=== PATIENT | female | born 1980 | race African-American/Black ===

== ENCOUNTER 2016-11-13 23:24 | Emergency (ER) | payer OTHER ==
[2016-11-14 00:20] VITALS: TEMP 98.3; BMI 45.8
[2016-11-14] MEDS ORDERED: SODIUM CHLORIDE 1,000 ML IV STA ×2 (00:36→05:40)
--- NOTE | 2016-11-14 00:36 | PDOC ---
History of Present Illness - General Chief Complaint: Blood Sugar Problem Stated Complaint: BLOOD SUGAR PROBLEM Time Seen by Provider: 11/13/16 23:57 History Source: Patient - History of Present Illness Initial Comments: 11/14/16 00:35 36 year old female zenon IDDM c/o hyperglycemia, drymouth, polyuria today. BGM at home read high. patient reports drinking "frappe" today. denies NVD, abdominal pain. Past History - Past Medical History Allergies/Adverse Reactions: Allergies Allergy/AdvReac Type Severity Reaction Status Date / Time fish derived Allergy Verified 04/02/16 01:01 hazelnut Allergy Verified 04/02/16 01:01 latex Allergy Verified 04/02/16 01:01 soy Allergy Verified 04/02/16 01:01 Home Medications: Ambulatory Orders Gabapentin [Neurontin] 300 mg PO BID 04/02/16 Insulin (LOG) Aspart [NovoLOG -] 12 units SQ AC 04/02/16 Insulin Aspart [Novolog] 14 unit SQ BID 04/02/16 Metformin HCl [Glucophage] 500 mg PO BID 04/02/16 Metoprolol Tartrate [Lopressor -] 50 mg PO DAILY 04/02/16 Alpha Lipoic Acid 1,000 gm PO DAILY 11/14/16 Famotidine [Pepcid -] 40 mg PO DAILY 11/14/16 Gabapentin 600 mg PO HS 11/14/16 Hydromorphone [Dilaudid -] 4 mg PO Q6H 11/14/16 Venlafaxine HCl ER [Effexor Xr -] 75 mg PO DAILY 11/14/16 Anemia: Yes Asthma: Yes Cardiac Disorders: No COPD: No Dementia: No Diabetes: Yes (IDDM) HTN: Yes (DIET CONTROLLED) - Immunization History Immunization Up to Date: Yes - Psycho/Social/Smoking Cessation Hx Anxiety: No Suicidal Ideation: No Smoking Status: Yes Smoking History: Never smoked Have you smoked in the past 12 months: No Number of Cigarettes Smoked Daily: 10 If you are a former smoker, when did you quit?: 2016 'Breaking Loose' booklet given: 11/23/15 Hx Alcohol Use: No Drug/Substance Use Hx: No Substance Use Type: None Hx Substance Use Treatment: No Review of Systems - Review of Systems Able to Perform ROS?: Yes Is the patient limited Greek proficient: No Respiratory: No: Symptoms reported, See HPI, Cough, Orthopnea, Shortness of Breath, SOB with Exertion, SOB at Rest, Stridor, Wheezing, Productive cough, Hemoptysis, Other ABD/GI: Yes: Other. No: Symptoms Reported, See HPI, Abdominal Distended, Abd. Pain w/ defecation, Blood Streaked Bowels, Constipated, Diarrhea, Difficulty Swallowing, Nausea, Poor Appetite, Poor Fluid Intake, Rectal Bleeding, Vomiting , Indigestion, Abdominal cramping, Tarry Stools Musculoskeletal: Yes: Back Pain. No: Symptoms Reported, See HPI, Gout, Joint Pain, Joint Swelling, Muscle Pain, Muscle Weakness, Neck Pain, Joint Stiffness, Other *Physical Exam - Vital Signs Last Vital Signs Temp Pulse Resp BP Pulse Ox 98.3 F 90 16 109/78 98 11/13/16 23:50 11/13/16 23:50 11/13/16 23:50 11/13/16 23:50 11/13/16 23:50 - Physical Exam General Appearance: Yes: Appropriately Dressed Respiratory/Chest: positive: Lungs Clear, Normal Breath Sounds Cardiovascular: positive: Regular Rhythm, Regular Rate Gastrointestinal/Abdominal: positive: Normal Bowel Sounds, Soft Extremity: positive: Pelvis Stable Integumentary: positive: Normal Color, Dry, Warm Neurologic: positive: Fully Oriented, Alert, Normal Mood/Affect ED Treatment Course - LABORATORY CBC & Chemistry Diagram: 11/14/16 01:09 11/14/16 01:09 - ADDITIONAL ORDERS Additional order review: Laboratory Results 11/14/16 00:02 POC Glucometer [id number] 11/14/16 00:02 POC Glucometer [id number] 11/14/16 06:42 Medical Decision Making - Medical Decision Making 11/14/16 03:04 A: Hyperglycemia P: IVF CBC CMP: VBG: ph: 7.31 11/14/16 05:00 patient reports back pain patient currently on dilaudid 4mg q4h. will give her prescribed dose of dilaudid. 11/14/16 06:29 finger stick BGM 324. patient is feeling better. will d/c home. will give insulin 4 units now. will recheck in 40 mins. patient signed out to Elizabeth VELAZQUEZ. *DC/Admit/Observation/Transfer Diagnosis at time of Disposition: Hyperglycemia Back pain Qualifiers: Back pain location: low back pain Chronicity: acute Back pain laterality: bilateral Sciatica presence: without sciatica Qualified Code(s): M54.5 - Low back pain - Discharge Dispostion Disposition: HOME - Referrals Referrals: Babar Mckeon [Primary Care Provider] - - Patient Instructions Printed Discharge Instructions: DI for Hyperglycemia -- Adult Additional Instructions: avoid high carb diet. drink plenty of fluids. follow up with your organisation and methods analyst as soon as possible. return to the ER If symptoms worsen.
--- NOTE | 2016-11-14 00:39 | PDOC ---
*Physical Exam - Vital Signs Last Vital Signs Temp Pulse Resp BP Pulse Ox 98.3 F 90 16 109/78 98 11/13/16 23:50 11/13/16 23:50 11/13/16 23:50 11/13/16 23:50 11/13/16 23:50 ED Treatment Course - LABORATORY CBC & Chemistry Diagram: 11/14/16 01:09 11/14/16 01:09 - ADDITIONAL ORDERS Additional order review: Laboratory Results 11/14/16 00:02 POC Glucometer [id number] 11/14/16 00:02 POC Glucometer [id number] Medical Decision Making - Medical Decision Making 11/14/16 00:38 agree with care from TIANNA Reinoso *DC/Admit/Observation/Transfer Diagnosis at time of Disposition: Hyperglycemia, Back pain - Discharge Dispostion Disposition: HOME Condition at time of disposition: Improved - Referrals Referrals: Babar Mckeon [Primary Care Provider] - - Patient Instructions Printed Discharge Instructions: DI for Hyperglycemia -- Adult Additional Instructions: Resume your home meds Please follow up with your PMD and endocrinology Avoid high carb diet. Drink plenty of fluids. Return to the ER If symptoms worsen.
[2016-11-14 01:19] LABS: VENOUS PH 7.31 (7.32-7.42)
[2016-11-14 01:20] LABS: VENOUS BLOOD GAS HCO3 26.4 meq/L (19-25)
[2016-11-14 01:40] LABS: BASOPHIL 0.5 % (0-2.0); EOSINOPHIL 0.9 % (0-4.5); MCHC 32.5 g/dl (32.0-36.0); MEAN CELL VOLUME 79.9 fl (80-96); MEAN PLT VOLUME 8.9 fl (7.5-11.1); NEUTROPHILS 60.1 % (42.8-82.8); PLATELET COUNT 279 K/MM3 (134-434); RDW 16.5 % (11.6-15.6); WHITE BLOOD COUNT 8.7 K/mm3 (4.0-10.0)
[2016-11-14 01:57] LABS: INR 0.93 (0.82-1.09); PROTHROMBIN TIME (PATIENT) 10.2 SEC (9.98-11.88)
[2016-11-14 02:11] LABS: ALBUMIN 3.7 g/dl (3.4-5.0); ANION GAP 16 (8-16); BILIRUBIN,TOTAL 0.2 mg/dL (0.2-1.0); CALCIUM 9.3 mg/dL (8.5-10.1); CO2 27 mmol/L (21-32); COCKROFT - GAULT 177.8115; CREATININE 0.9 mg/dL (0.55-1.02); SGOT/AST 24 U/L (15-37); SGPT/ALT 40 U/L (12-78); TOT PROT 7.6 g/dl (6.4-8.2)
[2016-11-14 02:13] LABS: ALK PHOS 122 U/L (45-117); TROPONIN I < 0.02 ng/ml (0.00-0.05)
[2016-11-14 02:21] LABS: GLUCOSE,RANDOM 327 mg/dL (74-106)
[2016-11-14] MEDS ORDERED: SODIUM CHLORIDE 1,000 ML IV SCH (03:00)
[2016-11-14] MEDS ORDERED: INSULIN REGULAR HUMAN 100 UNITS/ML *VIAL IVPUSH ONE ×3 (03:39→07:40)
[2016-11-14] MEDS ORDERED: INSULIN REGULAR HUMAN 100 UNITS/ML *VIAL ONE ×2 (03:56→06:42)
[2016-11-14 04:57] LABS: URINE APPEARANCE CLEAR; URINE BILIRUBIN NEGATIVE (NEGATIVE); URINE COLOR STRAW; URINE GLUCOSE (UA) 3+ (NEGATIVE); URINE KETONE TRACE (NEGATIVE); URINE LEUK ESTERASE NEGATIVE (NEGATIVE); URINE NITRITE NEGATIVE (NEGATIVE); URINE PROTEIN NEGATIVE (NEGATIVE); URINE UROBILINOGEN NEGATIVE E.U./dl (0.2-1.0)
[2016-11-14] MEDS ORDERED: HYDROmorphone HCL 2 MG TABLET PO ONE (05:00)
[2016-11-14] MEDS ORDERED: HYDROmorphone HCL 2 MG TABLET ONE (05:19)
[2016-11-14 05:38] LABS: URINE BLOOD 1+ (NEGATIVE)
[2016-11-14] MEDS ORDERED: ONDANSETRON 4 MG TABLET PO ONE (07:11)
[2016-11-14] MEDS ORDERED: ONDANSETRON *ODT* 4 MG TABLET ONE (07:26)
--- NOTE | 2016-11-14 07:45 | PDOC ---
*Physical Exam - Vital Signs Last Vital Signs Temp Pulse Resp BP Pulse Ox 98.3 F 92 H 16 130/67 97 11/14/16 06:53 11/14/16 06:53 11/14/16 06:53 11/14/16 06:53 11/14/16 06:53 - Physical Exam General Appearance: Yes: Appropriately Dressed. No: Apparent Distress HEENT: positive: Normal Voice Neck: positive: Supple Respiratory/Chest: negative: Respiratory Distress Gastrointestinal/Abdominal: positive: Soft. negative: Tender Integumentary: positive: Dry, Warm Neurologic: positive: Fully Oriented, Alert, Normal Mood/Affect ED Treatment Course - LABORATORY CBC & Chemistry Diagram: 11/14/16 01:09 11/14/16 01:09 - ADDITIONAL ORDERS Additional order review: Laboratory Results 11/14/16 11/14/16 11/14/16 06:36 05:09 05:00 INR VBG pH POC VBG pCO2 POC VBG pO2 Mixed VBG HCO3 Sodium Potassium Chloride Carbon Dioxide Anion Gap BUN Creatinine Creat Clearance w eGFR POC Glucometer 324.85788 316.47158 Random Glucose Calcium Total Bilirubin AST ALT Alkaline Phosphatase Creatine Kinase Troponin I Total Protein Albumin Urine Color Straw Urine Appearance Clear Urine pH 6.0 Ur Specific [place] 1.020 Urine Protein Negative Urine Glucose (UA) 3+ H Urine Ketones Trace H Urine Blood 1+ H Urine Nitrite Negative Urine Bilirubin Negative Urine Urobilinogen Negative Ur Leukocyte Esterase Negative 11/14/16 11/14/16 11/14/16 01:09 01:09 01:07 INR 0.93 VBG pH 7.31 L POC VBG pCO2 53.9 H POC VBG pO2 38.4 Mixed VBG HCO3 26.4 H Sodium 136 Potassium 4.2 Chloride 93 L Carbon Dioxide 27 Anion Gap 16 BUN 10 Creatinine 0.9 Creat Clearance w eGFR > 60 POC Glucometer Random Glucose 327 H* Calcium 9.3 Total Bilirubin 0.2 D AST 24 D ALT 40 D Alkaline Phosphatase 122 H Creatine Kinase 145 Troponin I < 0.02 Total Protein 7.6 Albumin 3.7 Urine Color Urine Appearance Urine pH Ur Specific [place] Urine Protein Urine Glucose (UA) Urine Ketones Urine Blood Urine Nitrite Urine Bilirubin Urine Urobilinogen Ur Leukocyte Esterase 11/14/16 00:02 INR VBG pH POC VBG pCO2 POC VBG pO2 Mixed VBG HCO3 Sodium Potassium Chloride Carbon Dioxide Anion Gap BUN Creatinine Creat Clearance w eGFR POC Glucometer [id number] Random Glucose Calcium Total Bilirubin AST ALT Alkaline Phosphatase Creatine Kinase Troponin I Total Protein Albumin Urine Color Urine Appearance Urine pH Ur Specific [place] Urine Protein Urine Glucose (UA) Urine Ketones Urine Blood Urine Nitrite Urine Bilirubin Urine Urobilinogen Ur Leukocyte Esterase 11/14/16 11/14/16 11/14/16 06:36 05:09 01:09 RBC 4.88 MCV 79.9 L MCHC 32.5 RDW 16.5 H D MPV 8.9 Neutrophils % 60.1 Lymphocytes % 32.8 Monocytes % 5.7 Eosinophils % 0.9 Basophils % 0.5 POC Glucometer 324.40425 316.14394 11/14/16 00:02 RBC MCV MCHC RDW MPV Neutrophils % Lymphocytes % Monocytes % Eosinophils % Basophils % POC Glucometer [id number] - Medications Given in the ED: ED Medications Discontinued Medications Generic Name Dose Route Start Last Admin Trade Name Freq PRN Reason Stop Dose Admin Hydromorphone HCl 4 mg 11/14/16 05:00 11/14/16 05:19 Dilaudid - PO 11/14/16 05:01 4 mg ONCE ONE Administration Sodium Chloride 1,000 mls @ 1,000 mls/hr 11/14/16 00:36 11/14/16 01:09 Normal Saline - IV 11/14/16 01:35 1,000 mls/hr .Q1H STA Administration Sodium Chloride 1,000 mls @ 1,000 mls/hr 11/14/16 05:40 11/14/16 05:40 Normal Saline - IV 11/14/16 06:39 1,000 mls/hr ASDIR STA Administration Insulin Human Regular 4 units 11/14/16 03:39 11/14/16 04:04 Novolin R Vial *For Ivpush Or Iv Drip Only* IVPUSH 11/14/16 03:40 4 unit ONCE ONE Administration Insulin Human Regular 4 units 11/14/16 06:39 11/14/16 06:49 Novolin R Vial *For Ivpush Or Iv Drip Only* IVPUSH 11/14/16 06:40 4 units ONCE ONE Administration Ondansetron HCl 4 mg 11/14/16 07:11 11/14/16 07:30 Zofran - PO 11/14/16 07:12 4 mg ONCE ONE Administration Medical Decision Making - Medical Decision Making 11/14/16 07:41 Patient signed out to me at 7 AM Patient is a 36-year-old obese female with history of insulin-dependent diabetic , currently on metformin and short acting insulin, was on long-acting insulin in the past, but insurance no longer covers medication, last HA1C 9 per pt, here with hyperglycemia after frapuccino intake. S/p IVF and insulin w/ fingerstick now 324. Patient also given Zofran for nausea. Labs unremarkable, no evidence of complications at this time, i.e. DKA. On reassessment, patient states she is feeling better. States blood sugar at home runs in the 200-300 range. Pt currently in the process of getting an endocrinology referral from her PMD. Will give another 4 units w/ rpt FS prior to discharge 11/14/16 08:30 Fingerstick now 302. Pt well halie and stable and reports feeling better. Will dc to f/u with PMD and endocrinology 11/14/16 08:30 11/14/16 08:31 *DC/Admit/Observation/Transfer Diagnosis at time of Disposition: Hyperglycemia Back pain Qualifiers: Back pain location: low back pain Chronicity: acute Back pain laterality: bilateral Sciatica presence: without sciatica Qualified Code(s): M54.5 - Low back pain - Discharge Dispostion Disposition: HOME Condition at time of disposition: Improved - Referrals Referrals: Babar Mckeon [Primary Care Provider] - - Patient Instructions Printed Discharge Instructions: DI for Hyperglycemia -- Adult Additional Instructions: Resume your home meds Please follow up with your PMD and endocrinology Avoid high carb diet. Drink plenty of fluids. Return to the ER If symptoms worsen. - Post Discharge Activity
[2016-11-14 08:46] VITALS: BP 120/95; PULSE 90
== END 2016-11-14 08:46 | disposition home or self-care (01) ==
LOC: JER 23:24
PROC: 3E033VG Introduction of Insulin into Peripheral Vein, Percutaneous Approach (ICD-10-PCS; principal; 2016-11-13)
PROC: 3E033GC Introduction of Other Therapeutic Substance into Peripheral Vein, Percutaneous Approach (ICD-10-PCS; 2016-11-13)
PROC: 3E0337Z Introduction of Electrolytic and Water Balance Substance into Peripheral Vein, Percutaneous Approach (ICD-10-PCS; 2016-11-13)
DX: E11.65 Type 2 diabetes mellitus with hyperglycemia (principal); Z79.4 Long term (current) use of insulin; J45.909 Unspecified asthma, uncomplicated; Z87.891 Personal history of nicotine dependence; M54.5 Low back pain
CPT/HCPCS: 36415; 80053; 81003; 81015; 82550; 82803; 84484; 85025; 85610; 96361; 96374; 96375; 96376; 99283-25

== ENCOUNTER 2017-06-11 13:18 | Inpatient (IN) | payer OTHER ==
[2017-06-11 13:25] VITALS: BMI 43.7
--- NOTE | 2017-06-11 14:07 | PDOC ---
History of Present Illness - General History Source: Patient, Spouse Exam Limitations: No Limitations - History of Present Illness Initial Comments: 06/11/17 15:26 The patient is a 36 year old female with a significant PMH of asthma, hypertension, insulin dependent diabetes, DVT (left leg, 10/2015), arthritis who presents to the emergency department with worsening left leg pain and swelling beginning approximately 5 days ago. The patient describes the left leg pain as originally radiating from the left knee to the groin but has recently begun to radiate to her left foot. The patient also notes chronic lower back pain which she reports is now shooting into different parts of her body. The patient reports that her lower left leg pain is similar to her previous DVT. The patient denies falling, tripping, or recent injury to her left leg. The patient reports regularly using a rolling walker, but has recently switched over to a cane due to her leg pain. The patient denies any chance she is . The patient appears significantly uncomfortable at presentation. The patient denies chest pain, shortness of breath, headache and dizziness. Denies fever, chills, nausea, vomit, diarrhea and constipation. Denies dysuria, frequency, urgency and hematuria. Allergies: Latex Past surgical history: None reported. Social history:Former smoker (quit in 2015). No reported alcohol or drug abuse. PCP: Dr. Mckeon <Ilya Boyce - Last Filed: 06/11/17 15:30> <Esau Valencia - Last Filed: 06/14/17 19:11> - General Chief Complaint: Pain Stated Complaint: BACK PAIN Time Seen by Provider: 06/11/17 14:07 Past History <Ilya Boyce - Last Filed: 06/11/17 15:30> - Past Medical History Anemia: Yes Asthma: Yes Cardiac Disorders: No COPD: No Dementia: No Diabetes: Yes (IDDM) HTN: Yes Other medical history: history of lle dvt, spinal stenosis - Immunization History Immunization Up to Date: Yes - Suicide/Smoking/Psychosocial Hx Smoking Status: Yes Smoking History: Never smoked Have you smoked in the past 12 months: No Number of Cigarettes Smoked Daily: 10 If you are a former smoker, when did you quit?: 2016 Information on smoking cessation initiated: No 'Breaking Loose' booklet given: 11/23/15 Hx Alcohol Use: No Drug/Substance Use Hx: No Substance Use Type: None Hx Substance Use Treatment: No <Esau Valencia - Last Filed: 06/14/17 19:11> - Past Medical History Allergies/Adverse Reactions: Allergies Allergy/AdvReac Type Severity Reaction Status Date / Time fish derived Allergy Verified 06/11/17 13:20 hazelnut Allergy Verified 06/11/17 13:20 latex Allergy Verified 06/11/17 13:20 soy Allergy Verified 06/11/17 13:20 Home Medications: Ambulatory Orders Metformin HCl [Glucophage] 500 mg PO BID 04/02/16 Metoprolol Tartrate [Lopressor -] 50 mg PO DAILY 04/02/16 Amlodipine Besylate [Norvasc -] 5 mg PO DAILY #30 tablet MDD 1 06/14/17 Docusate Sodium [Colace -] 100 mg PO TID #21 capsule MDD 3 06/14/17 Gabapentin [Neurontin -] 900 mg PO TID #90 capsule MDD 3 06/14/17 Insulin (Levemir) [Levemir Vial] 20 units SQ AM #100 ml MDD 1 06/14/17 Insulin Glargine,Hum.rec.anlog [Basaglar Kwikpen U-100] 20 unit SQ ACHS #1 insuln.pen MDD 1 06/14/17 Metformin HCl [Glucophage -] 500 mg PO BID@0700,1630 #60 tablet MDD 2 06/14/17 Morphine Sulfate [Morphine Sulfate ER] 15 mg PO BID #10 tablet.er MDD 2 Oxycodone Sr [Oxycontin] 20 mg PO BID 7 Days #10 tab.er.12h MDD 2 06/14/17 Polyethylene Glycol 3350 [Miralax (For Daily Use) -] 17 gm PO DAILY #1 bottle MDD 1 06/14/17 Venlafaxine HCl ER [Effexor Xr -] 150 mg PO DAILY #30 cap.er.24h MDD 1 06/14/17 Review of Systems - Review of Systems Able to Perform ROS?: Yes Comments:: 06/11/17 15:26 A complete review of 10 out of 10 review of systems is taken and is negative apart from what is previously mentioned below and in the HPI. <Ilya Boyce - Last Filed: 06/11/17 15:30> *Physical Exam - Vital Signs Last Vital Signs Temp Pulse Resp BP Pulse Ox 98.3 F 84 18 142/88 100 06/11/17 13:21 06/11/17 13:21 06/11/17 13:21 06/11/17 13:21 06/11/17 13:21 - Physical Exam Comments: 06/11/17 15:30 General Appearance: (+) Uncomfortable appearing. well nourished well developed, Chest Wall: Nontender Cardiac: Regular rate and rhythm, no murmurs, no rubs, no gallops, Lungs: Clear to auscultation bilateral, good air movement bilaterally, Abdomen: Soft, nondistended, normal bowel sounds, nontender to palpation Back: (+) Lower back discomfort. Extremities: (+) Left calf tenderness. Full range of motion to all extremities , no cyanosis, clubbing, or edema Skin: Warm and dry, no rashes or lesions, no petechiae Neuro: AOX3; Cranial Nerves 2-12 grossly intact, Strength intact to all extremities, Sensation intact to all extremities. Psych: normal mood, normal affect <Ilya Boyce - Last Filed: 06/11/17 15:30> - Vital Signs Last Vital Signs Temp Pulse Resp BP Pulse Ox 98.3 F 84 18 142/88 100 06/11/17 13:21 06/11/17 13:21 06/11/17 13:21 06/11/17 13:21 06/11/17 13:21 <Esau Valencia - Last Filed: 06/14/17 19:11> ED Treatment Course - LABORATORY CBC & Chemistry Diagram: 06/11/17 14:34 06/11/17 14:34 - Medications Given in the ED: ED Medications Discontinued Medications Generic Name Dose Route Start Last Admin Trade Name Freq PRN Reason Stop Dose Admin Diphenhydramine HCl 50 mg 06/11/17 14:23 06/11/17 14:58 Benadryl Injection - IVPB 06/11/17 14:24 50 mg ONCE ONE Administration Hydromorphone HCl 0.5 mg 06/11/17 14:23 06/11/17 14:58 Dilaudid Injection - IVPUSH 06/11/17 14:24 0.5 mg ONCE ONE Administration Sodium Chloride 1,000 ml 06/11/17 14:23 06/11/17 14:58 Normal Saline - IV 06/11/17 14:24 1,000 ml ONCE ONE Administration <Ilya Boyce - Last Filed: 06/11/17 15:30> - LABORATORY CBC & Chemistry Diagram: 06/13/17 06:10 06/13/17 06:10 <Esau Valencia - Last Filed: 06/14/17 19:11> Medical Decision Making - Medical Decision Making 06/11/17 15:26 Plan: Lab: Activated PTT, BMP, CBC, CMP, D-Dimer, HCG, N-terminal, PT/INR, Serum , Troponin I, UA Medications: Diphenhydramine, Hydromorphone, NaCl Radiology: Vascular left leg US <Ilya Boyce - Last Filed: 06/11/17 15:30> - Medical Decision Making 06/11/17 19:07 36 years old on disability secondary to severe low back pain. No acute trauma patient with difficulty walking secondary to pain no weakness no numbness no urinary or bladder incontinence. Despite multiple attempts at pain control patient unable to transfer comfortably out from that. We'll observe overnight for MRI lumbar spine, pain control and further management <Esau Valencia - Last Filed: 06/14/17 19:11> *DC/Admit/Observation/Transfer - Attestations Scribe Attestion: 06/11/17 15:31 Documentation prepared by Ilya Boyce, acting as medical collections for Esau Valencia MD. <Ilya Boyce - Last Filed: 06/11/17 15:30> - Discharge Dispostion Admit: Yes <Esau Valencia - Last Filed: 06/14/17 19:11> Diagnosis at time of Disposition: Backache - Discharge Dispostion Disposition: HOME Condition at time of disposition: Guarded
[2017-06-11] MEDS ORDERED: HYDROmorphone HCL CARPU-JECT 1 MG/1 ML DISP.SYRIN IVPUSH ONE ×2 (14:23→16:45)
[2017-06-11] MEDS ORDERED: SODIUM CHLORIDE 0.9% 1000 ML INFUS.BAG IV ONE (14:23)
[2017-06-11] MEDS ORDERED: HYDROmorphone HCL CARPU-JECT 1 MG/1 ML DISP.SYRIN ONE ×3 (14:49→21:44)
[2017-06-11 14:54] LABS: BASOPHIL 0.8 % (0-2.0); EOSINOPHIL 0.5 % (0-4.5); MCH 28.6 pg (25.7-33.7); MCHC 32.3 g/dl (32.0-36.0); MEAN CELL VOLUME 88.7 fl (80-96); MEAN PLT VOLUME 8.4 fl (7.5-11.1); NEUTROPHILS 67.7 % (42.8-82.8); PLATELET COUNT 294 K/MM3 (134-434); RDW 13.9 % (11.6-15.6); WHITE BLOOD COUNT 10.1 K/mm3 (4.0-10.0)
[2017-06-11 15:16] LABS: PROTHROMBIN TIME (PATIENT) 11.3 SEC (9.98-11.88)
[2017-06-11 15:19] LABS: ACTIVATED PTT 28.1 SECONDS (26.9-34.4)
[2017-06-11 15:30] LABS: ALBUMIN 3.6 g/dl (3.4-5.0); ANION GAP 9 (8-16); CALCIUM 9.2 mg/dL (8.5-10.1); CO2 26 mmol/L (21-32); CREATININE 0.7 mg/dL (0.55-1.02); GLUCOSE,RANDOM 265 mg/dL (74-106); SGOT/AST 19 U/L (15-37); SGPT/ALT 28 U/L (12-78)
[2017-06-11 15:34] LABS: ALK PHOS 100 U/L (45-117); BILIRUBIN,TOTAL 0.3 mg/dL (0.2-1.0); TOT PROT 7.2 g/dl (6.4-8.2); TROPONIN I < 0.02 ng/ml (0.00-0.05)
[2017-06-11] MEDS ORDERED: diazePAM 5 MG TABLET PO ONE (16:45)
[2017-06-11] MEDS ORDERED: KETOROLAC TROMETHAMINE 30 MG/1 ML VIAL IVPUSH ONE (16:45)
[2017-06-11] MEDS ORDERED: KETOROLAC TROMETHAMINE 30 MG/1 ML VIAL ONE (17:09)
[2017-06-11] MEDS ORDERED: diazePAM 5 MG TABLET ONE (17:10)
[2017-06-11] MEDS: HYDROmorphone HCL CARPU-JECT 1 MG/1 ML DISP.SYRIN IVPUSH PRN (21:50)
[2017-06-11] MEDS ORDERED: INSULIN (NOVOLOG) ASPART 100 UNITS/ML 10ML VIAL SQ SCH (22:00)
[2017-06-11] MEDS ORDERED: GABAPENTIN 300 MG CAPSULE (FP) PO SCH (22:00)
[2017-06-11] MEDS: HEPARIN NA (PORCINE) 5,000 UNITS/ML 1ML VIAL SQ SCH (23:52)
[2017-06-11] MEDS: GABAPENTIN 300 MG CAPSULE (FP) PO SCH (23:53)
[2017-06-12] MEDS: HYDROmorphone HCL CARPU-JECT 1 MG/1 ML DISP.SYRIN IVPUSH PRN (01:53)
[2017-06-12 05:12] LABS: URINE APPEARANCE CLEAR; URINE BILIRUBIN NEGATIVE (NEGATIVE); URINE BLOOD 1+ (NEGATIVE); URINE COLOR STRAW; URINE GLUCOSE (UA) NEGATIVE (NEGATIVE); URINE KETONE NEGATIVE (NEGATIVE); URINE NITRITE NEGATIVE (NEGATIVE); URINE PROTEIN NEGATIVE (NEGATIVE); URINE UROBILINOGEN NEGATIVE mg/dL (0.2-1.0)
[2017-06-12 05:14] LABS: URINE BACTERIA RARE /hpf (NONE SEEN); URINE RBC <1 /hpf (0-3); URINE WBC 1 /hpf (3-5)
[2017-06-12] MEDS: HYDROmorphone HCL CARPU-JECT 1 MG/1 ML DISP.SYRIN IVPB PRN ×3 (06:40→15:30)
[2017-06-12] MEDS: metFORMIN HCL 500 MG TABLET (FP) PO SCH ×2 (06:41→17:40)
[2017-06-12] MEDS: INSULIN SLIDING SCALE (NOVOLOG) 1 VIAL SQ SCH ×4 (06:46→21:41)
[2017-06-12 09:50] LABS: URINE LEUK ESTERASE Negative (NEGATIVE)
--- NOTE | 2017-06-12 10:29 | CONSULT ---
Consult - text type - Consultation Consultation Note: Neurology History of Present Illness The patient is a 36 year old female with a significant PMH of asthma, hypertension, insulin dependent diabetes, DVT (left leg, 10/2015), arthritis who presented to the emergency department with worsening left leg pain and swelling beginning approximately 5 days ago. The patient described the left leg pain as originally radiating from the left knee to the groin but has recently begun to radiate to her left foot. The patient also notes chronic lower back pain which she reports radiates down as well. The patient reports that her lower left leg pain is similar to her previous DVT. Dopplers were checked and I reviewed them, did not show any new DVT. The patient denies falling, tripping, or recent injury to her left leg. The patient reports regularly using a rolling walker, but has recently switched over to a cane due to her leg pain. She was admitted and completed MRI L spine, awaiting report, images reviewed by me and appears to have multilevel disc herniations, most prominent at L5/S1 with bilateral neural foramina narrowing. Discussed with her treatment options, previously was seeing Dr. Ceja but he is not longer in the area. She had seen Dr. Ahuja once before. She had received epidural steroid injections in the past with some relief. Past History - Past Medical History Anemia: Yes Asthma: Yes Cardiac Disorders: No COPD: No Dementia: No Diabetes: Yes (IDDM) HTN: Yes Other medical history: history of lle dvt, spinal stenosis - Immunization History Immunization Up to Date: Yes - Suicide/Smoking/Psychosocial Hx Smoking Status: Yes Smoking History: Never smoked Have you smoked in the past 12 months: No Number of Cigarettes Smoked Daily: 10 If you are a former smoker, when did you quit?: 2016 Information on smoking cessation initiated: No 'Breaking Loose' booklet given: 11/23/15 Hx Alcohol Use: No Drug/Substance Use Hx: No Substance Use Type: None Hx Substance Use Treatment: No - Past Medical History Allergies/Adverse Reactions: Allergies Allergy/AdvReac Type Severity Reaction Status Date / Time fish derived Allergy Verified 06/11/17 13:20 hazelnut Allergy Verified 06/11/17 13:20 latex Allergy Verified 06/11/17 13:20 soy Allergy Verified 06/11/17 13:20 Home Medications: Ambulatory Orders Gabapentin [Neurontin] 300 mg PO BID 04/02/16 Insulin (LOG) Aspart [NovoLOG -] 12 units SQ AC 04/02/16 Insulin Aspart [Novolog] 14 unit SQ BID 04/02/16 Metformin HCl [Glucophage] 500 mg PO BID 04/02/16 Metoprolol Tartrate [Lopressor -] 50 mg PO DAILY 04/02/16 Alpha Lipoic Acid 1,000 gm PO DAILY 11/14/16 Gabapentin 600 mg PO HS 11/14/16 Review of Systems - Review of Systems Able to Perform ROS?: Yes Comments:: A complete review of 10 out of 10 review of systems is taken and is negative apart from what is previously mentioned below and in the HPI. *Physical Exam Vital Signs Temperature 98.4 F 06/12/17 06:00 Pulse Rate 86 06/12/17 06:00 Respiratory Rate 18 06/12/17 06:00 Blood Pressure 120/79 06/12/17 06:00 O2 Sat by Pulse Oximetry (%) 97 06/11/17 23:00 General Appearance: (+) Uncomfortable appearing. well nourished well developed, Chest Wall: Nontender Cardiac: Regular rate and rhythm, no murmurs, no rubs, no gallops, Lungs: Clear to auscultation bilateral, good air movement bilaterally, Abdomen: Soft, nondistended, normal bowel sounds, nontender to palpation Back: (+) Lower back discomfort. Extremities: (+) Left calf tenderness. Full range of motion to all extremities , no cyanosis, clubbing, or edema Skin: Warm and dry, no rashes or lesions, no petechiae Neuro: AOX3; Cranial Nerves 2-12 grossly intact, Strength limited by pain, grossly intact but with giveway, Sensation intact to all extremities. Reflexes 1 +, Gait deferred Psych: normal mood, normal affect CBCD WBC 10.1 K/mm3 (4.0-10.0) H 06/11/17 14:34 RBC 4.73 M/mm3 (3.60-5.2) 06/11/17 14:34 Hgb 13.6 GM/dL (10.7-15.3) 06/11/17 14:34 Hct 42.0 % (32.4-45.2) 06/11/17 14:34 MCV 88.7 fl (80-96) 06/11/17 14:34 MCHC 32.3 g/dl (32.0-36.0) 06/11/17 14:34 RDW 13.9 % (11.6-15.6) D 06/11/17 14:34 Plt Count 294 K/MM3 (134-434) 06/11/17 14:34 MPV 8.4 fl (7.5-11.1) 06/11/17 14:34 CMP Sodium 135 mmol/L (136-145) L 06/11/17 14:34 Potassium 4.3 mmol/L (3.5-5.1) 06/11/17 14:34 Chloride 100 mmol/L (98-107) 06/11/17 14:34 Carbon Dioxide 26 mmol/L (21-32) 06/11/17 14:34 Anion Gap 9 (8-16) 06/11/17 14:34 BUN 11 mg/dL (7-18) 06/11/17 14:34 Creatinine 0.7 mg/dL (0.55-1.02) D 06/11/17 14:34 Creat Clearance w eGFR > 60 (>60) 06/11/17 14:34 Calcium 9.2 mg/dL (8.5-10.1) 06/11/17 14:34 Total Bilirubin 0.3 mg/dL (0.2-1.0) D 06/11/17 14:34 AST 19 U/L (15-37) D 06/11/17 14:34 ALT 28 U/L (12-78) D 06/11/17 14:34 Alkaline Phosphatase 100 U/L (45-117) 06/11/17 14:34 Total Protein 7.2 g/dl (6.4-8.2) 06/11/17 14:34 Albumin 3.6 g/dl (3.4-5.0) 06/11/17 14:34 Medical Decision Making 36 year old female with a significant PMH of asthma, hypertension, insulin dependent diabetes, DVT (left leg, 10/2015), arthritis who presented to the emergency department with worsening left leg pain and swelling beginning approximately 5 days ago. The patient described the left leg pain as originally radiating from the left knee to the groin but has recently begun to radiate to her left foot. The patient also notes chronic lower back pain which she reports radiates down as well. The patient reports that her lower left leg pain is similar to her previous DVT. Dopplers were checked and I reviewed them, did not show any new DVT. She was admitted and completed MRI L spine, awaiting report, images reviewed by me and appears to have multilevel disc herniations with neural foramina narrowing and moderate stenosis. Discussed with her treatment options, previously was seeing Dr. Ceja but he is not longer in the area. Will increase gabapentin at this time Likely will need pain mgmt evaluation for medication and possible injections Is currently on Dilaudid but denies relief Follow up official read of MRI L spine Rest encouraged, hold off on physical therapy until pain better controlled Fall precautions DVT ppx
[2017-06-12] MEDS: HEPARIN NA (PORCINE) 5,000 UNITS/ML 1ML VIAL SQ SCH ×2 (10:30→21:37)
[2017-06-12] MEDS: METOPROLOL TARTRATE 50 MG TABLET (FP) PO SCH (10:30)
[2017-06-12] MEDS: GABAPENTIN 300 MG CAPSULE (FP) PO SCH ×3 (10:30→21:41)
[2017-06-12] MEDS ORDERED: GABAPENTIN 300 MG CAPSULE (FP) PO SCH (10:33)
[2017-06-12] MEDS ORDERED: HYDROmorphone HCL CARPU-JECT 2 MG/1 ML DISP.SYRIN IVPB PRN (15:19)
[2017-06-12] MEDS ORDERED: INSULIN (NOVOLOG) ASPART 100 UNITS/ML 10ML VIAL ONE (17:27)
[2017-06-12] MEDS ORDERED: METHOCARBAMOL 500 MG TABLET PO SCH (19:00)
--- NOTE | 2017-06-12 19:12 | HP ---
Admitting History and Physical - Primary Care Physician PCP: Bri Davis - Admission Chief Complaint: left leg pain History of Present Illness: The patient is a 36 year old female with a significant PMH of asthma, hypertension, insulin dependent diabetes, DVT (left leg, 10/2015), arthritis who presents to the emergency department with worsening left leg pain and swelling beginning approximately 5 days ago. The patient describes the left leg pain as originally radiating from the left knee to the groin but has recently begun to radiate to her left foot. The patient also notes chronic lower back pain which she reports is now shooting into different parts of her body. The patient reports that her lower left leg pain is similar to her previous DVT. The patient denies falling, tripping, or recent injury to her left leg. The patient reports regularly using a rolling walker, but has recently switched over to a cane due to her leg pain. The patient denies any chance she is . The patient appears significantly uncomfortable at presentation. The patient denies chest pain, shortness of breath, headache and dizziness. Denies fever, chills, nausea, vomit, diarrhea and constipation. Denies dysuria, frequency, urgency and hematuria. History Source: Patient, Medical Record, Transfer Record Limitations to Obtaining History: No Limitations - Past Medical History Cardiovascular: Yes: HTN ...LMP: 04/26/15 - Smoking History Smoking history: Former smoker Have you smoked in the past 12 months: No Aproximately how many cigarettes per day: 10 If you are a former smoker, when did you quit?: 2016 - Alcohol/Substance Use Hx Alcohol Use: No Home Medications - Allergies Allergies/Adverse Reactions: Allergies Allergy/AdvReac Type Severity Reaction Status Date / Time fish derived Allergy Verified 06/11/17 13:20 hazelnut Allergy Verified 06/11/17 13:20 latex Allergy Verified 06/11/17 13:20 soy Allergy Verified 06/11/17 13:20 - Home Medications Home Medications: Ambulatory Orders Gabapentin [Neurontin] 300 mg PO BID 04/02/16 Insulin (LOG) Aspart [NovoLOG -] 12 units SQ AC 04/02/16 Insulin Aspart [Novolog] 14 unit SQ BID 04/02/16 Metformin HCl [Glucophage] 500 mg PO BID 04/02/16 Metoprolol Tartrate [Lopressor -] 50 mg PO DAILY 04/02/16 Alpha Lipoic Acid 1,000 gm PO DAILY 11/14/16 Gabapentin 600 mg PO HS 11/14/16 Review of Systems - Review of Systems Constitutional: reports: No Symptoms Eyes: reports: No Symptoms HENT: reports: No Symptoms Neck: reports: No Symptoms Cardiovascular: reports: No Symptoms Physical Examination Vital Signs: Vital Signs Temperature 97.5 F L 06/12/17 14:04 Pulse Rate 79 06/12/17 14:04 Respiratory Rate 20 06/12/17 10:00 Blood Pressure 149/77 06/12/17 14:04 O2 Sat by Pulse Oximetry (%) 97 06/12/17 09:00 Labs: CBC, BMP 06/11/17 14:34 06/11/17 14:34
[2017-06-12] MEDS ORDERED: DOCUSATE SODIUM 100 MG CAPSULE (FP) PO PRN (19:13)
--- NOTE | 2017-06-12 19:15 | CONSULT ---
Consult Consult Specialty:: pain medicine Referred by:: hospitalist Reason for Consultation:: back pain - History of Present Illness Chief Complaint: back pain History of Present Illness: 36 year old female with a significant PMH of asthma, hypertension, insulin dependent diabetes, DVT (left leg, 10/2015), arthritis who presents to the emergency department with worsening left leg pain and swelling beginning approximately 5 days ago. The patient describes the left leg pain as originally radiating from the left knee to the groin but has recently begun to radiate to her left foot. The patient also notes chronic lower back pain which she reports is now shooting into different parts of her body. Her MRI was reviewed- L5S1 disc herniation is present. Patient reports following up with a pain mgmt doctor who performed multiple injections without much relief. - Past Medical History Cardio/Vascular: Yes: HTN ...LMP: 04/26/15 - Alcohol/Substance Use Hx Alcohol Use: No - Smoking History Smoking history: Former smoker Have you smoked in the past 12 months: No Aproximately how many cigarettes per day: 10 If you are a former smoker, when did you quit?: 2016 Home Medications - Allergies Allergies/Adverse Reactions: Allergies Allergy/AdvReac Type Severity Reaction Status Date / Time fish derived Allergy Verified 06/11/17 13:20 hazelnut Allergy Verified 06/11/17 13:20 latex Allergy Verified 06/11/17 13:20 soy Allergy Verified 06/11/17 13:20 - Home Medications Home Medications: Ambulatory Orders Gabapentin [Neurontin] 300 mg PO BID 04/02/16 Insulin (LOG) Aspart [NovoLOG -] 12 units SQ AC 04/02/16 Insulin Aspart [Novolog] 14 unit SQ BID 04/02/16 Metformin HCl [Glucophage] 500 mg PO BID 04/02/16 Metoprolol Tartrate [Lopressor -] 50 mg PO DAILY 04/02/16 Alpha Lipoic Acid 1,000 gm PO DAILY 11/14/16 Gabapentin 600 mg PO HS 11/14/16 Physical Exam Vital Signs: Vital Signs Temperature 97.7 F 06/12/17 17:00 Pulse Rate 77 06/12/17 17:00 Respiratory Rate 18 06/12/17 17:00 Blood Pressure 137/90 06/12/17 17:00 O2 Sat by Pulse Oximetry (%) 97 06/12/17 09:00 Musculoskeletal: Yes: Back Pain Labs: CBC, BMP 06/11/17 14:34 06/11/17 14:34 Assessment/Plan Lumbar radiculopathy secondary to L5S1 disc herniation- chronic Obesity Anxiety 1. Pharmacological- COntinue to titrate gabapentin Would recommend switching IV dilaudid to PO dilaudid as patient is tolerating orals 4mg PO q4h prn pain. Patient education of opioid therapy not recommened for chronic pain. Consider muscle relaxants Consider tylenol prn pain 2. Consider psychiatry evaluation for anxiety 3. I would not recommend any futher interventional options- patient reports several injections in the past without much relief.
[2017-06-13] MEDS: GABAPENTIN 300 MG CAPSULE (FP) PO SCH ×4 (05:41→21:28)
[2017-06-13] MEDS: metFORMIN HCL 500 MG TABLET (FP) PO SCH ×2 (06:13→17:24)
[2017-06-13] MEDS: INSULIN SLIDING SCALE (NOVOLOG) 1 VIAL SQ SCH ×4 (06:14→21:27)
[2017-06-13 07:25] LABS: ALBUMIN 3.4 g/dl (3.4-5.0); ANION GAP 4 (8-16); CALCIUM 8.9 mg/dL (8.5-10.1); CO2 30 mmol/L (21-32); CREATININE 0.8 mg/dL (0.55-1.02); GLUCOSE,RANDOM 235 mg/dL (74-106); SGOT/AST 19 U/L (15-37)
[2017-06-13 08:18] LABS: BASOPHIL 0.5 % (0-2.0); EOSINOPHIL 1.3 % (0-4.5); MCHC 33.6 g/dl (32.0-36.0); MEAN CELL VOLUME 89.2 fl (80-96); MEAN PLT VOLUME 8.7 fl (7.5-11.1); NEUTROPHILS 59.5 % (42.8-82.8); PLATELET COUNT 269 K/MM3 (134-434); WHITE BLOOD COUNT 8.3 K/mm3 (4.0-10.0)
[2017-06-13 08:24] LABS: ALK PHOS 93 U/L (45-117); BILIRUBIN,TOTAL 0.4 mg/dL (0.2-1.0); SGPT/ALT 30 U/L (12-78); TOT PROT 6.7 g/dl (6.4-8.2)
--- NOTE | 2017-06-13 09:16 | PN ---
Progress Note (short form) - Note Progress Note: NEUROSURGERY CONSULT DICTATED Patient examined History obtained MRI reviewed from 2016 and yesterday H/o obesity, asthma, hypertension, insulin dependent diabetes, DVT (left LE, 2015 and treated with Xaralto for 6 months), arthritis who presented worsening left leg pain approximately 2-3 weeks ago. The patient described the left leg pain as originally radiating from the left knee to the groin but has recently begun to radiate to her left foot. + chronic lower back pain with sciatica. Some chronic weakness. NO new B/B dysfunction. Doppler did not show any new DVT. The patient denies falling, tripping, or recent injury to her left leg. Previously was seeing Dr. Ceja and saw Dr. Ahuja once. She had received 2 epidural steroid injections and ? facet rhizotomy in the past with marginal relief. PE: AF, VSS General- obese, uncomfortable CN- intact; Motor- at least 4+ except L IP 4- and L DF/PF 4, limited by pain; Sensory- hyperesthesia top L foot; DTR- 2+ except diminished B ankle DTR; + SLR on L at 40 degrees MRI - moderate central and R paracentral disc protrusion with thecal sac and R L5 root impingement; broad based L5-S1 disc bulge with lateral recess stenosis CT - facet hypertrophy with mild stenosis L4-5 and L5-S1 MRI ()- decreased HNP size at L4-5 with only remaining disc bulge; mild broad L5-S1 disc bulge without significant neurological element impingement L4-5 and L5-S1 DDD with recurrent L L5-S1 radiculopathy No doppler evidence of DVT MRI pathology has actually improved over last year's juan at L4-5 Do not recommend surgical intervention given medical conditions.weight and reality MRI has improved over previously F/u pain management for SCS if persistent issues Pain med adjustment Rehab
[2017-06-13] MEDS ORDERED: MAGNESIUM CITRATE 300 ML BOTTLE PO ONE (09:44)
[2017-06-13] MEDS ORDERED: PT OWN MED DRAWER 7, Y5N ONE (09:54)
[2017-06-13] MEDS: VENLAFAXINE HCL 75 MG E.R. CAPSULES (FP) PO SCH (11:02)
[2017-06-13] MEDS: METOPROLOL TARTRATE 50 MG TABLET (FP) PO SCH (11:02)
[2017-06-13] MEDS: CYANOCOBALAMIN 1,000 MCG TABLET (FP) PO SCH (11:02)
[2017-06-13] MEDS: HEPARIN NA (PORCINE) 5,000 UNITS/ML 1ML VIAL SQ SCH ×2 (11:05→21:28)
[2017-06-13] MEDS ORDERED: INSULIN (NOVOLOG) ASPART 100 UNITS/ML 10ML VIAL ONE ×2 (11:51→17:10)
--- NOTE | 2017-06-13 12:23 | PN ---
Progress Note, Physician Chief Complaint: Leg leg pain History of Present Illness: Patient is awake and alert, afebrile, not in respiratory distress. She verbalized that pain is better with current pain management but not fully controlled. Patient also wants to start physical therapy. - Current Medication List Current Medications: Active Medications Cyanocobalamin (Vitamin B12 -) 1,000 mcg PO DAILY [facility] Last Admin: 06/13/17 11:02 Dose: 1,000 mcg Docusate Sodium (Colace -) 100 mg PO BID PRN PRN Reason: CONSTIPATION Gabapentin (Neurontin -) 600 mg PO TID [facility] Last Admin: 06/13/17 05:41 Dose: 600 mg Heparin Sodium (Porcine) (Heparin -) 5,000 unit SQ BID [facility] Last Admin: 06/13/17 11:05 Dose: Not Given Hydromorphone HCl (Dilaudid -) 4 mg PO Q4H PRN PRN Reason: PAIN Last Admin: 06/13/17 11:06 Dose: 4 mg Insulin Aspart (Novolog Vial Sliding Scale -) 1 vial SQ ACHS [facility] PRN Reason: Protocol Last Admin: 06/13/17 11:58 Dose: 5 units Metformin HCl (Glucophage -) 500 mg PO BID@0700,1630 [facility] Last Admin: 06/13/17 06:13 Dose: 500 mg Metoprolol Tartrate (Lopressor -) 50 mg PO DAILY [facility] Last Admin: 06/13/17 11:02 Dose: 50 mg Venlafaxine HCl (Effexor Xr -) 150 mg PO DAILY [facility] Last Admin: 06/13/17 11:02 Dose: 150 mg - Objective Vital Signs: Vital Signs Temperature 98.1 F 06/13/17 06:00 Pulse Rate 75 06/13/17 06:00 Respiratory Rate 18 06/13/17 06:00 Blood Pressure 154/107 06/13/17 06:00 O2 Sat by Pulse Oximetry (%) 97 06/12/17 21:00 Constitutional: Yes: No Distress, Calm Eyes: Yes: EOM Intact HENT: Yes: Atraumatic, Normocephalic Neck: Yes: Supple, Trachea Midline Cardiovascular: Yes: Regular Rate and Rhythm, S1, S2 Respiratory: Yes: Regular, CTA Bilaterally Gastrointestinal: Yes: Normal Bowel Sounds, Abdomen, Obese Musculoskeletal: Yes: Back Pain (much better than yesterday) Neurological: Yes: Alert, Oriented Labs: CBC, BMP 06/13/17 06:10 06/13/17 06:10 INR, PTT INR 1.00 (0.82-1.09) 06/11/17 14:34 Problem List - Problems (1) Pain in left leg Assessment/Plan: -Dopplers negative for DVT -Continue pain mgt Code(s): M79.605 - PAIN IN LEFT LEG (2) Lumbar radiculopathy Assessment/Plan: -Neurology on board -MRI reviewed: multilevel disc herniations with neural foramina narrowing and moderate stenosis -Pain management -Physical therapy Code(s): M54.16 - RADICULOPATHY, LUMBAR REGION (3) Morbid obesity Assessment/Plan: -Low caloric diet Code(s): E66.01 - MORBID (SEVERE) OBESITY DUE TO EXCESS CALORIES (4) Diabetes Assessment/Plan: -Endo consult -BGM -Continue Metformin -Insulin SS Code(s): E11.9 - TYPE 2 DIABETES MELLITUS WITHOUT COMPLICATIONS Qualifiers: Diabetes mellitus type: type 2 Diabetes mellitus complication status: without complication (5) HTN (hypertension) Assessment/Plan: -On BB -BP monitoring Code(s): I10 - ESSENTIAL (PRIMARY) HYPERTENSION Assessment/Plan see problem list
--- NOTE | 2017-06-13 12:24 | PN ---
Progress Note (short form) - Note Progress Note: Neuro F/U covering for Malkani. Patient reports marked improvement in pain with oral pain medication, though still substantial. Dr. Naik's note appreciated. Would increase gabapentin to 900 tid and start gentle PT to begin to mobilize patient.
--- NOTE | 2017-06-13 13:21 | CONS ---
DATE OF CONSULTATION: DATE OF DICTATION: 06/13/2017 REQUESTING PHYSICIAN: Dr. Valencia BUTCHER FISH: Kemar Naik M.D.; Neurosurgery CHIEF COMPLAINT: Left lower extremity pain. HISTORY OF PRESENT ILLNESS: The patient is a 36-year-old right-handed female with history of diabetes, obesity, asthma, hypertension, and left lower extremity DVT , as well as osteoarthritis, who complains of 2-3 week history of recurrent left leg pain. Her pain started on the posterior aspect of the left knee and radiated to her left groin. The pain also subsequently radiated down her left lower leg. She had paresthesia on the top of the left foot. She has been having some subjective weakness of her left and right foot and leg. She had a history of DVT a year ago and was treated with 6 months of Xarelto. The ultrasound in the emergency room was negative. She had seen multiple pain management physicians in the past and received a couple of epidural steroid injections and possibly facet rhizotomy with marginal relief of her pain. She was recommended for a spinal cord stimulator by her pain management physician. PAST MEDICAL HISTORY: Significant for obesity, diabetes, hypertension, asthma, DVT, osteoarthritis. MEDICATIONS: Her current medications include: 1. Subcutaneous heparin. 2. Neurontin. 3. Effexor. 4. Metoprolol. 5. Metformin. 6. Colace. 7. Insulin. 8. Dilaudid. 9. Vitamin B12. ALLERGIES: FISH, LATEX AND SOY. SOCIAL HISTORY: She used to smoke, but quit a year ago when she developed DVT. She does not work. She lives at home. She does not drink any alcohol. REVIEW OF SYSTEMS: Otherwise is negative for other major constitutional, head and neck, cardiovascular, pulmonary, gastrointestinal, genitourinary, endocrinological, neurological, psychological problems, except for the above. PHYSICAL EXAMINATION: Vitals: Temperature is 98.1, blood pressure is 154/107 with pulse rate 75. Her prior blood pressure measurements were lower. O2 saturation is 97%. HEENT: Shows her to be normocephalic, atraumatic, anicteric. Neck: Supple with no carotid bruit. Coronary: Examination demonstrated regular rhythm. Lungs: Clear to auscultation bilaterally. Abdomen: Obese, but benign. Extremities: Shows no obvious signs of DVT. There is trace edema of the ankles bilaterally. Distal pulses are 1+. Neurologic: She is awake, alert and oriented x4. She is sitting up in bed. Cranial nerves examination was intact II to XII. Motor examination shows 4+/5 strength at least, except the left iliopsoas which is -4, as well as left quadriceps. Left dorsiflexion and plantar flexion are 4/5. Sensory examination demonstrated hyperesthesia on the dorsum of the left foot. She has intact vibratory sensation. Deep tendon reflexes are 2+ throughout, except for diminished bilateral ankle reflexes. She has a positive straight leg raise on the left side at 40 degrees. Gait was not tested for safety reasons. LABORATORY EXAMINATION: Shows a white blood cell count of 8.3, platelet count of 269,000, hemoglobin is 12.2, INR is 1.0 and PTT is 28.1. D-dimer was 152. BUN 8 and creatinine 0.8 respectively. Random glucose 235. Hemoglobin A1c is 10.8. CT scan of the lumbar spine performed in February 2016 demonstrated right L4-5 paracentral disk herniation with impingement of the right L5 nerve root. There was also L5-S1 paracentral disk herniation to the right at L5-S1 with right S1 nerve root impingement. There is mild foraminal narrowing bilaterally at L5-S1. MRI of the lumbar spine from 2016 demonstrated right L4-5 paracentral disk protrusion with partially extruded disk fragment with thecal sac and right L5 nerve root impingement. There is broad-based disk bulge at L5-s1. There is lateral recess stenosis L5-S1 bilaterally. There is moderate L4-5 stenosis on the right. The new MRI performed yesterday demonstrated broad-based disk bulge at L4-5. The previously noted centrally and right-sided paracentral disk protrusion/ extrusion is no longer visualized. There is spondylosis throughout. There is also broad- based disk bulge at L5-S1. There was mild lateral recess stenosis bilaterally, but that is not much changed. Doppler examination of bilateral lower extremity did not demonstrate any DVT in the left leg. IMPRESSION: 1. Recurrent left L5-S1 radiculopathy. 2. History of predominantly central and right-sided paracentral disk herniation L4-5, L5-S1, improved on MRI imaging. 3. History of left lower extremity deep vein thrombosis. 4. Obesity with diabetes. 5. Hypertension. 6. Osteoarthritis. RECOMMENDATIONS: The patient presents with 2-3 week history of some subjective weakness and increasing left lower extremity pain. On my examination, she has pain and limited weakness of the left lower extremity. The patient has received some physical therapy in the past, but not a significant amount of more aggressive rehabilitation regimen. She stated that she has tried to lose weight and has lost about 20 pounds also. Continued weight loss would be important in order to decrease the load on her lumbar spine. She also has osteoarthritis in her shoulder and elbows as well. She has undergone pain management injections, which helped her marginally by report. She was recommended to consider a spinal cord stimulator and held off that process because of her diabetes and the fear of infection. That is a reasonable approach. The patient has multiple risk factors and should minimize any invasive procedures, if possible. She had seen a surgeon from [facility] who recommended against surgery previously. The patient is on gabapentin 600 mg 3 times a day. If that is not helpful, it could be changed to Lyrica. The addition of an anti-inflammatory medication, such as Mobic, could be considered to manage her osteoarthritis. I discussed the patient's treatment options with her at the bedside in detail, as well as the pros and cons. The consensus is not to approach her lumbar condition surgically in light of her weight, diabetes, other medical conditions and the reality that MRI has improved over the last years. KEMAR NAIK M.D. [place]/[id number] cc: MTDD
--- NOTE | 2017-06-13 13:55 | CON.PSY ---
Psychiatry Consult Chief Complaint: 36 year pold AA female, lives with her two kids and Fiance. Patient has multiple chronic medical conditions. She reports having been depressed befotrecand was given Effexor with some benefit. Patient also has chronic pain syndrome. Symptoms: reports: Depressed Mood - Previous Psychiatric Treatment Outpatient: None Inpatient: None - Previous Substance Abuse Treatment Outpatient: None Inpatient: None - Reason for Previous Treatment Reason for Previous Treatment: Major Depression - Current Medications Current Medications: Active Medications Cyanocobalamin (Vitamin B12 -) 1,000 mcg PO DAILY [facility] Last Admin: 06/13/17 11:02 Dose: 1,000 mcg Docusate Sodium (Colace -) 100 mg PO BID PRN PRN Reason: CONSTIPATION Gabapentin (Neurontin -) 900 mg PO TID [facility] Heparin Sodium (Porcine) (Heparin -) 5,000 unit SQ BID [facility] Last Admin: 06/13/17 11:05 Dose: Not Given Hydromorphone HCl (Dilaudid -) 4 mg PO Q4H PRN PRN Reason: PAIN Last Admin: 06/13/17 11:06 Dose: 4 mg Insulin Aspart (Novolog Vial Sliding Scale -) 1 vial SQ ACHS [facility] PRN Reason: Protocol Last Admin: 06/13/17 11:58 Dose: 5 units Metformin HCl (Glucophage -) 500 mg PO BID@0700,1630 [facility] Last Admin: 06/13/17 06:13 Dose: 500 mg Metoprolol Tartrate (Lopressor -) 50 mg PO DAILY [facility] Last Admin: 06/13/17 11:02 Dose: 50 mg Venlafaxine HCl (Effexor Xr -) 150 mg PO DAILY [facility] Last Admin: 06/13/17 11:02 Dose: 150 mg - Allergies Allergies: Allergies Allergy/AdvReac Type Severity Reaction Status Date / Time fish derived Allergy Verified 06/11/17 13:20 hazelnut Allergy Verified 06/11/17 13:20 latex Allergy Verified 06/11/17 13:20 soy Allergy Verified 06/11/17 13:20 - Current Living Status Usual Living Arrangement: With Significant Other - Current Mental Status Evaluation Appearance: Well Groomed Attitude: Cooperative - Affect Affect: Constrictive Appropriateness: Appropriate to Content - Mood Mood: Euthymic - Speech/Language Expressive: Coherent - Psychomotor Activity Psychomotor Activity: Slowed - Thought Process Thought Process: Intact - Thought Content Hallucinations: Absent Delusions: Absent - Self Perception Self Perception: No Impairment - Cognition Attention: Alert Orientation: Time Memory, Immediate Recall: Intact Memory, Short Term: 3/3 Memory, Remote with Promptin/3 - Concentration Serial Sevens Intact: Yes Simple Calculations Intact: Yes - Abstraction Proverb Interpretation: Intact Judgement: Intact - Insight Insight: Intact - Impulse Control Impulse Control: Good Control - Suicidal Ideation Suicidal Ideation: No - Homicidal Ideation Homicidal Ideation: No Assessment/Plan 1`) Continue with Effexor 150mg po od. 2) Advised patient to seek Psych follow up upon Discharge.
[2017-06-13] MEDS: ONDANSETRON 4 MG TABLET PO PRN (20:41)
[2017-06-13] MEDS: amLODIPine BESYLATE 5 MG TABLET (FP) PO SCH (20:41)
[2017-06-14] MEDS: GABAPENTIN 300 MG CAPSULE (FP) PO SCH ×2 (06:16→14:56)
[2017-06-14] MEDS: metFORMIN HCL 500 MG TABLET (FP) PO SCH (06:16)
[2017-06-14] MEDS: INSULIN SLIDING SCALE (NOVOLOG) 1 VIAL SQ SCH ×2 (06:17→11:51)
[2017-06-14] MEDS ORDERED: INSULIN DETEMIR 100 UNITS/ML MDV SQ ONE (06:37)
[2017-06-14] MEDS ORDERED: INSULIN DETEMIR 100 UNITS/ML MDV SQ SCH (07:00)
[2017-06-14] MEDS ORDERED: PT OWN MED DRAWER 7, Y5N ONE (09:14)
[2017-06-14] MEDS: HEPARIN NA (PORCINE) 5,000 UNITS/ML 1ML VIAL SQ SCH (09:31)
[2017-06-14] MEDS: CYANOCOBALAMIN 1,000 MCG TABLET (FP) PO SCH (09:32)
[2017-06-14] MEDS: amLODIPine BESYLATE 5 MG TABLET (FP) PO SCH (09:32)
[2017-06-14] MEDS: VENLAFAXINE HCL 75 MG E.R. CAPSULES (FP) PO SCH (09:32)
[2017-06-14] MEDS: METOPROLOL TARTRATE 50 MG TABLET (FP) PO SCH (09:32)
[2017-06-14] MEDS: ONDANSETRON 4 MG TABLET PO PRN (09:32)
--- NOTE | 2017-06-14 09:40 | PN ---
Progress Note (short form) - Note Progress Note: NEUROSURGERY Still some constipation and nausea Did not eat much PE: AF, VSS General- obese, uncomfortable CN- intact; Motor- at least 4+ except L IP 4- and L DF/PF 4, limited by pain; Sensory- hyperesthesia top L foot; DTR- 2+ except diminished B ankle DTR; + SLR on L at 45 degrees MRI ()- decreased HNP size at L4-5 with only remaining disc bulge; mild broad L5-S1 disc bulge without significant neurological element impingement L4-5 and L5-S1 DDD with recurrent L L5-S1 radiculopathy No doppler evidence of DVT Do not recommend surgical intervention given medical conditions, weight and that MRI has improved over previously F/u pain management for SCS if persistent issues DVT prophylaxis per medical team Rehab
--- NOTE | 2017-06-14 11:50 | DS ---
Physical Examination Vital Signs: Vital Signs Temperature 98.2 F 06/14/17 06:00 Pulse Rate 91 H 06/14/17 06:00 Respiratory Rate 20 06/14/17 06:00 Blood Pressure 95/45 06/14/17 06:00 O2 Sat by Pulse Oximetry (%) 97 06/13/17 09:00 Labs: CBC, BMP 06/13/17 06:10 06/13/17 06:10 Discharge Summary Reason For Visit: INTRACTABLE LOWER BACK PAIN Current Active Problems Backache (Acute) Lumbar radiculopathy (Acute) Pain in left leg (Acute) - Instructions Referrals: Babar Mckeon [Primary Care Provider] - - Home Medications Comprehensive Discharge Medication List: Ambulatory Orders Gabapentin [Neurontin] 300 mg PO BID 04/02/16 Insulin (LOG) Aspart [NovoLOG -] 12 units SQ AC 04/02/16 Insulin Aspart [Novolog] 14 unit SQ BID 04/02/16 Metformin HCl [Glucophage] 500 mg PO BID 04/02/16 Metoprolol Tartrate [Lopressor -] 50 mg PO DAILY 04/02/16 Alpha Lipoic Acid 1,000 gm PO DAILY 11/14/16 Gabapentin 600 mg PO HS 11/14/16
[2017-06-14] MEDS ORDERED: DOCUSATE SODIUM 100 MG CAPSULE (FP) PO STA (11:53)
--- NOTE | 2017-06-14 11:56 | PN ---
Progress Note (short form) - Note Progress Note: Neuro F/U covering for Malkani. Patient reports marked improvement in pain with oral pain medication, reduced from 10/10 on admission to 6/10 while moving around. PT initiated and she was able to participate. Dr. Naik's note appreciated. Patient complains of pain waking her in the middle of the night because the hydromorphone is short acting , so will start Oxycontin 20 mg BID as the hydromorophone is as needed. Can reduce hydromorophone as tolerated.
--- NOTE | 2017-06-14 11:56 | DS ---
Physical Examination Vital Signs: Vital Signs Temperature 98.2 F 06/14/17 06:00 Pulse Rate 91 H 06/14/17 06:00 Respiratory Rate 20 06/14/17 06:00 Blood Pressure 95/45 06/14/17 06:00 O2 Sat by Pulse Oximetry (%) 97 06/13/17 09:00 complaining of leg pain but much better since she came in hospital this is my first encounter with Patient patient wants to go home with home PT does not want rehab Constitutional: Yes: Mild Distress (leg pain just got done with PT) Neck: Yes: Trachea Midline Cardiovascular: Yes: Regular Rate and Rhythm, S1, S2 Respiratory: Yes: CTA Bilaterally Gastrointestinal: Yes: Normal Bowel Sounds, Soft, Abdomen, Obese Edema: No Neurological: Yes: Alert, Oriented Labs: CBC, BMP 06/13/17 06:10 06/13/17 06:10 Discharge Summary Reason For Visit: INTRACTABLE LOWER BACK PAIN Current Active Problems Backache (Acute) Lumbar radiculopathy (Acute) Pain in left leg (Acute) Hospital Course: The patient is a 36 year old female with a significant PMH of asthma, hypertension, insulin dependent diabetes, DVT (left leg, 10/2015), arthritis who presents to the emergency department with worsening left leg pain and swelling beginning approximately 5 days ago. The patient describes the left leg pain as originally radiating from the left knee to the groin but has recently begun to radiate to her left foot. The patient also notes chronic lower back pain which she reports is now shooting into different parts of her body. The patient reports that her lower left leg pain is similar to her previous DVT. The patient denies falling, tripping, or recent injury to her left leg. The patient reports regularly using a rolling walker, but has recently switched over to a cane due to her leg pain. The patient denies any chance she is . The patient appears significantly uncomfortable at presentation. The patient denies chest pain, shortness of breath, headache and dizziness. Denies fever, chills, nausea, vomit, diarrhea and constipation. Denies dysuria, frequency, urgency and hematuria. History Source: Patient, Medical Record, Transfer Record- Limitations to Obtaining History: No Limitations - Past Medical History Cardiovascular: Yes: HTN ...LMP: 04/26/15 - Smoking History Smoking history: Former smoker Have you smoked in the past 12 months: No Aproximately how many cigarettes per day: 10 If you are a former smoker, when did you quit?: 2015 Doppler shows no DVT MRI shows L4-L5 anterolateral disc bulge. mild anterior disc bulge at L5-S1 seen by neuro and HANNY.- no surgical intervention needed,gabapentin 900mg tid , PT at home, oxycodin BID. has home health aide as well needs to FU at primary care clinic. miralax stool softeners DM seen by endocrine on metformin and levemir psych saw patient to continue effexor 150mg daily Condition: Guarded - Instructions Diet, Activity, Other Instructions: FU with neurologist in one week go to [facility] primary care clinic for PCP follow up Referrals: Babar Mckeon [Primary Care Provider] - Disposition: VNS/HOME HEALTH CARE - Home Medications Comprehensive Discharge Medication List: Ambulatory Orders Gabapentin [Neurontin] 300 mg PO BID 04/02/16 Insulin (LOG) Aspart [NovoLOG -] 12 units SQ AC 04/02/16 Insulin Aspart [Novolog] 14 unit SQ BID 04/02/16 Metformin HCl [Glucophage] 500 mg PO BID 04/02/16 Metoprolol Tartrate [Lopressor -] 50 mg PO DAILY 04/02/16 Alpha Lipoic Acid 1,000 gm PO DAILY 11/14/16 Gabapentin 600 mg PO HS 11/14/16
[2017-06-14] MEDS ORDERED: POLYETHYLENE GLYCOL 3350 119 GM BTL PO ONE (12:00)
[2017-06-14 13:41] VITALS: BP 123/77
[2017-06-14 15:44] VITALS: PULSE 76; TEMP 97.9
--- NOTE | 2017-06-14 21:44 | CONSULT ---
Consult Consult Specialty:: endocrine Referred by:: dr.saba kate Reason for Consultation:: diabetes mellitus - History of Present Illness Chief Complaint: high sugars History of Present Illness: 36yfdm,htn,diabetic neuropathy,has had elevated blood sugars admitted with nausea and weakness - History Source History Provided By: Patient - Past Medical History Cardio/Vascular: Yes: HTN ...LMP: 04/26/15 - Alcohol/Substance Use Hx Alcohol Use: No - Smoking History Smoking history: Never smoked Have you smoked in the past 12 months: No Aproximately how many cigarettes per day: 10 If you are a former smoker, when did you quit?: 2016 - Social History Usual Living Arrangement: With Significant Other Home Medications - Allergies Allergies/Adverse Reactions: Allergies Allergy/AdvReac Type Severity Reaction Status Date / Time fish derived Allergy Verified 06/11/17 13:20 hazelnut Allergy Verified 06/11/17 13:20 latex Allergy Verified 06/11/17 13:20 soy Allergy Verified 06/11/17 13:20 - Home Medications Home Medications: Ambulatory Orders Metformin HCl [Glucophage] 500 mg PO BID 04/02/16 Metoprolol Tartrate [Lopressor -] 50 mg PO DAILY 04/02/16 Amlodipine Besylate [Norvasc -] 5 mg PO DAILY #30 tablet MDD 1 06/14/17 Docusate Sodium [Colace -] 100 mg PO TID #21 capsule MDD 3 06/14/17 Gabapentin [Neurontin -] 900 mg PO TID #90 capsule MDD 3 06/14/17 Insulin (Levemir) [Levemir Vial] 20 units SQ AM #100 ml MDD 1 06/14/17 Insulin Glargine,Hum.rec.anlog [Basaglar Kwikpen U-100] 20 unit SQ ACHS #1 insuln.pen MDD 1 06/14/17 Metformin HCl [Glucophage -] 500 mg PO BID@0700,1630 #60 tablet MDD 2 06/14/17 Morphine Sulfate [Morphine Sulfate ER] 15 mg PO BID #10 tablet.er MDD 2 Oxycodone Sr [Oxycontin] 20 mg PO BID 7 Days #10 tab.er.12h MDD 2 06/14/17 Polyethylene Glycol 3350 [Miralax (For Daily Use) -] 17 gm PO DAILY #1 bottle MDD 1 06/14/17 Venlafaxine HCl ER [Effexor Xr -] 150 mg PO DAILY #30 cap.er.24h MDD 1 06/14/17 Review of Systems - Review of Systems Constitutional: reports: Weakness Eyes: reports: No Symptoms HENT: reports: No Symptoms Neck: reports: No Symptoms Cardiovascular: reports: No Symptoms Respiratory: reports: Exercise Intolerance Gastrointestinal: reports: Abdominal Pain Genitourinary: reports: No Symptoms Breasts: reports: No Symptoms Reported Musculoskeletal: reports: Back Pain, Extremity Pain, Muscle Pain, Muscle Cramps Integumentary: reports: No Symptoms Neurological: reports: Dizziness, Weakness Endocrine: reports: No Symptoms Physical Exam Vital Signs: Vital Signs Temperature 97.9 F 06/14/17 14:05 Pulse Rate 76 06/14/17 14:05 Respiratory Rate 20 06/14/17 14:05 Blood Pressure 123/77 06/14/17 10:00 O2 Sat by Pulse Oximetry (%) 97 06/13/17 09:00 Constitutional: Yes: Anxious Eyes: Yes: EOM Intact HENT: Yes: Normocephalic Neck: Yes: Trachea Midline Cardiovascular: Yes: Regular Rate and Rhythm Respiratory: Yes: CTA Bilaterally Gastrointestinal: Yes: Normal Bowel Sounds ...Rectal Exam: Yes: Deferred Musculoskeletal: Yes: WNL Extremities: Yes: WNL Neurological: Yes: Alert, Oriented Labs: CBC, BMP 06/13/17 06:10 06/13/17 06:10 Problem List - Problems (1) Controlled diabetes mellitus type 2 with complications Code(s): E11.8 - TYPE 2 DIABETES MELLITUS WITH UNSPECIFIED COMPLICATIONS (2) Abdominal pain Code(s): R10.9 - UNSPECIFIED ABDOMINAL PAIN (3) Back pain Code(s): M54.9 - DORSALGIA, UNSPECIFIED Qualifiers: Back pain location: low back pain Chronicity: acute Back pain laterality : bilateral Sciatica presence: without sciatica Qualified Code(s): M54.5 - Low back pain (4) Backache Code(s): M54.9 - DORSALGIA, UNSPECIFIED (5) Bronchitis Code(s): J40 - BRONCHITIS, NOT SPECIFIED ACUTE OR CHRONIC Assessment/Plan dm hyperglycemia diabetic neuropathy htn Laboratory Results - last 24 hr 06/13/17 06/14/17 06/14/17 21:25 06:14 11:48 POC Glucometer 209 206 332 Laboratory Tests 06/13/17 06/13/17 06/13/17 06:10 06:10 06:10 WBC 8.3 Hct 36.4 MCV 89.2 MCH 30.0 MCHC 33.6 RDW 14.0 MPV 8.7 Sodium 136 Potassium 4.7 Chloride 102 Carbon Dioxide 30 Anion Gap 4 L BUN 8 D Creatinine 0.8 Creat Clearance w eGFR > 60 POC Glucometer Random Glucose 235 H Hemoglobin A1c % 10.8 H D 06/13/17 06/13/17 06/13/17 11:56 17:22 18:16 WBC Hct MCV MCH MCHC RDW MPV Sodium Potassium Chloride Carbon Dioxide Anion Gap BUN Creatinine Creat Clearance w eGFR POC Glucometer 274 268 268 Random Glucose Hemoglobin A1c % 06/13/17 06/14/17 21:25 11:48 WBC Hct MCV MCH MCHC RDW MPV Sodium Potassium Chloride Carbon Dioxide Anion Gap BUN Creatinine Creat Clearance w eGFR POC Glucometer 209 332 Random Glucose Hemoglobin A1c % plan: bgm qid novolog scale resume levemir dose 20 units am follow up as outpatient to manage bs and tight controll
[2017-06-14] MEDS ORDERED: oxyCODONE HCL 10 MG SUSTAINED ACTING TABLET PO SCH (22:00)
== END 2017-06-14 14:00 | disposition home health service (06) | DRG 347 ==
LOC: JER 13:18 → JERBED 20:39 → J5S 23:48
PROVIDERS: ADMIT Internal Medicine; ATTEND Family Medicine
DX: M51.27 Other intervertebral disc displacement, lumbosacral region (principal); E11.40 Type 2 diabetes mellitus with diabetic neuropathy, unspecified; E11.65 Type 2 diabetes mellitus with hyperglycemia; R10.9 Unspecified abdominal pain; M54.5 Low back pain; J40 Bronchitis, not specified as acute or chronic; I10 Essential (primary) hypertension; M54.16 Radiculopathy, lumbar region; Z87.891 Personal history of nicotine dependence; M79.605 Pain in left leg; E66.01 Morbid (severe) obesity due to excess calories; Z68.41 Body mass index [BMI] 40.0-44.9, adult; M48.00 Spinal stenosis, site unspecified; K59.00 Constipation, unspecified
CPT/HCPCS: 36415; 72148-TC; 80048; 80053; 81003; 81015; 82607; 83036; 83880; 84484; 84703; 85025; 85379; 85610; 85730; 93971-TC; 97116-GP; 97161-GP; 99282-25; J1644

== ENCOUNTER 2017-08-03 23:54 | Emergency (ER) | payer OTHER ==
[2017-08-04 01:30] VITALS: BP 159/86; PULSE 86; TEMP 98.1; BMI 40.1
[2017-08-04 02:07] LABS: BASO % 0.3 % (0-2.0); HEMATOCRIT 38.3 % (32.4-45.2); HEMOGLOBIN 12.7 GM/dL (10.7-15.3); MCH 29.5 pg (25.7-33.7); MCHC 33.1 g/dl (32.0-36.0); MEAN CELL VOLUME 89.3 fl (80-96); MEAN PLT VOLUME 8.2 fl (7.5-11.1); NEUT % 61.7 % (42.8-82.8); PLATELET COUNT 281 K/MM3 (134-434); RBC 4.29 M/mm3 (3.60-5.2); RDW 13.9 % (11.6-15.6); WHITE BLOOD COUNT 8.4 K/mm3 (4.0-10.0)
[2017-08-04 02:21] LABS: INR 0.9 (0.82-1.09); PROTHROMBIN TIME (PATIENT) 10.2 SEC (9.98-11.88)
[2017-08-04 02:23] LABS: ACTIVATED PTT 28.5 SECONDS (26.9-34.4)
[2017-08-04 02:30] LABS: ALBUMIN 3.4 g/dl (3.4-5.0); ANION GAP 8 (8-16); BILIRUBIN,TOTAL 0.1 mg/dL (0.2-1.0); BLOOD UREA NITROGEN 9 mg/dL (7-18); CALCIUM 9.1 mg/dL (8.5-10.1); CHLORIDE 100 mmol/L (98-107); CO2 28 mmol/L (21-32); POTASSIUM 4.7 mmol/L (3.5-5.1); SGOT/AST 9 U/L (15-37); SGPT/ALT 19 U/L (12-78); SODIUM 136 mmol/L (136-145); TOT PROT 7.1 g/dl (6.4-8.2)
[2017-08-04 02:32] LABS: URINE APPEARANCE CLEAR; URINE BILIRUBIN NEGATIVE (NEGATIVE); URINE BLOOD NEGATIVE (NEGATIVE); URINE COLOR STRAW; URINE GLUCOSE (UA) 3+ (NEGATIVE); URINE KETONE NEGATIVE (NEGATIVE); URINE LEUK ESTERASE NEGATIVE (NEGATIVE); URINE NITRITE NEGATIVE (NEGATIVE); URINE PROTEIN NEGATIVE (NEGATIVE); URINE UROBILINOGEN NEGATIVE mg/dL (0.2-1.0)
[2017-08-04 02:32] LABS: ALK PHOS 116 U/L (45-117)
[2017-08-04 02:34] LABS: GLUCOSE,RANDOM 437 mg/dL (74-106)
[2017-08-04] MEDS ORDERED: INSULIN REGULAR HUMAN 100 UNITS/ML *VIAL SQ ONE (02:39)
--- NOTE | 2017-08-04 02:45 | PDOC ---
History of Present Illness - General Chief Complaint: Shortness of Breath Stated Complaint: S.O.B Time Seen by Provider: 08/04/17 01:00 History Source: Patient Exam Limitations: No Limitations - History of Present Illness Initial Comments: 08/04/17 02:41 37yo Female patient w/ PmHx: IDDM, Asthma, HTN, Neuropathy, Arthritis, Chronic Back Pain, Spinal Stenosis presents to ED c/o cough, tingling in back of throat x 1 week that worsened. She reports having right sided back pain that radiates to chest and painful when taking a deep breathe. Patient states last night she experienced CP with diff breathing that improved but can still be felt. LNMP: Jul 12. Timing/Duration: reports: week. denies: just prior to arrival, other, constant , changing over time, getting worse, gone now, intermittent, yesterday, this afternoon, this evening, this morning Severity: reports: mild. denies: moderate, severe Episode Description: See HPI Possible Cause: No: no prior episodes, other, allergen exposure, chronic episodes, frequent episodes, illness exposure, irritant gases exposure, occasional episodes, smoke exposure, unknown cause Modifying Factors: worse with: activity, albuterol inhaler, albuterol nebulizer , antibiotics, coughing, lying down, oxygen, rest, other Associated Symptoms: denies: denies symptoms, chest pain/soreness, cough, dizziness, earache, facial pain, fever/chills, headache, lightheadedness, muscle aches, nasal congestion, nasal drainage, shortness of breath, sinus infection, sore throat, wheezing, other Past History - Travel Traveled outside of the country in the last 30 days: No Close contact w/someone who was outside of country & ill: No - Past Medical History Allergies/Adverse Reactions: Allergies Allergy/AdvReac Type Severity Reaction Status Date / Time fish derived Allergy Verified 08/04/17 01:31 hazelnut Allergy Verified 08/04/17 01:31 latex Allergy Verified 08/04/17 01:31 soy Allergy Verified 08/04/17 01:31 Home Medications: Ambulatory Orders Metformin HCl [Glucophage] 500 mg PO BID 04/02/16 Metoprolol Tartrate [Lopressor -] 50 mg PO DAILY 04/02/16 Amlodipine Besylate [Norvasc -] 5 mg PO DAILY #30 tablet MDD 1 06/14/17 Docusate Sodium [Colace -] 100 mg PO TID #21 capsule MDD 3 06/14/17 Gabapentin [Neurontin -] 900 mg PO TID #90 capsule MDD 3 06/14/17 Insulin (Levemir) [Levemir Vial] 20 units SQ AM #100 ml MDD 1 06/14/17 Insulin Glargine,Hum.rec.anlog [Basaglar Kwikpen U-100] 20 unit SQ ACHS #1 insuln.pen MDD 1 06/14/17 Metformin HCl [Glucophage -] 500 mg PO BID@0700,1630 #60 tablet MDD 2 06/14/17 Morphine Sulfate [Morphine Sulfate ER] 15 mg PO BID #10 tablet.er MDD 2 Oxycodone Sr [Oxycontin] 20 mg PO BID 7 Days #10 tab.er.12h MDD 2 06/14/17 Polyethylene Glycol 3350 [Miralax (For Daily Use) -] 17 gm PO DAILY #1 bottle MDD 1 06/14/17 Venlafaxine HCl ER [Effexor Xr -] 150 mg PO DAILY #30 cap.er.24h MDD 1 06/14/17 Acetaminophen W/ Codeine Liq [Tylenol .W/Codeine Oral Solution -] 5 ml PO Q8H PRN #120 ml MDD 15 mL 08/04/17 Azithromycin [Zithromax -] 250 mg PO DAILY #4 tablet 08/04/17 Prednisone [Prednisone 50 MG TABLETS] 50 mg PO DAILY #3 tablet 08/04/17 Anemia: Yes Asthma: Yes Cardiac Disorders: No COPD: No Dementia: No Diabetes: Yes (IDDM) HTN: Yes - Immunization History Immunization Up to Date: Yes - Suicide/Smoking/Psychosocial Hx Smoking Status: Yes Smoking History: Never smoked Have you smoked in the past 12 months: No Number of Cigarettes Smoked Daily: 10 If you are a former smoker, when did you quit?: 2016 Information on smoking cessation initiated: No 'Breaking Loose' booklet given: 11/23/15 Hx Alcohol Use: No Drug/Substance Use Hx: No Substance Use Type: None Hx Substance Use Treatment: No Respiratory Specific PMHX - Complaint Specific PMHX Angina: No Bronchitis: No Pneumonia: No Pulmonary Embolus: No TB (Tuberculosis): No Review of Systems - Review of Systems Able to Perform ROS?: Yes Is the patient limited Frisian proficient: No Constitutional: No: Chills, Fever, Night Sweats, Weakness Respiratory: Yes: Cough. No: Shortness of Breath, SOB with Exertion, SOB at Rest, Stridor, Wheezing Cardiac (ROS): Yes: Chest Pain. No: Irregular Heart Rate, Palpitations, Syncope , Chest Tightness ABD/GI: No: Constipated, Diarrhea, Nausea, Poor Appetite, Poor Fluid Intake, Vomiting : No: Burning, Dysuria, Hematuria Musculoskeletal: No: Back Pain All Other Systems: Reviewed and Negative *Physical Exam - Vital Signs Last Vital Signs Temp Pulse Resp BP Pulse Ox 98.1 F 86 22 159/86 99 08/04/17 01:28 08/04/17 01:28 08/04/17 01:28 08/04/17 01:28 08/04/17 01:28 - Physical Exam General Appearance: Yes: Nourished, Appropriately Dressed. No: Apparent Distress, Mild Distress, Moderate Distress, Severe Distress Neck: positive: Trachea midline, Supple. negative: Lymphadenopathy (R), Lymphadenopathy (L), Tender lateral, Tender midline Respiratory/Chest: positive: Lungs Clear, Normal Breath Sounds. negative: Chest Tender, Respiratory Distress, Accessory Muscle Use, Labored Respiration, Rapid RR, Crackles, Rhonchi, Stridor, Wheezing, Hyperresonant Cardiovascular: positive: Regular Rhythm, Regular Rate Musculoskeletal: positive: Normal Inspection. negative: CVA Tenderness Extremity: positive: Normal Capillary Refill, Normal Inspection, Normal Range of Motion. negative: Pedal Edema, Swelling, Calf Tenderness, Erythema, Inflammation Integumentary: positive: Normal Color, Dry, Warm Neurologic: positive: electrical prospecting observer II-XII NML intact, Fully Oriented, Alert, Normal Mood/ Affect, Normal Response, Motor Strength 5/5 ED Treatment Course - LABORATORY CBC & Chemistry Diagram: 08/04/17 01:58 08/04/17 01:58 - ADDITIONAL ORDERS Additional order review: Laboratory Results 08/04/17 08/04/17 08/04/17 02:19 01:58 01:58 PT with INR 10.20 INR 0.90 PTT (Actin FS) 28.5 D-Dimer 396 Sodium 136 Potassium 4.7 Chloride 100 Carbon Dioxide 28 Anion Gap 8 BUN 9 Creatinine 1.0 Creat Clearance w eGFR > 60 Random Glucose 437 H* Calcium 9.1 Total Bilirubin 0.1 L D AST 9 L D ALT 19 D Alkaline Phosphatase 116 Troponin I < 0.02 Total Protein 7.1 Albumin 3.4 Urine HCG, Qual Negative 08/04/17 01:58 RBC 4.29 MCV 89.3 MCHC 33.1 RDW 13.9 MPV 8.2 Neutrophils % 61.7 Lymphocytes % 33.0 Monocytes % 4.0 Eosinophils % 1.0 Basophils % 0.3 - RADIOLOGY Radiology Studies Ordered: Category Date Time Status CHEST PA & LAT [RAD] Stat Radiology 08/04/17 01:23 Taken *DC/Admit/Observation/Transfer Diagnosis at time of Disposition: Bronchitis, Hyperglycemia - Discharge Dispostion Disposition: HOME Condition at time of disposition: Improved Admit: No - Prescriptions Prescriptions: Acetaminophen W/ Codeine Liq [Tylenol .W/Codeine Oral Solution -] 5 ml PO Q8H PRN #120 ml MDD 15 mL PRN Reason: Cough Azithromycin [Zithromax -] 250 mg PO DAILY #4 tablet Prednisone [Prednisone 50 MG TABLETS] 50 mg PO DAILY #3 tablet - Referrals - Patient Instructions Printed Discharge Instructions: DI for Acute Bronchitis Additional Instructions: Take medications as prescribed. Do not drive, drink alcohol, or operate heavy machinery while taking Tylenol with Codeine. Drink plenty fluids (water). Check your blood sugar 4 times a day (every 6 hours) and before meals. You need to monitor this because it can make illness worse. Return if any concerns for further evaluation. We are here for you 24 hours a day. Print Language: SYRIAC - Post Discharge Activity
[2017-08-04] MEDS ORDERED: AZITHROMYCIN 250 MG TABLET PO ONE (03:21)
[2017-08-04] MEDS ORDERED: INSULIN REGULAR HUMAN 100 UNITS/ML *VIAL ONE (03:21)
[2017-08-04] MEDS ORDERED: ACETAMINOPHEN W/ CODEINE LIQ 5 ML CUP PO ONE (03:21)
[2017-08-04] MEDS ORDERED: ACETAMINOPHEN W/ CODEINE LIQ 5 ML CUP ONE (03:43)
[2017-08-04] MEDS ORDERED: AZITHROMYCIN 500 MG TABLET ONE (03:43)
[2017-08-04] MEDS ORDERED: HEMOQUE TEST 1 EACH EACH ONE (04:28)
[2017-08-04] MEDS ORDERED: HEMOQUE CONTROL SOLUTION ONE (04:30)
== END 2017-08-04 05:05 | disposition home or self-care (01) ==
LOC: JER 23:54
PROC: 3E013VG Introduction of Insulin into Subcutaneous Tissue, Percutaneous Approach (ICD-10-PCS; principal; 2017-08-03)
DX: J40 Bronchitis, not specified as acute or chronic (principal); E11.65 Type 2 diabetes mellitus with hyperglycemia; Z79.4 Long term (current) use of insulin
CPT/HCPCS: 36415; 71046-TC; 80053; 81003; 82962; 84484; 84703; 85025; 85379; 85610; 85730; 96372; 99282-25

== ENCOUNTER 2017-08-14 06:52 | Emergency (ER) | payer OTHER ==
[2017-08-14 07:17] VITALS: BMI 44.8
--- NOTE | 2017-08-14 08:51 | PDOC ---
History of Present Illness - General History Source: Patient Exam Limitations: No Limitations - History of Present Illness Initial Comments: 08/14/17 09:20 The patient is a 37 year old female, with a significant past medical history of asthma, hypertension, diabetes(insulin dependent), and chronic back pain, who presents to the emergency department complaining of shortness of breath, productive cough, headache and right facial swelling s/p eating Tuna fish last night. Patient reports her symptoms began with a right frontal headache at approximately 03:30 this morning. She states she then developed right eye swelling and blurry vision, throat swelling, shortness of breath, cough nausea , and vomiting(nonbloody/nonbilious). She reports a history of anaphylaxis in the past. She denies any fever, chills, or dizziness. She endorses chest tightness, but denies any chest pain, diaphoresis, palpitations, or lower extremity edema. She denies any abdominal pain, diarrhea, or constipation. She denies any dysuria, hematuria, frequency, or urgency. She denies any recent travel or sick contacts.. Allergies: Fish derived, hazelnut, latex, soy Past Surgical History: Social History: Former smoker. No ETOH or recreational drug use. <Ingrid Power - Last Filed: 08/14/17 09:20> <Sissy Betts - Last Filed: 08/14/17 12:59> - General Chief Complaint: Edema Stated Complaint: ALLERGIC REACTION,ELEVATED BLOOD PRESSURE Time Seen by Provider: 08/14/17 08:18 Past History <Ingrid Power - Last Filed: 08/14/17 09:20> - Past Medical History Anemia: Yes Asthma: Yes Cardiac Disorders: No COPD: No Dementia: No Diabetes: Yes (IDDM) HTN: Yes - Surgical History Abdominal Surgery: Yes - Immunization History Immunization Up to Date: Yes - Suicide/Smoking/Psychosocial Hx Smoking Status: Yes Smoking History: Former smoker Have you smoked in the past 12 months: No Number of Cigarettes Smoked Daily: 10 If you are a former smoker, when did you quit?: 2016 Information on smoking cessation initiated: No 'Breaking Loose' booklet given: 11/23/15 Hx Alcohol Use: No Drug/Substance Use Hx: No Substance Use Type: None Hx Substance Use Treatment: No <Sissy Betts - Last Filed: 08/14/17 12:59> - Past Medical History Allergies/Adverse Reactions: Allergies Allergy/AdvReac Type Severity Reaction Status Date / Time fish derived Allergy Verified 08/14/17 07:09 hazelnut Allergy Verified 08/14/17 07:09 latex Allergy Verified 08/14/17 07:09 soy Allergy Verified 08/14/17 07:09 Home Medications: Ambulatory Orders Metformin HCl [Glucophage] 500 mg PO BID 04/02/16 Metoprolol Tartrate [Lopressor -] 50 mg PO DAILY 04/02/16 Amlodipine Besylate [Norvasc -] 5 mg PO DAILY #30 tablet MDD 1 06/14/17 Docusate Sodium [Colace -] 100 mg PO TID #21 capsule MDD 3 06/14/17 Venlafaxine HCl ER [Effexor Xr -] 150 mg PO DAILY #30 cap.er.24h MDD 1 06/14/17 Albuterol 0.083% Nebulizer [place] [Ventolin 0.083% Nebulizer Soln -] 1 neb NEB Q6H #30 vial 08/14/17 Amlodipine Besylate [Norvasc -] 5 mg PO DAILY #30 tablet 08/14/17 Diphenhydramine [Benadryl -] 50 mg PO Q8H PRN #30 capsule 08/14/17 Epinephrine [Epipen] 0.3 mg IJ ONCE PRN #2 auto.injct 08/14/17 Gabapentin [Neurontin -] 600 mg PO TID MDD 3 08/14/17 Hydromorphone [Dilaudid -] 4 mg PO Q6H PRN 08/14/17 Insulin (Levemir) [Levemir Flexpen -] 14 units SQ BID 08/14/17 Insulin (Levemir) [Levemir Vial] 12 units SQ AM MDD 1 08/14/17 Insulin (Novolog) [Novolog Flexpen] 14 units SQ ONCE #2 syringe 08/14/17 Insulin Aspart [Novolog] 12 unit SQ AM #2 syringe 08/14/17 Insulin Glargine,Hum.rec.anlog [Basaglar Kwikpen U-100] 47 unit SQ HS 08/14/17 Insulin Glargine,Hum.rec.anlog [Lantus Solostar PEN (NF)] 47 units SQ HS #1 pen 08/14/17 Metformin HCl [Glucophage -] 500 mg PO BID #60 tablet 08/14/17 Metoprolol Tartrate [Lopressor] 50 mg PO DAILY #30 tablet 08/14/17 Prednisone [Deltasone -] 60 mg PO DAILY #12 tablet 08/14/17 Ranitidine HCl [Zantac] 150 mg PO DAILY #30 tablet 08/14/17 Review of Systems - Review of Systems Able to Perform ROS?: Yes Comments:: 08/14/17 09:20 GENERAL/CONSTITUTIONAL: No: fever, chills, weakness, loss of appetite. HEAD, EYES, EARS, NOSE AND THROAT: Yes right eye blurry vision, erythema, and swelling. Yes throat swelling. No: ear pain, discharge, sore throat. CARDIOVASCULAR: Yes chest tightness. No: chest pain, lightheadedness, palpitations, syncope RESPIRATORY: Yes cough, shortness of breath. No: wheezing, hemoptysis, stridor. GASTROINTESTINAL: Yes nausea, vomiting. No: abdominal cramping, diarrhea, rectal bleeding, constipation. GENITOURINARY: No: dysuria, hematuria, frequency, urgency, flank pain. MUSCULOSKELETAL: No: neck pain, joint pain, muscle swelling or pain SKIN AND BREASTS: No: lesions, pallor, rash or easy bruising. NEUROLOGIC: Yes headache. No: vertigo, paresthesias, weakness HEMATOLOGIC/LYMPHATIC: No: anemia, easy bleeding, swelling nodes <Power,Giomilsy - Last Filed: 08/14/17 09:20> *Physical Exam - Vital Signs Last Vital Signs Temp Pulse Resp BP Pulse Ox 99.2 F 76 18 161/98 98 08/14/17 07:08 08/14/17 07:08 08/14/17 07:08 08/14/17 07:08 08/14/17 07:08 - Physical Exam Comments: 08/14/17 09:20 GENERAL: The patient is in no acute distress. HEAD: Edema of the right cheek. Otherwise normal with no signs of trauma. EYES: Edema of the right eyelid. PERRLA, EOMI, sclera anicteric, conjunctiva clear. ENT: Ears normal, nares patent, oropharynx clear without exudates. Moist mucous membranes. NECK: Normal range of motion, supple without lymphadenopathy, JVD, or masses. LUNGS: Breath sounds equal, clear to auscultation bilaterally. No wheezes, and no crackles. HEART:Regular rate and rhythm, normal S1 and S2 without murmur, rub or gallop. ABDOMEN: Soft, nontender, normoactive bowel sounds. No guarding, no rebound. EXTREMITIES: Normal range of motion, no edema. No clubbing or cyanosis. No erythema, or tenderness. NEUROLOGICAL: Cranial nerves II through XII grossly intact. Normal speech. No focal neurological deficits. MUSCULOSKELETAL: Back non-tender to palpation, no CVA tenderness SKIN: Warm, Dry, normal turgor, no rashes or lesions noted. No urticaria. <Ingrid Power - Last Filed: 08/14/17 09:20> - Vital Signs Last Vital Signs Temp Pulse Resp BP Pulse Ox 99.2 F 76 18 161/98 98 08/14/17 07:08 08/14/17 07:08 08/14/17 07:08 08/14/17 07:08 08/14/17 07:08 <Sissy Betts - Last Filed: 08/14/17 12:59> ED Treatment Course - LABORATORY CBC & Chemistry Diagram: 08/14/17 09:00 08/14/17 09:00 <Sissy Betts - Last Filed: 08/14/17 12:59> Medical Decision Making - Medical Decision Making 08/14/17 11:41 37-year-old female with a history of hypertension, insulin-dependent diabetes who presents to the emergency department with a complaint of ALLERGIC reaction. Patient states she has a long-standing ALLERGIC reaction to fish (not shellfish ) disease. This morning at approximately 3:30 in the morning she had tuna fish which previously she has had with no reaction. Patient states she noticed that the right side of her face became swollen, and she tingling in her throat. No shortness of breath, no stridor. No urticaria. Likely ALLERGIC reaction Likely scromboid as pt had canned tuna Pt given Solumedrol, meds for headache and nausea, Pt observed in the ER Laboratory Tests 08/14/17 08/14/17 09:00 09:00 WBC 9.6 Hgb 11.9 Hct 36.8 Plt Count 290 Sodium 138 Potassium 4.7 Chloride 97 L Carbon Dioxide 32 BUN 7 Creatinine 0.9 Random Glucose 331 H* Will discharge to home Pt requesting refills of her medications as she ran out Will discharge to home Pt counselled to AVOID ALL FISH Follow up with PMD within 1 week Return to the ER for any other concerns or complaints Clinical impression: Allergic reaction, initial presentation <Sissy Betts - Last Filed: 08/14/17 12:59> *DC/Admit/Observation/Transfer - Attestations Scribe Attestion: 08/14/17 09:21 Documentation prepared by Ingrid Power, acting as certified ophthalmic medical technician for Sissy Betts MD. <Ingrid Power - Last Filed: 08/14/17 09:20> - Discharge Dispostion Admit: No <Sissy Betts - Last Filed: 08/14/17 12:59> Diagnosis at time of Disposition: Allergic reaction Qualifiers: Encounter type: initial encounter Qualified Code(s): T78.40XA - Allergy, unspecified, initial encounter - Discharge Dispostion Disposition: HOME Condition at time of disposition: Stable - Prescriptions Prescriptions: Albuterol 0.083% Nebulizer [place] [Ventolin 0.083% Nebulizer Soln -] 1 neb NEB Q6H #30 vial Amlodipine Besylate [Norvasc -] 5 mg PO DAILY #30 tablet Diphenhydramine [Benadryl -] 50 mg PO Q8H PRN #30 capsule PRN Reason: itching Epinephrine [Epipen] 0.3 mg IJ ONCE PRN #2 auto.injct PRN Reason: allergic reaction Insulin (Novolog) [Novolog Flexpen] 14 units SQ ONCE #2 syringe Insulin Aspart [Novolog] 12 unit SQ AM #2 syringe Insulin Glargine,Hum.rec.anlog [Lantus Solostar PEN (NF)] 47 units SQ HS #1 pen Metformin HCl [Glucophage -] 500 mg PO BID #60 tablet Metoprolol Tartrate [Lopressor] 50 mg PO DAILY #30 tablet Prednisone [Deltasone -] 60 mg PO DAILY #12 tablet Ranitidine HCl [Zantac] 150 mg PO DAILY #30 tablet - Referrals Referrals: Babar Mckeon [Primary Care Provider] - Andrae Shirley MD [Staff Physician] - - Patient Instructions Printed Discharge Instructions: DI for General Allergic Reactions - Post Discharge Activity
[2017-08-14] MEDS ORDERED: methylPREDNISolone NA SUCC 125 MG/2 ML VIAL IVPB ONE (08:52)
[2017-08-14] MEDS ORDERED: RANITIDINE HCL 150 MG TABLET (FP) PO ONE (08:52)
[2017-08-14] MEDS ORDERED: METOCLOPRAMIDE HCL INJECTION 10 MG/2 ML VIAL IVPUSH ONE (08:52)
[2017-08-14] MEDS ORDERED: HYDROmorphone HCL CARPU-JECT 1 MG/1 ML DISP.SYRIN IVPB ONE (08:52)
[2017-08-14] MEDS ORDERED: ALBUTEROL SO4 0.083% IH SOL 2.5 MG/3 ML VIAL.NEB. NEB ONE ×2 (08:58→09:33)
[2017-08-14] MEDS ORDERED: METOCLOPRAMIDE HCL INJECTION 10 MG/2 ML VIAL ONE (09:05)
[2017-08-14] MEDS ORDERED: HYDROmorphone HCL CARPU-JECT 2 MG/1 ML DISP.SYRIN ONE (09:05)
[2017-08-14] MEDS ORDERED: methylPREDNISolone NA SUCC 125 MG/2 ML VIAL ONE ×2 (09:05→09:06)
[2017-08-14] MEDS ORDERED: ALBUTEROL SO4 2.5/IPRATROPIUM 0.5 INH SOL 3 ML VIAL.NEB. NEB ONE (09:33)
[2017-08-14] MEDS ORDERED: RANITIDINE HCL 150 MG TABLET (FP) ONE (09:33)
[2017-08-14 09:38] LABS: HEMATOCRIT 36.8 % (32.4-45.2); HEMOGLOBIN 11.9 GM/dL (10.7-15.3); MCH 28.6 pg (25.7-33.7); MCHC 32.4 g/dl (32.0-36.0); MEAN CELL VOLUME 88.3 fl (80-96); MEAN PLT VOLUME 8.2 fl (7.5-11.1); PLATELET COUNT 290 K/MM3 (134-434); RBC 4.16 M/mm3 (3.60-5.2); RDW 13.6 % (11.6-15.6); WHITE BLOOD COUNT 9.6 K/mm3 (4.0-10.0)
[2017-08-14] MEDS ORDERED: ONDANSETRON 4 MG/2 ML VIAL IVPUSH ONE (10:16)
[2017-08-14 10:17] LABS: ANION GAP 9 (8-16); BLOOD UREA NITROGEN 7 mg/dL (7-18); CALCIUM 8.9 mg/dL (8.5-10.1); CHLORIDE 97 mmol/L (98-107); CO2 32 mmol/L (21-32); POTASSIUM 4.7 mmol/L (3.5-5.1); SODIUM 138 mmol/L (136-145)
[2017-08-14 10:20] LABS: CREATININE 0.9 mg/dL (0.55-1.02)
[2017-08-14 10:25] LABS: GLUCOSE,RANDOM 331 mg/dL (74-106)
[2017-08-14] MEDS ORDERED: ONDANSETRON 4 MG/2 ML VIAL ONE (11:08)
[2017-08-14 14:05] VITALS: BP 139/89; PULSE 95; TEMP 98
== END 2017-08-14 13:40 | disposition home or self-care (01) ==
LOC: JER 06:52
PROC: 3E0F7GC Introduction of Other Therapeutic Substance into Respiratory Tract, Via Natural or Artificial Opening (ICD-10-PCS; principal; 2017-08-14)
PROC: 3E033GC Introduction of Other Therapeutic Substance into Peripheral Vein, Percutaneous Approach (ICD-10-PCS; 2017-08-14)
PROC: 3E033NZ Introduction of Analgesics, Hypnotics, Sedatives into Peripheral Vein, Percutaneous Approach (ICD-10-PCS; 2017-08-14)
DX: T78.40XA Allergy, unspecified, initial encounter (principal); J45.909 Unspecified asthma, uncomplicated; I10 Essential (primary) hypertension; E11.9 Type 2 diabetes mellitus without complications; Z79.4 Long term (current) use of insulin; G89.29 Other chronic pain
CPT/HCPCS: 36415; 80048; 85027; 99282-25

== ENCOUNTER 2018-07-31 13:57 | Inpatient (IN) | payer OTHER ==
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
[2018-07-31] MEDS ORDERED: HYDROmorphone HCL CARPU-JECT 2 MG/1 ML DISP.SYRIN IVPB ONE (15:21)
[2018-07-31] MEDS ORDERED: ACETAMINOPHEN 1000 MG/100 ML VIAL (NON FORMULARY) IVPB ONE (15:23)
[2018-07-31] MEDS ORDERED: diazePAM 5 MG TABLET PO ONE (15:23)
--- NOTE | 2018-07-31 15:26 | PDOC ---
History of Present Illness - General Chief Complaint: Pain Stated Complaint: Pain Time Seen by Provider: 07/31/18 14:29 History Source: Patient, Care Provider Exam Limitations: Clinical Condition - History of Present Illness Initial Comments: 07/31/18 15:37 Pt. is a 38 y.o. F w/ PMHx. of Asthma, HTN, DM Type 1, DVT( LLE 11/04), Arthritis, Spinal stenosis, sciatica, 3 herniated discs in lumbrosacral spine, presents to the ED with worsening lower back pain, and left upper and lower extremity pain associated with numbness. Pt. states that she walked outside and felt a pop in her back on Saturday when the pain started. Pt. rates that pain as 10/10, sharp, burning and radiating from lower back to toes, mid thoracic spine to left neck and to left arm. Pt. states that the numbness has increased significantly on Saturday. Pt. endorses left medial thigh numbness as well as muscle spasms in her toes bilaterally and left hand. Pt. denies any urinary or bowel incontinence or difficulty. Pt. denies shortness of breath, chest pain cough, fevers or chills at this time. Pt. states that she is now unable to walk because of the pain. Of note Pt.'s Insurance is Medicaid which dropped her [employer] insurance so Pt. has been unable to bulk picker her medications for the last 3 weeks. Pt. endorses smoking medicinal marijuana every other day for pain. CBC, CMP, Mag, PT/INR ordered. 07/31/18 16:04 Gabapentin, Valium, IV-Tylenol, IV Dilaudid ordered for pain control then a more accurate neurological exam can be performed. Pt. moves all limbs spontaneously, can lift both legs off the bed and can flex her knees to 90 degrees. Will reevaluate after pain medications for rectal tone, saddle anesthesia and muscle strength in lower extremities. After adequate time for the full effect of medications. On neurological exam Pt. still presents with left leg weakness on ambulation necessitating that I catch her while walking with her cane. Pt. has mild dysarthria in the left arm. Pt. is able to lift both legs off the bed for greater than 5 seconds however has prominent difficulty with the left leg. Pt. has no saddle anesthesia and good rectal tone. 07/31/18 18:[address] Royal, PT will be placed in observation. Timing/Duration: getting worse Severity: moderate Modifying Factors: improves with: immobilization, rest Associated Symptoms: reports: weakness Aspirin Received prior to arrival: Yes: no aspirin today Beta Jamila Contraindications(Core Measure): Yes: Not Prescribed Past History - Travel Traveled outside of the country in the last 30 days: No Close contact w/someone who was outside of country & ill: No - Past Medical History Allergies/Adverse Reactions: Allergies Allergy/AdvReac Type Severity Reaction Status Date / Time fish derived Allergy Verified 08/14/17 07:09 hazelnut Allergy Verified 08/14/17 07:09 latex Allergy Verified 08/14/17 07:09 soy Allergy Verified 08/14/17 07:09 Home Medications: Ambulatory Orders Metformin HCl [Glucophage] 500 mg PO BID 04/02/16 Metoprolol Tartrate [Lopressor -] 50 mg PO DAILY 04/02/16 Amlodipine Besylate [Norvasc -] 5 mg PO DAILY #30 tablet MDD 1 06/14/17 Docusate Sodium [Colace -] 100 mg PO TID #21 capsule MDD 3 06/14/17 Venlafaxine HCl ER [Effexor Xr -] 150 mg PO DAILY #30 cap.er.24h MDD 1 06/14/17 Albuterol 0.083% Nebulizer [place] [Ventolin 0.083% Nebulizer Soln -] 1 neb NEB Q6H #30 vial 08/14/17 Amlodipine Besylate [Norvasc -] 5 mg PO DAILY #30 tablet 08/14/17 Diphenhydramine [Benadryl -] 50 mg PO Q8H PRN #30 capsule 08/14/17 Epinephrine [Epipen] 0.3 mg IJ ONCE PRN #2 auto.injct 08/14/17 Gabapentin [Neurontin -] 600 mg PO TID MDD 3 08/14/17 HYDROmorphone [Dilaudid -] 4 mg PO Q6H PRN 08/14/17 Insulin (Levemir) [Levemir Flexpen -] 14 units SQ BID 08/14/17 Insulin (Levemir) [Levemir Vial] 12 units SQ AM MDD 1 08/14/17 Insulin (Novolog) [Novolog Flexpen] 14 units SQ ONCE #2 syringe 08/14/17 Insulin Aspart [Novolog] 12 unit SQ AM #2 syringe 08/14/17 Insulin Glargine,Hum.rec.anlog [Basaglar Kwikpen U-100] 47 unit SQ HS 08/14/17 Insulin Glargine,Hum.rec.anlog [Lantus Solostar PEN (NF)] 47 units SQ HS #1 pen 08/14/17 Metoprolol Tartrate [Lopressor] 50 mg PO DAILY #30 tablet 08/14/17 Ranitidine HCl [Zantac] 150 mg PO DAILY #30 tablet 08/14/17 metFORMIN HCL [Glucophage -] 500 mg PO BID #60 tablet 08/14/17 predniSONE [Deltasone -] 60 mg PO DAILY #12 tablet 08/14/17 Anemia: Yes Asthma: Yes Cardiac Disorders: No COPD: No Dementia: No Diabetes: Yes (IDDM) HTN: Yes - Surgical History Abdominal Surgery: Yes - Immunization History Immunization Up to Date: Yes - Suicide/Smoking/Psychosocial Hx Smoking Status: Yes Smoking History: Never smoked Have you smoked in the past 12 months: No Number of Cigarettes Smoked Daily: 10 If you are a former smoker, when did you quit?: 2016 'Breaking Loose' booklet given: 11/23/15 Hx Alcohol Use: No Drug/Substance Use Hx: No Substance Use Type: None Hx Substance Use Treatment: No Review of Systems - Review of Systems Constitutional: No: Symptoms Reported HEENTM: No: Symptoms Reported Respiratory: No: Symptoms reported Cardiac (ROS): No: Symptoms Reported ABD/GI: No: Symptoms Reported : No: Symptoms Reported Musculoskeletal: Yes: Back Pain, Joint Pain, Joint Swelling, Muscle Pain, Muscle Weakness, Neck Pain Integumentary: No: Symptoms Reported Neurological: Yes: Numbness, Pre-Existing Deficit, Tingling, Weakness, Unsteady Gait. No: Symptoms reported Psychiatric: Yes: Stressors Endocrine: No: Symptoms Reported Hematologic/Lymphatic: No: Symptoms Reported *Physical Exam - Vital Signs Last Vital Signs Temp Pulse Resp BP Pulse Ox 97.5 F L 75 18 136/78 100 07/31/18 15:03 07/31/18 15:03 07/31/18 15:03 07/31/18 15:03 07/31/18 15:03 - Physical Exam General Appearance: Yes: Nourished, Appropriately Dressed, Apparent Distress, Moderate Distress, Obese HEENT: positive: DIANA, Normal Voice, Symmetrical, Hearing Grossly Normal Neck: positive: Tender, Trachea midline, Supple, Tender lateral, Tender midline. negative: Lymphadenopathy (L), Thyromegaly Respiratory/Chest: positive: Lungs Clear, Decreased Breath Sounds (decreased effort because of pain). negative: Respiratory Distress, Crackles, Rales, Wheezing Cardiovascular: positive: Regular Rhythm, Regular Rate, S1, S2. negative: Edema , JVD, Murmur Vascular Pulses: Dorsalis-Pedis (R): 2+, Doralis-Pedis (L): 2+ Gastrointestinal/Abdominal: positive: Normal Bowel Sounds, Soft. negative: Distended, Guarding, Rebound, Tenderness Musculoskeletal: positive: Normal Inspection, CVA Tenderness, CVA Tenderness (L) , Decreased Range of Motion (2/2 pain ), Muscle Spasm, Vertebral Tenderness Extremity: positive: Normal Capillary Refill, Swelling. negative: Normal Inspection (muscle spasm in toes ), Pedal Edema, Calf Tenderness, Erythema Integumentary: positive: Normal Color, Dry, Warm Neurologic: positive: Fully Oriented, Alert, Respond to painful stimul, Responsive, Numbness, Sensory Deficit. negative: Normal Response, Facial Droop , Confused, Disoriented Moderate Sedation - Procedure Monitoring Vital Signs: Procedure Monitoring Vital Signs Temperature 97.5 F L 07/31/18 15:03 Pulse Rate 75 07/31/18 15:03 Respiratory Rate 18 07/31/18 15:03 Blood Pressure 136/78 07/31/18 15:03 O2 Sat by Pulse Oximetry (%) 100 07/31/18 15:03 ED Treatment Course - LABORATORY CBC & Chemistry Diagram: 07/31/18 15:45 07/31/18 15:45 *DC/Admit/Observation/Transfer Diagnosis at time of Disposition: Leg pain, left, Back pain, Left arm pain, Intractable low back pain, Physical therapy evaluation, initial, Astasia-abasia - Discharge Dispostion Condition at time of disposition: Improved Decision to Admit order: Yes - Referrals Referrals: Babar Mckeon [Primary Care Provider] - - Patient Instructions - Post Discharge Activity
[2018-07-31] MEDS ORDERED: GABAPENTIN 300 MG CAPSULE (FP) PO ONE ×2 (15:34→15:43)
[2018-07-31 15:58] LABS: BASO % 0.8 % (0-2.0); EOS % 1.4 % (0-4.5); HEMATOCRIT 37.6 % (32.4-45.2); HEMOGLOBIN 12.9 GM/dL (10.7-15.3); LYMPH % 37.8 % (8-40); MCH 30.3 pg (25.7-33.7); MCHC 34.3 g/dl (32.0-36.0); MEAN CELL VOLUME 88.3 fl (80-96); MEAN PLT VOLUME 8.6 fl (7.5-11.1); PLATELET COUNT 305 K/MM3 (134-434); RBC 4.26 M/mm3 (3.60-5.2); RDW 14.5 % (11.6-15.6); WHITE BLOOD COUNT 7.1 K/mm3 (4.0-10.0)
[2018-07-31] MEDS ORDERED: HYDROmorphone HCl 2 MG/ML VIAL ONE (16:25)
[2018-07-31] MEDS ORDERED: diazePAM 5 MG TABLET ONE (16:25)
[2018-07-31] MEDS ORDERED: GABAPENTIN 100 MG CAPSULE (FP) ONE (16:25)
[2018-07-31] MEDS ORDERED: ACETAMINOPHEN INJECTION 100 ML IVPB ONE (16:26)
[2018-07-31 16:34] LABS: ALBUMIN 3.8 g/dl (3.4-5.0); ALK PHOS 93 U/L (45-117); ANION GAP 8 MMOL/L (8-16); BILIRUBIN,TOTAL 0.3 mg/dL (0.2-1); BLOOD UREA NITROGEN 9 mg/dL (7-18); CALCIUM 8.8 mg/dL (8.5-10.1); CHLORIDE 107 mmol/L (98-107); CO2 25 mmol/L (21-32); CREATININE 0.7 mg/dL (0.55-1.3); GLUCOSE,RANDOM 115 mg/dL (74-106); MAGNESIUM 2.2 mg/dL (1.8-2.4); SGOT/AST 8 U/L (15-37); SGPT/ALT 15 U/L (13-61); SODIUM 140 mmol/L (136-145); TOT PROT 6.8 g/dl (6.4-8.2)
[2018-07-31] MEDS ORDERED: diphenhydrAMINE HCL 25 MG CAPSULE (FP) PO ONE ×5 (16:46→18:09)
--- NOTE | 2018-07-31 19:51 | PN ---
Teaching Attending Note Name of Resident: Meredith Dewitt ATTENDING PHYSICIAN STATEMENT I saw and evaluated the patient. I reviewed the resident's note and discussed the case with the resident. I agree with the resident's findings and plan as documented. SUBJECTIVE: Patient seen and examined; presents with intractable back pain. Please see resident note for further documentation. She has a previous history of intractable back pain she was seen here in the past by Neurosgy with Dr. Naik who recommended nonoperative management (MRI reviewed at that juncture per his note: "MRI ()- decreased HNP size at L4-5 with only remaining disc bulge ; mild broad L5-S1 disc bulge without significant neurological element impingement L4-5 and L5-S1 DDD with recurrent L L5-S1 radiculopathy"), as well as by neurology and psych. She felt a popping sensation today and has intractable pain preventing her from ambulating; she was able to ambulate short distance in ER then her leg gave out. She is followed by pain management and is Rx'd medical marijuana and opiates as per medication list. She is tearful in the ER. No bowel or bladder dysfunction. She is afebrile and hemodynamically stable with no lab abnormalities. We discussed the case with Dr. Anand who recommended repeating the MRI. She will be brought to the floor on medicine with a neurosurgical consultation. 10 sys ROS done and negative aside from HPI PMH and PSH reviewed FH asked and noncontributroy Social hx reviewed Medication list reviewed; I have asked resident of record to call pharmacy. Will be checking ISTOP. OBJECTIVE: VS, labs, imaging reviewed. Mild distress, AAO, resting in bed. RRR s1/2 no mgr Lungs CTAB w/ sym exp NT ND +BS Labs unremarbakle, CXR wnl, MRI pending Prior MRIs reviewed; prior subspecialist consults reviewed (neuro, psych, nsgy) ASSESSMENT AND PLAN: Presents with intractable back pain 1) Intractable back pain -Labs unremarkable, MRI pending. Prior studies and consults reviewed. -Discussed with Dr. 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 No exacerbation 3) Hx HTN -Reconcile and continue appropriate meds 4) Hx DVT -No longer on AC; no s/s; DVT px per protocol 5) DM -Continue home insulin with SSI AC+HS while in house FENA -PO -PRN replte -Regular diet -Bedrest Full Code Consults: Neurosurgery
[2018-07-31] MEDS ORDERED: HYDROmorphone HCl 2 MG/ML VIAL IVPUSH PRN (19:59)
[2018-07-31] MEDS: ALBUTEROL SO4 0.083% IH SOL 2.5 MG/3 ML VIAL.NEB. NEB SCH (21:00)
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
[2018-07-31] MEDS: HEPARIN NA (PORCINE) 5,000 UNITS/ML 1ML VIAL SQ SCH (22:06)
[2018-07-31] MEDS: METOPROLOL TARTRATE 25 MG TABLET (FP) PO SCH (22:06)
[2018-07-31] MEDS: INSULIN (LEVEMIR) 100 UNITS/ML UNITS SQ SCH (22:06)
[2018-07-31] MEDS: DULoxetine HCL 20 MG CAPSULE.DR (FP) PO SCH (22:06)
[2018-07-31] MEDS: PREGABALIN 75 MG CAPSULE PO SCH (22:06)
[2018-07-31] MEDS: INSULIN SLIDING SCALE (NOVOLOG) 1 VIAL SQ SCH (22:08)
[2018-07-31 22:37] VITALS: BMI 38.2
[2018-08-01] MEDS: diphenhydrAMINE HCL 25 MG CAPSULE (FP) PO PRN ×2 (00:43→09:52)
[2018-08-01] MEDS: HEPARIN NA (PORCINE) 5,000 UNITS/ML 1ML VIAL SQ SCH ×3 (05:14→22:45)
[2018-08-01] MEDS: INSULIN SLIDING SCALE (NOVOLOG) 1 VIAL SQ SCH ×3 (06:29→16:51)
[2018-08-01] MEDS: INSULIN (NOVOLOG) ASPART 100 UNITS/ML 10ML VIAL SQ SCH ×3 (06:31→16:44)
[2018-08-01 07:27] LABS: HEMATOCRIT 35.4 % (32.4-45.2); HEMOGLOBIN 11.4 GM/dL (10.7-15.3); MCH 29.1 pg (25.7-33.7); MCHC 32.1 g/dl (32.0-36.0); MEAN CELL VOLUME 90.5 fl (80-96); MEAN PLT VOLUME 8.5 fl (7.5-11.1); PLATELET COUNT 255 K/MM3 (134-434); RBC 3.91 M/mm3 (3.60-5.2); RDW 14.4 % (11.6-15.6); WHITE BLOOD COUNT 7.7 K/mm3 (4.0-10.0)
[2018-08-01] MEDS: ALBUTEROL SO4 0.083% IH SOL 2.5 MG/3 ML VIAL.NEB. NEB SCH ×4 (07:32→20:32)
[2018-08-01 07:52] LABS: ALBUMIN 3.2 g/dl (3.4-5.0); ALK PHOS 88 U/L (45-117); ANION GAP 5 MMOL/L (8-16); BILIRUBIN,TOTAL 0.2 mg/dL (0.2-1); BLOOD UREA NITROGEN 13 mg/dL (7-18); CALCIUM 8.4 mg/dL (8.5-10.1); CHLORIDE 106 mmol/L (98-107); CO2 28 mmol/L (21-32); CREATININE 0.8 mg/dL (0.55-1.3); GLUCOSE,RANDOM 103 mg/dL (74-106); MAGNESIUM 2.2 mg/dL (1.8-2.4); PHOSPHOROUS 4.2 mg/dL (2.5-4.9); SGOT/AST 9 U/L (15-37); SGPT/ALT 15 U/L (13-61); SODIUM 139 mmol/L (136-145)
[2018-08-01] MEDS: DULoxetine HCL 20 MG CAPSULE.DR (FP) PO SCH ×2 (09:37→22:23)
[2018-08-01] MEDS: METOPROLOL TARTRATE 25 MG TABLET (FP) PO SCH ×2 (09:37→22:23)
[2018-08-01] MEDS: RANITIDINE HCL 150 MG TABLET (FP) PO SCH (09:37)
[2018-08-01] MEDS ORDERED: GABAPENTIN 300 MG CAPSULE (FP) PO SCH (10:00)
--- NOTE | 2018-08-01 13:38 | PN ---
Teaching Attending Note Name of Resident: Bel Sampson ATTENDING PHYSICIAN STATEMENT I saw and evaluated the patient. I reviewed the resident's note and discussed the case with the resident. I agree with the resident's findings and plan as documented. SUBJECTIVE: No fever or chills. No abd pain , nO CP , no SOB .has lower back pain, numbness in hands , and spasms of her feet. no loss of bowel or bladder. L leg gives away some times. no cp on exertion , no cardiac history . in ER developed itching after IV tylenol . she is still itchy OBJECTIVE: NAD, AAOX3. CV: RRR, NO MRG Lungs: CTAB Abd: soft, NT, ND , NL BS Ext: no edema TTP over upper L spine and lower C spine . 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 LLE: hip flexion 4/5 limited by pain, knee felxion and extension 5/5 , ankle dorsiflexion 5/5 , plantarfelxion 4/5 . RLE: hip flexion 4/5 limited by pain, knee felxion and extension 5/5 , ankle dorsiflexion 5/5 , plantarfelxion 5/5 . sensation to light touch , decreased in R 4th, 5th fingers, L hand dorsum and palm, L leg and foot compared to the other side Reflexes: 2+ biceps, 0 triceps, 3+ R kne jerk , 2+ L knee jerk ASSESSMENT AND PLAN: 38 y/o lady with h/o lower back pain, C spine stenosis, Asthma, HTN, and DM who presented with severe Lower back pain and inability to ambulate. 1- Lower back pain. neuro exam, indicates some sensory loss as above, and hyperreflexia in R knee jerk. - d/w Dr. Lam - get MRI of C spine and L spine. - cont dilaudid but decrease dose to 2 mg q 6h . - ISTOP: [id number]. last refill of dilaudid was 03/30/18. - PT eval - cont Lyrica. - add lidocaine patch - might need C spine sx first depending on findings - Pre-op risk stratification : procedure is intermediate risk procedure. patient has DM , and HTN, but no signs or sx of CHF, arrhythmias or ACS. she had a stress test in 2015 which showed no ischemia. her functional capacity is probably 4-7 METS . Her asthma is under control and her DM is being treated with insulin. She will be at low risk for teresita-OP cardiac complications for this intermediate risk procedure. No further cardiac testing is indicated. will get EKG to evaluate QTC. 2- DM : cont her home dose insulin 3- Allergic reaction to tylenol. cont PRN Benadryl 4- HTN: cont BB DVT PX : heparin
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
[2018-08-01] MEDS: LIDOCAINE 5% TOPICAL PATCH TP SCH (16:43)
[2018-08-01] MEDS: HYDROmorphone HCL 2 MG TABLET PO PRN ×2 (16:43→22:24)
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
[2018-08-01] MEDS ORDERED: hydrOXYzine HCL 25 MG TABLET (FP) PO ONE (20:23)
[2018-08-01] MEDS: PREGABALIN 75 MG CAPSULE PO SCH (22:23)
[2018-08-01] MEDS: INSULIN (LEVEMIR) 100 UNITS/ML UNITS SQ SCH (22:23)
[2018-08-01] MEDS: LIDOCAINE PATCH REMOVAL MC SCH (22:46)
[2018-08-02] MEDS: HEPARIN NA (PORCINE) 5,000 UNITS/ML 1ML VIAL SQ SCH ×3 (06:11→21:13)
[2018-08-02] MEDS: diphenhydrAMINE HCL 25 MG CAPSULE (FP) PO PRN ×2 (06:11→18:30)
[2018-08-02] MEDS: HYDROmorphone HCL 2 MG TABLET PO PRN ×3 (06:11→21:13)
[2018-08-02] MEDS: INSULIN SLIDING SCALE (NOVOLOG) 1 VIAL SQ SCH ×2 (06:12→13:29)
[2018-08-02] MEDS: INSULIN (NOVOLOG) ASPART 100 UNITS/ML 10ML VIAL SQ SCH ×3 (06:34→18:05)
[2018-08-02] MEDS: ALBUTEROL SO4 0.083% IH SOL 2.5 MG/3 ML VIAL.NEB. NEB SCH ×4 (07:29→21:10)
[2018-08-02 08:35] LABS: HEMATOCRIT 35.1 % (32.4-45.2); HEMOGLOBIN 12.1 GM/dL (10.7-15.3); MCH 30.5 pg (25.7-33.7); MCHC 34.4 g/dl (32.0-36.0); MEAN CELL VOLUME 88.5 fl (80-96); MEAN PLT VOLUME 8.6 fl (7.5-11.1); PLATELET COUNT 262 K/MM3 (134-434); RBC 3.96 M/mm3 (3.60-5.2); RDW 14.5 % (11.6-15.6); WHITE BLOOD COUNT 6.8 K/mm3 (4.0-10.0)
[2018-08-02 08:55] LABS: INR 0.97 (0.83-1.09); PROTHROMBIN TIME (PATIENT) 11.4 SEC (9.7-13.0)
[2018-08-02 08:58] LABS: ACTIVATED PTT 32.1 SECONDS (25.2-36.5)
[2018-08-02 09:04] LABS: ANION GAP 4 MMOL/L (8-16); BLOOD UREA NITROGEN 10 mg/dL (7-18); CALCIUM 8.4 mg/dL (8.5-10.1); CHLORIDE 110 mmol/L (98-107); CO2 27 mmol/L (21-32); CREATININE 0.7 mg/dL (0.55-1.3); GLUCOSE,RANDOM 89 mg/dL (74-106); MAGNESIUM 2.1 mg/dL (1.8-2.4); PHOSPHOROUS 3.9 mg/dL (2.5-4.9); POTASSIUM 4.3 mmol/L (3.5-5.1); SODIUM 140 mmol/L (136-145)
[2018-08-02] MEDS: RANITIDINE HCL 150 MG TABLET (FP) PO SCH (09:17)
[2018-08-02] MEDS: DULoxetine HCL 20 MG CAPSULE.DR (FP) PO SCH ×2 (09:17→21:12)
[2018-08-02] MEDS: METOPROLOL TARTRATE 25 MG TABLET (FP) PO SCH ×2 (09:17→21:13)
[2018-08-02] MEDS: LIDOCAINE 5% TOPICAL PATCH TP SCH (09:18)
--- NOTE | 2018-08-02 10:21 | EKG ---
Test Reason : Blood Pressure : / mmHG Vent. Rate : 067 BPM Atrial Rate : 067 BPM P-R Int : 200 ms QRS Dur : 086 ms QT Int : 390 ms P-R-T Axes : 038 027 049 degrees QTc Int : 412 ms NORMAL SINUS RHYTHM NONSPECIFIC T WAVE ABNORMALITY ABNORMAL ECG WHEN COMPARED WITH ECG OF 01-FEB-2016 18:41, NONSPECIFIC T WAVE ABNORMALITY NOW EVIDENT IN LATERAL LEADS Confirmed by JOHNNIE LUO, GEORGINA ([id number]) on 08/02/2018 10:20:51 AM Referred By: Andreina FINE Confirmed By:GEORGINA BLAIR MD
[2018-08-02] MEDS ORDERED: INSULIN (NOVOLOG) ASPART 100 UNITS/ML 10ML VIAL ONE (11:52)
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
--- NOTE | 2018-08-02 17:29 | PN ---
Teaching Attending Note Name of Resident: Jessica Bean ATTENDING PHYSICIAN STATEMENT I saw and evaluated the patient. I reviewed the resident's note and discussed the case with the resident. I agree with the resident's findings and plan as documented. SUBJECTIVE: no fever or chills . has back pain. no other complaints OBJECTIVE: NAD, AAOX3. CV: RRR, NO MRG Lungs: CTAB Ext: no edema Neuro: LUE: shoulder shrug 5/5, shoulder abduction 5/5 , biceps , triceps 5/5,hand line tester NL. RUE: shoulder shrug 5/5, shoulder abduction 5/5 , biceps , triceps 5/5,hand line tester NL. LLE: hip flexion 5/5 limited by pain, knee felxion and extension 5/5 , ankle dorsiflexion 5/5 , plantarfelxion 5/5 . RLE: hip flexion 5/5 limited by pain, knee felxion and extension 5/5 , ankle dorsiflexion 5/5 , plantarfelxion 5/5 . Reflexes: 2+ L , R knee jerk ASSESSMENT AND PLAN: 38 y/o lady with h/o lower back pain, C spine stenosis, Asthma, HTN, and DM who presented with severe Lower back pain and inability to ambulate. 1- Lower back pain. - MRI results noted. will d/w neuro sx - cont dilaudid at current dose . no aditional painmeds - cont lidocaine patch - cont Lyrica. 2- DM : cont her home dose insulin 3- Allergic reaction to tylenol. cont PRN Benadryl 4- HTN: cont BB 5- thyroid nodule on MRI. f/u as out pt with US DVT PX : heparin
[2018-08-02] MEDS: PREGABALIN 75 MG CAPSULE PO SCH (21:13)
[2018-08-02] MEDS: LIDOCAINE PATCH REMOVAL MC SCH (21:14)
[2018-08-02] MEDS: INSULIN (LEVEMIR) 100 UNITS/ML UNITS SQ SCH (21:17)
[2018-08-03] MEDS: HEPARIN NA (PORCINE) 5,000 UNITS/ML 1ML VIAL SQ SCH ×3 (05:12→22:08)
[2018-08-03] MEDS: HYDROmorphone HCL 2 MG TABLET PO PRN ×2 (05:12→18:07)
[2018-08-03] MEDS: INSULIN (NOVOLOG) ASPART 100 UNITS/ML 10ML VIAL SQ SCH ×2 (06:49→11:30)
[2018-08-03] MEDS: ALBUTEROL SO4 0.083% IH SOL 2.5 MG/3 ML VIAL.NEB. NEB SCH ×3 (07:48→15:28)
[2018-08-03] MEDS: METOPROLOL TARTRATE 25 MG TABLET (FP) PO SCH ×2 (09:31→22:07)
[2018-08-03] MEDS: DULoxetine HCL 20 MG CAPSULE.DR (FP) PO SCH ×2 (09:31→22:07)
[2018-08-03] MEDS: RANITIDINE HCL 150 MG TABLET (FP) PO SCH (09:31)
[2018-08-03] MEDS: LIDOCAINE 5% TOPICAL PATCH TP SCH (09:31)
[2018-08-03] MEDS ORDERED: CYCLOBENZAPRINE HCL 10 MG TABLET (FP) PO ONE (15:21)
--- NOTE | 2018-08-03 15:26 | PN ---
Progress Note (short form) - Note Progress Note: Subjective: pain in her neck, pain in back . no fever or chills. No OSB. felt a little shaky when sugar reached 150 Objective: Vital Signs: Last Vital Signs Temp Pulse Resp BP Pulse Ox 97.9 F 110 H 18 124/74 100 08/03/18 14:41 08/03/18 14:41 08/03/18 14:41 08/03/18 14:41 08/03/18 09:00 Laboratory Results - last 24 hr 08/02/18 08/02/18 08/02/18 16:29 18:03 21:00 POC Glucometer 125 196 166 08/03/18 08/03/18 08/03/18 05:15 08:41 11:29 POC Glucometer 124 131 157 Physical Exam: NAD, AAOX3. CV: RRR, NO MRG Lungs: CTAB Ext: no edema ASSESSMENT AND PLAN: 38 y/o lady with h/o lower back pain, C spine stenosis, Asthma, HTN, and DM who presented with severe Lower back pain and inability to ambulate. 1- Lower back pain. - MRI results d/w Dr. Lam, who will perform C pine sx - Make NPO after MN as she might have a spot tomorrow - cont dilaudid at current dose, will not increase or give IV - cont lidocaine patch - cont Lyrica. - try flexreil x1 - hold DVT PX . - re-op risk stratification as per previous note 2- DM : change standing prandial to SSI . - decrease evening dose to 10 and hold Am one as she will be NPO 3- Allergic reaction to tylenol. cont PRN Benadryl 4- HTN: cont BB 5- thyroid nodule on MRI. f/u as out pt with US DVT PX : heparin Visit type - Emergency Visit Emergency Visit: Yes ED Registration Date: 08/02/18 Care time: The patient presented to the Emergency Department on the above date and was hospitalized for further evaluation of their emergent condition. - New Patient This patient is new to me today: No - Critical Care Critical Care patient: No
[2018-08-03] MEDS: INSULIN SLIDING SCALE (NOVOLOG) 1 VIAL SQ SCH (16:23)
[2018-08-03] MEDS ORDERED: POLYETHYLENE GLYCOL 3350 119 GM BTL PO PRN (17:15)
[2018-08-03] MEDS ORDERED: ALBUTEROL SO4 8 GM HFA INHALER IH PRN (17:16)
--- NOTE | 2018-08-03 22:05 | PN ---
Progress Note (short form) - Note Progress Note: Patient is stable with continued pain despite narcotic regimen. MRI Lumbar reviewed and demonstrates degenerative changes at L45 & L5S1 with facet hypertrophy and disc bulges at both levels as well as juxtafacet cysts. 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 Canal diameter is C23 8.2mm; C34 6.5mm; C45 7.5mm; C56 7.8mm; C67 8.9mm. I described the risks, benefits and alternatives to a surgical treatment with decompression, stabilization and correction of deformity in great detail. This would consist of posterior C2-7 Laminectomiesand correction of deformity and posterior instrumentation and fusion from C2-7. I explained that the risks included, but were not limited to: , coma, paralysis, bleeding, infection, CSF leak possibly requiring spinal drainage or additional surgery, instrumentation migration/malposition/malfunction,failure to fuse and the need for additional surgery. All questions were answered and informed consent was obtained. The patient was offered the opportunity to seek another opinion or another surgeon. I described the anatomy, pathology, proposed surgery and potential complications in detail. The patient asks that we proceed with surgery on an expedited basis due to the severity and rapid progression of her symptoms. We will endeavor to perform surgery on August 04 or Saturday, August 052018.
[2018-08-03] MEDS: PREGABALIN 75 MG CAPSULE PO SCH (22:07)
[2018-08-03] MEDS: INSULIN (LEVEMIR) 100 UNITS/ML UNITS SQ SCH (22:08)
[2018-08-03] MEDS: LIDOCAINE PATCH REMOVAL MC SCH (22:08)
[2018-08-04] MEDS: INSULIN SLIDING SCALE (NOVOLOG) 1 VIAL SQ SCH ×3 (06:04→16:04)
[2018-08-04] MEDS: HYDROmorphone HCL 2 MG TABLET PO PRN ×3 (06:05→17:59)
[2018-08-04] MEDS ORDERED: INSULIN (NOVOLOG) ASPART 100 UNITS/ML 10ML VIAL ONE ×2 (10:29→15:48)
[2018-08-04] MEDS: LIDOCAINE 5% TOPICAL PATCH TP SCH ×2 (10:44→16:04)
[2018-08-04] MEDS: DULoxetine HCL 20 MG CAPSULE.DR (FP) PO SCH ×2 (10:45→22:53)
[2018-08-04] MEDS: METOPROLOL TARTRATE 25 MG TABLET (FP) PO SCH ×2 (10:45→22:53)
[2018-08-04] MEDS: RANITIDINE HCL 150 MG TABLET (FP) PO SCH (10:45)
--- NOTE | 2018-08-04 14:04 | SPA.PREOP ---
- PRE-OP NOTE Dx: Cervical spondylotic myelopathy Planned Procedure: Posterior C2-7 Laminectomies, correction of deformity and posterior instrumentation and fusion C2-7 on 08/05 Surgeon: Dr Abdirashid Hinson Last Vital Signs Temp Pulse Resp BP Pulse Ox 98.2 F 66 20 132/86 100 08/04/18 08:00 08/04/18 08:00 08/04/18 08:00 08/04/18 08:00 08/04/18 08:00 Lab Results WBC 6.8 K/mm3 (4.0-10.0) 08/02/18 07:45 RBC 3.96 M/mm3 (3.60-5.2) 08/02/18 07:45 Hgb 12.1 GM/dL (10.7-15.3) 08/02/18 07:45 Hct 35.1 % (32.4-45.2) 08/02/18 07:45 MCV 88.5 fl (80-96) 08/02/18 07:45 MCHC 34.4 g/dl (32.0-36.0) 08/02/18 07:45 RDW 14.5 % (11.6-15.6) 08/02/18 07:45 Plt Count 262 K/MM3 (134-434) 08/02/18 07:45 Sodium 140 mmol/L (136-145) 08/02/18 07:45 Potassium 4.3 mmol/L (3.5-5.1) 08/02/18 07:45 Chloride 110 mmol/L (98-107) H 08/02/18 07:45 Carbon Dioxide 27 mmol/L (21-32) 08/02/18 07:45 Anion Gap 4 MMOL/L (8-16) L 08/02/18 07:45 BUN 10 mg/dL (7-18) 08/02/18 07:45 Creatinine 0.7 mg/dL (0.55-1.3) 08/02/18 07:45 Random Glucose 89 mg/dL (74-106) 08/02/18 07:45 Calcium 8.4 mg/dL (8.5-10.1) L 08/02/18 07:45 Blood Type B POSITIVE 08/04/18 07:42 Antibody Screen Negative 08/04/18 07:42 INR 0.97 (0.83-1.09) 08/02/18 07:45 - IMAGING Chest X-ray: Report Reviewed (CXR 08/04 no acute pathology) MRI: Report Reviewed (Cervical Spine MRI 08/01/18: 1. C3-C4 shallow central disc protrustion mildly compressing and partially effacing the ventral sac, contacting and flattening the ventral cord. 2. At C5-C6, shallow central disc protrusion indenting the thecal sac, contacting and flattening the ventral cord with no significant canal stenosis. 3. A 0.9 x 0.7cm C3 vertebral body lesion may be fran typical hemangioma.) EKG: Report Reviewed (EKG 08/02/18: Normal sinus, nonspecific twave abnormalities. Abnormal ekg) - ASSESSMENT/PLAN 1. Make NPO after midnight except po meds 2. GI/DVT PPX 3. Medical optimization / clearance 4. Consent to be obtained by surgeon after risks, benefits and alternatives discussed with patient and or Health Care Proxy. 5. Full labs (cbc, cmp, coags), t&s active 08/04 6. Hibiclens shower
--- NOTE | 2018-08-04 15:35 | PN ---
Teaching Attending Note Name of Resident: Jessica Bean ATTENDING PHYSICIAN STATEMENT I saw and evaluated the patient. I reviewed the resident's note and discussed the case with the resident. I agree with the resident's findings and plan as documented. SUBJECTIVE: No fever or chills. lower back pain. wants more dilaudid . OBJECTIVE: NAD, AAOX3. CV: RRR, NO MRG Lungs: CTAB Ext: no edema strength ; 5/5 in upper and lower extremities proximally and distally except for hip flexion b/l limited by pain. reflexes 2+ knee jerk b/l . sensation is decreased in symmetric in both LE. ASSESSMENT AND PLAN: 38 y/o lady with h/o lower back pain, C spine stenosis, Asthma, HTN, and DM who presented with severe Lower back pain and inability to ambulate. 1- Lumbar and cervical disk disease. - to OR tomorrow for C spine sx - cont po dilaudid , 2 mg q 6 hrs. - add another lidocaine patch - cont lyrica - NPO after MN. hold am levemir tomorrow, and cont reduced dose tonight - pre-op reisk stratification per my note on 08/01 2- DM : cont SSI - cont decreased evening dose of levemir and hold Am dose 3- Allergic reaction to tylenol. cont PRN Benadryl 4- HTN: cont BB 5- thyroid nodule on MRI. f/u as out pt with US DVT PX : heparin
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
[2018-08-04] MEDS ORDERED: LIDOCAINE PATCH REMOVAL MC SCH (22:00)
[2018-08-04] MEDS ORDERED: CHLORHEXIDINE GLUCONATE 4% CLEANSER FOR DECOLONIZATION TP SCH (22:00)
--- NOTE | 2018-08-04 22:13 | PN ---
Progress Note (short form) - Note Progress Note: Stable To OR in AM
[2018-08-04] MEDS: PREGABALIN 75 MG CAPSULE PO SCH ×2 (22:45→22:53)
[2018-08-04] MEDS: diphenhydrAMINE HCL 25 MG CAPSULE (FP) PO PRN (22:53)
[2018-08-04] MEDS: LIDOCAINE PATCH REMOVAL MC SCH (22:54)
[2018-08-04] MEDS: INSULIN (LEVEMIR) 100 UNITS/ML UNITS SQ SCH (22:54)
[2018-08-05] MEDS: HYDROmorphone HCL 2 MG TABLET PO PRN ×2 (00:25→06:19)
[2018-08-05] MEDS: INSULIN SLIDING SCALE (NOVOLOG) 1 VIAL SQ SCH ×3 (06:09→18:10)
[2018-08-05] MEDS: INSULIN (NOVOLOG) ASPART 100 UNITS/ML 10ML VIAL SQ SCH (06:09)
[2018-08-05 08:31] LABS: BASO % 0.5 % (0-2.0); EOS % 1.1 % (0-4.5); HEMATOCRIT 39.1 % (32.4-45.2); HEMOGLOBIN 13.4 GM/dL (10.7-15.3); MCH 30.2 pg (25.7-33.7); MCHC 34.2 g/dl (32.0-36.0); MEAN CELL VOLUME 88.5 fl (80-96); MEAN PLT VOLUME 8.4 fl (7.5-11.1); MONO % 3.8 % (3.8-10.2); NEUT % 65.6 % (42.8-82.8); PLATELET COUNT 299 K/MM3 (134-434); RBC 4.42 M/mm3 (3.60-5.2); RDW 14.1 % (11.6-15.6); WHITE BLOOD COUNT 8.4 K/mm3 (4.0-10.0)
[2018-08-05 09:12] LABS: ALBUMIN 3.8 g/dl (3.4-5.0); ALK PHOS 98 U/L (45-117); ANION GAP 7 MMOL/L (8-16); BILIRUBIN,TOTAL 0.2 mg/dL (0.2-1); BLOOD UREA NITROGEN 12 mg/dL (7-18); CALCIUM 8.9 mg/dL (8.5-10.1); CHLORIDE 105 mmol/L (98-107); CO2 25 mmol/L (21-32); CREATININE 0.8 mg/dL (0.55-1.3); GLUCOSE,RANDOM 150 mg/dL (74-106); POTASSIUM 4.6 mmol/L (3.5-5.1); SGOT/AST 8 U/L (15-37); SGPT/ALT 15 U/L (13-61); SODIUM 137 mmol/L (136-145); TOT PROT 7.2 g/dl (6.4-8.2)
[2018-08-05] MEDS: LIDOCAINE 5% TOPICAL PATCH TP SCH ×2 (09:23)
[2018-08-05] MEDS: RANITIDINE HCL 150 MG TABLET (FP) PO SCH (09:23)
[2018-08-05] MEDS: METOPROLOL TARTRATE 25 MG TABLET (FP) PO SCH ×2 (09:23→21:59)
[2018-08-05] MEDS: DULoxetine HCL 20 MG CAPSULE.DR (FP) PO SCH ×2 (09:23→22:00)
[2018-08-05] MEDS ORDERED: DEXAMETHASONE SOD PHOSPHATE 4 MG/1 ML VIAL IVPUSH PRN (10:23)
[2018-08-05] MEDS ORDERED: PROMETHAZINE HCL 25 MG/1 ML VIAL IVPB PRN ×2 (10:23→14:47)
[2018-08-05] MEDS ORDERED: ONDANSETRON 4 MG/2 ML VIAL IVPUSH PRN ×2 (10:23→18:00)
[2018-08-05 10:27] LABS: INR 1.01 (0.83-1.09); PROTHROMBIN TIME (PATIENT) 11.9 SEC (9.7-13.0)
[2018-08-05 10:30] LABS: ACTIVATED PTT 32.1 SECONDS (25.2-36.5)
[2018-08-05] MEDS ORDERED: LACTATED RINGERS SOLUTION 1,000 ML IV SCH (10:30)
[2018-08-05] MEDS ORDERED: HYDROmorphone *PCA* 10MG/50ML DISP.SYRIN PCA SCH (10:30)
[2018-08-05] MEDS ORDERED: ROCURONIUM BROMIDE 50 MG/5 ML VIAL ONE ×2 (11:09→12:20)
[2018-08-05] MEDS ORDERED: PROPOFOL 20 ML ONE ×2 (11:09→13:45)
[2018-08-05] MEDS ORDERED: MIDAZOLAM HCL 2 MG/2 ML SINGLE DOSE VIAL ONE (11:09)
[2018-08-05] MEDS ORDERED: ceFAZolin SODIUM 1 GM VIAL IVPB ONE ×2 (11:15→11:49)
[2018-08-05] MEDS ORDERED: BACITRACIN 50,000 UNITS VIAL TP ONE ×2 (11:16→12:47)
[2018-08-05] MEDS ORDERED: GENTAMICIN 80MG PREMIX BAG IVPB ONE ×2 (11:16→12:47)
[2018-08-05] MEDS ORDERED: BUPIVACAINE HCL/PF 0.25% (2.5MG/ML) 10 ML VIAL IJ ONE (11:17)
[2018-08-05] MEDS ORDERED: BUPIVACAINE LIPOSOME/PF (EXPAREL) 266 MG/20 ML VIAL NR ONE (11:18)
[2018-08-05] MEDS ORDERED: LIDOCAINE HCL 1%, 10 MG/ML (50 mL VIAL) IJ ONE ×2 (11:18→12:13)
[2018-08-05] MEDS ORDERED: ONDANSETRON 4 MG/2 ML VIAL ONE (11:45)
[2018-08-05] MEDS ORDERED: DEXAMETHASONE SOD PHOSPHATE 4 MG/1 ML VIAL ONE (11:45)
[2018-08-05] MEDS ORDERED: VANCOMYCIN 1,000 MG VIAL (RESTRICTED TO ID ONLY) ONE (11:47)
[2018-08-05] MEDS ORDERED: SODIUM CHLORIDE 0.9% P/F 10 ML VIAL IJ ONE (11:47)
[2018-08-05] MEDS ORDERED: ceFAZolin SODIUM 1 GM VIAL ONE (11:47)
[2018-08-05] MEDS ORDERED: VANCOMYCIN 1 GRAM (PRE-DOCKED) 1,000 MG/250 ML BAG IVPB ONE (11:59)
[2018-08-05] MEDS ORDERED: THROMBIN (BOVINE) 20,000 UNIT VIAL TP ONE (12:39)
[2018-08-05] MEDS ORDERED: THROMBIN (BOVINE) 5,000 UNIT VIAL TP ONE (12:40)
[2018-08-05] MEDS ORDERED: NEOSTIGMINE METHYLSULFATE 0.5 MG/1 ML - 10 ML MDV ONE (13:22)
[2018-08-05] MEDS ORDERED: GLYCOPYRROLATE 0.2 MG/1 ML VIAL ONE (13:22)
[2018-08-05] MEDS ORDERED: BUPIVACAINE HCL/PF (5 MG/ML) 30 ML VIAL IJ ONE (13:33)
[2018-08-05] MEDS ORDERED: BUPIVACAINE HCL/PF 0.5% (5MG/ML) 10 ML VIAL ONE (13:36)
--- NOTE | 2018-08-05 14:41 | OP ---
Operative Note - Note: Operative Date: 08/05/18 Pre-Operative Diagnosis: cervical spondylotic myelopathy Operation: s/p posterior laminectom of C2 thru C7 with fusion Surgeon: Abdirashid Anand Asbestos Worker Helper: Annette Matthew Anesthesiologist/SHIPPING RECEIVING CLERK: Khai Black Anesthesia: General Estimated Blood Loss (mls): 50 Drains, Volume Out (mls): 200 (meza) Fluid Volume Replaced (mls): 1,200 Operative Report Dictated: Yes
[2018-08-05] MEDS ORDERED: LACTATED RINGERS SOLUTION 1,000 ML/1,000 ML INFUS.BAG IV SCH (14:45)
[2018-08-05] MEDS ORDERED: ALBUTEROL SO4 8 GM HFA INHALER IH PRN (14:47)
[2018-08-05] MEDS: LACTATED RINGERS SOLUTION 1,000 ML IV SCH (15:13)
[2018-08-05] MEDS: HYDROmorphone *PCA* 10MG/50ML DISP.SYRIN PCA SCH (15:13)
--- NOTE | 2018-08-05 16:24 | PN ---
Teaching Attending Note Name of Resident: Jessica Bean ATTENDING PHYSICIAN STATEMENT I saw and evaluated the patient. I reviewed the resident's note and discussed the case with the resident. I agree with the resident's findings and plan as documented. SUBJECTIVE:seen at 8:3 am Feels better today. ready for her surgery OBJECTIVE: NAD, AAOX3. CV: RRR, NO MRG Lungs: CTAB Ext: no edema ASSESSMENT AND PLAN: 38 y/o lady with h/o lower back pain, C spine stenosis, Asthma, HTN, and DM who presented with severe Lower back pain and inability to ambulate. 1- Lumbar and cervical disk disease. - to OR today for C spine sx - pain management after sx. dilaudid ACCORDION REPAIRER briefly with careful use of narcotics - cont lyrica 2- DM : cont SSI - hold long acting insulin today due to sx. will monitor sugar tomorrow and will decide on timing and dosing of Levemir 3- HTN: cont BB 6- Thyroid nodule on MRI. f/u as out pt with US DVT PX : heparin on hold for today. will resume when OK with Sx team
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
[2018-08-05] MEDS: CEFAZOLIN 1 GM/D5W 1 GM/50 ML BAG IVPB SCH (20:42)
[2018-08-05] MEDS ORDERED: INSULIN (LEVEMIR) 100 UNITS/ML UNITS SQ ONE (21:00)
[2018-08-05] MEDS: DOCUSATE SODIUM 100 MG CAPSULE (FP) PO SCH (21:59)
[2018-08-05] MEDS: PREGABALIN 75 MG CAPSULE PO SCH (21:59)
[2018-08-05] MEDS ORDERED: HEPARIN NA (PORCINE) 5,000 UNITS/ML 1ML VIAL SQ SCH (22:00)
[2018-08-06] MEDS: LACTATED RINGERS SOLUTION 1,000 ML IV SCH (02:03)
[2018-08-06] MEDS: CEFAZOLIN 1 GM/D5W 1 GM/50 ML BAG IVPB SCH ×3 (02:03→17:38)
[2018-08-06] MEDS: INSULIN SLIDING SCALE (NOVOLOG) 1 VIAL SQ SCH ×3 (06:26→17:38)
[2018-08-06] MEDS: DOCUSATE SODIUM 100 MG CAPSULE (FP) PO SCH ×3 (06:26→22:31)
[2018-08-06 07:32] LABS: HEMATOCRIT 38.3 % (32.4-45.2); HEMOGLOBIN 12.9 GM/dL (10.7-15.3); MCH 30.3 pg (25.7-33.7); MCHC 33.6 g/dl (32.0-36.0); MEAN CELL VOLUME 89.9 fl (80-96); MEAN PLT VOLUME 9.4 fl (7.5-11.1); PLATELET COUNT 247 K/MM3 (134-434); RBC 4.26 M/mm3 (3.60-5.2); RDW 14.4 % (11.6-15.6); WHITE BLOOD COUNT 15.8 K/mm3 (4.0-10.0)
[2018-08-06 07:47] LABS: ANION GAP 8 MMOL/L (8-16); BLOOD UREA NITROGEN 10 mg/dL (7-18); CALCIUM 9.2 mg/dL (8.5-10.1); CHLORIDE 103 mmol/L (98-107); CO2 26 mmol/L (21-32); CREATININE 0.7 mg/dL (0.55-1.3); GLUCOSE,RANDOM 143 mg/dL (74-106); MAGNESIUM 2.2 mg/dL (1.8-2.4); PHOSPHOROUS 3.2 mg/dL (2.5-4.9); POTASSIUM 4.6 mmol/L (3.5-5.1); SODIUM 136 mmol/L (136-145)
[2018-08-06] MEDS: HYDROmorphone *PCA* 10MG/50ML DISP.SYRIN PCA SCH ×4 (07:49→20:36)
[2018-08-06] MEDS: FERROUS SO4 325 MG TABLET (FP) PO SCH (08:56)
--- NOTE | 2018-08-06 09:09 | PN ---
Teaching Attending Note Name of Resident: Jessica Bean ATTENDING PHYSICIAN STATEMENT I saw and evaluated the patient. I reviewed the resident's note and discussed the case with the resident. I agree with the resident's findings and plan as documented. SUBJECTIVE: Patient is comfortable with no acute distress. c/o having neck pain s/p surgery. OBJECTIVE: Vital Signs Temperature 98.7 F 08/06/18 05:39 Pulse Rate 86 08/06/18 05:39 Respiratory Rate 20 08/06/18 05:39 Blood Pressure 138/50 L 08/06/18 05:39 O2 Sat by Pulse Oximetry (%) 98 08/06/18 06:00 GENERAL: The patient is awake, alert, and fully oriented, in no acute distress. HEAD: Normal with no signs of trauma. EYES: PERRLA, EOMI, sclera anicteric, conjunctiva clear. ENT: Ears normal, oropharynx clear without exudates, moist mucous membranes. NECK: Soft, supple, trachea midline, +left-sided tenderness to palpation. LUNGS: Breath sounds equal, clear to auscultation bilaterally. HEART: Regular rate and rhythm, S1, S2 without murmur, rub or gallop. ABDOMEN: Soft, nontender, nondistended, normoactive bowel sounds. EXTREMITIES: 2+ pulses, warm, well-perfused, no edema. NEUROLOGICAL: AAOx3, neuro exam as per neurosx PSYCH: Normal mood, normal affect. SKIN: Warm, dry, normal turgor, no rashes or lesions noted CBCD WBC 15.8 K/mm3 (4.0-10.0) H 08/06/18 06:00 RBC 4.26 M/mm3 (3.60-5.2) 08/06/18 06:00 Hgb 12.9 GM/dL (10.7-15.3) 08/06/18 06:00 Hct 38.3 % (32.4-45.2) 08/06/18 06:00 MCV 89.9 fl (80-96) 08/06/18 06:00 MCHC 33.6 g/dl (32.0-36.0) 08/06/18 06:00 RDW 14.4 % (11.6-15.6) 08/06/18 06:00 Plt Count 247 K/MM3 (134-434) 08/06/18 06:00 MPV 9.4 fl (7.5-11.1) D 08/06/18 06:00 CMP Sodium 136 mmol/L (136-145) 08/06/18 06:00 Potassium 4.6 mmol/L (3.5-5.1) 08/06/18 06:00 Chloride 103 mmol/L (98-107) 08/06/18 06:00 Carbon Dioxide 26 mmol/L (21-32) 08/06/18 06:00 Anion Gap 8 MMOL/L (8-16) 08/06/18 06:00 BUN 10 mg/dL (7-18) 08/06/18 06:00 Creatinine 0.7 mg/dL (0.55-1.3) 08/06/18 06:00 Creat Clearance w eGFR > 60 (>60) 08/06/18 06:00 Random Glucose 143 mg/dL (74-106) H 08/06/18 06:00 Calcium 9.2 mg/dL (8.5-10.1) 08/06/18 06:00 Total Bilirubin 0.2 mg/dL (0.2-1) 08/05/18 07:50 AST 8 U/L (15-37) L 08/05/18 07:50 ALT 15 U/L (13-61) 08/05/18 07:50 Alkaline Phosphatase 98 U/L (45-117) 08/05/18 07:50 Total Protein 7.2 g/dl (6.4-8.2) 08/05/18 07:50 Albumin 3.8 g/dl (3.4-5.0) 08/05/18 07:50 Current Medications Generic Name Dose Route Start Last Admin Trade Name Freq PRN Reason Stop Dose Admin Albuterol Sulfate 2 puff 08/05/18 14:47 Ventolin Hfa Inhaler - IH Q4H PRN SHORT OF BREATH/WHEEZING Diphenhydramine HCl 12.5 mg 08/05/18 14:47 Benadryl Injection - IVPUSH ONCE PRN FOR ITCHING Docusate Sodium 100 mg 08/05/18 22:00 08/06/18 06:26 Colace - PO 100 mg TID TAMIKA Administration Duloxetine HCl 20 mg 08/05/18 22:00 08/05/18 22:00 Cymbalta - PO 20 mg BID TAMIKA Administration Ferrous Sulfate 325 mg 08/06/18 08:00 08/06/18 08:56 Feosol - PO 325 mg DAILY@0800 TAMIKA Administration Folic Acid 1 mg 08/06/18 10:00 Folic Acid - PO DAILY TAMIKA Hydromorphone HCl 10 mg 08/05/18 14:47 08/06/18 07:49 Dilaudid Pressure Tank Operator - SUPERVISOR COSTUMING 08/12/18 10:24 10 mg SUPERVISOR COSTUMING TAMIKA Administration Protocol Cefazolin Sodium 1 gm in 50 mls @ 100 mls/hr 08/05/18 21:00 08/06/18 02:03 Ancef 1 Gm Premixed Ivpb - IVPB 100 mls/hr Q8H-IV TAMIKA Administration Lactated Ringer's 1,000 mls @ 125 mls/hr 08/05/18 14:47 08/06/18 02:03 Lactated Ringers Solution IV 125 mls/hr ASDIR T[facility]IKA Administration Insulin Aspart 1 vial 08/05/18 16:30 08/06/18 06:26 Novolog Vial Sliding Scale - SQ 2 units TIDAC [facility] Administration Protocol Metoprolol Tartrate 25 mg 08/05/18 22:00 08/05/18 21:59 Lopressor - PO 25 mg BID [facility] Administration Ondansetron HCl 4 mg 08/05/18 18:00 Zofran Injection IVPUSH Q6H PRN NAUSEA Polyethylene Glycol 17 gm 08/05/18 14:47 Miralax (For Daily Use) - PO DAILY PRN CONSTIPATION Pregabalin 150 mg 08/05/18 22:00 08/05/18 21:59 Lyrica - PO 150 mg HS [facility] Administration Promethazine HCl 12.5 mg 08/05/18 14:47 Phenergan Injection - IVPB Q6H PRN NAUSEA AND/OR VOMITING Ranitidine HCl 150 mg 08/06/18 10:00 Zantac - PO DAILY [facility] Home Medications Medication Instructions Recorded Albuterol 0.083% Nebulizer [place] 1 neb NEB Q6H #30 vial 08/14/17 [Ventolin 0.083% Nebulizer Soln -] Diphenhydramine [Benadryl -] 50 mg PO Q8H PRN #30 capsule 08/14/17 Gabapentin [Neurontin -] 600 mg PO DAILY MDD 3 08/14/17 HYDROmorphone [Dilaudid -] 4 mg PO Q6H PRN 08/14/17 Insulin (Novolog) [Novolog Flexpen] 14 units SQ ONCE #2 syringe 08/14/17 Insulin Glargine,Hum.rec.anlog 47 units SQ HS #1 pen 08/14/17 [Lantus Solostar PEN (NF)] Ranitidine HCl [Zantac] 150 mg PO DAILY #30 tablet 08/14/17 Duloxetine HCl [Cymbalta -] 20 mg PO BID 07/31/18 Insulin (Novolog) [Novolog] 12 units SQ AM 07/31/18 Metoprolol Tartrate [Lopressor] 50 mg PO BID 07/31/18 Prazosin HCl [Minipress] 2 mg PO DAILY 07/31/18 hydrOXYzine PAMOATE [Vistaril -] 50 mg PO TID 07/31/18 metFORMIN HCL [Glucophage -] 1,000 mg PO BID 07/31/18 traZODone HCL [Trazodone HCl] 100 mg PO 07/31/18 ASSESSMENT AND PLAN: Patient is a 38 y/o lady with PMHx of lower back pain, C-spine stenosis, Asthma , HTN, and T2DM who presented with severe Lower back pain and inability to ambulate. #POD #1 s/p posterior laminectomy of C2 thru C7 with fusion Lumbar and cervical disk disease. dilaudid SUPERVISOR COSTUMING briefly with careful use of narcotics . cont lyrica #T2 DM : cont SSI , hold Levemir for now. # HTN: cont BB # Thyroid nodule on MRI. f/u as out pt with US DVT PX : heparin on hold . will resume when OK with Sx team
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
[2018-08-06] MEDS: RANITIDINE HCL 150 MG TABLET (FP) PO SCH (09:30)
[2018-08-06] MEDS: FOLIC ACID 1 MG TABLET (FP) PO SCH (09:30)
[2018-08-06] MEDS: DULoxetine HCL 20 MG CAPSULE.DR (FP) PO SCH ×2 (09:31→22:31)
[2018-08-06] MEDS: METOPROLOL TARTRATE 25 MG TABLET (FP) PO SCH ×2 (09:31→22:31)
--- NOTE | 2018-08-06 09:44 | PN ---
Progress Note (short form) - Note Progress Note: Post op day#1.S/P C2-C7 Posterior decompression with fusion under GA uneventful.Patient stable on Dilaudid SERVICE DISPATCHER c/o pain score of 7-8/10.So increased Dilaudid limit from 8-12mg /4hrs.Also put patient on Neurontin.Will f/u tomorrow.
[2018-08-06] MEDS: POLYETHYLENE GLYCOL 3350 119 GM BTL PO PRN (13:20)
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
[2018-08-06] MEDS: INSULIN (LEVEMIR) 100 UNITS/ML UNITS SQ SCH (22:31)
[2018-08-06] MEDS: HEPARIN NA (PORCINE) 5,000 UNITS/ML 1ML VIAL SQ SCH (22:31)
[2018-08-06] MEDS: PREGABALIN 75 MG CAPSULE PO SCH (22:31)
[2018-08-06] MEDS: diphenhydrAMINE HCL 25 MG CAPSULE (FP) PO PRN (22:58)
[2018-08-07] MEDS: CEFAZOLIN 1 GM/D5W 1 GM/50 ML BAG IVPB SCH ×3 (01:32→17:50)
[2018-08-07] MEDS: DOCUSATE SODIUM 100 MG CAPSULE (FP) PO SCH ×3 (06:59→22:16)
[2018-08-07] MEDS: INSULIN SLIDING SCALE (NOVOLOG) 1 VIAL SQ SCH ×3 (06:59→17:34)
[2018-08-07] MEDS: HEPARIN NA (PORCINE) 5,000 UNITS/ML 1ML VIAL SQ SCH ×3 (06:59→22:17)
[2018-08-07 07:17] LABS: BASO % 0.2 % (0-2.0); EOS % 0.3 % (0-4.5); HEMATOCRIT 36.1 % (32.4-45.2); HEMOGLOBIN 12.1 GM/dL (10.7-15.3); LYMPH % 14.2 % (8-40); MCH 30.4 pg (25.7-33.7); MCHC 33.5 g/dl (32.0-36.0); MEAN CELL VOLUME 90.7 fl (80-96); MEAN PLT VOLUME 8.7 fl (7.5-11.1); MONO % 6.6 % (3.8-10.2); NEUT % 78.7 % (42.8-82.8); PLATELET COUNT 271 K/MM3 (134-434); RBC 3.98 M/mm3 (3.60-5.2); RDW 14.3 % (11.6-15.6); WHITE BLOOD COUNT 10.1 K/mm3 (4.0-10.0)
[2018-08-07] MEDS: FERROUS SO4 325 MG TABLET (FP) PO SCH (08:50)
[2018-08-07] MEDS: RANITIDINE HCL 150 MG TABLET (FP) PO SCH (09:29)
[2018-08-07] MEDS: FOLIC ACID 1 MG TABLET (FP) PO SCH (09:30)
[2018-08-07] MEDS: METOPROLOL TARTRATE 25 MG TABLET (FP) PO SCH ×2 (09:30→22:18)
[2018-08-07] MEDS: DULoxetine HCL 20 MG CAPSULE.DR (FP) PO SCH ×2 (09:30→22:17)
--- NOTE | 2018-08-07 10:50 | PN ---
Progress Note (short form) - Note Progress Note: POD#2 Pt with left shoulder arm pain. LOCKS TENDER dose increased yesterday but still having some pain. OOB with PT today and ambulated. Tolerating a diet and had a bowel movement. Voiding without difficulty. Vital Signs Period Temp Pulse Resp BP Sys/Stewart Pulse Ox Last 24 Hr 97.9 F-99.3 F 60-91 19-22 133-159/87-100 98-98 GEN: A&0x3, NAD CV: RRR Lungs: CTA b/l Neck: dressing c/d/i. EHSAN serosangrenous 90ml Neuro: upper arm strength 5/5 b/l with flexion. Left shoulder pain with shoulder shrug on the left CBC, BMP 08/07/ 06:30 08/06/18 06:00 A/P: 38 yo female s/p posterior C2-C7 laminectomy with fusion Continue maintenance of C collar OOB and ambulating with PT Continue LOCKS TENDER, adding valium as needed for muscle spasm Diet as tolerated Stool softners
[2018-08-07] MEDS: diazePAM 5 MG TABLET PO PRN ×2 (11:31→21:05)
[2018-08-07] MEDS: diphenhydrAMINE HCL 25 MG CAPSULE (FP) PO PRN (11:58)
--- NOTE | 2018-08-07 12:41 | PN ---
Progress Note (short form) - Note Progress Note: Anesthesia EMBEDDED SOFTWARE ENGINEER round. s/p posterior C2-C7 laminectomy with fusion. POD#2 Pain score 8-10/10. Ambulating. C-collar in place.VSS. EMBEDDED SOFTWARE ENGINEER was increased yesterday to maximum 12mg Dilaudid /4 hours. Will continue EMBEDDED SOFTWARE ENGINEER. Break through dose can be repeated every 2 hours.Clarified for the RN.. Will follow up.
--- NOTE | 2018-08-07 13:19 | PN ---
Progress Note (short form) - Note Progress Note: Patient recovering well from surgery. Drainage minimal Ambulating with assistance Plan to remove EHSAN in the morning after which patient will be clear for discharge from Neurosurgery standpoint (Home versus SNF/Rehab based upon PT assessment) All questions answered. - Physical Therapy - EHSAN removal Saturday morning - Wean STRUCTURAL ANALYSIS ENGINEER - GI/DVT prophylaxis
[2018-08-07] MEDS: HYDROmorphone *PCA* 10MG/50ML DISP.SYRIN PCA SCH ×2 (14:46→21:09)
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
--- NOTE | 2018-08-07 16:51 | PN ---
Teaching Attending Note Name of Resident: Jessica Bean ATTENDING PHYSICIAN STATEMENT I saw and evaluated the patient. I reviewed the resident's note and discussed the case with the resident. I agree with the resident's findings and plan as documented. SUBJECTIVE: patient is comfortable with no acute distress, continues to have neck pain, no nausea or vomiting. OBJECTIVE: Vital Signs Temperature 98.1 F 08/07/18 14:00 Pulse Rate 77 08/07/18 14:46 Respiratory Rate 22 H 08/07/18 14:46 Blood Pressure 156/94 08/07/18 14:46 O2 Sat by Pulse Oximetry (%) 98 08/07/18 06:00 GENERAL: The patient is awake, alert, and fully oriented, in no acute distress. HEAD: Normal with no signs of trauma. EYES: PERRLA, EOMI, sclera anicteric, conjunctiva clear. ENT: Ears normal, oropharynx clear without exudates, moist mucous membranes. NECK: Soft, supple, trachea midline, left-sided tenderness to palpation. LUNGS: Breath sounds equal, clear to auscultation bilaterally. HEART: Regular rate and rhythm, S1, S2 without murmur, rub or gallop. ABDOMEN: Soft, nontender, nondistended, normoactive bowel sounds. EXTREMITIES: 2+ pulses, warm, well-perfused, no edema. NEUROLOGICAL: AAOx3, neuro exam as per neurosx PSYCH: Normal mood, normal affect. SKIN: Warm, dry, normal turgor, no rashes or lesions noted CBCD WBC 10.1 K/mm3 (4.0-10.0) H 08/07/18 06:30 RBC 3.98 M/mm3 (3.60-5.2) 08/07/18 06:30 Hgb 12.1 GM/dL (10.7-15.3) 08/07/18 06:30 Hct 36.1 % (32.4-45.2) 08/07/18 06:30 MCV 90.7 fl (80-96) 08/07/18 06:30 MCHC 33.5 g/dl (32.0-36.0) 08/07/18 06:30 RDW 14.3 % (11.6-15.6) 08/07/18 06:30 Plt Count 271 K/MM3 (134-434) 08/07/18 06:30 MPV 8.7 fl (7.5-11.1) 08/07/18 06:30 CMP Sodium 136 mmol/L (136-145) 08/06/18 06:00 Potassium 4.6 mmol/L (3.5-5.1) 08/06/18 06:00 Chloride 103 mmol/L (98-107) 08/06/18 06:00 Carbon Dioxide 26 mmol/L (21-32) 08/06/18 06:00 Anion Gap 8 MMOL/L (8-16) 08/06/18 06:00 BUN 10 mg/dL (7-18) 08/06/18 06:00 Creatinine 0.7 mg/dL (0.55-1.3) 08/06/18 06:00 Creat Clearance w eGFR > 60 (>60) 08/06/18 06:00 Random Glucose 143 mg/dL (74-106) H 08/06/18 06:00 Calcium 9.2 mg/dL (8.5-10.1) 08/06/18 06:00 Total Bilirubin 0.2 mg/dL (0.2-1) 08/05/18 07:50 AST 8 U/L (15-37) L 08/05/18 07:50 ALT 15 U/L (13-61) 08/05/18 07:50 Alkaline Phosphatase 98 U/L (45-117) 08/05/18 07:50 Total Protein 7.2 g/dl (6.4-8.2) 08/05/18 07:50 Albumin 3.8 g/dl (3.4-5.0) 08/05/18 07:50 Current Medications Generic Name Dose Route Start Last Admin Trade Name Freq PRN Reason Stop Dose Admin Albuterol Sulfate 2 puff 08/05/18 14:47 Ventolin Hfa Inhaler - IH Q4H PRN SHORT OF BREATH/WHEEZING Diazepam 5 mg 08/07/18 10:39 08/07/18 11:31 Valium - PO 5 mg Q8H PRN Administration MUSCLE SPASMS Diphenhydramine HCl 25 mg 08/06/18 14:57 08/07/18 11:58 Benadryl - PO 25 mg Q8H PRN Administration FOR ITCHING Docusate Sodium 100 mg 08/05/18 22:00 08/07/18 14:49 Colace - PO Not Given TID TAMIKA Duloxetine HCl 20 mg 08/05/18 22:00 08/07/18 09:30 Cymbalta - PO 20 mg BID ATMIKA Administration Heparin Sodium (Porcine) 5,000 unit 08/06/18 22:00 08/07/18 14:48 Heparin - SQ 5,000 unit TID TAMIKA Administration Hydromorphone HCl 10 mg 08/06/18 09:40 08/07/18 14:46 Dilaudid Space Studies Faculty Member - MICROSTRATEGY ARCHITECT 08/12/18 10:24 10 mg MICROSTRATEGY ARCHITECT TAMIKA Administration Protocol Cefazolin Sodium 1 gm in 50 mls @ 100 mls/hr 08/05/18 21:00 08/07/18 09:30 Ancef 1 Gm Premixed Ivpb - IVPB 100 mls/hr Q8H-IV TAMIKA Administration Lactated Ringer's 1,000 mls @ 125 mls/hr 08/05/18 14:47 08/06/18 02:03 Lactated Ringers Solution IV 125 mls/hr ASDIR TAMIKA Administration Insulin Aspart 1 vial 08/05/18 16:30 08/07/18 11:34 Novolog Vial Sliding Scale - SQ 2 units TIDAC [facility] Administration Protocol Insulin Detemir 47 units 08/06/18 22:00 08/06/18 22:31 Levemir Vial SQ 47 units HS [facility] Administration Metoprolol Tartrate 25 mg 08/05/18 22:00 08/07/18 09:30 Lopressor - PO 25 mg BID TAMIKA Administration Ondansetron HCl 4 mg 08/05/18 18:00 Zofran Injection IVPUSH Q6H PRN NAUSEA Polyethylene Glycol 17 gm 08/05/18 14:47 08/06/18 13:20 Miralax (For Daily Use) - PO 17 gm DAILY PRN Administration CONSTIPATION Pregabalin 150 mg 08/05/18 22:00 08/06/18 22:31 Lyrica - PO 150 mg HS [facility] Administration Promethazine HCl 12.5 mg 08/05/18 14:47 Phenergan Injection - IVPB Q6H PRN NAUSEA AND/OR VOMITING Ranitidine HCl 150 mg 08/06/18 10:00 08/07/18 09:29 Zantac - PO 150 mg DAILY [facility] Administration Home Medications Medication Instructions Recorded Albuterol 0.083% Nebulizer [place] 1 neb NEB Q6H #30 vial 08/14/17 [Ventolin 0.083% Nebulizer Soln -] Diphenhydramine [Benadryl -] 50 mg PO Q8H PRN #30 capsule 08/14/17 Gabapentin [Neurontin -] 600 mg PO DAILY MDD 3 08/14/17 HYDROmorphone [Dilaudid -] 4 mg PO Q6H PRN 08/14/17 Insulin (Novolog) [Novolog Flexpen] 14 units SQ ONCE #2 syringe 08/14/17 Insulin Glargine,Hum.rec.anlog 47 units SQ HS #1 pen 08/14/17 [Lantus Solostar PEN (NF)] Ranitidine HCl [Zantac] 150 mg PO DAILY #30 tablet 08/14/17 Duloxetine HCl [Cymbalta -] 20 mg PO BID 07/31/18 Insulin (Novolog) [Novolog] 12 units SQ AM 07/31/18 Metoprolol Tartrate [Lopressor] 50 mg PO BID 07/31/18 Prazosin HCl [Minipress] 2 mg PO DAILY 07/31/18 hydrOXYzine PAMOATE [Vistaril -] 50 mg PO TID 07/31/18 metFORMIN HCL [Glucophage -] 1,000 mg PO BID 07/31/18 traZODone HCL [Trazodone HCl] 100 mg PO 07/31/18 ASSESSMENT AND PLAN: Patient is a 38 y/o lady with PMHx of lower back pain, C-spine stenosis, Asthma , HTN, and T2DM who presented with severe Lower back pain and inability to ambulate. #POD #2 s/p posterior laminectomy of C2 thru C7 with fusion Lumbar and cervical disk disease. dilaudid MICROSTRATEGY ARCHITECT as per anethesia, briefly with careful use of narcotics, continue lyrica #T2 DM : cont SSI , continue Levemir . # HTN: cont BB # Thyroid nodule on MRI. f/u as out pt with US DVT PX : heparin on hold . will resume when OK with Sx team
[2018-08-07] MEDS: PREGABALIN 75 MG CAPSULE PO SCH (22:18)
[2018-08-07] MEDS: INSULIN (LEVEMIR) 100 UNITS/ML UNITS SQ SCH (22:31)
[2018-08-07] MEDS: LACTATED RINGERS SOLUTION 1,000 ML IV SCH (22:31)
[2018-08-08] MEDS: CEFAZOLIN 1 GM/D5W 1 GM/50 ML BAG IVPB SCH ×3 (02:07→18:12)
[2018-08-08] MEDS: HYDROmorphone *PCA* 10MG/50ML DISP.SYRIN PCA SCH ×2 (04:06→08:30)
[2018-08-08] MEDS: HEPARIN NA (PORCINE) 5,000 UNITS/ML 1ML VIAL SQ SCH ×3 (06:07→22:13)
[2018-08-08] MEDS: INSULIN SLIDING SCALE (NOVOLOG) 1 VIAL SQ SCH ×3 (06:07→18:25)
[2018-08-08] MEDS: DOCUSATE SODIUM 100 MG CAPSULE (FP) PO SCH ×3 (06:07→22:13)
--- NOTE | 2018-08-08 07:44 | PN ---
Teaching Attending Note Name of Resident: Jessica Bean ATTENDING PHYSICIAN STATEMENT I saw and evaluated the patient. I reviewed the resident's note and discussed the case with the resident. I agree with the resident's findings and plan as documented. SUBJECTIVE: Patient is comfortable with no acute distress, feels better but her pain is still not optimally controlled. OBJECTIVE: Vital Signs Temperature 98.6 F 08/08/18 02:00 Pulse Rate 71 08/08/18 02:00 Respiratory Rate 20 08/08/18 02:00 Blood Pressure 133/95 08/08/18 02:00 O2 Sat by Pulse Oximetry (%) 98 08/07/18 22:00 GENERAL: The patient is awake, alert, and fully oriented, in no acute distress. HEAD: Normal with no signs of trauma. EYES: PERRLA, EOMI, sclera anicteric, conjunctiva clear. ENT: Ears normal, oropharynx clear without exudates, moist mucous membranes. NECK: Soft, supple, trachea midline, left-sided tenderness to palpation. LUNGS: Breath sounds equal, clear to auscultation bilaterally. HEART: Regular rate and rhythm, S1, S2 without murmur, rub or gallop. ABDOMEN: Soft, nontender, nondistended, normoactive bowel sounds. EXTREMITIES: 2+ pulses, warm, well-perfused, no edema. NEUROLOGICAL: AAOx3, neuro exam as per neurosx PSYCH: Normal mood, normal affect. SKIN: Warm, dry, normal turgor, no rashes or lesions noted CBCD WBC 10.1 K/mm3 (4.0-10.0) H 08/07/18 06:30 RBC 3.98 M/mm3 (3.60-5.2) 08/07/18 06:30 Hgb 12.1 GM/dL (10.7-15.3) 08/07/18 06:30 Hct 36.1 % (32.4-45.2) 08/07/18 06:30 MCV 90.7 fl (80-96) 08/07/18 06:30 MCHC 33.5 g/dl (32.0-36.0) 08/07/18 06:30 RDW 14.3 % (11.6-15.6) 08/07/18 06:30 Plt Count 271 K/MM3 (134-434) 08/07/18 06:30 MPV 8.7 fl (7.5-11.1) 08/07/18 06:30 CMP Sodium 136 mmol/L (136-145) 08/06/18 06:00 Potassium 4.6 mmol/L (3.5-5.1) 08/06/18 06:00 Chloride 103 mmol/L (98-107) 08/06/18 06:00 Carbon Dioxide 26 mmol/L (21-32) 08/06/18 06:00 Anion Gap 8 MMOL/L (8-16) 08/06/18 06:00 BUN 10 mg/dL (7-18) 08/06/18 06:00 Creatinine 0.7 mg/dL (0.55-1.3) 08/06/18 06:00 Creat Clearance w eGFR > 60 (>60) 08/06/18 06:00 Random Glucose 143 mg/dL (74-106) H 08/06/18 06:00 Calcium 9.2 mg/dL (8.5-10.1) 08/06/18 06:00 Total Bilirubin 0.2 mg/dL (0.2-1) 08/05/18 07:50 AST 8 U/L (15-37) L 08/05/18 07:50 ALT 15 U/L (13-61) 08/05/18 07:50 Alkaline Phosphatase 98 U/L (45-117) 08/05/18 07:50 Total Protein 7.2 g/dl (6.4-8.2) 08/05/18 07:50 Albumin 3.8 g/dl (3.4-5.0) 08/05/18 07:50 Current Medications Generic Name Dose Route Start Last Admin Trade Name Freq PRN Reason Stop Dose Admin Albuterol Sulfate 2 puff 08/05/18 14:47 Ventolin Hfa Inhaler - IH Q4H PRN SHORT OF BREATH/WHEEZING Diazepam 5 mg 08/07/18 10:39 08/07/18 21:05 Valium - PO 5 mg Q8H PRN Administration MUSCLE SPASMS Diphenhydramine HCl 25 mg 08/06/18 14:57 08/07/18 11:58 Benadryl - PO 25 mg Q8H PRN Administration FOR ITCHING Docusate Sodium 100 mg 08/05/18 22:00 08/08/18 06:07 Colace - PO Not Given TID TAMIKA Duloxetine HCl 20 mg 08/05/18 22:00 08/07/18 22:17 Cymbalta - PO 20 mg BID TAMIKA Administration Heparin Sodium (Porcine) 5,000 unit 08/06/18 22:00 08/08/18 06:07 Heparin - SQ 5,000 unit TID TAMIKA Administration Hydromorphone HCl 10 mg 08/06/18 09:40 08/08/18 04:06 Dilaudid Doctor Of Osteopathy - SOURCING SPECIALIST 08/12/18 10:24 10 mg SOURCING SPECIALIST TAMIKA Administration Protocol Cefazolin Sodium 1 gm in 50 mls @ 100 mls/hr 08/05/18 21:00 08/08/18 02:07 Ancef 1 Gm Premixed Ivpb - IVPB 100 mls/hr Q8H-IV TAMIKA Administration Lactated Ringer's 1,000 mls @ 125 mls/hr 08/05/18 14:47 08/07/18 22:31 Lactated Ringers Solution IV 125 mls/hr ASDIR TAMIKA Administration Insulin Aspart 1 vial 08/05/18 16:30 08/08/18 06:07 Novolog Vial Sliding Scale - SQ Not Given TIDAC COUNT INCLUDES THE [facility] Protocol Insulin Detemir 47 units 08/06/18 22:00 08/07/18 22:31 Levemir Vial SQ 47 units HS COUNT INCLUDES THE [facility] Administration Metoprolol Tartrate 25 mg 08/05/18 22:00 08/07/18 22:18 Lopressor - PO 25 mg BID TAMIKA Administration Ondansetron HCl 4 mg 08/05/18 18:00 Zofran Injection IVPUSH Q6H PRN NAUSEA Polyethylene Glycol 17 gm 08/05/18 14:47 08/06/18 13:20 Miralax (For Daily Use) - PO 17 gm DAILY PRN Administration CONSTIPATION Pregabalin 150 mg 08/05/18 22:00 08/07/18 22:18 Lyrica - PO 150 mg HS COUNT INCLUDES THE [facility] Administration Promethazine HCl 12.5 mg 08/05/18 14:47 Phenergan Injection - IVPB Q6H PRN NAUSEA AND/OR VOMITING Ranitidine HCl 150 mg 08/06/18 10:00 08/07/18 09:29 Zantac - PO 150 mg DAILY COUNT INCLUDES THE [facility] Administration Home Medications Medication Instructions Recorded Albuterol 0.083% Nebulizer [place] 1 neb NEB Q6H #30 vial 08/14/17 [Ventolin 0.083% Nebulizer Soln -] Diphenhydramine [Benadryl -] 50 mg PO Q8H PRN #30 capsule 08/14/17 Gabapentin [Neurontin -] 600 mg PO DAILY MDD 3 08/14/17 HYDROmorphone [Dilaudid -] 4 mg PO Q6H PRN 08/14/17 Insulin (Novolog) [Novolog Flexpen] 14 units SQ ONCE #2 syringe 08/14/17 Insulin Glargine,Hum.rec.anlog 47 units SQ HS #1 pen 08/14/17 [Lantus Solostar PEN (NF)] Ranitidine HCl [Zantac] 150 mg PO DAILY #30 tablet 08/14/17 Duloxetine HCl [Cymbalta -] 20 mg PO BID 07/31/18 Insulin (Novolog) [Novolog] 12 units SQ AM 07/31/18 Metoprolol Tartrate [Lopressor] 50 mg PO BID 07/31/18 Prazosin HCl [Minipress] 2 mg PO DAILY 07/31/18 hydrOXYzine PAMOATE [Vistaril -] 50 mg PO TID 07/31/18 metFORMIN HCL [Glucophage -] 1,000 mg PO BID 07/31/18 traZODone HCL [Trazodone HCl] 100 mg PO DAILY 07/31/18 Albuterol Sulfate Inhaler - 2 puff IH Q4H PRN inhaler 08/08/18 [Ventolin HFA Inhaler -] Diazepam [Valium] 5 mg PO Q8H PRN tablet MDD 15 08/08/18 Diphenhydramine HCl [Benadryl 25 mg PO Q8H PRN capsule 08/08/18 Capsule -] Docusate Sodium [Colace -] 100 mg PO TID capsule 08/08/18 Ferrous Sulfate [Feosol] 325 mg PO DAILY@0800 ud 08/08/18 Folic Acid - 1 mg PO DAILY tablet 08/08/18 Polyethylene Glycol 3350 [Miralax 17 gm PO DAILY PRN bottle 08/08/18 119 gm Btl -] Pregabalin [Lyrica -] 150 mg PO HS capsule MDD 150 08/08/18 ASSESSMENT AND PLAN: Patient is a 38 y/o lady with PMHx of lower back pain, C-spine stenosis, Asthma , HTN, and T2DM who presented with severe Lower back pain and inability to ambulate. #POD #4 s/p posterior laminectomy of C2 thru C7 with fusion Lumbar and cervical disk disease. dilaudid SOURCING SPECIALIST discontinued as per anethesia, briefly with careful use of narcotics, as per MARCUS Bryant , will start the patient on Oxycodone since Dilaudid is not helping much. continue lyrica #T2 DM : cont SSI , continue Levemir . # HTN: cont BB # Thyroid nodule on MRI. f/u as out pt with US DVT PX : heparin on hold . will resume when OK with Sx team
[2018-08-08 07:46] LABS: HEMOGLOBIN 11.5 GM/dL (10.7-15.3); MCH 30.6 pg (25.7-33.7); MCHC 33.9 g/dl (32.0-36.0); MEAN CELL VOLUME 90.2 fl (80-96); MEAN PLT VOLUME 8.4 fl (7.5-11.1); PLATELET COUNT 268 K/MM3 (134-434); RBC 3.77 M/mm3 (3.60-5.2); RDW 13.9 % (11.6-15.6); WHITE BLOOD COUNT 9.7 K/mm3 (4.0-10.0)
[2018-08-08 08:28] LABS: ANION GAP 8 MMOL/L (8-16); BLOOD UREA NITROGEN 7 mg/dL (7-18); CALCIUM 8.9 mg/dL (8.5-10.1); CHLORIDE 99 mmol/L (98-107); CO2 31 mmol/L (21-32); CREATININE 0.7 mg/dL (0.55-1.3); GLUCOSE,RANDOM 134 mg/dL (74-106); PHOSPHOROUS 3.7 mg/dL (2.5-4.9); POTASSIUM 4.5 mmol/L (3.5-5.1); SODIUM 138 mmol/L (136-145)
[2018-08-08] MEDS: DULoxetine HCL 20 MG CAPSULE.DR (FP) PO SCH ×2 (10:08→22:13)
[2018-08-08] MEDS: METOPROLOL TARTRATE 25 MG TABLET (FP) PO SCH ×2 (10:08→22:13)
[2018-08-08] MEDS: RANITIDINE HCL 150 MG TABLET (FP) PO SCH (10:09)
--- NOTE | 2018-08-08 11:24 | PN ---
Progress Note (short form) - Note Progress Note: POD#3 PT states that her left finger numbness is improving. Today she has less left shoulder pain. No headache. Vital Signs Period Temp Pulse Resp BP Sys/Stewart Pulse Ox Last 24 Hr 98.1 F-98.6 F 71-77 18-22 133-157/82-95 98-98 EHSAN: 70ml serosangrenous GEN: Appears comfortable Neuro: A&0x3, Moving all extremities without difficulty. Shoulder shrug equal b/ l. Ehsan removed with the tip intact. CBC, BMP 01/18/19 06:30 01/18/19 06:30 A/P: 38 yo female s/p C2-7 posterior laminecotmy and fusion, POD#3 Discontinue HAND SHOES SEWER and resume oral dilaudid dose, 4mg every 6 hours. Will continue valium as needed and add dilaudid 2mg Q8h prn for breakthrough pain Diet as tolerated Discharge planning, [facility]
[2018-08-08] MEDS ORDERED: HYDROmorphone HCL 2 MG TABLET PO PRN ×3 (11:26→15:32)
--- NOTE | 2018-08-08 12:00 | PN ---
Progress Note (short form) - Note Progress Note: BILINGUAL MEDICAL RECEPTIONIST Follow up Her BILINGUAL MEDICAL RECEPTIONIST is discontinued and patient is supposed to take PO meds. No N/V seen. Margarita Hutchinson MD.
[2018-08-08] MEDS: diazePAM 5 MG TABLET PO PRN (13:18)
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
[2018-08-08] MEDS: oxyCODONE HCL 10 MG SUSTAINED ACTING TABLET PO SCH ×2 (18:13→22:12)
[2018-08-08] MEDS: PREGABALIN 75 MG CAPSULE PO SCH (22:12)
[2018-08-08] MEDS: INSULIN (LEVEMIR) 100 UNITS/ML UNITS SQ SCH (22:13)
[2018-08-08] MEDS: LACTATED RINGERS SOLUTION 1,000 ML IV SCH (22:18)
[2018-08-09] MEDS: CEFAZOLIN 1 GM/D5W 1 GM/50 ML BAG IVPB SCH ×3 (01:37→17:37)
--- NOTE | 2018-08-09 02:36 | PN ---
Progress Note (short form) - Note Progress Note: Patient's pain is better controlled. Vital Signs Temperature 98.1 F 08/09/18 02:00 Pulse Rate 72 08/09/18 02:00 Respiratory Rate 20 08/08/18 22:00 Blood Pressure 168/96 08/09/18 02:00 O2 Sat by Pulse Oximetry (%) 98 08/08/18 22:00 GENERAL: The patient is awake, alert, and fully oriented, in no acute distress. HEAD: Normal with no signs of trauma. EYES: PERRLA, EOMI, sclera anicteric, conjunctiva clear. ENT: Ears normal, oropharynx clear without exudates, moist mucous membranes. NECK: Soft, supple, trachea midline, left-sided tenderness to palpation. LUNGS: Breath sounds equal, clear to auscultation bilaterally. HEART: Regular rate and rhythm, S1, S2 without murmur, rub or gallop. ABDOMEN: Soft, nontender, nondistended, normoactive bowel sounds. EXTREMITIES: 2+ pulses, warm, well-perfused, no edema. NEUROLOGICAL: AAOx3, neuro exam as per neurosx PSYCH: Normal mood, normal affect. SKIN: Warm, dry, normal turgor, no rashes or lesions noted CBCD WBC 9.7 K/mm3 (4.0-10.0) 08/08/18 06:30 RBC 3.77 M/mm3 (3.60-5.2) 08/08/18 06:30 Hgb 11.5 GM/dL (10.7-15.3) 08/08/18 06:30 Hct 34.0 % (32.4-45.2) 08/08/18 06:30 MCV 90.2 fl (80-96) 08/08/18 06:30 MCHC 33.9 g/dl (32.0-36.0) 08/08/18 06:30 RDW 13.9 % (11.6-15.6) 08/08/18 06:30 Plt Count 268 K/MM3 (134-434) 08/08/18 06:30 MPV 8.4 fl (7.5-11.1) 08/08/18 06:30 CMP Sodium 138 mmol/L (136-145) 08/08/18 06:30 Potassium 4.5 mmol/L (3.5-5.1) 08/08/18 06:30 Chloride 99 mmol/L (98-107) 08/08/18 06:30 Carbon Dioxide 31 mmol/L (21-32) 08/08/18 06:30 Anion Gap 8 MMOL/L (8-16) 08/08/18 06:30 BUN 7 mg/dL (7-18) 08/08/18 06:30 Creatinine 0.7 mg/dL (0.55-1.3) 08/08/18 06:30 Creat Clearance w eGFR > 60 (>60) 08/08/18 06:30 Random Glucose 134 mg/dL (74-106) H 08/08/18 06:30 Calcium 8.9 mg/dL (8.5-10.1) 08/08/18 06:30 Total Bilirubin 0.2 mg/dL (0.2-1) 08/05/18 07:50 AST 8 U/L (15-37) L 08/05/18 07:50 ALT 15 U/L (13-61) 08/05/18 07:50 Alkaline Phosphatase 98 U/L (45-117) 08/05/18 07:50 Total Protein 7.2 g/dl (6.4-8.2) 08/05/18 07:50 Albumin 3.8 g/dl (3.4-5.0) 08/05/18 07:50 Current Medications Generic Name Dose Route Start Last Admin Trade Name Freq PRN Reason Stop Dose Admin Albuterol Sulfate 2 puff 08/05/18 14:47 Ventolin Hfa Inhaler - IH Q4H PRN SHORT OF BREATH/WHEEZING Diazepam 5 mg 08/07/18 10:39 08/08/18 13:18 Valium - PO 5 mg Q8H PRN Administration MUSCLE SPASMS Diphenhydramine HCl 25 mg 08/06/18 14:57 08/07/18 11:58 Benadryl - PO 25 mg Q8H PRN Administration FOR ITCHING Docusate Sodium 100 mg 08/05/18 22:00 08/08/18 22:13 Colace - PO 100 mg TID TAMIKA Administration Duloxetine HCl 20 mg 08/05/18 22:00 08/08/18 22:13 Cymbalta - PO 20 mg BID TAMIKA Administration Heparin Sodium (Porcine) 5,000 unit 08/06/18 22:00 08/08/18 22:13 Heparin - SQ 5,000 unit TID TAMIKA Administration Hydromorphone HCl 4 mg 08/08/18 16:11 Dilaudid - PO Q6H PRN PAIN LEVEL 6-10 Cefazolin Sodium 1 gm in 50 mls @ 100 mls/hr 08/05/18 21:00 08/09/18 01:37 Ancef 1 Gm Premixed Ivpb - IVPB 100 mls/hr Q8H-IV TAMIKA Administration Lactated Ringer's 1,000 mls @ 100 mls/hr 08/08/18 14:56 08/08/18 22:18 Lactated Ringers Solution IV 100 mls/hr ASDIR TAMIKA Administration Insulin Aspart 1 vial 08/05/18 16:30 08/08/18 18:25 Novolog Vial Sliding Scale - SQ 4 units TIDAC TAMIKA Administration Protocol Insulin Detemir 47 units 08/06/18 22:00 08/08/18 22:13 Levemir Vial SQ 47 units HS TAMIKA Administration Metoprolol Tartrate 25 mg 08/05/18 22:00 08/08/18 22:13 Lopressor - PO 25 mg BID TAMIKA Administration Ondansetron HCl 4 mg 08/05/18 18:00 Zofran Injection IVPUSH Q6H PRN NAUSEA Oxycodone HCl 10 mg 08/08/18 18:00 08/08/18 22:12 Oxycontin - PO 10 mg BID TAMIKA Administration Polyethylene Glycol 17 gm 08/05/18 14:47 08/06/18 13:20 Miralax (For Daily Use) - PO 17 gm DAILY PRN Administration CONSTIPATION Pregabalin 150 mg 08/05/18 22:00 08/08/18 22:12 Lyrica - PO 150 mg HS TAMIKA Administration Promethazine HCl 12.5 mg 08/05/18 14:47 Phenergan Injection - IVPB Q6H PRN NAUSEA AND/OR VOMITING Ranitidine HCl 150 mg 08/06/18 10:00 08/08/18 10:09 Zantac - PO 150 mg DAILY TAMIKA Administration Home Medications Medication Instructions Recorded Insulin (Novolog) [Novolog Flexpen 14 units SQ ONCE #2 syringe 08/14/17 -] Insulin Glargine,Hum.rec.anlog 47 units SQ HS #1 pen 08/14/17 [Lantus Solostar PEN -] Ranitidine HCl [Zantac] 150 mg PO DAILY #30 tablet 08/14/17 Duloxetine HCl [Cymbalta -] 20 mg PO BID 07/31/18 Insulin (Novolog) [Novolog -] 12 units SQ AM 07/31/18 Metoprolol Tartrate [Lopressor] 50 mg PO BID 07/31/18 hydrOXYzine PAMOATE [Vistaril -] 50 mg PO TID 07/31/18 metFORMIN HCL [Glucophage -] 1,000 mg PO BID 07/31/18 traZODone HCL [Trazodone HCl] 100 mg PO DAILY 07/31/18 Albuterol Sulfate Inhaler - 2 puff IH Q4H PRN inhaler 08/08/18 [Ventolin HFA Inhaler -] Diazepam [Valium] 5 mg PO Q8H PRN tablet MDD 15 08/08/18 Docusate Sodium [Colace -] 100 mg PO TID capsule 08/08/18 Ferrous Sulfate [Feosol] 325 mg PO DAILY@0800 ud 08/08/18 Folic Acid - 1 mg PO DAILY tablet 08/08/18 HYDROmorphone [Dilaudid -] 2 mg PO Q8H PRN tablet MDD 6 08/08/18 HYDROmorphone [Dilaudid -] 4 mg PO Q6HPO tablet MDD 16 08/08/18 Polyethylene Glycol 3350 [Miralax 17 gm PO DAILY PRN bottle 08/08/18 119 gm Btl -] Pregabalin [Lyrica -] 150 mg PO HS capsule MDD 150 08/08/18 A/P: Patient is a 38 y/o lady with PMHx of lower back pain, C-spine stenosis, Asthma , HTN, and T2DM who presented with severe Lower back pain and inability to ambulate. #POD #5 s/p posterior laminectomy of C2 thru C7 with fusion Lumbar and cervical disk disease. dilaudid MOLDING LINE ASSISTANT discontinued as per anethesia, careful use of narcotics, as per MARCUS Bryant , continue the patient on Oxycodone since Dilaudid is not helping much. , pain is better controlled now. continue lyrica #T2 DM : cont SSI , continue Levemir . # HTN: cont BB # Thyroid nodule on MRI. f/u as out pt with US DVT PX : heparin sq Visit type - Emergency Visit Emergency Visit: Yes ED Registration Date: 08/02/18 Care time: The patient presented to the Emergency Department on the above date and was hospitalized for further evaluation of their emergent condition. - New Patient This patient is new to me today: No - Critical Care Critical Care patient: No - Discharge Referral Referred to [facility] No
[2018-08-09] MEDS: DOCUSATE SODIUM 100 MG CAPSULE (FP) PO SCH ×3 (06:39→21:40)
[2018-08-09] MEDS: INSULIN SLIDING SCALE (NOVOLOG) 1 VIAL SQ SCH ×3 (06:39→17:37)
[2018-08-09] MEDS: HEPARIN NA (PORCINE) 5,000 UNITS/ML 1ML VIAL SQ SCH ×3 (06:39→21:41)
[2018-08-09] MEDS: HYDROmorphone *PCA* 10MG/50ML DISP.SYRIN PCA SCH (08:57)
[2018-08-09] MEDS: METOPROLOL TARTRATE 25 MG TABLET (FP) PO SCH ×2 (10:20→21:40)
[2018-08-09] MEDS: RANITIDINE HCL 150 MG TABLET (FP) PO SCH (10:20)
[2018-08-09] MEDS: oxyCODONE HCL 10 MG SUSTAINED ACTING TABLET PO SCH ×2 (10:20→21:40)
[2018-08-09] MEDS: DULoxetine HCL 20 MG CAPSULE.DR (FP) PO SCH ×2 (10:20→21:40)
[2018-08-09] MEDS: LACTATED RINGERS SOLUTION 1,000 ML IV SCH ×2 (10:27→21:42)
[2018-08-09] MEDS: POLYETHYLENE GLYCOL 3350 119 GM BTL PO PRN (10:28)
[2018-08-09] MEDS: PREGABALIN 75 MG CAPSULE PO SCH (21:40)
[2018-08-09] MEDS: INSULIN (LEVEMIR) 100 UNITS/ML UNITS SQ SCH (21:41)
[2018-08-10] MEDS: CEFAZOLIN 1 GM/D5W 1 GM/50 ML BAG IVPB SCH ×3 (02:38→18:00)
[2018-08-10] MEDS: diphenhydrAMINE HCL 25 MG CAPSULE (FP) PO PRN (03:46)
[2018-08-10] MEDS: DOCUSATE SODIUM 100 MG CAPSULE (FP) PO SCH ×3 (05:49→21:10)
[2018-08-10] MEDS: HEPARIN NA (PORCINE) 5,000 UNITS/ML 1ML VIAL SQ SCH ×3 (05:49→21:14)
[2018-08-10] MEDS: INSULIN SLIDING SCALE (NOVOLOG) 1 VIAL SQ SCH ×3 (06:13→16:28)
[2018-08-10] MEDS: diazePAM 5 MG TABLET PO PRN ×2 (06:17→14:14)
[2018-08-10] MEDS: LACTATED RINGERS SOLUTION 1,000 ML IV SCH ×2 (08:26→18:00)
[2018-08-10] MEDS: METOPROLOL TARTRATE 25 MG TABLET (FP) PO SCH ×2 (09:44→21:10)
[2018-08-10] MEDS: RANITIDINE HCL 150 MG TABLET (FP) PO SCH (09:44)
[2018-08-10] MEDS: oxyCODONE HCL 10 MG SUSTAINED ACTING TABLET PO SCH ×2 (09:44→21:10)
[2018-08-10] MEDS: DULoxetine HCL 20 MG CAPSULE.DR (FP) PO SCH ×2 (09:44→21:13)
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
[2018-08-10] MEDS ORDERED: INSULIN (NOVOLOG) ASPART 100 UNITS/ML 10ML VIAL ONE (11:52)
[2018-08-10] MEDS: PREGABALIN 75 MG CAPSULE PO SCH (21:10)
[2018-08-10] MEDS: INSULIN (LEVEMIR) 100 UNITS/ML UNITS SQ SCH (21:11)
[2018-08-10] MEDS: POLYETHYLENE GLYCOL 3350 119 GM BTL PO PRN (21:18)
[2018-08-11] MEDS: CEFAZOLIN 1 GM/D5W 1 GM/50 ML BAG IVPB SCH ×3 (02:26→17:45)
[2018-08-11] MEDS: LACTATED RINGERS SOLUTION 1,000 ML IV SCH ×2 (05:26→16:56)
[2018-08-11] MEDS: DOCUSATE SODIUM 100 MG CAPSULE (FP) PO SCH ×3 (05:27→21:32)
[2018-08-11] MEDS: HEPARIN NA (PORCINE) 5,000 UNITS/ML 1ML VIAL SQ SCH ×3 (05:27→21:32)
[2018-08-11] MEDS: INSULIN SLIDING SCALE (NOVOLOG) 1 VIAL SQ SCH ×3 (06:13→16:56)
[2018-08-11] MEDS: diphenhydrAMINE HCL 25 MG CAPSULE (FP) PO PRN (06:13)
[2018-08-11] MEDS: diazePAM 5 MG TABLET PO PRN (06:13)
[2018-08-11] MEDS ORDERED: INSULIN (NOVOLOG) ASPART 100 UNITS/ML 10ML VIAL ONE (06:25)
--- NOTE | 2018-08-11 08:51 | PN ---
Progress Note, Physician Chief Complaint: Pain is well controlled History of Present Illness: 38 y/o lady with h/o lower back pain, C spine stenosis, Asthma, HTN, and DM who presented with severe Lower back pain and inability to ambulate. POD #7 s/p posterior laminectomy of C2 thru C7 with fusion Lumbar and cervical disk disease. - Current Medication List Current Medications: Active Medications Albuterol Sulfate (Ventolin Hfa Inhaler -) 2 puff IH Q4H PRN PRN Reason: SHORT OF BREATH/WHEEZING Diazepam (Valium -) 5 mg PO Q8H PRN PRN Reason: MUSCLE SPASMS Last Admin: 08/11/18 06:13 Dose: 5 mg Diphenhydramine HCl (Benadryl -) 25 mg PO Q8H PRN PRN Reason: FOR ITCHING Last Admin: 08/11/18 06:13 Dose: 25 mg Docusate Sodium (Colace -) 100 mg PO TID [facility] Last Admin: 08/11/18 05:27 Dose: 100 mg Duloxetine HCl (Cymbalta -) 20 mg PO BID [facility] Last Admin: 08/10/18 21:13 Dose: 20 mg Heparin Sodium (Porcine) (Heparin -) 5,000 unit SQ TID [facility] Last Admin: 08/11/18 05:27 Dose: 5,000 unit Hydromorphone HCl (Dilaudid -) 4 mg PO Q6H PRN PRN Reason: PAIN LEVEL 6-10 Last Admin: 08/11/18 05:26 Dose: 4 mg Cefazolin Sodium (Ancef 1 Gm Premixed Ivpb -) 1 gm in 50 mls @ 100 mls/hr IVPB Q8H-IV [facility] Last Admin: 08/11/18 02:26 Dose: 100 mls/hr Lactated Ringer's (Lactated Ringers Solution) 1,000 mls @ 100 mls/hr IV ASDIR [facility] Last Admin: 08/11/18 05:26 Dose: 100 mls/hr Insulin Aspart (Novolog Vial Sliding Scale -) 1 vial SQ TIDAC [facility]; Protocol Last Admin: 08/11/18 06:13 Dose: 4 units Insulin Detemir (Levemir Vial) 47 units SQ HS [facility] Last Admin: 08/10/18 21:11 Dose: 47 units Metoprolol Tartrate (Lopressor -) 25 mg PO BID [facility] Last Admin: 08/10/18 21:10 Dose: 25 mg Ondansetron HCl (Zofran Injection) 4 mg IVPUSH Q6H PRN PRN Reason: NAUSEA Oxycodone HCl (Oxycontin -) 10 mg PO BID [facility] Last Admin: 08/10/18 21:10 Dose: 10 mg Polyethylene Glycol (Miralax (For Daily Use) -) 17 gm PO DAILY PRN PRN Reason: CONSTIPATION Last Admin: 08/10/18 21:18 Dose: 17 gm Pregabalin (Lyrica -) 150 mg PO HS [facility] Last Admin: 08/10/18 21:10 Dose: 150 mg Promethazine HCl (Phenergan Injection -) 12.5 mg IVPB Q6H PRN PRN Reason: NAUSEA AND/OR VOMITING Ranitidine HCl (Zantac -) 150 mg PO DAILY [facility] Last Admin: 08/10/18 09:44 Dose: 150 mg - Objective Vital Signs: Vital Signs Temperature 98.4 F 08/11/18 05:24 Pulse Rate 78 08/11/18 05:24 Respiratory Rate 18 08/11/18 05:24 Blood Pressure 138/86 08/11/18 05:24 O2 Sat by Pulse Oximetry (%) 98 08/10/18 21:00 Young F not in distress c/o pain HEENT: Mm moist, no anemia, PERRLA EOMI NECK: No JVd No Bruit CHEST: CTA B/L CVS; S1S2 R no m/g/r ABD: No distention non tender Bs + EXT; No edema, no calf tenderness SOLE ROUNDER: AOx3 non focal Labs: CBC, BMP 08/08/18 06:30 08/08/18 06:30 INR, PTT INR 1.01 (0.83-1.09) 08/05/18 07:50 Problem List - Problems (1) Cervical radiculopathy Assessment/Plan: S/P surgery cont pain meds f/u operating team recommendations Code(s): M54.12 - RADICULOPATHY, CERVICAL REGION (2) Intractable low back pain Assessment/Plan: cont pain meds s/o surgery Code(s): M54.5 - LOW BACK PAIN (3) Controlled diabetes mellitus type 2 with complications Assessment/Plan: cont RISS Code(s): E11.8 - TYPE 2 DIABETES MELLITUS WITH UNSPECIFIED COMPLICATIONS (4) HTN (hypertension) Assessment/Plan: well controlled on B blockers Code(s): I10 - ESSENTIAL (PRIMARY) HYPERTENSION
[2018-08-11] MEDS: RANITIDINE HCL 150 MG TABLET (FP) PO SCH (09:46)
[2018-08-11] MEDS: oxyCODONE HCL 10 MG SUSTAINED ACTING TABLET PO SCH ×2 (09:46→21:32)
[2018-08-11] MEDS: DULoxetine HCL 20 MG CAPSULE.DR (FP) PO SCH ×2 (09:46→21:32)
[2018-08-11] MEDS: METOPROLOL TARTRATE 25 MG TABLET (FP) PO SCH ×2 (09:50→21:32)
--- NOTE | 2018-08-11 15:04 | PN ---
Progress Note (short form) - Note Progress Note: 38F s/p C2-C7 PLIF, seen and examined at bedside. Pt states that pain is much better controlled with her new pain med regiment. Pt states that she is eager to leave the hospital. Pt is ambulating well. Last Vital Signs Temp Pulse Resp BP Pulse Ox 98.0 F 86 20 114/70 98 08/11/18 09:00 08/11/18 09:00 08/11/18 09:00 08/11/18 09:00 08/10/18 21:00 CBC, BMP 08/08/18 06:30 08/08/18 06:30 PE: Gen: A&O x3 Resp: breathing comfortably Neck: Incision is clean with no erythema or discharge. Ext: no weakness, increased sensation in Rt hand.
[2018-08-11] MEDS ORDERED: diazePAM 5 MG TABLET PO PRN (19:02)
[2018-08-11] MEDS: PREGABALIN 75 MG CAPSULE PO SCH (21:32)
[2018-08-11] MEDS: INSULIN (LEVEMIR) 100 UNITS/ML UNITS SQ SCH (21:33)
[2018-08-12] MEDS: CEFAZOLIN 1 GM/D5W 1 GM/50 ML BAG IVPB SCH (01:45)
[2018-08-12] MEDS: LACTATED RINGERS SOLUTION 1,000 ML IV SCH (01:45)
[2018-08-12] MEDS ORDERED: PT OWN MED DRAWER 7, Y5N ONE (02:06)
[2018-08-12] MEDS: HEPARIN NA (PORCINE) 5,000 UNITS/ML 1ML VIAL SQ SCH (06:34)
[2018-08-12] MEDS: INSULIN SLIDING SCALE (NOVOLOG) 1 VIAL SQ SCH ×2 (06:34→11:51)
[2018-08-12] MEDS: DOCUSATE SODIUM 100 MG CAPSULE (FP) PO SCH (06:35)
[2018-08-12] MEDS ORDERED: INSULIN (NOVOLOG) ASPART 100 UNITS/ML 10ML VIAL ONE (07:25)
[2018-08-12 08:05] LABS: BASO % 0.4 % (0-2.0); EOS % 1.6 % (0-4.5); HEMATOCRIT 30.4 % (32.4-45.2); HEMOGLOBIN 10.2 GM/dL (10.7-15.3); LYMPH % 30.2 % (8-40); MCH 30.5 pg (25.7-33.7); MCHC 33.6 g/dl (32.0-36.0); MEAN CELL VOLUME 90.7 fl (80-96); MEAN PLT VOLUME 7.8 fl (7.5-11.1); NEUT % 60.8 % (42.8-82.8); PLATELET COUNT 324 K/MM3 (134-434); RBC 3.35 M/mm3 (3.60-5.2); RDW 13.5 % (11.6-15.6)
[2018-08-12 08:20] LABS: ANION GAP 4 MMOL/L (8-16); BLOOD UREA NITROGEN 9 mg/dL (7-18); CALCIUM 8.7 mg/dL (8.5-10.1); CHLORIDE 100 mmol/L (98-107); CO2 35 mmol/L (21-32); CREATININE 0.7 mg/dL (0.55-1.3); GLUCOSE,RANDOM 171 mg/dL (74-106); POTASSIUM 4.3 mmol/L (3.5-5.1); SODIUM 139 mmol/L (136-145)
--- NOTE | 2018-08-12 09:02 | PN ---
Progress Note (short form) - Note Progress Note: surgery POD #7 s/p posterior laminectom of C2 thru C7 with fusion. Patient seen and examined at bedside, c/o b/l shoulder discomfort and stiffness L>R which is slightly worse from her pre-op symptoms. She has been tolerating her diet and ambulating with PT. She denies any CP, SOB, N/V/D, fever or chills. She has some itchiness associated with sweating and the collar which we have adjusted and we spoke about the proper way to clean the collar. Vital Signs Temp 98.0 F 08/12/18 06:00 Pulse 80 08/12/18 06:00 Resp 20 08/12/18 06:00 BP 133/70 08/12/18 06:00 Pulse Ox 98 08/11/18 22:00 Intake & Output 08/11/18 08/11/18 08/12/18 11:59 23:59 11:59 Intake Total 1625 1200 Balance 1625 1200 Intake: IV 1000 1150 Lactated Ringers Solution 1000 1150 1,000 ml @ 100 mls/hr IV ASDIR [facility] Rx#: [id number] IVPB 100 50 Oral 525 Other: Voiding Method Toilet Toilet # Unmeasured Voids Void 1 2 2 Bowel Movement No CBC, BMP 08/12/18 07:00 08/12/18 07:00 PE: A&Ox3, NAD Unlabored resp on RA c-spine: dressing C/D/I with surrounding tissue intact, no evidence of tracking erythema, edema collection or d/c. Drain site clean and dry with no evidence of active d/c. Moving all extremities with some limitation on AROM at left shoulder 2/2 pain blocking but appropriate to status. Problem List - Problems (1) Cervical radiculopathy Assessment/Plan: POD # 7 posterior cervical fusion doing well with some stiffness and pain in shoulders likely worsened by lack of movement and extended periods in bed. 1) Aggressive PT- OOB with assist, up to chair for meals, b/l UE AROM/ PROM/ AAROM 2) stop ancef and fluids 3) C-Collar 23hr/day 4) Keep incision clean and dry 5) pain control 6) d/c to rahab today 7) f/u with Dr Anand as scheduled Evaluation and plan discussed with Dr Anand. Code(s): M54.12 - RADICULOPATHY, CERVICAL REGION
[2018-08-12] MEDS: RANITIDINE HCL 150 MG TABLET (FP) PO SCH (09:09)
[2018-08-12] MEDS: DULoxetine HCL 20 MG CAPSULE.DR (FP) PO SCH (09:09)
[2018-08-12] MEDS: oxyCODONE HCL 10 MG SUSTAINED ACTING TABLET PO SCH (09:10)
[2018-08-12] MEDS: METOPROLOL TARTRATE 25 MG TABLET (FP) PO SCH (09:11)
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
[2018-08-12 12:11] VITALS: BP 114/75; PULSE 77; TEMP 98.4
== END 2018-08-12 14:28 | DRG 472 ==
LOC: JER 13:57 → JERBED 18:48 → J6S 20:25 → OBSVTOIN 08-02 13:07
PROVIDERS: ADMIT Internal Medicine; ATTEND Internal Medicine
PROC: 00NW0ZZ Release Cervical Spinal Cord, Open Approach (ICD-10-PCS; 2018-08-05)
PROC: 0JX70ZZ Transfer Back Subcutaneous Tissue and Fascia, Open Approach (ICD-10-PCS; 2018-08-05)
PROC: B01BZZZ Fluoroscopy of Spinal Cord (ICD-10-PCS; 2018-08-05)
PROC: 0RG20AJ Fusion of 2 or more Cervical Vertebral Joints with Interbody Fusion Device, Posterior Approach, Anterior Column, Open Approach (ICD-10-PCS; principal; 2018-08-05 16:00)
DX: M50.01 Cervical disc disorder with myelopathy, high cervical region (principal); M47.12 Other spondylosis with myelopathy, cervical region; F19.20 Other psychoactive substance dependence, uncomplicated; Q76.42 Congenital lordosis; M48.02 Spinal stenosis, cervical region; M51.27 Other intervertebral disc displacement, lumbosacral region; M48.07 Spinal stenosis, lumbosacral region; I10 Essential (primary) hypertension; J45.909 Unspecified asthma, uncomplicated; M54.30 Sciatica, unspecified side; D64.9 Anemia, unspecified; M54.17 Radiculopathy, lumbosacral region; D18.09 Hemangioma of other sites; T39.1X5A Adverse effect of 4-Aminophenol derivatives, initial encounter; E10.42 Type 1 diabetes mellitus with diabetic polyneuropathy; E04.1 Nontoxic single thyroid nodule; E66.01 Morbid (severe) obesity due to excess calories; Z68.38 Body mass index [BMI] 38.0-38.9, adult; Z86.718 Personal history of other venous thrombosis and embolism; Z79.4 Long term (current) use of insulin
CPT/HCPCS: 36415; 72125-TC; 72141-TC; 72148-TC; 76000-TC-FY; 80048; 80053; 82962; 83036; 83735; 84100; 84703; 85025; 85027; 85610; 85730; 86850; 86900; 86901; 93005; 93010; 94010; 94640; 94760; 97116-GP; 97162-GP; 99283-25; G0378; J0131; J1644

== ENCOUNTER 2018-10-02 23:15 | Emergency (ER) | payer OTHER ==
[2018-10-02 23:22] VITALS: TEMP 97.6; BMI 30.9
[2018-10-02] MEDS ORDERED: SODIUM CHLORIDE 1,000 ML IV STA (23:41)
[2018-10-02] MEDS ORDERED: PROCHLORPERAZINE INJECTION 10 MG/2 ML VIAL IVPB ONE (23:44)
[2018-10-03] MEDS ORDERED: PROCHLORPERAZINE INJECTION 10 MG/2 ML VIAL ONE (00:18)
[2018-10-03 00:25] LABS: BASO % 0.8 % (0-2.0); EOS % 0.4 % (0-4.5); HEMATOCRIT 36.2 % (32.4-45.2); HEMOGLOBIN 12.3 GM/dL (10.7-15.3); MCH 29.7 pg (25.7-33.7); MCHC 34.1 g/dl (32.0-36.0); MEAN CELL VOLUME 87.2 fl (80-96); MEAN PLT VOLUME 7.9 fl (7.5-11.1); MONO % 2.2 % (3.8-10.2); NEUT % 87.6 % (42.8-82.8); PLATELET COUNT 331 K/MM3 (134-434); RBC 4.15 M/mm3 (3.60-5.2); RDW 13.7 % (11.6-15.6); WHITE BLOOD COUNT 10.3 K/mm3 (4.0-10.0)
[2018-10-03 00:54] LABS: ANION GAP 6 MMOL/L (8-16); BLOOD UREA NITROGEN 5 mg/dL (7-18); CALCIUM 8.8 mg/dL (8.5-10.1); CHLORIDE 102 mmol/L (98-107); CO2 29 mmol/L (21-32); CREATININE 0.6 mg/dL (0.55-1.3); GLUCOSE,RANDOM 190 mg/dL (74-106); POTASSIUM 4.5 mmol/L (3.5-5.1); SODIUM 137 mmol/L (136-145)
[2018-10-03] MEDS ORDERED: KETOROLAC TROMETHAMINE 30 MG/1 ML VIAL IVPUSH ONE (01:09)
[2018-10-03] MEDS ORDERED: KETOROLAC TROMETHAMINE 30 MG/1 ML VIAL ONE (01:28)
--- NOTE | 2018-10-03 01:50 | PDOC ---
History of Present Illness - General Chief Complaint: Nausea/Vomiting Stated Complaint: VOMITING Time Seen by Provider: 10/02/18 23:21 History Source: Patient Exam Limitations: No Limitations Past History - Past Medical History Allergies/Adverse Reactions: Allergies Allergy/AdvReac Type Severity Reaction Status Date / Time acetaminophen [From Tylenol] Allergy Mild Itching Verified 10/02/18 23:19 fish derived Allergy Verified 10/02/18 23:19 hazelnut Allergy Verified 10/02/18 23:19 latex Allergy Verified 10/02/18 23:19 soy Allergy Verified 10/02/18 23:19 lactose AdvReac Intermediate Verified 10/02/18 23:19 Home Medications: Ambulatory Orders Insulin (Novolog) [Novolog Flexpen -] 14 units SQ ONCE #2 syringe 08/14/17 Insulin Glargine,Hum.rec.anlog [Lantus Solostar PEN -] 47 units SQ HS #1 pen Ranitidine HCl [Zantac] 150 mg PO DAILY #30 tablet 08/14/17 Duloxetine HCl [Cymbalta -] 20 mg PO BID 07/31/18 Insulin (Novolog) [Novolog -] 12 units SQ AM 07/31/18 hydrOXYzine PAMOATE [Vistaril -] 50 mg PO TID 07/31/18 metFORMIN HCL [Glucophage -] 1,000 mg PO BID 07/31/18 traZODone HCL [Trazodone HCl] 100 mg PO DAILY 07/31/18 Diazepam [Valium] 5 mg PO Q8H PRN tablet MDD 15 08/08/18 HYDROmorphone [Dilaudid -] 2 mg PO Q8H PRN tablet MDD 6 08/08/18 HYDROmorphone [Dilaudid -] 4 mg PO Q6HPO tablet MDD 16 08/08/18 Albuterol Sulfate Inhaler - [Ventolin HFA Inhaler -] 2 puff IH Q4H PRN #1 inhaler 08/12/18 Docusate Sodium [Colace -] 100 mg PO TID #90 capsule 08/12/18 Hydromorphone HCl 2 mg PO PRN PRN #20 tablet MDD 6 08/12/18 Metoprolol Tartrate [Lopressor] 50 mg PO BID #60 tablet 08/12/18 Oxycodone HCl [Oxycontin] 10 mg PO BID PRN #10 tab.er.12h MDD 2 08/12/18 Polyethylene Glycol 3350 [Miralax 119 gm Btl -] 17 gm PO DAILY PRN #1 bottle Pregabalin [Lyrica -] 150 mg PO HS #60 capsule MDD 150 08/12/18 Anemia: Yes Asthma: Yes Cardiac Disorders: No COPD: No Dementia: No Diabetes: Yes (IDDM) HTN: Yes - Surgical History Abdominal Surgery: Yes - Immunization History Immunization Up to Date: Yes - Suicide/Smoking/Psychosocial Hx Smoking Status: Yes Smoking History: Never smoked Have you smoked in the past 12 months: No Number of Cigarettes Smoked Daily: 10 If you are a former smoker, when did you quit?: 2016 Information on smoking cessation initiated: No 'Breaking Loose' booklet given: 11/23/15 Hx Alcohol Use: No Drug/Substance Use Hx: No Substance Use Type: None Hx Substance Use Treatment: No *Physical Exam - Vital Signs Last Vital Signs Temp Pulse Resp BP Pulse Ox 97.6 F 92 H 20 160/102 H 97 10/02/18 23:19 10/02/18 23:19 10/02/18 23:19 10/02/18 23:19 10/02/18 23:19 - Physical Exam General Appearance: No: Apparent Distress HEENT: positive: EOMI, DIANA, Nasal Congestion, Sinus Tenderness (mild frontal sinus tenderness). negative: Rhinorrhea Neck: positive: Other (patient in C-collar) Respiratory/Chest: positive: Lungs Clear, Normal Breath Sounds. negative: Respiratory Distress Cardiovascular: positive: Regular Rhythm, Regular Rate, S1, S2. negative: Murmur Gastrointestinal/Abdominal: positive: Normal Bowel Sounds, Soft. negative: Tender, Distended, Guarding, Rebound Integumentary: positive: Normal Color Neurologic: positive: leather tanner II-XII NML intact, Fully Oriented, Alert, Normal Mood/ Affect, Normal Response, Motor Strength 5/5 Moderate Sedation - Procedure Monitoring Vital Signs: Procedure Monitoring Vital Signs Temperature 97.6 F 10/02/18 23:19 Pulse Rate 92 H 10/02/18 23:19 Respiratory Rate 20 10/02/18 23:19 Blood Pressure 160/102 H 10/02/18 23:19 O2 Sat by Pulse Oximetry (%) 97 10/02/18 23:19 ED Treatment Course - LABORATORY CBC & Chemistry Diagram: 10/02/18 23:57 10/02/18 05:01 - ADDITIONAL ORDERS Additional order review: Laboratory Results 10/02/18 10/02/18 05:01 05:01 Sodium 137 Potassium 4.5 Chloride 102 Carbon Dioxide 29 Anion Gap 6 L BUN 5 L Creatinine 0.6 Creat Clearance w eGFR 110.72 Random Glucose 190 H Calcium 8.8 Serum , Qual Negative 10/02/18 23:57 RBC 4.15 MCV 87.2 MCHC 34.1 RDW 13.7 MPV 7.9 Neutrophils % 87.6 H D Lymphocytes % 9.0 D Monocytes % 2.2 L Eosinophils % 0.4 Basophils % 0.8 - Medications Given in the ED: ED Medications Discontinued Medications Generic Name Dose Route Start Last Admin Trade Name Freq PRN Reason Stop Dose Admin Diphenhydramine HCl 50 mg 10/02/18 23:44 10/03/18 00:46 Benadryl Injection - IVPUSH 10/02/18 23:45 50 mg ONCE ONE Administration Sodium Chloride 1,000 mls @ 1,000 mls/hr 10/02/18 23:41 10/03/18 00:46 Normal Saline - IV 10/03/18 00:40 1,000 mls/hr ASDIR STA Administration Ketorolac Tromethamine 30 mg 10/03/18 01:09 10/03/18 01:31 Toradol Injection - IVPUSH 10/03/18 01:10 30 mg ONCE ONE Administration Prochlorperazine Edisylate 10 mg 10/02/18 23:44 10/03/18 00:46 Compazine Injection - IVPB 10/02/18 23:45 10 mg ONCE ONE Administration Medical Decision Making - Medical Decision Making 38 y/o F with hx of recent C2-C7 laminectomy and fusion 07/2018 (remains in C- collar since surgery), asthma, HTN, T1DM, migraines presents with frontal and B/ L temporal MADDOX, gradual in onset from today. Mentions having rhinorrhea, nasal congestion for the past 2 days. Has been having cold like sxs since last week and is currently taking Amoxicillin. Today had few episodes of emesis. MADDOX is worse with light, noise and smell and feels like a migraine. Denies visual/gait changes, sob, cp, weakness of extremities. Likely migraine MADDOX Patient given IVF, Benadryl, Compazine and Toradol (unable to give Tylenol due to allergy) and patient no longer having MADDOX Labs unremarkable Repeat vitals with BP 121/86 Stable for dc 10/03/18 01:45 *DC/Admit/Observation/Transfer Diagnosis at time of Disposition: Migraine Qualifiers: Migraine type: unspecified Status migrainosus presence: without status migrainosus Intractability: not intractable Qualified Code(s): G43.909 - Migraine, unspecified, not intractable, without status migrainosus - Discharge Dispostion Disposition: HOME Condition at time of disposition: Improved Decision to Admit order: No - Referrals Referrals: Babar Mckeon [Primary Care Provider] - 2 Days - Patient Instructions Printed Discharge Instructions: DI for Migraine Additional Instructions: Thank you for choosing [facility]. It was a pleasure taking care of you. Likely you had migraine headache Follow-up with your primary care doctor for further care. Return to the Emergency Department if your symptoms worsen or persist or have other concerning symptoms. - Post Discharge Activity
[2018-10-03 02:09] VITALS: BP 121/86; PULSE 80
== END 2018-10-03 03:42 | disposition home or self-care (01) ==
LOC: JER 23:15
DX: G43.909 Migraine, unspecified, not intractable, without status migrainosus (principal); D64.9 Anemia, unspecified; J45.909 Unspecified asthma, uncomplicated; I10 Essential (primary) hypertension; E11.9 Type 2 diabetes mellitus without complications; Z79.4 Long term (current) use of insulin; E78.00 Pure hypercholesterolemia, unspecified
CPT/HCPCS: 36415; 80048; 84703; 85025; 99282-25; J7030

== ENCOUNTER 2019-06-05 20:06 | Emergency (ER) | payer OTHER ==
--- NOTE | 2019-06-05 20:48 | PDOC ---
History of Present Illness - General Stated Complaint: NECK AND BACK PAIN - History of Present Illness Initial Comments: The pt is a 38F w/ a history of HTN, DVT(LLE 11/04 no longer on AC), T2DM, spinal stenosis, sciatica, L4-S1 herniation, s/p cervical laminectomy and fusion C2-C7 07/2018 who presents for evaluation of acute on chronic back/neck pain. The pt reports tripping and falling forward onto her bed two days ago. She caught herself with her RUE and body. She then noted pain in her neck and RUE that worsened to R lat swelling and pain throughout her neck/back/4 extremity. She denies fevers/chills, chest pain, trouble breathing, abdominal pain, N/V/C/D , dysuria, hematuria, blood in her stool, head trauma, LOC, or acute changes in her neuropathy. 06/05/19 20:50 Past History - Past Medical History Allergies/Adverse Reactions: Allergies Allergy/AdvReac Type Severity Reaction Status Date / Time acetaminophen [From Tylenol] Allergy Mild Itching Verified 10/02/18 23:19 fish derived Allergy Verified 10/02/18 23:19 hazelnut Allergy Verified 10/02/18 23:19 latex Allergy Verified 10/02/18 23:19 soy Allergy Verified 10/02/18 23:19 lactose AdvReac Intermediate Verified 10/02/18 23:19 Home Medications: Ambulatory Orders Duloxetine HCl [Cymbalta -] 60 mg PO TID 06/05/19 Gabapentin [Neurontin] 600 mg PO TID 06/05/19 Metformin HCl [Glucophage] 500 mg PO BID 06/05/19 Anemia: Yes Asthma: Yes Cardiac Disorders: No COPD: No Dementia: No Diabetes: Yes (IDDM) HTN: Yes - Surgical History Abdominal Surgery: Yes - Immunization History Immunization Up to Date: Yes - Psycho Social/Smoking Cessation Hx Smoking Status: Yes Smoking History: Never smoked Have you smoked in the past 12 months: No Number of Cigarettes Smoked Daily: 10 If you are a former smoker, when did you quit?: 2015 'Breaking Loose' booklet given: 11/23/15 Hx Alcohol Use: No Drug/Substance Use Hx: No Substance Use Type: None Hx Substance Use Treatment: No Review of Systems - Review of Systems Able to Perform ROS?: Yes Comments:: GENERAL/CONSTITUTIONAL: No fever or chills. No weakness HEAD, EYES, EARS, NOSE AND THROAT: No change in vision. No change in hearing. No sore throat CARDIOVASCULAR: No chest pain or shortness of breath RESPIRATORY: Denies cough, hemoptysis GASTROINTESTINAL: No nausea, vomiting, diarrhea or constipation GENITOURINARY: No dysuria, frequency, or change in urination MUSCULOSKELETAL: +acute on chronic back pain SKIN: No rash NEUROLOGIC: No headache, vertigo, loss of consciousness, or change in strength/ sensation ENDOCRINE: No increased thirst. No abnormal weight change HEMATOLOGIC/LYMPHATIC: No anemia, easy bleeding, or history of blood clots ALLERGIC/IMMUNOLOGIC: No hives or skin allergy 06/05/19 20:48 Is the patient limited Hebrew proficient: No *Physical Exam - Vital Signs Initial Vital Signs Temp Pulse Resp BP Pulse Ox 97.4 F L 60 18 165/101 H 100 06/05/19 20:48 06/05/19 20:48 06/05/19 20:48 06/05/19 20:48 06/05/19 20:48 06/06/19 01:05 - Physical Exam Comments: GENERAL: Awake, alert, and oriented to person/place/time HEAD: No signs of trauma, normocephalic, atraumatic EYES: PERRLA, EOMI, sclera anicteric, conjunctiva clear ENT: Hearing grossly normal, nares patent, oropharynx clear without exudates. Moist mucosa LUNGS: No distress, speaks in full sentences, clear to auscultation bilaterally HEART: Regular rate and rhythm, normal S1 and S2, no murmurs appreciated, peripheral pulses normal and equal bilaterally ABDOMEN: Soft, nontender, normoactive bowel sounds. No guarding, no rebound BACK: CTL midline and paraspinous TTP w/o stepoffs, hematoma, or wounds EXTREMITIES: Normal inspection, Normal range of motion, no edema NEUROLOGICAL: Cranial nerves II through XII grossly intact. Normal speech, decreased sensation to light touch over hands and feet (reported chronic) SKIN: Warm, Dry 06/05/19 20:48 ED Treatment Course - RADIOLOGY Radiograph Interpretation: THIS IS A PRELIMINARY REPORT FROM IMAGING METAL FLOW COORDINATOR DATE OF SERVICE: 2019-06-06 01:08:41 EXAM: CT OF THE THORACIC SPINE WITHOUT CONTRAST AND CT LUMBAR SPINE IMPRESSION: No acute fracture or traumatic subluxation. Status post C3-C6 bilateral laminectomy. Bilateral posterior lateral fusion rods and screws in the facets at C2-C7. Loosening of the bilateral facet screws at C7. If clinically indicated further evaluation and workup may be needed. Heterogeneous enlarged thyroid most likely due to a multinodular thyroid goiter. If clinically indicated follow-up outpatient thyroid ultrasound may be needed. Mild degenerative disc disease in the thoracic spine. Mild degenerative joint disease of the thoracic facets. Mild ventral and dorsal spinal canal narrowing in the upper thoracic levels. Moderate neural foraminal narrowing in the lower cervical and upper thoracic levels. If clinically indicated follow-up outpatient MRI Thoracic Spine evaluation may be needed. Moderate multilevel degenerative disc disease in lumbar levels. Moderate degenerative joint disease of the middle and lower lumbar facets. [id number] multilevel spinal canal narrowing in the middle and lower lumbar levels. Moderate neural foraminal narrowing and minimal lower lumbar levels. If clinically indicated follow-up outpatient MRI Lumbar Spine may be needed. 06/06/19 03:33 Medical Decision Making - Medical Decision Making The pt is a 38F w/ a history of HTN, DVT(LLE 11/04 no longer on AC), T2DM, spinal stenosis, sciatica, L4-S1 herniation, s/p cervical laminectomy and fusion C2-C7 07/2018 who presents for evaluation of acute on chronic back/neck pain. ED Course CTL spine CT Morpine and Lidoderm patch for pain 06/05/19 21:46 Serum Preg neg Toradol 15mg IV once 06/05/19 22:13 Morphine for pain Benadryl for itching CT reads pending Pt reports pain improved but not resolved 06/06/19 02:18 Will re-dose Toradol 15mg Benadryl 25mg PO for itching Will give home Percocet 5/325mg Pt reports improved ROM/pain control, pt getting home by cab 06/06/19 03:31 CT CTL spine w/o acute fx/dislocation; loosening of b/l facets at C7 noted and discussed with pt Plan for D/C w/ NSGY and PCP f/u Discharge instructions and return precautions given Patient in agreement and verbalized understanding Dispo: Home 06/06/19 03:38 Discharge - Discharge Information Problems reviewed: Yes Clinical Impression/Diagnosis: Cervical radiculopathy, Lumbar radiculopathy Condition: Stable Disposition: HOME - Admission No - Follow up/Referral Referrals: Babar Mckeon [Primary Care Provider] - Abdirashid Anand MD, FAANS [Staff Physician] - - Patient Discharge Instructions Patient Printed Discharge Instructions: DI for Cervical Radiculopathy, DI for Back Pain With Sciatica, DI for Musculoskeletal Pain Additional Instructions: You were seen in the Emergency Department for evaluation of back pain. Your CT was negative for acute fracture or dislocation. There is a note made of loosening but not dislodgment of a facet screws at C7. Follow up with your Neurosurgeon this week. Review the handouts provided at discharge. In addition to your Percocet, you may take Ibuprofen or Naproxen as directed on the box for additional pain relief. Return to the Emergency Department if you develop fevers, chest pain, trouble breathing, worsening pain, change in sensation, worsening symptoms, or any new/ concerning symptoms. - Post Discharge Activity Work/Back to School Note: Back to Work
[2019-06-05 20:54] VITALS: TEMP 97.4; BMI 37.5
[2019-06-05] MEDS ORDERED: LIDOCAINE 5% TOPICAL PATCH TP ONE (21:19)
[2019-06-05] MEDS ORDERED: morphine CARPU-JECT 4 MG/1 ML DISP.SYRIN IVPUSH ONE ×2 (21:20→23:50)
[2019-06-05] MEDS ORDERED: morphine SULFATE 4 MG/ML VIAL ONE (21:32)
[2019-06-05] MEDS ORDERED: LIDOCAINE 5% TOPICAL PATCH ONE ×2 (21:33→21:39)
[2019-06-05] MEDS ORDERED: LIDOCAINE PATCH REMOVAL MC SCH (22:00)
[2019-06-05] MEDS ORDERED: KETOROLAC TROMETHAMINE 15 MG/ML VIAL IVPUSH ONE (22:10)
[2019-06-05] MEDS ORDERED: KETOROLAC TROMETHAMINE 15 MG/ML VIAL ONE (22:13)
--- NOTE | 2019-06-05 22:53 | PDOC ---
Attending Attestation - Resident Resident Name: Sunday Glover - ED Attending Attestation I have performed the following: I have examined & evaluated the patient, The case was reviewed & discussed with the resident, I agree w/resident's findings & plan, Exceptions are as noted - HPI HPI: 06/05/19 22:54 Ms Velásquez is a 38 y.o. F h/o HTN, DVT (LLE 11/04 no longer on AC), NIDDM, spinal stenosis, sciatica, L4-S1 herniation, s/p cervical laminectomy and fusion C2-C7 07/2018 who presents for evaluation of acute on chronic back/neck pain. Patient reports that approximately 2 days ago she tripped and fell forward onto her bed She did not directly hit her neck, rather broke her fall with her right upper extremity She noted immediate pain in the right upper extremity and neck after that fall No new focal weakness or numbness - Physicial Exam PE: 06/05/19 22:46 GENERAL: The patient is in no acute distress. ENT: Ears normal, nares patent, oropharynx clear without exudates. Moist mucous membranes. NECK: midline tenderness, no obvious deformities, pain with neck motion LUNGS: Breath sounds equal, clear to auscultation bilaterally. No wheezes, and no crackles. HEART: Regular rate and rhythm, normal S1 and S2 without murmur, rub or gallop. ABDOMEN: Soft, nontender, normoactive bowel sounds. EXTREMITIES: Normal range of motion, no edema. NEUROLOGICAL: Cranial nerves II through XII grossly intact. Normal speech. No focal neurological deficits. SKIN: Warm, Dry, normal turgor, no rashes or lesions noted. - Medical Decision Making 06/05/19 22:46 38-year-old female status post fusion of her cervical spine, spinal stenosis, chronic neck and back pain who presents with acute exacerbation of neck pain status post a fall Patient has pain medications at home (see report copied from department of health) However these pain medications have not improved her symptoms We will do: CT cervical spine Analgesia Reassess Laboratory Tests 06/05/19 21:37 Serum , Qual Negative ISTOP Others' Prescriptions Patient Name: Yifan Velásquez Date: 1980 Address: [address] [place] [address] Sex: Female Rx Written Rx Dispensed Drug Quantity Days Supply Prescriber Name 05/29/2019 05/29/2019 oxycodone-acetaminophen 7.5-325 mg tablet 80 20 Maria D Latham NP 04/01/2019 04/08/2019 oxycodone-acetaminophen 7.5-325 mg tablet 90 30 Tiara Chan 03/28/2019 03/31/2019 alprazolam 2 mg tablet 60 30 Maria D Latham NP 03/24/2019 03/26/2019 oxycodone-acetaminophen 5-325 mg tablet 10 4 Hafsa Michaels PA-C 02/16/2019 02/17/2019 alprazolam 1 mg tablet 60 30 Maria D Latham NP 02/09/2019 02/09/2019 oxycodone-acetaminophen 5-325 mg tablet 90 30 Roberto Leach M 01/07/2019 01/09/2019 hydromorphone 4 mg tablet 40 7 Roberto Leach M 08/12/2018 08/13/2018 oxycontin er 10 mg tablet 10 5 Donna Jade 08/12/2018 08/13/2018 hydromorphone 2 mg tablet 7 7 Donna Jade * - Drugs marked with an asterisk are compound drugs. If the compound drug is made up of more than one controlled substance, then each controlled substance will be a separate row in the 06/05/19 23:01 06/05/19 23:03
[2019-06-06] MEDS ORDERED: morphine SULFATE 4 MG/ML VIAL ONE (00:07)
[2019-06-06 01:44] VITALS: BP 158/97; PULSE 72
[2019-06-06] MEDS ORDERED: KETOROLAC TROMETHAMINE 15 MG/ML VIAL IVPUSH ONE (03:28)
[2019-06-06] MEDS ORDERED: diphenhydrAMINE HCL 25 MG CAPSULE (FP) PO ONE ×2 (03:29→03:35)
[2019-06-06] MEDS ORDERED: KETOROLAC TROMETHAMINE 15 MG/ML VIAL ONE (03:35)
== END 2019-06-06 03:59 | disposition home or self-care (01) ==
LOC: JER 20:06
PROC: 3E033GC Introduction of Other Therapeutic Substance into Peripheral Vein, Percutaneous Approach (ICD-10-PCS; principal; 2019-06-05)
PROC: 3E033NZ Introduction of Analgesics, Hypnotics, Sedatives into Peripheral Vein, Percutaneous Approach (ICD-10-PCS; 2019-06-05)
PROC: 3E0333Z Introduction of Anti-inflammatory into Peripheral Vein, Percutaneous Approach (ICD-10-PCS; 2019-06-05)
DX: M54.12 Radiculopathy, cervical region (principal); M54.16 Radiculopathy, lumbar region; W01.190A Fall on same level from slipping, tripping and stumbling with subsequent striking against furniture, initial encounter; Y93.89 Activity, other specified; Y92.032 Bedroom in apartment as the place of occurrence of the external cause; Y99.8 Other external cause status; I10 Essential (primary) hypertension; E11.9 Type 2 diabetes mellitus without complications; Z79.84 Long term (current) use of oral hypoglycemic drugs; D64.9 Anemia, unspecified; J45.909 Unspecified asthma, uncomplicated; Z98.1 Arthrodesis status; Z86.718 Personal history of other venous thrombosis and embolism; Z88.6 Allergy status to analgesic agent; Z88.8 Allergy status to other drugs, medicaments and biological substances; Z91.02 Food additives allergy status; Z91.040 Latex allergy status
CPT/HCPCS: 36415; 72125-TC; 72128-TC; 72131-TC; 84703; 96374; 96375; 96376; 99284-25

== ENCOUNTER 2019-07-28 22:34 | Emergency (ER) | payer OTHER ==
[~2019-07-28 22:34] MED LIST: LIDOCAINE PATCH REMOVAL MC SCH
[2019-07-28 22:44] VITALS: TEMP 97.8; BMI 36.5
--- NOTE | 2019-07-28 23:09 | PDOC ---
History of Present Illness - General Chief Complaint: Pain Stated Complaint: RT SIDED PAIN/NUMBNESS Time Seen by Provider: 07/28/19 23:06 - History of Present Illness Initial Comments: The pt is a 39F w/ a history of HTN, DVT(LLE 11/04 no longer on AC), T2DM, spinal stenosis, sciatica, L4-S1 herniation, s/p cervical laminectomy and fusion C2-C7 07/2018 who presents for evaluation of acute on chronic neck pain with shooting pains down her RUE. She reports cramping/electric like pain of her RUE with associated weakness/tingling that is worse than usual. She denies any recent trauma, falls, stress, or strain. She denies fevers/chills, chest pain, abdominal pain, N/V/C/D, dysuria, hematuria. 07/28/19 23:10 Past History - Past Medical History Allergies/Adverse Reactions: Allergies Allergy/AdvReac Type Severity Reaction Status Date / Time acetaminophen [From Tylenol] Allergy Mild Itching Verified 10/02/18 23:19 fish derived Allergy Verified 10/02/18 23:19 hazelnut Allergy Verified 10/02/18 23:19 latex Allergy Verified 10/02/18 23:19 soy Allergy Verified 10/02/18 23:19 lactose AdvReac Intermediate Verified 10/02/18 23:19 Home Medications: Ambulatory Orders Duloxetine HCl [Cymbalta -] 60 mg PO TID 06/05/19 Gabapentin [Neurontin] 600 mg PO TID 06/05/19 Metformin HCl [Glucophage] 500 mg PO BID 06/05/19 Cyclobenzaprine HCl [Flexeril 10 mg] 10 mg PO BID PRN #6 tablet 07/29/19 Anemia: Yes Asthma: Yes Cardiac Disorders: No COPD: No Dementia: No Diabetes: Yes (IDDM) HTN: Yes Psychiatric Problems: Yes - Surgical History Abdominal Surgery: Yes Neurologic Surgery: Yes (laminectomy 08/05/2018) - Immunization History Immunization Up to Date: Yes - Psycho Social/Smoking Cessation Hx Smoking Status: Yes Smoking History: Never smoked Have you smoked in the past 12 months: No Number of Cigarettes Smoked Daily: 10 If you are a former smoker, when did you quit?: 2015 'Breaking Loose' booklet given: 11/23/15 Hx Alcohol Use: No Drug/Substance Use Hx: Yes ("Medical [place]") Substance Use Type: None Hx Substance Use Treatment: No Review of Systems - Review of Systems Able to Perform ROS?: Yes Comments:: GENERAL/CONSTITUTIONAL: No fever or chills HEAD, EYES, EARS, NOSE AND THROAT: No change in vision. No change in hearing. No sore throat CARDIOVASCULAR: No chest pain or shortness of breath RESPIRATORY: Denies cough, hemoptysis GASTROINTESTINAL: No nausea, vomiting, diarrhea or constipation GENITOURINARY: No dysuria, frequency, or change in urination MUSCULOSKELETAL: per HPI SKIN: No rash NEUROLOGIC: No headache, vertigo, loss of consciousness, or change in strength/ sensation ENDOCRINE: No increased thirst. No abnormal weight change HEMATOLOGIC/LYMPHATIC: No anemia, easy bleeding, or history of blood clots ALLERGIC/IMMUNOLOGIC: No hives or skin allergy 07/28/19 23:08 Is the patient limited Setswana proficient: No *Physical Exam - Vital Signs Last Vital Signs Temp Pulse Resp BP Pulse Ox 97.8 F 69 20 156/89 100 07/28/19 22:38 07/28/19 22:38 07/28/19 22:38 07/28/19 22:38 07/28/19 22:38 - Physical Exam GENERAL: Awake, alert, and oriented to person/place/time, in no acute distress HEAD: No signs of trauma, normocephalic, atraumatic EYES: PERRLA, EOMI, sclera anicteric, conjunctiva clear ENT: Hearing grossly normal, nares patent, oropharynx clear without exudates. Moist mucosa LUNGS: No distress, speaks in full sentences, clear to auscultation bilaterally HEART: Regular rate and rhythm, normal S1 and S2, no murmurs appreciated, peripheral pulses normal and equal bilaterally ABDOMEN: Soft, nontender, normoactive bowel sounds. No guarding, no rebound EXTREMITIES: NEUROLOGICAL: Cranial nerves II through XII grossly intact. Normal speech, ambulating in ED w/ cane SKIN: Warm, Dry 07/28/19 23:08 Medical Decision Making - Medical Decision Making The pt is a 39F w/ a history of HTN, DVT(LLE 11/04 no longer on AC), T2DM, spinal stenosis, sciatica, L4-S1 herniation, s/p cervical laminectomy and fusion C2-C7 07/2018 who presents for evaluation of acute on chronic neck pain with shooting pains down her RUE. Pt has not taken her home medications today Will give home meds with Toradol and a Lidoderm patch in addition Pt non-toxic appearing Will reassess 07/29/19 00:35 Pt feels improved s/p previous meds and flexeril Rx for flexeril sent to pt's pharmacy Pt advised to rest extremity, continue PT, and follow up with pain management Plan for D/C w/ PCP f/u Discharge instructions and return precautions given Patient in agreement and verbalized understanding Dispo: Home 07/29/19 04:28 Discharge - Discharge Information Problems reviewed: Yes Clinical Impression/Diagnosis: Neck pain, Chronic pain of right upper extremity Condition: Stable Disposition: HOME - Admission No - Additional Discharge Information Prescriptions: Cyclobenzaprine HCl [Flexeril 10 mg] 10 mg PO BID PRN #6 tablet PRN Reason: Muscle Spasms - Follow up/Referral Referrals: Babar Mckeon [Primary Care Provider] - - Patient Discharge Instructions Patient Printed Discharge Instructions: DI for Peripheral Neuropathy Additional Instructions: You were seen in the Emergency Department for evaluation of back pain/arm pain. You were treated with Toradol, Percocet, Lidoderm patch, Gabapentin, and Flexeril. Review the handouts provided at discharge. A prescription for Flexeril 10mg every 12 hours as needed was sent to your pharmacy. In addition to your Percocet, you may take Ibuprofen or Naproxen as directed on the box for additional pain relief. Follow up with your pain management doctor and your primary care provider. Return to the Emergency Department if you develop fevers, chest pain, trouble breathing, worsening pain, change in sensation, worsening symptoms, or any new/ concerning symptoms. - Post Discharge Activity
[2019-07-28] MEDS ORDERED: GABAPENTIN 300 MG CAPSULE (FP) PO ONE (23:20)
[2019-07-28] MEDS ORDERED: LIDOCAINE 5% TOPICAL PATCH TP ONE (23:20)
[2019-07-28] MEDS ORDERED: KETOROLAC TROMETHAMINE 30 MG/1 ML VIAL IM ONE (23:20)
[2019-07-28] MEDS ORDERED: LIDOCAINE 5% TOPICAL PATCH ONE (23:36)
[2019-07-28] MEDS ORDERED: KETOROLAC TROMETHAMINE 30 MG/1 ML VIAL ONE (23:36)
--- NOTE | 2019-07-29 00:34 | PDOC ---
Documentation entered by Melissa Blackman SCRIBE, acting as scribe for Susan Reinoso MD. Susan Reinoso MD: This documentation has been prepared by the nixon, Melissa Blackman SCRIBE, under my direction and personally reviewed by me in its entirety. I confirm that the documentation accurately reflects all work, treatment, procedures, and medical decision making performed by me. Attending Attestation - Resident Resident Name: Sunday Glover - ED Attending Attestation I have performed the following: I have examined & evaluated the patient, The case was reviewed & discussed with the resident, I agree w/resident's findings & plan, Exceptions are as noted - HPI HPI: 07/29/19 00:33 39-year-old female presents with chronic arm and neck pain 07/29/19 01:25 - Physicial Exam PE: 07/29/19 00:40 39-year-old female history of spinal stenosis presents with pain to her arms. 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 and she has appointment on August 16 With the pain management doctor 07/29/19 00:41 Well-nourished well-developed alert and conversant 39-year-old female seated on the gurney Head is normocephalic atraumatic Neck is supple Lungs are clear to auscultation CVS is regular rate rhythm S1-S2 Abdomen is protuberant nontender Skin warm and dry Neuro alert and oriented x3 07/29/19 01:28 - Medical Decision Making 07/29/19 00:34 Patient was here in the emergency department in May 2019 for the same complaints and at that time she did have a CAT scan of her lumbar thoracic and cervical spine There was evidence of some loosening of her hardware and she did follow-up with her neurosurgeons and they said no further surgery would be done at that time sHe denies any saddle anesthesia or bladder or bowel incontinence 07/29/19 00:42 07/29/19 00:45 She does take Percocets and gabapentin for her pain and tonight we will also give her toradol and flexeril she has an appt with her paint crew supervisor later this month 07/29/19 00:46 07/29/19 01:26
[2019-07-29] MEDS ORDERED: CYCLOBENZAPRINE HCL 10 MG TABLET (FP) PO ONE (01:20)
[2019-07-29] MEDS ORDERED: CYCLOBENZAPRINE HCL 10 MG TABLET (FP) ONE (01:29)
[2019-07-29 01:34] VITALS: BP 150/83; PULSE 72
== END 2019-07-29 02:14 | disposition home or self-care (01) ==
LOC: JER 22:34
PROC: 3E0233Z Introduction of Anti-inflammatory into Muscle, Percutaneous Approach (ICD-10-PCS; principal; 2019-07-28)
DX: M79.601 Pain in right arm (principal); M54.2 Cervicalgia; G89.29 Other chronic pain; Z88.8 Allergy status to other drugs, medicaments and biological substances; Z91.013 Allergy to seafood; Z91.018 Allergy to other foods; Z91.040 Latex allergy status; Z91.011 Allergy to milk products
CPT/HCPCS: 96372; 99281-25

== ENCOUNTER 2020-08-27 12:39 | Emergency (ER) | payer OTHER ==
[2020-08-27 14:00] VITALS: TEMP 98.2; BMI 37.5
[2020-08-27] MEDS ORDERED: LACTATED RINGERS SOLUTION 1000 ML INFUS.BAG IV ONE (14:06)
[2020-08-27] MEDS ORDERED: DEXAMETHASONE SOD PHOSPHATE 10 MG/1 ML VIAL IVPUSH ONE (14:14)
[2020-08-27] MEDS ORDERED: ALBUTEROL SO4 2.5/IPRATROPIUM 0.5 INH SOL 3 ML VIAL.NEB. NEB ONE ×2 (14:14→14:55)
[2020-08-27] MEDS ORDERED: ALBUTEROL SO4 HFA INHALER IH ONE (14:52)
[2020-08-27] MEDS ORDERED: KETOROLAC TROMETHAMINE 30 MG/1 ML VIAL IVPUSH ONE ×2 (14:54)
[2020-08-27] MEDS ORDERED: KETOROLAC TROMETHAMINE 30 MG/1 ML VIAL ONE (14:56)
[2020-08-27] MEDS ORDERED: DEXAMETHASONE SOD PHOSPHATE 10 MG/1 ML VIAL ONE (14:56)
[2020-08-27 14:58] LABS: VENOUS BASE EXCESS -1.9 mmol/L (-2-2); VENOUS O2 SATURATION 72.7 % (70-80); VENOUS PCO2 43.5 mmHg (38-52); VENOUS PH 7.354 (7.310-7.410)
[2020-08-27 15:09] LABS: BASO % 0.7 % (0-2.0); EOS % 0.7 % (0-4.5); HEMATOCRIT 38.2 % (32.4-45.2); LYMPH % 34.3 % (8-40); MCH 29.1 pg (25.7-33.7); MCHC 33.9 g/dl (32.0-36.0); MEAN PLT VOLUME 8.4 fl (7.5-11.1); MONO % 3.7 % (3.8-10.2); NEUT % 60.6 % (42.8-82.8); PLATELET COUNT 341 K/MM3 (134-434); RBC 4.45 M/mm3 (3.60-5.2); RDW 14.4 % (11.6-15.6); WHITE BLOOD COUNT 9.6 K/mm3 (4.0-10.0)
[2020-08-27 15:16] LABS: INR 1.09 (0.83-1.09); PROTHROMBIN TIME (PATIENT) 13.2 SEC (9.7-13.0)
[2020-08-27 15:19] LABS: ACTIVATED PTT 32.4 SECONDS (25.2-36.5)
[2020-08-27 15:22] LABS: CHLORIDE 105 mmol/L (98-107); POTASSIUM 3.8 mmol/L (3.5-5.1); SODIUM 137 mmol/L (136-145)
[2020-08-27 15:24] LABS: ALBUMIN 3.8 g/dl (3.4-5.0); ANION GAP 8 MMOL/L (8-16); CALCIUM 9.1 mg/dL (8.5-10.1); CO2 25 mmol/L (21-32); GLUCOSE,RANDOM 122 mg/dL (74-106)
[2020-08-27 15:27] LABS: BILIRUBIN,DIRECT 0.1 mg/dL (0.0-0.2); CREATININE 0.7 mg/dL (0.55-1.3); SGOT/AST 7 U/L (15-37); SGPT/ALT 16 U/L (13-61)
[2020-08-27 15:29] LABS: BILIRUBIN,TOTAL 0.4 mg/dL (0.2-1); TOT PROT 7.3 g/dl (6.4-8.2)
[2020-08-27 15:30] LABS: ALK PHOS 100 U/L (45-117)
[2020-08-27 15:32] LABS: LDH 146 U/L (84-246)
[2020-08-27 16:40] VITALS: BP 137/89; PULSE 84
== END 2020-08-27 16:39 | disposition home or self-care (01) ==
LOC: JER 12:39
PROC: 3E0F7GC Introduction of Other Therapeutic Substance into Respiratory Tract, Via Natural or Artificial Opening (ICD-10-PCS; principal; 2020-08-27)
PROC: 3E033GC Introduction of Other Therapeutic Substance into Peripheral Vein, Percutaneous Approach (ICD-10-PCS; 2020-08-27)
PROC: 3E0333Z Introduction of Anti-inflammatory into Peripheral Vein, Percutaneous Approach (ICD-10-PCS; 2020-08-27)
DX: J45.909 Unspecified asthma, uncomplicated (principal); R05 Cough
CPT/HCPCS: 36415; 71045-TC-FY; 80053; 82248; 82550; 82728; 82803; 83605; 83615; 84484; 85025; 85610; 85730; 86140; 87040; 87804; 93005; 93010; 99285-25; C9803; J1100; U0003

== ENCOUNTER 2021-03-14 13:52 | Inpatient (IN) | payer OTHER ==
[2021-03-14] MEDS ORDERED: diazePAM 5 MG TABLET PO ONE (14:53)
[2021-03-14] MEDS ORDERED: diazePAM 5 MG TABLET ONE (15:10)
[2021-03-14] MEDS ORDERED: LIDOCAINE 5% TOPICAL PATCH TP ONE (16:01)
[2021-03-14 16:11] LABS: HEMATOCRIT 34.1 % (32.4-45.2); HEMOGLOBIN 11.5 GM/dL (10.7-15.3); MCH 29.6 pg (25.7-33.7); MCHC 33.6 g/dl (32.0-36.0); MEAN CELL VOLUME 88.1 fl (80-96); MEAN PLT VOLUME 7.6 fl (7.5-11.1); PLATELET COUNT 269 10^3/uL (134-434); RBC 3.88 M/mm3 (3.60-5.2); RDW 14.9 % (11.6-15.6); WHITE BLOOD COUNT 13.8 K/mm3 (4.0-10.0)
[2021-03-14] MEDS ORDERED: LIDOCAINE 5% TOPICAL PATCH ONE (16:15)
[2021-03-14 16:22] LABS: INR 0.91 (0.83-1.09); PROTHROMBIN TIME (PATIENT) 11.1 SEC (9.7-13.0)
[2021-03-14 16:24] LABS: ACTIVATED PTT 29.6 SECONDS (25.2-36.5)
[2021-03-14 16:41] LABS: CHLORIDE 103 mmol/L (98-107); SODIUM 138 mmol/L (136-145)
[2021-03-14 16:43] LABS: ALBUMIN 3.4 g/dl (3.4-5.0); ANION GAP 5 MMOL/L (8-16); CALCIUM 8.8 mg/dL (8.5-10.1); CO2 30 mmol/L (21-32)
[2021-03-14 16:44] LABS: GLUCOSE,RANDOM 114 mg/dL (74-106)
[2021-03-14 16:46] LABS: CREATININE 0.6 mg/dL (0.55-1.3); SGOT/AST 6 U/L (15-37); SGPT/ALT 20 U/L (13-61)
[2021-03-14 16:47] LABS: PHOSPHOROUS 3.5 mg/dL (2.5-4.9)
[2021-03-14 16:48] LABS: BILIRUBIN,TOTAL 0.1 mg/dL (0.2-1); TOT PROT 6.8 g/dl (6.4-8.2)
[2021-03-14 16:49] LABS: ALK PHOS 116 U/L (45-117)
[2021-03-14] MEDS ORDERED: ENOXAPARIN NA (PORCINE) 100 MG/1 ML DISP.SYRIN SQ ONE ×2 (19:44→20:24)
[2021-03-14] MEDS ORDERED: MORPHINE SULFATE 15 MG PO PRN (21:42)
[2021-03-14] MEDS ORDERED: FENTANYL PATCH WASTE MC PRN (21:44)
[2021-03-14] MEDS ORDERED: DULoxetine HCL 60 MG CAPSULE.DR PO SCH (22:00)
[2021-03-14] MEDS: ENOXAPARIN NA (PORCINE) 100 MG/1 ML DISP.SYRIN SQ SCH (22:03)
[2021-03-14] MEDS ORDERED: DOCUSATE SODIUM 100 MG CAPSULE (FP) PO ONE (22:06)
[2021-03-14] MEDS ORDERED: GABAPENTIN 100 MG CAPSULE ONE (22:07)
[2021-03-14] MEDS: DOCUSATE SODIUM 100 MG CAPSULE (FP) PO SCH (22:10)
[2021-03-14] MEDS: GABAPENTIN 300 MG CAPSULE PO SCH (22:10)
[2021-03-14] MEDS: LIDOCAINE PATCH REMOVAL MC SCH (22:11)
[2021-03-14] MEDS: INSULIN SLIDING SCALE (NOVOLOG) 1 VIAL SQ SCH (22:16)
[2021-03-14] MEDS ORDERED: POLYETHYLENE GLYCOL (HEALTHYLAX) 3350 17 GM PACKET PO PRN (23:45)
[2021-03-15] MEDS ORDERED: DULoxetine HCL 30 MG CAPSULE.DR PO ONE ×2 (03:10→09:36)
[2021-03-15] MEDS: DULoxetine HCL 60 MG CAPSULE.DR PO SCH ×2 (03:20→10:30)
[2021-03-15 06:29] LABS: BASO % 0.5 % (0-2.0); EOS % 0.5 % (0-4.5); HEMATOCRIT 35.4 % (32.4-45.2); HEMOGLOBIN 11.9 GM/dL (10.7-15.3); LYMPH % 21.4 % (8-40); MCH 29.7 pg (25.7-33.7); MCHC 33.5 g/dl (32.0-36.0); MEAN CELL VOLUME 88.8 fl (80-96); MEAN PLT VOLUME 7.7 fl (7.5-11.1); MONO % 3.3 % (3.8-10.2); NEUT % 74.3 % (42.8-82.8); PLATELET COUNT 272 10^3/uL (134-434); RBC 3.99 M/mm3 (3.60-5.2); WHITE BLOOD COUNT 14.3 K/mm3 (4.0-10.0)
[2021-03-15 07:01] LABS: CALCIUM 8.9 mg/dL (8.5-10.1)
[2021-03-15 07:02] LABS: BLOOD UREA NITROGEN 10.7 mg/dL (7-18)
[2021-03-15 07:03] LABS: CREATININE 0.9 mg/dL (0.55-1.3)
[2021-03-15] MEDS ORDERED: GABAPENTIN 100 MG CAPSULE ONE (07:57)
[2021-03-15] MEDS: GABAPENTIN 300 MG CAPSULE PO SCH ×2 (07:59→13:27)
[2021-03-15] MEDS: INSULIN SLIDING SCALE (NOVOLOG) 1 VIAL SQ SCH ×4 (08:28→21:45)
[2021-03-15] MEDS ORDERED: DOCUSATE SODIUM 100 MG CAPSULE (FP) PO ONE (09:36)
[2021-03-15] MEDS ORDERED: ENOXAPARIN NA (PORCINE) 100 MG/1 ML DISP.SYRIN SQ ONE (09:37)
[2021-03-15] MEDS ORDERED: fentaNYL 25mcg/hr PATCH.TD72 TD SCH (10:00)
[2021-03-15] MEDS: DOCUSATE SODIUM 100 MG CAPSULE (FP) PO SCH ×2 (10:23→21:39)
[2021-03-15] MEDS: ENOXAPARIN NA (PORCINE) 100 MG/1 ML DISP.SYRIN SQ SCH (10:23)
[2021-03-15 11:15] VITALS: BMI 38.4
[2021-03-15] MEDS: morphine SULFATE IMMEDIATE RELEASE 30 MG TAB PO PRN ×2 (11:15→18:11)
[2021-03-15] MEDS ORDERED: LISINOPRIL 20 MG TABLET PO ONE (12:02)
[2021-03-15] MEDS ORDERED: ENOXAPARIN NA (PORCINE) 120 MG/0.8 ML DISP.SYRIN SQ SCH ×2 (12:05→22:00)
[2021-03-15] MEDS ORDERED: PT OWN MED DRAWER 7, Y5N ONE (21:06)
[2021-03-15] MEDS: DULoxetine HCL 30 MG CAPSULE.DR PO SCH (21:39)
[2021-03-15] MEDS: BUDESONIDE/FORMETEROL FUMARATE 160/4.5 mcg INHALER IH SCH (21:41)
[2021-03-15] MEDS: LIDOCAINE PATCH REMOVAL MC SCH (21:45)
[2021-03-15] MEDS: GABAPENTIN 400 MG CAPSULE PO SCH (21:47)
[2021-03-15] MEDS: ALBUTEROL SO4 HFA INHALER IH SCH (22:04)
[2021-03-16] MEDS ORDERED: PT OWN MED DRAWER 7, Y5N ONE ×2 (05:39→20:54)
[2021-03-16] MEDS: GABAPENTIN 400 MG CAPSULE PO SCH ×3 (05:42→21:30)
[2021-03-16] MEDS: morphine SULFATE IMMEDIATE RELEASE 30 MG TAB PO PRN ×3 (05:42→21:30)
[2021-03-16] MEDS: INSULIN SLIDING SCALE (NOVOLOG) 1 VIAL SQ SCH ×4 (06:33→21:39)
[2021-03-16] MEDS: APIXABAN 5 MG TABLET PO SCH ×2 (09:57→21:32)
[2021-03-16] MEDS: LISINOPRIL 20 MG TABLET PO SCH (09:57)
[2021-03-16] MEDS: DULoxetine HCL 30 MG CAPSULE.DR PO SCH ×2 (09:58→21:29)
[2021-03-16 10:02] LABS: HEMATOCRIT 34.4 % (32.4-45.2); HEMOGLOBIN 11.5 GM/dL (10.7-15.3); MCH 29.5 pg (25.7-33.7); MCHC 33.4 g/dl (32.0-36.0); MEAN CELL VOLUME 88.1 fl (80-96); MEAN PLT VOLUME 7.6 fl (7.5-11.1); PLATELET COUNT 265 10^3/uL (134-434); RDW 14.9 % (11.6-15.6); WHITE BLOOD COUNT 11.9 K/mm3 (4.0-10.0)
[2021-03-16 10:18] LABS: CALCIUM 8.9 mg/dL (8.5-10.1)
[2021-03-16 10:19] LABS: BLOOD UREA NITROGEN 8.7 mg/dL (7-18)
[2021-03-16 10:22] LABS: CREATININE 0.7 mg/dL (0.55-1.3)
[2021-03-16] MEDS: BUDESONIDE/FORMETEROL FUMARATE 160/4.5 mcg INHALER IH SCH ×2 (11:24→21:29)
[2021-03-16] MEDS: DOCUSATE SODIUM 100 MG CAPSULE (FP) PO SCH ×2 (11:25→21:30)
[2021-03-16] MEDS: ALBUTEROL SO4 HFA INHALER IH SCH ×2 (11:25→21:29)
[2021-03-16] MEDS: LIDOCAINE PATCH REMOVAL MC SCH (21:39)
[2021-03-17] MEDS: morphine SULFATE IMMEDIATE RELEASE 30 MG TAB PO PRN ×3 (02:58→17:18)
[2021-03-17] MEDS ORDERED: PT OWN MED DRAWER 7, Y5N ONE ×2 (06:38→08:59)
[2021-03-17] MEDS: INSULIN SLIDING SCALE (NOVOLOG) 1 VIAL SQ SCH ×3 (06:53→16:16)
[2021-03-17] MEDS: GABAPENTIN 400 MG CAPSULE PO SCH ×2 (06:53→13:45)
[2021-03-17] MEDS: DOCUSATE SODIUM 100 MG CAPSULE (FP) PO SCH (09:00)
[2021-03-17] MEDS: DULoxetine HCL 30 MG CAPSULE.DR PO SCH (09:01)
[2021-03-17] MEDS: LISINOPRIL 20 MG TABLET PO SCH (09:01)
[2021-03-17] MEDS: RIVAROXABAN 15 MG TABLET PO SCH ×2 (09:02→17:03)
[2021-03-17] MEDS: ALBUTEROL SO4 HFA INHALER IH SCH (09:03)
[2021-03-17] MEDS: BUDESONIDE/FORMETEROL FUMARATE 160/4.5 mcg INHALER IH SCH (09:03)
[2021-03-17 09:31] LABS: HEMATOCRIT 36.5 % (32.4-45.2); HEMOGLOBIN 12.1 GM/dL (10.7-15.3); MCH 29.3 pg (25.7-33.7); MCHC 33.1 g/dl (32.0-36.0); MEAN CELL VOLUME 88.3 fl (80-96); MEAN PLT VOLUME 7.6 fl (7.5-11.1); PLATELET COUNT 285 10^3/uL (134-434); RBC 4.13 M/mm3 (3.60-5.2); WHITE BLOOD COUNT 12.4 K/mm3 (4.0-10.0)
[2021-03-17] MEDS ORDERED: amLODIPine BESYLATE 5 MG TABLET (FP) PO SCH (10:00)
[2021-03-17 10:13] LABS: CALCIUM 9.3 mg/dL (8.5-10.1)
[2021-03-17 10:15] LABS: BLOOD UREA NITROGEN 13.3 mg/dL (7-18)
[2021-03-17 10:18] LABS: CREATININE 0.7 mg/dL (0.55-1.3)
[2021-03-17 18:20] VITALS: TEMP 98
[2021-03-17 19:00] VITALS: BP 143/88; PULSE 76
== END 2021-03-17 19:26 | disposition home or self-care (01) | DRG 301 ==
LOC: JER 13:52 → JERBED 19:45 → J5S 03-15 09:47
PROVIDERS: ADMIT Internal Medicine; ATTEND Internal Medicine
DX: I82.412 Acute embolism and thrombosis of left femoral vein (principal); D72.829 Elevated white blood cell count, unspecified; I10 Essential (primary) hypertension; E11.9 Type 2 diabetes mellitus without complications; M51.27 Other intervertebral disc displacement, lumbosacral region; E04.1 Nontoxic single thyroid nodule; G89.4 Chronic pain syndrome; F32.9 Major depressive disorder, single episode, unspecified
CPT/HCPCS: 36415; 70450-TC; 71045-TC-FY; 72125-TC; 72131-TC; 76937; 80048; 80053; 81241; 82550; 82962; 83036; 83735; 84100; 84439; 84443; 84484; 84703; 85025; 85027; 85300; 85303; 85305; 85306; 85610; 85730; 93005; 93010; 93306-TC; 93971; 93971-LT; 93971-TC; 99284-25; C9803; U0003; U0005

== ENCOUNTER 2021-03-24 15:15 | Emergency (ER) | payer OTHER ==
[2021-03-24 15:29] VITALS: BMI 37.5
[2021-03-24] MEDS ORDERED: KETOROLAC TROMETHAMINE 30 MG/1 ML VIAL IVPUSH ONE (17:37)
[2021-03-24] MEDS ORDERED: KETOROLAC TROMETHAMINE 15 MG/ML VIAL ONE (17:47)
[2021-03-24 18:16] LABS: BASO % 0.4 % (0-2.0); EOS % 0.4 % (0-4.5); HEMATOCRIT 35.5 % (32.4-45.2); HEMOGLOBIN 11.9 GM/dL (10.7-15.3); LYMPH % 21.2 % (8-40); MCH 29.7 pg (25.7-33.7); MCHC 33.6 g/dl (32.0-36.0); MEAN CELL VOLUME 88.4 fl (80-96); MEAN PLT VOLUME 7.8 fl (7.5-11.1); MONO % 2.4 % (3.8-10.2); NEUT % 75.6 % (42.8-82.8); PLATELET COUNT 372 10^3/uL (134-434); RBC 4.01 M/mm3 (3.60-5.2); RDW 15.4 % (11.6-15.6)
[2021-03-24 18:22] LABS: INR 1.96 (0.83-1.09); PROTHROMBIN TIME (PATIENT) 23.2 SEC (9.7-13.0)
[2021-03-24 18:24] LABS: ACTIVATED PTT 44.4 SECONDS (25.2-36.5)
[2021-03-24 18:34] LABS: CHLORIDE 107 mmol/L (98-107); SODIUM 140 mmol/L (136-145)
[2021-03-24 18:36] LABS: CALCIUM 8.7 mg/dL (8.5-10.1)
[2021-03-24 18:37] LABS: ALBUMIN 3.4 g/dl (3.4-5.0); ANION GAP 5 MMOL/L (8-16); BLOOD UREA NITROGEN 11.3 mg/dL (7-18); CO2 28 mmol/L (21-32); GLUCOSE,RANDOM 192 mg/dL (74-106)
[2021-03-24 18:40] LABS: CREATININE 0.9 mg/dL (0.55-1.3); SGOT/AST 9 U/L (15-37); SGPT/ALT 21 U/L (13-61)
[2021-03-24 18:41] LABS: BILIRUBIN,TOTAL < 0.1 mg/dL (0.2-1)
[2021-03-24 18:42] LABS: ALK PHOS 146 U/L (45-117)
[2021-03-24 21:42] VITALS: BP 122/86; PULSE 76; TEMP 98.6
[2021-03-24 21:42] LABS: EPI CELLS >36 /uL (0-25.1); HYALINE CASTS 6 /uL (0-3.1); URINE APPEARANCE CLEAR; URINE BACTERIA 8 /uL (0-1359); URINE BILIRUBIN NEGATIVE (NEGATIVE); URINE COLOR YELLOW; URINE GLUCOSE (UA) NEGATIVE (NEGATIVE); URINE KETONE TRACE (NEGATIVE); URINE LEUK ESTERASE NEGATIVE (NEGATIVE); URINE NITRITE NEGATIVE (NEGATIVE); URINE PROTEIN 1+ (NEGATIVE); URINE RBC 89 /uL (0-23.9); URINE UROBILINOGEN 0.2 mg/dL (0.2-1.0); URINE WBC 20 /uL (0-25.8)
[2021-03-24 21:52] LABS: HCG,QUALITATIVE URINE Negative
== END 2021-03-24 21:42 | disposition home or self-care (01) ==
LOC: JER 15:15
PROC: 3E0333Z Introduction of Anti-inflammatory into Peripheral Vein, Percutaneous Approach (ICD-10-PCS; principal; 2021-03-24)
DX: N83.209 Unspecified ovarian cyst, unspecified side (principal); R10.2 Pelvic and perineal pain; O22.30 Deep phlebothrombosis in pregnancy, unspecified trimester
CPT/HCPCS: 36415; 76830-TC; 80053; 81003; 84703; 85025; 85610; 85730; 99284-25; C9803; U0003; U0005

== ENCOUNTER 2021-11-24 17:40 | Emergency (ER) | payer OTHER ==
[2021-11-24 17:59] VITALS: TEMP 98.5
[2021-11-24 18:17] VITALS: BP 116/82; PULSE 81; BMI 39.1
[2021-11-24] MEDS ORDERED: IBUPROFEN 400 MG TABLET (FP) PO ONE ×2 (18:32→18:51)
[2021-11-24] MEDS ORDERED: METHOCARBAMOL 500 MG TABLET PO ONE (18:33)
[2021-11-24] MEDS ORDERED: LIDOCAINE 5% TOPICAL PATCH TP ONE ×2 (18:37→20:46)
[2021-11-24] MEDS ORDERED: METHOCARBAMOL 500 MG TABLET ONE (18:51)
[2021-11-24 19:30] LABS: BASO % 1.3 % (0-2.0); EOS % 0.9 % (0-4.5); HEMATOCRIT 34.8 % (32.4-45.2); HEMOGLOBIN 11.5 GM/dL (10.7-15.3); LYMPH % 34.4 % (8-40); MCH 27.6 pg (25.7-33.7); MEAN CELL VOLUME 83.6 fl (80-96); MEAN PLT VOLUME 8.1 fl (7.5-11.1); MONO % 4.5 % (3.8-10.2); NEUT % 58.9 % (42.8-82.8); PLATELET COUNT 351 10^3/uL (134-434); RBC 4.16 M/mm3 (3.60-5.2); RDW 15.1 % (11.6-15.6); WHITE BLOOD COUNT 7.3 K/mm3 (4.0-10.0)
[2021-11-24 19:56] LABS: ALBUMIN 3.5 g/dl (3.4-5.0); BLOOD UREA NITROGEN 10.9 mg/dL (7-18)
[2021-11-24 20:00] LABS: BILIRUBIN,TOTAL 0.1 mg/dL (0.2-1)
[2021-11-24 20:01] LABS: TOT PROT 6.9 g/dl (6.4-8.2)
[2021-11-24] MEDS ORDERED: LIDOCAINE 5% TOPICAL PATCH ONE (20:47)
[2021-11-24] MEDS ORDERED: morphine SULFATE 4 MG/ML VIAL IVPUSH ONE (21:32)
[2021-11-24] MEDS ORDERED: LIDOCAINE PATCH REMOVAL MC SCH (22:00)
[2021-11-24] MEDS ORDERED: LIDOCAINE PATCH REMOVAL MC ONE (22:00)
[2021-11-24] MEDS ORDERED: valACYclovir HCL 1000 MG TABLET PO ONE (22:24)
[2021-11-24] MEDS ORDERED: valACYclovir HCL 500 MG TABLET (FP) ONE (22:24)
== END 2021-11-24 22:39 | disposition home or self-care (01) ==
LOC: JER 17:40
PROC: 3E033GC Introduction of Other Therapeutic Substance into Peripheral Vein, Percutaneous Approach (ICD-10-PCS; principal; 2021-11-24)
DX: M54.41 Lumbago with sciatica, right side (principal); R21 Rash and other nonspecific skin eruption
CPT/HCPCS: 36415; 80053; 85025; 99284-25

== ENCOUNTER 2022-02-06 17:01 | Emergency (ER) | payer OTHER ==
[2022-02-06 18:05] VITALS: BP 111/63; PULSE 73; TEMP 98.5; BMI 39.1
[2022-02-06 21:03] LABS: BASO % 1.2 % (0-2.0); EOS % 0.9 % (0-4.5); HEMATOCRIT 39.1 % (32.4-45.2); HEMOGLOBIN 12.5 GM/dL (10.7-15.3); MCH 25.5 pg (25.7-33.7); MEAN CELL VOLUME 79.9 fl (80-96); MEAN PLT VOLUME 8.1 fl (7.5-11.1); MONO % 3.8 % (3.8-10.2); NEUT % 57.1 % (42.8-82.8); PLATELET COUNT 414 10^3/uL (134-434); RDW 16.3 % (11.6-15.6); WHITE BLOOD COUNT 9.4 K/mm3 (4.0-10.0)
[2022-02-06 21:09] LABS: INR 1.32 (0.83-1.09); PROTHROMBIN TIME (PATIENT) 15.2 SEC (9.7-13.0)
[2022-02-06 21:12] LABS: ACTIVATED PTT 37.9 SECONDS (25.2-36.5)
[2022-02-06 21:24] LABS: CALCIUM 9.7 mg/dL (8.5-10.1)
[2022-02-06 21:25] LABS: MAGNESIUM 2.1 mg/dL (1.8-2.4)
[2022-02-06 21:28] LABS: CREATININE 0.8 mg/dL (0.55-1.3)
[2022-02-06 21:29] LABS: BILIRUBIN,TOTAL 0.3 mg/dL (0.2-1)
[2022-02-06 21:30] LABS: TOT PROT 7.8 g/dl (6.4-8.2)
[2022-02-06] MEDS ORDERED: morphine CARPU-JECT 4 MG/1 ML DISP.SYRIN IVPUSH ONE (22:27)
[2022-02-06] MEDS ORDERED: ONDANSETRON 4 MG/2 ML VIAL IVPUSH ONE (22:27)
[2022-02-06] MEDS ORDERED: ONDANSETRON 4 MG/2 ML VIAL ONE (22:33)
[2022-02-06] MEDS ORDERED: morphine SULFATE 4 MG/ML VIAL ONE (22:33)
[2022-02-07] MEDS ORDERED: IBUPROFEN 600 MG TABLET (FP) PO ONE ×2 (00:04→00:31)
[2022-02-07] MEDS ORDERED: CYCLOBENZAPRINE HCL 10 MG TABLET (FP) PO ONE (00:04)
[2022-02-07] MEDS ORDERED: CYCLOBENZAPRINE HCL 10 MG TABLET (FP) ONE (00:30)
== END 2022-02-07 00:47 | disposition home or self-care (01) ==
LOC: JER 17:01
PROC: 3E033GC Introduction of Other Therapeutic Substance into Peripheral Vein, Percutaneous Approach (ICD-10-PCS; principal; 2022-02-06)
PROC: 3E033NZ Introduction of Analgesics, Hypnotics, Sedatives into Peripheral Vein, Percutaneous Approach (ICD-10-PCS; 2022-02-06)
PROC: 3E033GC Introduction of Other Therapeutic Substance into Peripheral Vein, Percutaneous Approach (ICD-10-PCS; 2022-02-06)
DX: R07.9 Chest pain, unspecified (principal)
CPT/HCPCS: 36415; 71275-TC; 80053; 82550; 83735; 84484; 85025; 85610; 85730; 93005; 93010; 99285-25; Q9967

== ENCOUNTER 2022-04-26 15:11 | Emergency (ER) | payer OTHER ==
[2022-04-26 15:21] VITALS: BP 145/83; PULSE 93; RESP 18; TEMP 98.2; BMI 39.1
[2022-04-26] MEDS ORDERED: oxyCODONE HCL 5 MG TABLET PO ONE (16:25)
[2022-04-26] MEDS ORDERED: oxyCODONE HCL 5 MG TABLET ONE (16:33)
[2022-04-26 18:30] LABS: EPI CELLS >36 /uL (0-25.1); HYALINE CASTS 1 /uL (0-3.1); PH,URINE 5.5 (5.0-8.0); URINE APPEARANCE CLEAR; URINE BACTERIA 369 /uL (0-1359); URINE BILIRUBIN NEGATIVE (NEGATIVE); URINE COLOR YELLOW; URINE GLUCOSE (UA) 3+ (NEGATIVE); URINE KETONE NEGATIVE (NEGATIVE); URINE LEUK ESTERASE 1+ (NEGATIVE); URINE NITRITE NEGATIVE (NEGATIVE); URINE PROTEIN NEGATIVE (NEGATIVE); URINE RBC 18 /uL (0-23.9); URINE UROBILINOGEN 0.2 mg/dL (0.2-1.0); URINE WBC 83 /uL (0-25.8)
== END 2022-04-26 18:47 | disposition home or self-care (01) ==
LOC: JERFT 15:11
DX: B37.3 Candidiasis of vulva and vagina (principal)
CPT/HCPCS: 36415; 81003; 87070; 87086; 87205; 87491; 87591; 99283-25

== ENCOUNTER 2022-05-05 14:17 | Inpatient (IN) | payer OTHER ==
[2022-05-05] MEDS ORDERED: methylPREDNISolone NA SUCC 125 MG/2 ML VIAL IVPUSH ONE (14:53)
[2022-05-05] MEDS ORDERED: methylPREDNISolone NA SUCC 125 MG/2 ML VIAL ONE ×2 (14:58→15:45)
[2022-05-05] MEDS: ALBUTEROL SO4 2.5/IPRATROPIUM 0.5 INH SOL 3 ML VIAL.NEB. NEB SCH ×5 (15:23→23:16)
[2022-05-05] MEDS ORDERED: MAGNESIUM SULF 50% (8.12 MEQ/2 ML-1 GM VIAL) IVPB ONE (15:51)
[2022-05-05] MEDS ORDERED: ALBUTEROL SO4 0.083% IH SOL 2.5 MG/3 ML VIAL.NEB. NEB ONE ×2 (15:51→16:58)
[2022-05-05] MEDS ORDERED: MAGNESIUM 1GM/D5W - 1 GM/100 ML IVPB IVPB ONE (15:58)
[2022-05-05 17:16] LABS: BASO % 0.3 % (0-2.0); EOS % 0.9 % (0-4.5); HEMATOCRIT 33.9 % (32.4-45.2); HEMOGLOBIN 10.7 GM/dL (10.7-15.3); LYMPH % 29.3 % (8-40); MCH 25.6 pg (25.7-33.7); MCHC 31.5 g/dl (32.0-36.0); MEAN CELL VOLUME 81.4 fl (80-96); MEAN PLT VOLUME 7.9 fl (7.5-11.1); MONO % 3.8 % (3.8-10.2); NEUT % 65.7 % (42.8-82.8); PLATELET COUNT 405 10^3/uL (134-434); RBC 4.17 M/mm3 (3.60-5.2); RDW 16.8 % (11.6-15.6); WHITE BLOOD COUNT 8.4 K/mm3 (4.0-10.0)
[2022-05-05 17:30] LABS: CALCIUM 9.2 mg/dL (8.5-10.1)
[2022-05-05 17:31] LABS: ALBUMIN 3.5 g/dl (3.4-5.0); BLOOD UREA NITROGEN 7.9 mg/dL (7-18)
[2022-05-05 17:34] LABS: CREATININE 0.8 mg/dL (0.55-1.3)
[2022-05-05 17:35] LABS: TOT PROT 6.8 g/dl (6.4-8.2)
[2022-05-05 17:36] LABS: BILIRUBIN,TOTAL 0.2 mg/dL (0.2-1)
[2022-05-05] MEDS ORDERED: ALBUTEROL SO4 2.5/IPRATROPIUM 0.5 INH SOL 3 ML VIAL.NEB. NEB ONE ×2 (19:45→19:46)
[2022-05-05] MEDS ORDERED: LISINOPRIL 20 MG TABLET PO SCH (21:30)
[2022-05-05] MEDS ORDERED: RIVAROXABAN 20 MG TABLET PO SCH (21:30)
[2022-05-05] MEDS ORDERED: INSULIN SLIDING SCALE (NOVOLOG) 1 VIAL SQ SCH (22:00)
[2022-05-05] MEDS ORDERED: INSULIN REGULAR HUMAN 100 UNITS/ML *VIAL IVPUSH ONE (23:31)
[2022-05-05] MEDS ORDERED: SODIUM CHLORIDE 250 ML IV STA (23:31)
[2022-05-06] MEDS ORDERED: methylPREDNISolone NA SUCC 40 MG/1 ML VIAL IVPUSH SCH (02:00)
[2022-05-06] MEDS: ALBUTEROL SO4 2.5/IPRATROPIUM 0.5 INH SOL 3 ML VIAL.NEB. NEB SCH ×5 (02:15→21:00)
[2022-05-06] MEDS: ALBUTEROL SO4 0.083% IH SOL 2.5 MG/3 ML VIAL.NEB. NEB PRN ×2 (02:24→06:37)
[2022-05-06] MEDS ORDERED: SODIUM CHLORIDE 500 ML IV STA (03:11)
[2022-05-06 04:33] LABS: CHLORIDE 98 mmol/L (98-107); SODIUM 135 mmol/L (136-145)
[2022-05-06 04:34] LABS: CALCIUM 8.9 mg/dL (8.5-10.1)
[2022-05-06 04:35] LABS: ANION GAP 17 MMOL/L (8-16); CO2 20 mmol/L (21-32)
[2022-05-06 04:38] LABS: CREATININE 1.3 mg/dL (0.55-1.3)
[2022-05-06 05:18] LABS: GLUCOSE,RANDOM 444 mg/dL (74-106)
[2022-05-06] MEDS ORDERED: LACTATED RINGERS SOLUTION 1,000 ML/1,000 ML INFUS.BAG IV ONE (06:08)
[2022-05-06] MEDS ORDERED: LACTATED RINGERS SOLUTION 1,000 ML/1,000 ML INFUS.BAG IV SCH (06:15)
[2022-05-06 06:52] LABS: ARTERIAL BLD GAS O2 SATURATION 99.2 % (95-98); ARTERIAL BLOOD GAS BASE EXCESS -7.8 mmol/L (-2-2); ARTERIAL BLOOD GAS PO2 187.7 mmHg (80-100); ARTERIAL BLOOD GAS pH 7.332 (7.350-7.450)
[2022-05-06 06:56] LABS: ALLENS TEST POSITIVE
[2022-05-06] MEDS ORDERED: INSULIN SLIDING SCALE (NOVOLOG) 1 VIAL SQ SCH ×2 (07:00→11:00)
[2022-05-06] MEDS ORDERED: HEPARIN NA (PORCINE) 5,000 UNITS/ML 1ML VIAL IVPUSH PRN ×2 (08:24)
[2022-05-06] MEDS ORDERED: HEPARIN - 25,000 UNIT in SODIUM CHLORIDE 495 ML IV SCH (08:30)
[2022-05-06] MEDS ORDERED: ALBUTEROL SO4 0.083% IH SOL 2.5 MG/3 ML VIAL.NEB. NEB PRN (08:52)
[2022-05-06 08:54] LABS: PH,URINE 5.5 (5.0-8.0); URINE APPEARANCE CLEAR; URINE BILIRUBIN NEGATIVE (NEGATIVE); URINE COLOR YELLOW; URINE GLUCOSE (UA) 3+ (NEGATIVE); URINE KETONE 1+ (NEGATIVE); URINE LEUK ESTERASE NEGATIVE (NEGATIVE); URINE NITRITE NEGATIVE (NEGATIVE); URINE PROTEIN NEGATIVE (NEGATIVE); URINE UROBILINOGEN 0.2 mg/dL (0.2-1.0)
[2022-05-06] MEDS ORDERED: MAGNESIUM SULF 50% (8.12 MEQ/2 ML-1 GM VIAL) IVPB STA (08:59)
[2022-05-06] MEDS ORDERED: TERBUTALINE SULFATE 1 MG/1 ML VIAL SQ STA (08:59)
[2022-05-06] MEDS: ALBUTEROL SO4 0.083% IH SOL 2.5 MG/3 ML VIAL.NEB. NEB SCH ×7 (09:00→20:38)
[2022-05-06] MEDS ORDERED: methylPREDNISolone NA SUCC 125 MG/2 ML VIAL IVPUSH STA (09:01)
[2022-05-06] MEDS ORDERED: AZITHROMYCIN IVPB 500 MG in DEXTROSE 5%-WATER - 250 ML IVPB STA (09:02)
[2022-05-06] MEDS: LISINOPRIL 20 MG TABLET PO SCH (09:06)
[2022-05-06] MEDS: LACTATED RINGERS SOLUTION 1,000 ML/1,000 ML INFUS.BAG IV SCH (09:06)
[2022-05-06] MEDS: methylPREDNISolone NA SUCC 40 MG/1 ML VIAL IVPUSH SCH ×3 (09:07→17:11)
[2022-05-06] MEDS: DEXMEDETOMIDINE PREMIX 400 MCG/100 ML BAG IVPB SCH (09:46)
[2022-05-06] MEDS: AZITHROMYCIN IVPB 500 MG/250 ML BAG IVPB SCH (09:51)
[2022-05-06] MEDS ORDERED: INSULIN REGULAR HUMAN 100 UNITS/ML *VIAL* (FOR IVP) IVPUSH ONE (09:51)
[2022-05-06] MEDS ORDERED: INSULIN REGULAR 100 UNITS in SODIUM CHLORIDE 99 ML IVPB SCH (10:00)
[2022-05-06] MEDS ORDERED: INSULIN REGULAR HUMAN 100 UNITS/ML *VIAL ONE (10:21)
[2022-05-06] MEDS: MUPIROCIN 2% TOPICAL OINTMENT FOR DECOLONIZATION NS SCH ×2 (10:46→21:08)
[2022-05-06] MEDS ORDERED: ACETAMINOPHEN 1000 MG/100 ML BAG IVPB STA (11:17)
[2022-05-06] MEDS ORDERED: HYDROmorphone HCl 2 MG/ML VIAL IVPUSH STA (11:17)
[2022-05-06] MEDS: PANTOPRAZOLE SODIUM 40 MG VIAL IVPUSH SCH (12:06)
[2022-05-06] MEDS ORDERED: diphenhydrAMINE HCL 25 MG CAPSULE (FP) PO ONE (12:11)
[2022-05-06] MEDS ORDERED: diphenhydrAMINE HCL 50 MG CAPSULE PO ONE (12:15)
[2022-05-06 16:10] LABS: HEMATOCRIT 30.6 % (32.4-45.2); MCH 26.3 pg (25.7-33.7); MCHC 32.6 g/dl (32.0-36.0); MEAN CELL VOLUME 80.7 fl (80-96); MEAN PLT VOLUME 7.7 fl (7.5-11.1); PLATELET COUNT 395 10^3/uL (134-434); RBC 3.79 M/mm3 (3.60-5.2); RDW 17.2 % (11.6-15.6); WHITE BLOOD COUNT 18.5 K/mm3 (4.0-10.0)
[2022-05-06 16:30] LABS: CALCIUM 9.3 mg/dL (8.5-10.1)
[2022-05-06 16:31] LABS: BLOOD UREA NITROGEN 9.1 mg/dL (7-18); MAGNESIUM 2.6 mg/dL (1.8-2.4)
[2022-05-06 16:34] LABS: CREATININE 0.8 mg/dL (0.55-1.3)
[2022-05-06 16:36] LABS: PHOSPHOROUS 2.1 mg/dL (2.5-4.9)
[2022-05-06 16:41] LABS: ANISOCYTOSIS 0; MACROCYTOSIS 0
[2022-05-06] MEDS: CHLORHEXIDINE GLUCONATE 4% CLEANSER FOR DECOLONIZATION TP SCH (21:08)
[2022-05-07] MEDS: ALBUTEROL SO4 2.5/IPRATROPIUM 0.5 INH SOL 3 ML VIAL.NEB. NEB SCH ×7 (00:11→20:00)
[2022-05-07] MEDS: methylPREDNISolone NA SUCC 40 MG/1 ML VIAL IVPUSH SCH ×3 (02:08→17:01)
[2022-05-07 07:16] LABS: HEMATOCRIT 34.5 % (32.4-45.2); HEMOGLOBIN 10.9 GM/dL (10.7-15.3); MCH 25.5 pg (25.7-33.7); MCHC 31.5 g/dl (32.0-36.0); MEAN CELL VOLUME 80.9 fl (80-96); MEAN PLT VOLUME 8.1 fl (7.5-11.1); PLATELET COUNT 437 10^3/uL (134-434); RBC 4.27 M/mm3 (3.60-5.2); RDW 17.2 % (11.6-15.6); WHITE BLOOD COUNT 23.8 K/mm3 (4.0-10.0)
[2022-05-07] MEDS ORDERED: ALBUTEROL SO4 0.083% IH SOL 2.5 MG/3 ML VIAL.NEB. NEB SCH (08:00)
[2022-05-07 08:41] LABS: BLOOD UREA NITROGEN 8.6 mg/dL (7-18)
[2022-05-07 08:42] LABS: MAGNESIUM 2.5 mg/dL (1.8-2.4)
[2022-05-07 08:44] LABS: PHOSPHOROUS 2.4 mg/dL (2.5-4.9)
[2022-05-07 08:45] LABS: CREATININE 0.6 mg/dL (0.55-1.3)
[2022-05-07] MEDS ORDERED: NAPH,MB-DB/K PH,MBDB POWDER PACKET PO ONE (08:55)
[2022-05-07] MEDS ORDERED: ENOXAPARIN NA (PORCINE) 40 MG/0.4 ML DISP.SYRIN SQ SCH (09:00)
[2022-05-07] MEDS: LACTATED RINGERS SOLUTION 1,000 ML/1,000 ML INFUS.BAG IV SCH (09:37)
[2022-05-07] MEDS: LISINOPRIL 20 MG TABLET PO SCH (09:37)
[2022-05-07] MEDS: PANTOPRAZOLE SODIUM 40 MG VIAL IVPUSH SCH (09:38)
[2022-05-07] MEDS: AZITHROMYCIN IVPB 500 MG/250 ML BAG IVPB SCH (09:38)
[2022-05-07] MEDS ORDERED: HEPARIN NA (PORCINE) 5,000 UNITS/ML 1ML VIAL SQ SCH (10:00)
[2022-05-07] MEDS: MUPIROCIN 2% TOPICAL OINTMENT FOR DECOLONIZATION NS SCH ×2 (12:38→23:36)
[2022-05-07] MEDS: DEXMEDETOMIDINE PREMIX 400 MCG/100 ML BAG IVPB SCH (12:38)
[2022-05-07] MEDS ORDERED: INSULIN SLIDING SCALE (NOVOLOG) 1 VIAL SQ SCH (16:30)
[2022-05-07 16:38] VITALS: BMI 42.0
[2022-05-07] MEDS: INSULIN SLIDING SCALE (NOVOLOG) 1 VIAL SQ SCH ×2 (17:01→23:37)
[2022-05-07] MEDS: PIPERACILLIN/TAZOB 3.375 GM 3.375 GM in DEXTROSE 5%-WATER - 50 ML IVPB SCH (17:02)
[2022-05-07] MEDS ORDERED: KETOROLAC TROMETHAMINE 15 MG/ML VIAL IVPUSH ONE (17:23)
[2022-05-07] MEDS: CHLORHEXIDINE GLUCONATE 4% CLEANSER FOR DECOLONIZATION TP SCH (23:36)
[2022-05-07] MEDS: MONTELUKAST NA 10 MG TABLET PO SCH (23:37)
[2022-05-08] MEDS: ALBUTEROL SO4 2.5/IPRATROPIUM 0.5 INH SOL 3 ML VIAL.NEB. NEB SCH ×7 (00:26→23:29)
[2022-05-08] MEDS: PIPERACILLIN/TAZOB 3.375 GM 3.375 GM in DEXTROSE 5%-WATER - 50 ML IVPB SCH ×3 (01:32→17:38)
[2022-05-08] MEDS: methylPREDNISolone NA SUCC 40 MG/1 ML VIAL IVPUSH SCH ×3 (01:33→17:37)
[2022-05-08] MEDS: INSULIN SLIDING SCALE (NOVOLOG) 1 VIAL SQ SCH ×4 (07:14→21:16)
[2022-05-08 07:41] LABS: HEMATOCRIT 39.8 % (32.4-45.2); HEMOGLOBIN 12.5 GM/dL (10.7-15.3); MCH 25.7 pg (25.7-33.7); MCHC 31.5 g/dl (32.0-36.0); MEAN CELL VOLUME 81.5 fl (80-96); MEAN PLT VOLUME 8.2 fl (7.5-11.1); PLATELET COUNT 446 10^3/uL (134-434); RBC 4.88 M/mm3 (3.60-5.2); RDW 17.7 % (11.6-15.6); WHITE BLOOD COUNT 18.7 K/mm3 (4.0-10.0)
[2022-05-08 08:09] LABS: ALBUMIN 3.3 g/dl (3.4-5.0); CALCIUM 9.1 mg/dL (8.5-10.1)
[2022-05-08 08:10] LABS: BLOOD UREA NITROGEN 11.7 mg/dL (7-18); MAGNESIUM 2.4 mg/dL (1.8-2.4)
[2022-05-08 08:12] LABS: CREATININE 0.8 mg/dL (0.55-1.3)
[2022-05-08 08:14] LABS: BILIRUBIN,TOTAL 0.3 mg/dL (0.2-1)
[2022-05-08] MEDS ORDERED: hydrALAZINE HCL 20 MG/ML VIAL IVPUSH ONE (08:34)
[2022-05-08] MEDS ORDERED: ALBUTEROL SO4 HFA INHALER IH ONE (09:00)
[2022-05-08] MEDS: RIVAROXABAN 10 MG TABLET PO SCH (10:00)
[2022-05-08] MEDS: LISINOPRIL 20 MG TABLET PO SCH (10:00)
[2022-05-08] MEDS: ARIPiprazole 5 MG TABLET PO SCH (10:00)
[2022-05-08] MEDS: MUPIROCIN 2% TOPICAL OINTMENT FOR DECOLONIZATION NS SCH ×2 (10:00→21:16)
[2022-05-08] MEDS: PANTOPRAZOLE SODIUM 40 MG VIAL IVPUSH SCH (10:00)
[2022-05-08] MEDS: DULoxetine HCL 30 MG CAPSULE.DR PO SCH (10:00)
[2022-05-08] MEDS: FLUTICASONE/UMECLIDIN/VILANTER(200-62.5-25 TRELEGY ELLIPTA) INAHLER IH SCH (11:16)
[2022-05-08] MEDS: ALBUTEROL SO4 0.083% IH SOL 2.5 MG/3 ML VIAL.NEB. NEB PRN (11:17)
[2022-05-08] MEDS ORDERED: methylPREDNISolone NA SUCC 40 MG/1 ML VIAL IVPUSH ONE (13:45)
[2022-05-08] MEDS: DEXMEDETOMIDINE PREMIX 400 MCG/100 ML BAG IVPB SCH (16:51)
[2022-05-08] MEDS: MONTELUKAST NA 10 MG TABLET PO SCH (21:16)
[2022-05-08] MEDS: CHLORHEXIDINE GLUCONATE 4% CLEANSER FOR DECOLONIZATION TP SCH (21:16)
[2022-05-09] MEDS: PIPERACILLIN/TAZOB 3.375 GM 3.375 GM in DEXTROSE 5%-WATER - 50 ML IVPB SCH ×3 (02:25→17:10)
[2022-05-09] MEDS: methylPREDNISolone NA SUCC 40 MG/1 ML VIAL IVPUSH SCH ×3 (03:26→17:03)
[2022-05-09] MEDS: ALBUTEROL SO4 2.5/IPRATROPIUM 0.5 INH SOL 3 ML VIAL.NEB. NEB SCH (03:34)
[2022-05-09] MEDS: INSULIN SLIDING SCALE (NOVOLOG) 1 VIAL SQ SCH ×4 (06:15→21:28)
[2022-05-09] MEDS: ALBUTEROL SO4 0.083% IH SOL 2.5 MG/3 ML VIAL.NEB. NEB PRN ×3 (06:16→18:49)
[2022-05-09] MEDS ORDERED: ACETAMINOPHEN 325 MG TABLET (FP) PO PRN (07:26)
[2022-05-09] MEDS ORDERED: MELATONIN 5 MG TABLETS PO PRN (07:30)
[2022-05-09 08:09] LABS: HEMATOCRIT 36.9 % (32.4-45.2); HEMOGLOBIN 11.7 GM/dL (10.7-15.3); MCH 25.6 pg (25.7-33.7); MCHC 31.8 g/dl (32.0-36.0); MEAN CELL VOLUME 80.7 fl (80-96); MEAN PLT VOLUME 8.2 fl (7.5-11.1); PLATELET COUNT 468 10^3/uL (134-434); RBC 4.58 M/mm3 (3.60-5.2); RDW 17.3 % (11.6-15.6); WHITE BLOOD COUNT 16.7 K/mm3 (4.0-10.0)
[2022-05-09] MEDS: INSULIN (LEVEMIR) 100 UNITS/ML UNITS SQ SCH ×2 (08:30→21:31)
[2022-05-09 08:38] LABS: ALBUMIN 3.4 g/dl (3.4-5.0); BLOOD UREA NITROGEN 12.2 mg/dL (7-18)
[2022-05-09 08:39] LABS: CALCIUM 8.7 mg/dL (8.5-10.1); MAGNESIUM 2.5 mg/dL (1.8-2.4)
[2022-05-09 08:41] LABS: CREATININE 0.8 mg/dL (0.55-1.3); PHOSPHOROUS 3.4 mg/dL (2.5-4.9)
[2022-05-09 08:43] LABS: BILIRUBIN,TOTAL 0.4 mg/dL (0.2-1); TOT PROT 6.8 g/dl (6.4-8.2)
[2022-05-09] MEDS: DULoxetine HCL 30 MG CAPSULE.DR PO SCH (09:05)
[2022-05-09] MEDS: ARIPiprazole 5 MG TABLET PO SCH (09:05)
[2022-05-09] MEDS: LISINOPRIL 20 MG TABLET PO SCH (09:05)
[2022-05-09] MEDS: RIVAROXABAN 10 MG TABLET PO SCH (09:05)
[2022-05-09] MEDS: PANTOPRAZOLE SODIUM 40 MG VIAL IVPUSH SCH (09:10)
[2022-05-09] MEDS: FLUTICASONE/UMECLIDIN/VILANTER(200-62.5-25 TRELEGY ELLIPTA) INAHLER IH SCH (09:11)
[2022-05-09 09:23] LABS: ANISOCYTOSIS 0; HELMET CELLS 0; HOWELL-JOLLY BODIES 0; MACROCYTOSIS 0; OVALOCYTE 0; ROULEAU 0; SICKELED CELLS 0; TARGET CELLS 0; TEAR DROP CELLS 0; TOXIC GRANULATION 0
[2022-05-09] MEDS ORDERED: guaiFENesin/CODEINE 5 ML UNIT-DOSE CUPS PO PRN (10:04)
[2022-05-09] MEDS: guaiFENesin/CODEINE 5 ML UNIT-DOSE CUPS PO PRN ×2 (10:34→21:29)
[2022-05-09] MEDS: KETOROLAC TROMETHAMINE 15 MG/ML VIAL IVPUSH PRN ×3 (10:37→21:30)
[2022-05-09] MEDS: INSULIN (NOVOLOG) ASPART 100 UNITS/ML 10ML VIAL SQ SCH ×2 (10:51→17:02)
[2022-05-09] MEDS ORDERED: ALBUTEROL SO4 0.083% IH SOL 2.5 MG/3 ML VIAL.NEB. NEB SCH (11:30)
[2022-05-09] MEDS: ALBUTEROL SO4 0.083% IH SOL 2.5 MG/3 ML VIAL.NEB. NEB SCH ×3 (11:41→20:28)
[2022-05-09] MEDS: MUPIROCIN 2% TOPICAL OINTMENT FOR DECOLONIZATION NS SCH ×3 (13:29→21:31)
[2022-05-09] MEDS: LIDOCAINE 5% TOPICAL PATCH TP SCH (14:35)
[2022-05-09] MEDS: ACETAMINOPHEN 325 MG TABLET (FP) PO PRN (14:38)
[2022-05-09] MEDS: MONTELUKAST NA 10 MG TABLET PO SCH (21:30)
[2022-05-09] MEDS: LIDOCAINE PATCH REMOVAL MC SCH (21:30)
[2022-05-09] MEDS: MELATONIN 5 MG TABLETS PO SCH (21:30)
[2022-05-09] MEDS: CHLORHEXIDINE GLUCONATE 4% CLEANSER FOR DECOLONIZATION TP SCH (21:31)
[2022-05-09] MEDS ORDERED: hydrALAZINE HCL 20 MG/ML VIAL ONE (22:04)
[2022-05-09] MEDS: hydrALAZINE HCL 20 MG/ML VIAL IVPUSH PRN (22:12)
[2022-05-10] MEDS: PIPERACILLIN/TAZOB 3.375 GM 3.375 GM in DEXTROSE 5%-WATER - 50 ML IVPB SCH ×3 (02:21→17:14)
[2022-05-10] MEDS: methylPREDNISolone NA SUCC 40 MG/1 ML VIAL IVPUSH SCH ×3 (02:21→17:14)
[2022-05-10] MEDS: ALBUTEROL SO4 0.083% IH SOL 2.5 MG/3 ML VIAL.NEB. NEB SCH ×7 (03:54→23:34)
[2022-05-10] MEDS: INSULIN SLIDING SCALE (NOVOLOG) 1 VIAL SQ SCH ×4 (06:05→21:27)
[2022-05-10] MEDS: INSULIN (LEVEMIR) 100 UNITS/ML UNITS SQ SCH ×2 (06:05→21:27)
[2022-05-10] MEDS: INSULIN (NOVOLOG) ASPART 100 UNITS/ML 10ML VIAL SQ SCH ×3 (06:05→17:19)
[2022-05-10] MEDS: hydrALAZINE HCL 20 MG/ML VIAL IVPUSH PRN ×2 (07:00→17:20)
[2022-05-10 07:29] LABS: HEMATOCRIT 36.8 % (32.4-45.2); HEMOGLOBIN 11.6 GM/dL (10.7-15.3); MCH 25.4 pg (25.7-33.7); MCHC 31.4 g/dl (32.0-36.0); MEAN CELL VOLUME 80.9 fl (80-96); PLATELET COUNT 458 10^3/uL (134-434); RBC 4.55 M/mm3 (3.60-5.2); RDW 17.5 % (11.6-15.6)
[2022-05-10 07:40] LABS: INR 1.02 (0.83-1.09); PROTHROMBIN TIME (PATIENT) 11.7 SEC (9.7-13.0)
[2022-05-10 08:16] LABS: ALBUMIN 3.4 g/dl (3.4-5.0); MAGNESIUM 2.6 mg/dL (1.8-2.4)
[2022-05-10 08:17] LABS: BILIRUBIN,TOTAL 0.4 mg/dL (0.2-1); PHOSPHOROUS 3.1 mg/dL (2.5-4.9)
[2022-05-10 08:18] LABS: CREATININE 0.9 mg/dL (0.55-1.3); TOT PROT 6.6 g/dl (6.4-8.2)
[2022-05-10 09:29] LABS: ANISOCYTOSIS 3+; MACROCYTOSIS 0
[2022-05-10] MEDS: ALBUTEROL SO4 0.083% IH SOL 2.5 MG/3 ML VIAL.NEB. NEB PRN (10:33)
[2022-05-10] MEDS: LIDOCAINE 5% TOPICAL PATCH TP SCH (10:55)
[2022-05-10] MEDS: PANTOPRAZOLE SODIUM 40 MG VIAL IVPUSH SCH (10:56)
[2022-05-10] MEDS: LISINOPRIL 20 MG TABLET PO SCH (10:56)
[2022-05-10] MEDS: DULoxetine HCL 30 MG CAPSULE.DR PO SCH (10:57)
[2022-05-10] MEDS: RIVAROXABAN 10 MG TABLET PO SCH (10:57)
[2022-05-10] MEDS: ARIPiprazole 5 MG TABLET PO SCH (10:57)
[2022-05-10] MEDS: MUPIROCIN 2% TOPICAL OINTMENT FOR DECOLONIZATION NS SCH ×2 (10:57→21:27)
[2022-05-10] MEDS: FLUTICASONE/UMECLIDIN/VILANTER(200-62.5-25 TRELEGY ELLIPTA) INAHLER IH SCH (10:58)
[2022-05-10] MEDS ORDERED: MAG HYDROX/AL HYDROX/SIMETH 30 ML UNIT-DOSE CUP PO ONE (12:38)
[2022-05-10] MEDS: guaiFENesin/CODEINE 5 ML UNIT-DOSE CUPS PO PRN ×2 (14:33→21:35)
[2022-05-10] MEDS: SIMETHICONE 80 MG TAB.CHEW (FP) PO PRN (20:27)
[2022-05-10] MEDS: LIDOCAINE PATCH REMOVAL MC SCH (21:27)
[2022-05-10] MEDS: MELATONIN 5 MG TABLETS PO SCH (21:35)
[2022-05-10] MEDS: MONTELUKAST NA 10 MG TABLET PO SCH (21:35)
[2022-05-11] MEDS: PIPERACILLIN/TAZOB 3.375 GM 3.375 GM in DEXTROSE 5%-WATER - 50 ML IVPB SCH ×4 (01:29→18:32)
[2022-05-11] MEDS: methylPREDNISolone NA SUCC 40 MG/1 ML VIAL IVPUSH SCH ×3 (01:29→18:32)
[2022-05-11] MEDS: ALBUTEROL SO4 0.083% IH SOL 2.5 MG/3 ML VIAL.NEB. NEB SCH ×5 (04:18→20:22)
[2022-05-11] MEDS: INSULIN (LEVEMIR) 100 UNITS/ML UNITS SQ SCH ×2 (06:48→21:57)
[2022-05-11] MEDS: INSULIN (NOVOLOG) ASPART 100 UNITS/ML 10ML VIAL SQ SCH ×3 (06:49→16:48)
[2022-05-11] MEDS: INSULIN SLIDING SCALE (NOVOLOG) 1 VIAL SQ SCH ×4 (06:49→21:54)
[2022-05-11 07:56] LABS: HEMATOCRIT 35.4 % (32.4-45.2); HEMOGLOBIN 11.4 GM/dL (10.7-15.3); MCH 26.1 pg (25.7-33.7); MCHC 32.3 g/dl (32.0-36.0); MEAN CELL VOLUME 80.7 fl (80-96); MEAN PLT VOLUME 7.7 fl (7.5-11.1); PLATELET COUNT 392 10^3/uL (134-434); RBC 4.39 M/mm3 (3.60-5.2); RDW 17.1 % (11.6-15.6); WHITE BLOOD COUNT 16.1 K/mm3 (4.0-10.0)
[2022-05-11] MEDS: PANTOPRAZOLE SODIUM 40 MG VIAL IVPUSH SCH (09:34)
[2022-05-11] MEDS: LISINOPRIL 20 MG TABLET PO SCH (09:35)
[2022-05-11] MEDS: DULoxetine HCL 30 MG CAPSULE.DR PO SCH (09:35)
[2022-05-11] MEDS: ARIPiprazole 5 MG TABLET PO SCH (09:36)
[2022-05-11] MEDS: RIVAROXABAN 10 MG TABLET PO SCH (09:37)
[2022-05-11] MEDS: LIDOCAINE 5% TOPICAL PATCH TP SCH (09:40)
[2022-05-11] MEDS ORDERED: IBUPROFEN 600 MG TABLET (FP) PO PRN ×2 (10:14→17:47)
[2022-05-11] MEDS ORDERED: CYCLOBENZAPRINE HCL 5 MG TABLET PO PRN (10:14)
[2022-05-11] MEDS ORDERED: traZODone HCL 50 MG TABLET (FP) PO PRN (10:21)
[2022-05-11] MEDS: SIMETHICONE 80 MG TAB.CHEW (FP) PO PRN ×3 (10:33→21:42)
[2022-05-11] MEDS ORDERED: ALPRAZolam 1 MG TABLET PO PRN (10:47)
[2022-05-11] MEDS: FLUTICASONE/UMECLIDIN/VILANTER(200-62.5-25 TRELEGY ELLIPTA) INAHLER IH SCH (11:30)
[2022-05-11] MEDS: GABAPENTIN 400 MG CAPSULE PO SCH ×2 (15:52→21:35)
[2022-05-11] MEDS: MONTELUKAST NA 10 MG TABLET PO SCH (21:34)
[2022-05-11] MEDS: MELATONIN 5 MG TABLETS PO SCH (21:41)
[2022-05-11] MEDS: ACETAMINOPHEN 325 MG TABLET (FP) PO PRN (21:47)
[2022-05-11] MEDS: LIDOCAINE PATCH REMOVAL MC SCH (21:55)
[2022-05-12] MEDS: ALBUTEROL SO4 0.083% IH SOL 2.5 MG/3 ML VIAL.NEB. NEB SCH ×6 (00:15→19:56)
[2022-05-12] MEDS ORDERED: QUEtiapine FUMARATE 25 MG TABLET PO ONE (01:42)
[2022-05-12] MEDS: methylPREDNISolone NA SUCC 40 MG/1 ML VIAL IVPUSH SCH ×3 (01:54→21:00)
[2022-05-12] MEDS: PIPERACILLIN/TAZOB 3.375 GM 3.375 GM in DEXTROSE 5%-WATER - 50 ML IVPB SCH ×3 (01:55→17:16)
[2022-05-12] MEDS: INSULIN (LEVEMIR) 100 UNITS/ML UNITS SQ SCH ×2 (07:01→21:43)
[2022-05-12] MEDS: GABAPENTIN 400 MG CAPSULE PO SCH ×3 (07:02→21:43)
[2022-05-12] MEDS: INSULIN SLIDING SCALE (NOVOLOG) 1 VIAL SQ SCH ×4 (07:04→21:49)
[2022-05-12] MEDS: INSULIN (NOVOLOG) ASPART 100 UNITS/ML 10ML VIAL SQ SCH ×3 (07:05→17:13)
[2022-05-12] MEDS ORDERED: ACETAMINOPHEN 325 MG TABLET (FP) PO PRN (07:08)
[2022-05-12] MEDS ORDERED: LIDOCAINE PATCH REMOVAL MC SCH ×2 (07:08→22:00)
[2022-05-12] MEDS ORDERED: guaiFENesin/CODEINE 5 ML UNIT-DOSE CUPS PO PRN (07:08)
[2022-05-12] MEDS ORDERED: hydrALAZINE HCL 20 MG/ML VIAL IVPUSH PRN (07:08)
[2022-05-12 08:31] LABS: HEMATOCRIT 36.1 % (32.4-45.2); HEMOGLOBIN 11.7 GM/dL (10.7-15.3); MCH 26.3 pg (25.7-33.7); MCHC 32.3 g/dl (32.0-36.0); MEAN CELL VOLUME 81.3 fl (80-96); MEAN PLT VOLUME 7.6 fl (7.5-11.1); PLATELET COUNT 407 10^3/uL (134-434); RBC 4.44 M/mm3 (3.60-5.2); RDW 16.9 % (11.6-15.6)
[2022-05-12 08:43] LABS: ALBUMIN 3.3 g/dl (3.4-5.0); BLOOD UREA NITROGEN 14.1 mg/dL (7-18)
[2022-05-12 08:45] LABS: MAGNESIUM 2.7 mg/dL (1.8-2.4)
[2022-05-12 08:47] LABS: PHOSPHOROUS 4.8 mg/dL (2.5-4.9)
[2022-05-12 08:49] LABS: BILIRUBIN,TOTAL 0.4 mg/dL (0.2-1); TOT PROT 6.6 g/dl (6.4-8.2)
[2022-05-12] MEDS: DULoxetine HCL 30 MG CAPSULE.DR PO SCH (09:49)
[2022-05-12] MEDS: PANTOPRAZOLE SODIUM 40 MG VIAL IVPUSH SCH (09:49)
[2022-05-12] MEDS: RIVAROXABAN 10 MG TABLET PO SCH (09:51)
[2022-05-12] MEDS: LIDOCAINE 5% TOPICAL PATCH TP SCH (09:53)
[2022-05-12] MEDS: LISINOPRIL 20 MG TABLET PO SCH (09:53)
[2022-05-12] MEDS ORDERED: ARIPiprazole 5 MG TABLET PO SCH (10:00)
[2022-05-12] MEDS: SIMETHICONE 80 MG TAB.CHEW (FP) PO PRN (10:09)
[2022-05-12 11:12] LABS: ANISOCYTOSIS 1+; MACROCYTOSIS 0; PLATELET ESTIMATE NORMAL
[2022-05-12] MEDS ORDERED: CYCLOBENZAPRINE HCL 5 MG TABLET PO PRN (11:23)
[2022-05-12] MEDS: FLUTICASONE/UMECLIDIN/VILANTER(200-62.5-25 TRELEGY ELLIPTA) INAHLER IH SCH (11:33)
[2022-05-12] MEDS: MELATONIN 5 MG TABLETS PO SCH (21:42)
[2022-05-12] MEDS ORDERED: MONTELUKAST NA 10 MG TABLET PO SCH (22:00)
[2022-05-12] MEDS: ZOLPIDEM TARTRATE 5 MG TABLET PO PRN (22:32)
[2022-05-13] MEDS: PIPERACILLIN/TAZOB 3.375 GM 3.375 GM in DEXTROSE 5%-WATER - 50 ML IVPB SCH ×3 (01:42→17:48)
[2022-05-13] MEDS: ALBUTEROL SO4 0.083% IH SOL 2.5 MG/3 ML VIAL.NEB. NEB SCH ×6 (04:07→20:49)
[2022-05-13] MEDS: GABAPENTIN 400 MG CAPSULE PO SCH ×3 (05:59→22:04)
[2022-05-13] MEDS: INSULIN (LEVEMIR) 100 UNITS/ML UNITS SQ SCH ×2 (07:03→22:06)
[2022-05-13] MEDS: INSULIN SLIDING SCALE (NOVOLOG) 1 VIAL SQ SCH ×4 (07:04→22:05)
[2022-05-13] MEDS: INSULIN (NOVOLOG) ASPART 100 UNITS/ML 10ML VIAL SQ SCH ×3 (07:04→17:48)
[2022-05-13] MEDS ORDERED: CYCLOBENZAPRINE HCL 5 MG TABLET PO PRN (07:14)
[2022-05-13 07:15] LABS: BASO % 0.4 % (0-2.0); HEMATOCRIT 35.9 % (32.4-45.2); LYMPH % 9.8 % (8-40); MCHC 30.6 g/dl (32.0-36.0); MEAN CELL VOLUME 81.6 fl (80-96); MEAN PLT VOLUME 8.1 fl (7.5-11.1); MONO % 4.6 % (3.8-10.2); NEUT % 85.2 % (42.8-82.8); PLATELET COUNT 379 10^3/uL (134-434); WHITE BLOOD COUNT 16.9 K/mm3 (4.0-10.0)
[2022-05-13 07:38] LABS: ALBUMIN 3.1 g/dl (3.4-5.0); BLOOD UREA NITROGEN 14.4 mg/dL (7-18); CALCIUM 9.4 mg/dL (8.5-10.1); MAGNESIUM 2.6 mg/dL (1.8-2.4)
[2022-05-13 07:41] LABS: CREATININE 0.9 mg/dL (0.55-1.3); PHOSPHOROUS 5.4 mg/dL (2.5-4.9)
[2022-05-13 07:43] LABS: BILIRUBIN,TOTAL 0.3 mg/dL (0.2-1); TOT PROT 5.9 g/dl (6.4-8.2)
[2022-05-13] MEDS: methylPREDNISolone NA SUCC 40 MG/1 ML VIAL IVPUSH SCH ×2 (09:41→22:06)
[2022-05-13] MEDS: RIVAROXABAN 10 MG TABLET PO SCH (09:41)
[2022-05-13] MEDS: LISINOPRIL 20 MG TABLET PO SCH (09:41)
[2022-05-13] MEDS: amLODIPine BESYLATE 5 MG TABLET (FP) PO SCH (09:42)
[2022-05-13] MEDS: ARIPiprazole 15 MG TABLET PO SCH (09:42)
[2022-05-13] MEDS: DULoxetine HCL 30 MG CAPSULE.DR PO SCH (09:42)
[2022-05-13] MEDS: LIDOCAINE 5% TOPICAL PATCH TP SCH (09:42)
[2022-05-13] MEDS: PANTOPRAZOLE SODIUM 40 MG VIAL IVPUSH SCH (09:42)
[2022-05-13] MEDS: FLUTICASONE/UMECLIDIN/VILANTER(200-62.5-25 TRELEGY ELLIPTA) INAHLER IH SCH (10:30)
[2022-05-13] MEDS ORDERED: hydrALAZINE HCL 20 MG/ML VIAL IVPUSH PRN (19:44)
[2022-05-13] MEDS ORDERED: ACETAMINOPHEN 325 MG TABLET (FP) PO PRN (19:44)
[2022-05-13] MEDS ORDERED: SIMETHICONE 80 MG TAB.CHEW (FP) PO PRN (19:44)
[2022-05-13] MEDS ORDERED: guaiFENesin/CODEINE 5 ML UNIT-DOSE CUPS PO PRN (19:44)
[2022-05-13] MEDS ORDERED: IBUPROFEN 600 MG TABLET (FP) PO PRN (19:44)
[2022-05-13] MEDS ORDERED: MONTELUKAST NA 10 MG TABLET PO SCH (22:00)
[2022-05-13] MEDS ORDERED: MELATONIN 5 MG TABLETS PO SCH (22:00)
[2022-05-13] MEDS ORDERED: LIDOCAINE PATCH REMOVAL MC SCH (22:00)
[2022-05-13] MEDS: ZOLPIDEM TARTRATE 5 MG TABLET PO PRN (22:04)
[2022-05-13] MEDS ORDERED: hydrALAZINE HCL 10 MG TABLET PO PRN (23:13)
[2022-05-14] MEDS: ALBUTEROL SO4 0.083% IH SOL 2.5 MG/3 ML VIAL.NEB. NEB SCH ×3 (01:00→11:46)
[2022-05-14] MEDS: PIPERACILLIN/TAZOB 3.375 GM 3.375 GM in DEXTROSE 5%-WATER - 50 ML IVPB SCH ×2 (01:47→10:51)
[2022-05-14] MEDS: methylPREDNISolone NA SUCC 40 MG/1 ML VIAL IVPUSH SCH (02:02)
[2022-05-14] MEDS: GABAPENTIN 400 MG CAPSULE PO SCH ×2 (05:32→14:42)
[2022-05-14] MEDS: INSULIN (LEVEMIR) 100 UNITS/ML UNITS SQ SCH (06:15)
[2022-05-14] MEDS: INSULIN SLIDING SCALE (NOVOLOG) 1 VIAL SQ SCH ×2 (06:53→12:38)
[2022-05-14] MEDS: INSULIN (NOVOLOG) ASPART 100 UNITS/ML 10ML VIAL SQ SCH ×2 (06:54→12:37)
[2022-05-14] MEDS ORDERED: predniSONE 20 MG TABLET (UD) PO SCH (10:00)
[2022-05-14] MEDS ORDERED: DULoxetine HCL 30 MG CAPSULE.DR PO SCH (10:00)
[2022-05-14] MEDS ORDERED: FLUTICASONE/UMECLIDIN/VILANTER(200-62.5-25 TRELEGY ELLIPTA) INAHLER IH SCH (10:00)
[2022-05-14] MEDS ORDERED: LIDOCAINE 5% TOPICAL PATCH TP SCH (10:00)
[2022-05-14] MEDS ORDERED: PANTOPRAZOLE SODIUM 40 MG VIAL IVPUSH SCH (10:00)
[2022-05-14] MEDS ORDERED: RIVAROXABAN 10 MG TABLET PO SCH (10:00)
[2022-05-14] MEDS ORDERED: LISINOPRIL 20 MG TABLET PO SCH (10:00)
[2022-05-14] MEDS: ARIPiprazole 15 MG TABLET PO SCH (10:43)
[2022-05-14] MEDS: amLODIPine BESYLATE 5 MG TABLET (FP) PO SCH (10:45)
[2022-05-14 11:48] LABS: HEMATOCRIT 37.6 % (32.4-45.2); HEMOGLOBIN 12.2 GM/dL (10.7-15.3); MCH 26.4 pg (25.7-33.7); MCHC 32.4 g/dl (32.0-36.0); MEAN CELL VOLUME 81.4 fl (80-96); MEAN PLT VOLUME 7.9 fl (7.5-11.1); PLATELET COUNT 389 10^3/uL (134-434); RBC 4.61 M/mm3 (3.60-5.2); RDW 16.8 % (11.6-15.6); WHITE BLOOD COUNT 20.6 K/mm3 (4.0-10.0)
[2022-05-14 12:01] LABS: CALCIUM 9.6 mg/dL (8.5-10.1)
[2022-05-14 12:02] LABS: ALBUMIN 3.5 g/dl (3.4-5.0); BLOOD UREA NITROGEN 15.9 mg/dL (7-18); MAGNESIUM 2.6 mg/dL (1.8-2.4)
[2022-05-14 12:05] LABS: CREATININE 0.9 mg/dL (0.55-1.3); PHOSPHOROUS 3.8 mg/dL (2.5-4.9)
[2022-05-14 12:06] LABS: BILIRUBIN,TOTAL 0.2 mg/dL (0.2-1); TOT PROT 6.8 g/dl (6.4-8.2)
[2022-05-14 12:18] LABS: ANISOCYTOSIS 0; HELMET CELLS 0; HOWELL-JOLLY BODIES 0; MACROCYTOSIS 0; OVALOCYTE 0; ROULEAU 0; SICKELED CELLS 0; TARGET CELLS 0; TEAR DROP CELLS 0; TOXIC GRANULATION 0
[2022-05-14] MEDS ORDERED: BISACODYL 5 MG TABLET.DR (FP) PO ONE (13:00)
[2022-05-14 16:19] VITALS: BP 161/112; PULSE 98; RESP 20; TEMP 98.1
== END 2022-05-14 16:18 | disposition home or self-care (01) | DRG 189 ==
LOC: JER 14:17 → JERBED 17:56 → J8W 22:40 → JICU 05-06 08:56 → J4W 05-10 16:45 → JICU 05-10 17:22 → J4W 05-10 22:06 → J5S 05-13 19:37
PROVIDERS: ADMIT Internal Medicine; ATTEND Internal Medicine
DX: J96.01 Acute respiratory failure with hypoxia (principal); J18.9 Pneumonia, unspecified organism; J45.901 Unspecified asthma with (acute) exacerbation; Z68.41 Body mass index [BMI] 40.0-44.9, adult; E11.65 Type 2 diabetes mellitus with hyperglycemia; I10 Essential (primary) hypertension; E66.01 Morbid (severe) obesity due to excess calories; Z68.37 Body mass index [BMI] 37.0-37.9, adult; F41.9 Anxiety disorder, unspecified; D72.829 Elevated white blood cell count, unspecified
CPT/HCPCS: 0241U-QW; 36415; 36600; 71045-TC-FY; 71275-TC; 80048; 80053; 81003; 82010; 82803; 82962; 83036; 83735; 84100; 84703; 85025; 85027; 85610; 85730; 87040; 87070; 87077; 87205; 93005; 93010; 93306-TC; 93970-TC; 94150; 94640; 99285-25; J1644; Q9967

== ENCOUNTER 2022-05-25 14:31 | Emergency (ER) | payer OTHER ==
[2022-05-25 14:43] VITALS: BP 115/75; PULSE 78; RESP 18; TEMP 982; BMI 37.9
[2022-05-25] MEDS ORDERED: morphine CARPU-JECT 2 MG/1 ML DISP.SYRIN IVPUSH ONE (16:36)
[2022-05-25] MEDS ORDERED: morphine SULFATE 4 MG/ML VIAL ONE (16:48)
[2022-05-25 17:10] LABS: BASO % 0.3 % (0-2.0); EOS % 0.5 % (0-4.5); HEMATOCRIT 33.1 % (32.4-45.2); HEMOGLOBIN 10.7 GM/dL (10.7-15.3); LYMPH % 20.2 % (8-40); MCH 26.8 pg (25.7-33.7); MCHC 32.3 g/dl (32.0-36.0); MEAN CELL VOLUME 82.9 fl (80-96); MEAN PLT VOLUME 7.4 fl (7.5-11.1); PLATELET COUNT 234 10^3/uL (134-434); RDW 17.6 % (11.6-15.6); WHITE BLOOD COUNT 11.2 K/mm3 (4.0-10.0)
[2022-05-25 17:16] LABS: INR 0.89 (0.83-1.09); PROTHROMBIN TIME (PATIENT) 10.2 SEC (9.7-13.0)
[2022-05-25 17:19] LABS: ACTIVATED PTT 27.3 SECONDS (25.2-36.5)
[2022-05-25] MEDS ORDERED: ONDANSETRON 4 MG/2 ML VIAL IVPUSH ONE (17:26)
[2022-05-25] MEDS ORDERED: ONDANSETRON 4 MG/2 ML VIAL ONE (17:28)
[2022-05-25 17:30] LABS: CHLORIDE 105 mmol/L (98-107); SODIUM 139 mmol/L (136-145)
[2022-05-25 17:31] LABS: CALCIUM 9.2 mg/dL (8.5-10.1)
[2022-05-25 17:32] LABS: ALBUMIN 3.1 g/dl (3.4-5.0); ANION GAP 4 MMOL/L (8-16); CO2 30 mmol/L (21-32); GLUCOSE,RANDOM 167 mg/dL (74-106)
[2022-05-25 17:36] LABS: CREATININE 0.6 mg/dL (0.55-1.3); SGOT/AST 22 U/L (15-37); SGPT/ALT 29 U/L (13-61)
[2022-05-25 17:37] LABS: BILIRUBIN,TOTAL 0.2 mg/dL (0.2-1); TOT PROT 6.3 g/dl (6.4-8.2)
[2022-05-25 17:38] LABS: ALK PHOS 104 U/L (45-117)
[2022-05-25 17:46] LABS: HCG,QUALITATIVE URINE Negative
[2022-05-25 17:49] LABS: EPI CELLS 14 /uL (0-25.1); HYALINE CASTS 1 /uL (0-3.1); URINE APPEARANCE Error; URINE BACTERIA 215 /uL (0-1359); URINE BILIRUBIN NEGATIVE (NEGATIVE); URINE COLOR YELLOW; URINE GLUCOSE (UA) NEGATIVE (NEGATIVE); URINE KETONE TRACE (NEGATIVE); URINE LEUK ESTERASE 2+ (NEGATIVE); URINE NITRITE NEGATIVE (NEGATIVE); URINE PROTEIN NEGATIVE (NEGATIVE); URINE WBC 221 /uL (0-25.8)
[2022-05-25 17:59] LABS: URINE RBC 29.3 /uL (0-23.9)
[2022-05-25] MEDS ORDERED: CEPHALEXIN MONOHYDRATE 500 MG CAPSULE (UD) PO ONE (21:22)
[2022-05-25] MEDS ORDERED: CEPHALEXIN MONOHYDRATE 500 MG CAPSULE (UD) ONE (21:32)
== END 2022-05-25 22:01 | disposition home or self-care (01) ==
LOC: JER 14:31
PROC: 3E033NZ Introduction of Analgesics, Hypnotics, Sedatives into Peripheral Vein, Percutaneous Approach (ICD-10-PCS; principal; 2022-05-25)
PROC: 3E033GC Introduction of Other Therapeutic Substance into Peripheral Vein, Percutaneous Approach (ICD-10-PCS; 2022-05-25)
DX: N30.01 Acute cystitis with hematuria (principal)
CPT/HCPCS: 36415; 74176-TC; 80053; 81003; 84702; 84703; 85025; 85610; 85730; 86850; 86900; 86901; 99284-25

== ENCOUNTER 2022-06-06 02:33 | Emergency (ER) | payer OTHER ==
[2022-06-06] MEDS ORDERED: IBUPROFEN 400 MG TABLET (FP) PO ONE ×2 (02:38→03:06)
[2022-06-06 02:40] VITALS: BP 147/80; PULSE 82; RESP 17; TEMP 99; BMI 37.9
[2022-06-06] MEDS ORDERED: LIDOCAINE 5% TOPICAL PATCH TP ONE (03:00)
[2022-06-06] MEDS ORDERED: LIDOCAINE 5% TOPICAL PATCH ONE (03:06)
[2022-06-06] MEDS ORDERED: LIDOCAINE PATCH REMOVAL MC ONE (16:00)
== END 2022-06-06 04:43 | disposition home or self-care (01) ==
LOC: JER 02:33
DX: M79.662 Pain in left lower leg (principal)
CPT/HCPCS: 99283-25

== ENCOUNTER 2022-06-11 14:23 | Inpatient (IN) | payer OTHER ==
[2022-06-11] MEDS ORDERED: METHOCARBAMOL 500 MG TABLET PO ONE (16:51)
[2022-06-11] MEDS ORDERED: KETOROLAC TROMETHAMINE 30 MG/1 ML VIAL IM ONE (16:51)
[2022-06-11] MEDS ORDERED: METHOCARBAMOL 500 MG TABLET ONE (17:11)
[2022-06-11] MEDS ORDERED: KETOROLAC TROMETHAMINE 30 MG/1 ML VIAL ONE (17:11)
[2022-06-11] MEDS ORDERED: morphine SULFATE 4 MG/ML VIAL ONE (20:06)
[2022-06-11] MEDS ORDERED: morphine CARPU-JECT 4 MG/1 ML DISP.SYRIN IVPUSH ONE (20:06)
[2022-06-11 20:15] LABS: BASO % 0.8 % (0-2.0); EOS % 0.1 % (0-4.5); HEMATOCRIT 36.2 % (32.4-45.2); HEMOGLOBIN 11.5 GM/dL (10.7-15.3); LYMPH % 20.1 % (8-40); MCHC 31.7 g/dl (32.0-36.0); MEAN CELL VOLUME 81.9 fl (80-96); MEAN PLT VOLUME 7.5 fl (7.5-11.1); MONO % 5.3 % (3.8-10.2); NEUT % 73.7 % (42.8-82.8); PLATELET COUNT 537 10^3/uL (134-434); RBC 4.42 M/mm3 (3.60-5.2); RDW 16.3 % (11.6-15.6); WHITE BLOOD COUNT 14.8 K/mm3 (4.0-10.0)
[2022-06-11 20:22] LABS: INR 1.09 (0.83-1.09); PROTHROMBIN TIME (PATIENT) 12.6 SEC (9.7-13.0)
[2022-06-11 20:25] LABS: ACTIVATED PTT 31.6 SECONDS (25.2-36.5)
[2022-06-11 20:43] LABS: CALCIUM 9.3 mg/dL (8.5-10.1)
[2022-06-11 20:44] LABS: ALBUMIN 3.4 g/dl (3.4-5.0); BLOOD UREA NITROGEN 10.5 mg/dL (7-18)
[2022-06-11 20:47] LABS: CREATININE 0.8 mg/dL (0.55-1.3)
[2022-06-11 20:49] LABS: BILIRUBIN,TOTAL 0.2 mg/dL (0.2-1); TOT PROT 6.9 g/dl (6.4-8.2)
[2022-06-11] MEDS ORDERED: traMADol HCL 50 MG TABLET PO PRN ×3 (22:53→22:57)
[2022-06-11] MEDS ORDERED: morphine CARPU-JECT 4 MG/1 ML DISP.SYRIN IVPUSH PRN ×2 (22:53→22:56)
[2022-06-11] MEDS ORDERED: ACETAMINOPHEN 1000 MG/100 ML BAG IVPB PRN (22:59)
[2022-06-12] MEDS ORDERED: morphine SULFATE 4 MG/ML VIAL ONE ×2 (00:32→04:31)
[2022-06-12] MEDS: morphine SULFATE 4 MG/ML VIAL IVPUSH PRN ×5 (00:37→19:50)
[2022-06-12] MEDS: RIVAROXABAN 15 MG TABLET PO SCH ×3 (00:50→16:47)
[2022-06-12 01:10] LABS: BASO % 0.9 % (0-2.0); EOS % 0.2 % (0-4.5); HEMATOCRIT 36.5 % (32.4-45.2); HEMOGLOBIN 11.7 GM/dL (10.7-15.3); LYMPH % 17.9 % (8-40); MCH 26.1 pg (25.7-33.7); MEAN CELL VOLUME 81.6 fl (80-96); MEAN PLT VOLUME 7.4 fl (7.5-11.1); MONO % 4.7 % (3.8-10.2); NEUT % 76.3 % (42.8-82.8); PLATELET COUNT 515 10^3/uL (134-434); RBC 4.48 M/mm3 (3.60-5.2); RDW 16.6 % (11.6-15.6); WHITE BLOOD COUNT 13.9 K/mm3 (4.0-10.0)
[2022-06-12] MEDS ORDERED: INSULIN SLIDING SCALE (NOVOLOG) 1 VIAL SQ SCH (07:00)
[2022-06-12 08:15] LABS: BASO % 0.3 % (0-2.0); EOS % 0.3 % (0-4.5); HEMATOCRIT 35.8 % (32.4-45.2); HEMOGLOBIN 11.3 GM/dL (10.7-15.3); LYMPH % 18.7 % (8-40); MCH 25.8 pg (25.7-33.7); MCHC 31.6 g/dl (32.0-36.0); MEAN CELL VOLUME 81.7 fl (80-96); MEAN PLT VOLUME 7.6 fl (7.5-11.1); MONO % 5.2 % (3.8-10.2); NEUT % 75.5 % (42.8-82.8); PLATELET COUNT 496 10^3/uL (134-434); RBC 4.38 M/mm3 (3.60-5.2); RDW 16.6 % (11.6-15.6); WHITE BLOOD COUNT 11.8 K/mm3 (4.0-10.0)
[2022-06-12 08:43] LABS: ALBUMIN 3.3 g/dl (3.4-5.0); BLOOD UREA NITROGEN 11.5 mg/dL (7-18); CALCIUM 9.1 mg/dL (8.5-10.1); MAGNESIUM 2.2 mg/dL (1.8-2.4)
[2022-06-12 08:46] LABS: CREATININE 0.8 mg/dL (0.55-1.3); PHOSPHOROUS 3.5 mg/dL (2.5-4.9); URIC ACID 5.6 mg/dL (2.6-7.2)
[2022-06-12 08:48] LABS: BILIRUBIN,TOTAL 0.2 mg/dL (0.2-1); TOT PROT 6.9 g/dl (6.4-8.2)
[2022-06-12] MEDS ORDERED: INSULIN (NOVOLOG) ASPART 100 UNITS/ML 10ML VIAL ONE (08:57)
[2022-06-12] MEDS: INSULIN SLIDING SCALE (NOVOLOG) 1 VIAL SQ SCH ×4 (09:00→22:17)
[2022-06-12 10:33] LABS: PH,URINE 5.5 (5.0-8.0); URINE APPEARANCE CLEAR; URINE BILIRUBIN NEGATIVE (NEGATIVE); URINE COLOR YELLOW; URINE GLUCOSE (UA) 3+ (NEGATIVE); URINE KETONE NEGATIVE (NEGATIVE); URINE LEUK ESTERASE NEGATIVE (NEGATIVE); URINE NITRITE NEGATIVE (NEGATIVE); URINE PROTEIN NEGATIVE (NEGATIVE); URINE UROBILINOGEN 0.2 mg/dL (0.2-1.0)
[2022-06-12] MEDS: traMADol HCL 50 MG TABLET PO PRN ×2 (12:25→22:12)
[2022-06-12] MEDS ORDERED: DULoxetine HCL 30 MG CAPSULE.DR PO ONE (21:14)
[2022-06-12] MEDS ORDERED: PATIENT'S OWN MEDICATION (NON-FORMULARY) (Gabapentin [Gabapentin] 800 MG Tablet) PO SCH (22:00)
[2022-06-12] MEDS ORDERED: DULoxetine HCL 60 MG CAPSULE.DR PO SCH (22:00)
[2022-06-12] MEDS: GABAPENTIN 400 MG CAPSULE PO SCH (22:12)
[2022-06-12] MEDS: ATORVASTATIN CA 10 MG TABLET (FP) PO SCH (22:12)
[2022-06-13] MEDS: morphine SULFATE 4 MG/ML VIAL IVPUSH PRN ×3 (01:09→21:04)
[2022-06-13] MEDS ORDERED: ENOXAPARIN NA (PORCINE) 120 MG/0.8 ML DISP.SYRIN SQ SCH (06:00)
[2022-06-13] MEDS: GABAPENTIN 400 MG CAPSULE PO SCH ×3 (07:01→21:07)
[2022-06-13] MEDS: INSULIN SLIDING SCALE (NOVOLOG) 1 VIAL SQ SCH ×3 (07:01→18:44)
[2022-06-13] MEDS: DULoxetine HCL 30 MG CAPSULE.DR PO SCH ×2 (09:14→21:06)
[2022-06-13] MEDS ORDERED: ONDANSETRON 4 MG/2 ML VIAL IVPUSH PRN (09:14)
[2022-06-13] MEDS ORDERED: LACTATED RINGERS SOLUTION 1,000 ML IV SCH (09:15)
[2022-06-13] MEDS ORDERED: MIDAZOLAM HCL 2 MG/2 ML SINGLE DOSE VIAL ONE ×4 (09:20→12:24)
[2022-06-13] MEDS ORDERED: FENTANYL CITRATE/PF 50 MCG/ML VIAL ONE ×6 (09:20→16:37)
[2022-06-13] MEDS ORDERED: PROPOFOL 20 ML ONE ×3 (09:20→12:08)
[2022-06-13] MEDS ORDERED: LIDOCAINE HCL 1%, 10 MG/ML (20ML VIAL) ONE ×2 (09:31→17:31)
[2022-06-13] MEDS ORDERED: THROMBIN (BOVINE) 5,000 UNIT VIAL TP ONE (09:32)
[2022-06-13] MEDS ORDERED: BUPIVACAINE HCL/PF 0.5% (5MG/ML) 10 ML VIAL ONE ×2 (09:32→09:40)
[2022-06-13] MEDS ORDERED: HEPARIN NA (PORCINE) 5,000 UNITS/ML 1ML VIAL ONE (09:32)
[2022-06-13] MEDS ORDERED: PATIENT'S OWN MEDICATION (NON-FORMULARY) (Simvastatin [Zocor] 20 MG Tablet) PO SCH (10:00)
[2022-06-13] MEDS ORDERED: ceFAZolin SODIUM 1 GM VIAL ONE (10:16)
[2022-06-13] MEDS ORDERED: ceFAZolin SODIUM 1 GM VIAL IVPB ONE (10:20)
[2022-06-13] MEDS ORDERED: ONDANSETRON 4 MG/2 ML VIAL ONE (10:23)
[2022-06-13] MEDS ORDERED: LIDOCAINE HCL 1%, 10 MG/ML (20ML VIAL) NR ONE (10:30)
[2022-06-13] MEDS ORDERED: IOHEXOL 300 MG/ML INFUS..BTL IV ONE ×2 (10:30)
[2022-06-13] MEDS ORDERED: HEPARIN NA (PORCINE) 5,000 UNITS/ML 1ML VIAL SQ ONE (10:30)
[2022-06-13] MEDS ORDERED: HEPARIN INFUSION - 25,000 UNITS/500 ML INFUS.BAG IVPB ONE (11:56)
[2022-06-13] MEDS ORDERED: ALTEPLASE (CATHFLO) 2 MG/2 ML VIAL CVP ONE (12:00)
[2022-06-13] MEDS ORDERED: POVIDONE-IODINE OINTMENT 10% - 28.4 GM TUBE ONE (12:43)
[2022-06-13] MEDS ORDERED: HEPARIN INFUSION - 25,000 UNITS/500 ML INFUS.BAG IVPB SCH (13:00)
[2022-06-13] MEDS ORDERED: SODIUM CHLORIDE 1,000 ML IV SCH (13:00)
[2022-06-13] MEDS: LABETALOL HCL 5 MG/1 ML (100MG/20 ML VIAL) IVPUSH PRN ×5 (13:40→15:25)
[2022-06-13] MEDS: FENTANYL CITRATE/PF 50 MCG/ML VIAL IVPUSH PRN ×4 (15:20→16:35)
[2022-06-13] MEDS: LISINOPRIL 20 MG TABLET PO SCH (16:25)
[2022-06-13] MEDS ORDERED: morphine SULFATE 4 MG/ML VIAL ONE (16:44)
[2022-06-13] MEDS ORDERED: HYDROmorphone HCl 2 MG/ML VIAL IVPUSH ONE ×2 (17:19→21:26)
[2022-06-13] MEDS ORDERED: ACETAMINOPHEN 1000 MG/100 ML BAG IVPB PRN (18:25)
[2022-06-13] MEDS ORDERED: LISINOPRIL 20 MG TABLET PO ONE (18:29)
[2022-06-13] MEDS ORDERED: ACETAMINOPHEN 500 MG TABLET (FP) PO PRN (19:02)
[2022-06-13] MEDS ORDERED: LABETALOL HCL 5 MG/1 ML (100MG/20 ML VIAL) IVPUSH PRN (19:08)
[2022-06-13 19:09] LABS: BASO % 0.1 % (0-2.0); EOS % 0.1 % (0-4.5); HEMATOCRIT 33.5 % (32.4-45.2); HEMOGLOBIN 10.7 GM/dL (10.7-15.3); LYMPH % 9.8 % (8-40); MCH 26.3 pg (25.7-33.7); MCHC 31.9 g/dl (32.0-36.0); MEAN CELL VOLUME 82.2 fl (80-96); MEAN PLT VOLUME 7.2 fl (7.5-11.1); MONO % 4.8 % (3.8-10.2); NEUT % 85.2 % (42.8-82.8); PLATELET COUNT 415 10^3/uL (134-434); RBC 4.08 M/mm3 (3.60-5.2); WHITE BLOOD COUNT 16.1 K/mm3 (4.0-10.0)
[2022-06-13 19:24] LABS: INR 1.26 (0.83-1.09); PROTHROMBIN TIME (PATIENT) 14.5 SEC (9.7-13.0)
[2022-06-13 19:26] LABS: ACTIVATED PTT 32.5 SECONDS (25.2-36.5)
[2022-06-13 19:30] LABS: CALCIUM 8.6 mg/dL (8.5-10.1)
[2022-06-13 19:31] LABS: ALBUMIN 2.8 g/dl (3.4-5.0); BLOOD UREA NITROGEN 7.2 mg/dL (7-18); MAGNESIUM 1.9 mg/dL (1.8-2.4)
[2022-06-13 19:34] LABS: CREATININE 0.6 mg/dL (0.55-1.3); PHOSPHOROUS 3.8 mg/dL (2.5-4.9)
[2022-06-13 19:35] LABS: BILIRUBIN,TOTAL 0.3 mg/dL (0.2-1); TOT PROT 6.5 g/dl (6.4-8.2)
[2022-06-13] MEDS: ACETAMINOPHEN 1000 MG/100 ML BAG IVPB ONE ×2 (21:00→21:32)
[2022-06-13] MEDS: ATORVASTATIN CA 10 MG TABLET (FP) PO SCH (21:06)
[2022-06-13] MEDS: oxyCODONE HCL 5 MG TABLET PO PRN (21:07)
[2022-06-13] MEDS ORDERED: INSULIN (LEVEMIR) 100 UNITS/ML UNITS SQ SCH (22:00)
[2022-06-13] MEDS ORDERED: NICARDIPINE 25 MG in DEXTROSE 5%-WATER - 240 ML IVPB SCH (23:45)
[2022-06-14] MEDS: traMADol HCL 50 MG TABLET PO PRN ×2 (00:10→05:25)
[2022-06-14] MEDS: morphine SULFATE 4 MG/ML VIAL IVPUSH PRN (00:10)
[2022-06-14 01:01] LABS: INR 1.24 (0.83-1.09); PROTHROMBIN TIME (PATIENT) 14.3 SEC (9.7-13.0)
[2022-06-14 01:06] LABS: CALCIUM 8.9 mg/dL (8.5-10.1)
[2022-06-14 01:07] LABS: BLOOD UREA NITROGEN 5.6 mg/dL (7-18)
[2022-06-14 01:10] LABS: CREATININE 0.6 mg/dL (0.55-1.3)
[2022-06-14] MEDS: HYDROmorphone HCl 2 MG/ML VIAL IVPUSH PRN ×6 (01:42→23:26)
[2022-06-14] MEDS ORDERED: ALTEPLASE CVP SCH (02:00)
[2022-06-14] MEDS ORDERED: SODIUM CHLORIDE CVP SCH (02:00)
[2022-06-14] MEDS: morphine SULFATE 4 MG/ML VIAL IVPUSH SCH ×5 (02:33→22:01)
[2022-06-14] MEDS: oxyCODONE HCL 5 MG TABLET PO PRN ×2 (02:33→21:35)
[2022-06-14] MEDS: GABAPENTIN 400 MG CAPSULE PO SCH ×3 (05:25→21:34)
[2022-06-14] MEDS ORDERED: INSULIN (LEVEMIR) 100 UNITS/ML UNITS SQ SCH (07:00)
[2022-06-14 07:14] LABS: HEMATOCRIT 34.9 % (32.4-45.2); HEMOGLOBIN 11.3 GM/dL (10.7-15.3); MCH 26.2 pg (25.7-33.7); MCHC 32.4 g/dl (32.0-36.0); MEAN CELL VOLUME 80.9 fl (80-96); MEAN PLT VOLUME 7.9 fl (7.5-11.1); PLATELET COUNT 393 10^3/uL (134-434); RBC 4.31 M/mm3 (3.60-5.2); RDW 15.8 % (11.6-15.6); WHITE BLOOD COUNT 20.7 K/mm3 (4.0-10.0)
[2022-06-14] MEDS: INSULIN SLIDING SCALE (NOVOLOG) 1 VIAL SQ SCH ×3 (07:27→16:37)
[2022-06-14 07:28] LABS: INR 1.29 (0.83-1.09); PROTHROMBIN TIME (PATIENT) 14.9 SEC (9.7-13.0)
[2022-06-14 07:30] LABS: ACTIVATED PTT 29.7 SECONDS (25.2-36.5)
[2022-06-14 07:57] LABS: ALBUMIN 3.2 g/dl (3.4-5.0); BLOOD UREA NITROGEN 5.9 mg/dL (7-18); PHOSPHOROUS 2.3 mg/dL (2.5-4.9)
[2022-06-14 07:58] LABS: CALCIUM 9.4 mg/dL (8.5-10.1); TOT PROT 7.4 g/dl (6.4-8.2)
[2022-06-14 07:59] LABS: BILIRUBIN,TOTAL 0.5 mg/dL (0.2-1); CHOLESTEROL 153 mg/dL (50-200); MAGNESIUM 1.8 mg/dL (1.8-2.4)
[2022-06-14 08:00] LABS: CREATININE 0.7 mg/dL (0.55-1.3); TRIGLYCERIDES 126 mg/dL (0-150)
[2022-06-14 08:01] LABS: LDL CHOLESTEROL (ONLY SJRH) 96 mg/dL (5-100)
[2022-06-14] MEDS ORDERED: LIDOCAINE HCL 1%, 10 MG/ML (20ML VIAL) NR ONE ×2 (08:03→11:00)
[2022-06-14] MEDS ORDERED: HEPARIN NA (PORCINE) 5,000 UNITS/ML 1ML VIAL SQ ONE ×2 (08:03→10:11)
[2022-06-14 08:04] LABS: HDL CHOLESTEROL 30 mg/dL (40-60)
[2022-06-14] MEDS ORDERED: INSULIN REGULAR HUMAN 100 UNITS/ML *VIAL IVPUSH ONE (08:06)
[2022-06-14] MEDS ORDERED: MIDAZOLAM HCL 2 MG/2 ML SINGLE DOSE VIAL ONE ×2 (08:32→10:30)
[2022-06-14] MEDS ORDERED: KETAMINE HCL 500 MG/10 ML VIAL ONE (08:32)
[2022-06-14] MEDS ORDERED: FENTANYL CITRATE/PF 50 MCG/ML VIAL ONE ×6 (08:32→12:37)
[2022-06-14 09:11] LABS: ANISOCYTOSIS 1+; MACROCYTOSIS 0
[2022-06-14] MEDS ORDERED: ceFAZolin SODIUM 1 GM VIAL IVPB ONE (09:45)
[2022-06-14] MEDS: DULoxetine HCL 30 MG CAPSULE.DR PO SCH ×2 (10:00→21:34)
[2022-06-14] MEDS ORDERED: PROPOFOL 20 ML ONE ×2 (11:03→11:09)
[2022-06-14] MEDS ORDERED: SUCCINYLCHOLINE CHLORIDE 200 MG/10 ML SYRINGE ONE ×2 (11:11→14:49)
[2022-06-14] MEDS ORDERED: HEPARIN INFUSION - 25,000 UNITS/500 ML INFUS.BAG IVPB ONE (11:34)
[2022-06-14] MEDS ORDERED: HEPARIN NA (PORCINE) 5,000 UNITS/ML 1ML VIAL IVPUSH PRN (11:42)
[2022-06-14] MEDS ORDERED: HEPARIN INFUSION - 25,000 UNITS/500 ML INFUS.BAG IVPB SCH (11:45)
[2022-06-14] MEDS: LISINOPRIL 20 MG TABLET PO SCH (11:50)
[2022-06-14] MEDS: LACTATED RINGERS SOLUTION 1,000 ML IV SCH (12:00)
[2022-06-14] MEDS: fentaNYL CITRATE 250 MCG/5 ML VIAL IVPUSH ONE ×2 (12:05→12:35)
[2022-06-14] MEDS: FENTANYL CITRATE/PF 50 MCG/ML VIAL IVPUSH PRN (12:20)
[2022-06-14] MEDS ORDERED: INSULIN (NOVOLOG) ASPART 100 UNITS/ML 10ML VIAL SQ ONE (12:20)
[2022-06-14] MEDS ORDERED: NICARDIPINE 25 MG in DEXTROSE 5%-WATER - 240 ML IVPB SCH (12:33)
[2022-06-14] MEDS ORDERED: LABETALOL HCL 5 MG/1 ML (100MG/20 ML VIAL) IVPUSH PRN (12:33)
[2022-06-14] MEDS ORDERED: HYDROmorphone HCl 2 MG/ML VIAL ONE (12:54)
[2022-06-14] MEDS ORDERED: HYDROmorphone HCl 2 MG/ML VIAL IVPUSH ONE (13:45)
[2022-06-14] MEDS ORDERED: MAGNESIUM 1GM/D5W 100ML - 100 ML IVPB IVPB ONE (14:30)
[2022-06-14] MEDS ORDERED: INSULIN SLIDING SCALE (NOVOLOG) 1 VIAL SQ SCH (16:30)
[2022-06-14] MEDS ORDERED: LISINOPRIL 20 MG TABLET PO ONE (16:52)
[2022-06-14] MEDS ORDERED: DULoxetine HCL 20 MG CAPSULE.DR PO ONE (16:59)
[2022-06-14] MEDS: HEPARIN NA (PORCINE) 5,000 UNITS/ML 1ML VIAL IVPUSH PRN (19:53)
[2022-06-14] MEDS: MUPIROCIN 2% TOPICAL OINTMENT FOR DECOLONIZATION NS SCH (21:33)
[2022-06-14] MEDS: ATORVASTATIN CA 10 MG TABLET (FP) PO SCH (21:34)
[2022-06-14] MEDS: CHLORHEXIDINE GLUCONATE 4% CLEANSER FOR DECOLONIZATION TP SCH (21:34)
[2022-06-14] MEDS: INSULIN (LEVEMIR) 100 UNITS/ML UNITS SQ SCH (21:39)
[2022-06-15] MEDS: morphine SULFATE 4 MG/ML VIAL IVPUSH SCH ×3 (01:55→10:15)
[2022-06-15] MEDS: LACTATED RINGERS SOLUTION 1,000 ML IV SCH ×2 (02:01→21:00)
[2022-06-15] MEDS: HEPARIN NA (PORCINE) 5,000 UNITS/ML 1ML VIAL IVPUSH PRN ×2 (02:45→11:13)
[2022-06-15] MEDS: HYDROmorphone HCl 2 MG/ML VIAL IVPUSH PRN ×6 (03:58→23:06)
[2022-06-15] MEDS: oxyCODONE HCL 5 MG TABLET PO PRN ×2 (06:27→20:59)
[2022-06-15] MEDS: GABAPENTIN 400 MG CAPSULE PO SCH ×3 (06:27→21:00)
[2022-06-15] MEDS: INSULIN (LEVEMIR) 100 UNITS/ML UNITS SQ SCH ×2 (06:28→21:02)
[2022-06-15] MEDS: INSULIN SLIDING SCALE (NOVOLOG) 1 VIAL SQ SCH ×3 (06:28→18:14)
[2022-06-15 08:01] LABS: HEMATOCRIT 32.1 % (32.4-45.2); MCH 25.7 pg (25.7-33.7); MCHC 31.2 g/dl (32.0-36.0); MEAN CELL VOLUME 82.5 fl (80-96); MEAN PLT VOLUME 7.6 fl (7.5-11.1); PLATELET COUNT 317 10^3/uL (134-434); RBC 3.88 M/mm3 (3.60-5.2); RDW 15.7 % (11.6-15.6); WHITE BLOOD COUNT 16.9 K/mm3 (4.0-10.0)
[2022-06-15 08:06] LABS: ALBUMIN 3.1 g/dl (3.4-5.0); BLOOD UREA NITROGEN 5.4 mg/dL (7-18); MAGNESIUM 2.1 mg/dL (1.8-2.4)
[2022-06-15 08:09] LABS: CREATININE 0.6 mg/dL (0.55-1.3); PHOSPHOROUS 2.3 mg/dL (2.5-4.9)
[2022-06-15 08:11] LABS: BILIRUBIN,TOTAL 1.1 mg/dL (0.2-1); TOT PROT 6.5 g/dl (6.4-8.2)
[2022-06-15] MEDS ORDERED: NAPH,MB-DB/K PH,MBDB POWDER PACKET PO ONE (08:49)
[2022-06-15] MEDS: LISINOPRIL 20 MG TABLET PO SCH (09:22)
[2022-06-15] MEDS: DULoxetine HCL 30 MG CAPSULE.DR PO SCH ×2 (09:22→21:02)
[2022-06-15] MEDS ORDERED: LABETALOL HCL 5 MG/1 ML (100MG/20 ML VIAL) IVPUSH PRN (10:07)
[2022-06-15] MEDS ORDERED: ALBUTEROL SO4 HFA INHALER IH PRN (13:03)
[2022-06-15] MEDS: traMADol HCL 50 MG TABLET PO PRN ×2 (13:30→23:08)
[2022-06-15] MEDS: NIFEdipine E.R. 30 MG TABLET PO SCH (14:16)
[2022-06-15] MEDS: ENOXAPARIN NA (PORCINE) 120 MG/0.8 ML DISP.SYRIN SQ SCH ×2 (14:30→21:03)
[2022-06-15] MEDS: MUPIROCIN 2% TOPICAL OINTMENT FOR DECOLONIZATION NS SCH ×2 (14:33→21:01)
[2022-06-15 14:57] VITALS: BMI 37.9
[2022-06-15] MEDS: morphine SULFATE 4 MG/ML VIAL IVPUSH PRN ×2 (16:30→20:59)
[2022-06-15] MEDS: POLYETHYLENE GLYCOL (HEALTHYLAX) 3350 17 GM PACKET PO SCH (21:02)
[2022-06-15] MEDS: ATORVASTATIN CA 10 MG TABLET (FP) PO SCH (21:02)
[2022-06-15] MEDS: CHLORHEXIDINE GLUCONATE 4% CLEANSER FOR DECOLONIZATION TP SCH (21:03)
[2022-06-16] MEDS: morphine SULFATE 4 MG/ML VIAL IVPUSH PRN ×3 (01:55→09:38)
[2022-06-16] MEDS: oxyCODONE HCL 5 MG TABLET PO PRN ×4 (03:12→22:23)
[2022-06-16] MEDS: HYDROmorphone HCl 2 MG/ML VIAL IVPUSH PRN ×4 (03:37→20:21)
[2022-06-16] MEDS: GABAPENTIN 400 MG CAPSULE PO SCH ×3 (05:12→22:21)
[2022-06-16 07:49] LABS: HEMATOCRIT 30.5 % (32.4-45.2); HEMOGLOBIN 9.7 GM/dL (10.7-15.3); MCH 26.2 pg (25.7-33.7); MCHC 31.8 g/dl (32.0-36.0); MEAN CELL VOLUME 82.4 fl (80-96); MEAN PLT VOLUME 7.5 fl (7.5-11.1); PLATELET COUNT 316 10^3/uL (134-434); RDW 15.6 % (11.6-15.6); WHITE BLOOD COUNT 15.3 K/mm3 (4.0-10.0)
[2022-06-16] MEDS: INSULIN (LEVEMIR) 100 UNITS/ML UNITS SQ SCH ×2 (07:57→22:20)
[2022-06-16] MEDS: INSULIN SLIDING SCALE (NOVOLOG) 1 VIAL SQ SCH ×3 (07:58→16:11)
[2022-06-16 08:10] LABS: ALBUMIN 2.8 g/dl (3.4-5.0); MAGNESIUM 2.3 mg/dL (1.8-2.4)
[2022-06-16 08:12] LABS: PHOSPHOROUS 2.4 mg/dL (2.5-4.9)
[2022-06-16 08:13] LABS: BILIRUBIN,TOTAL 0.4 mg/dL (0.2-1); CREATININE 0.6 mg/dL (0.55-1.3); TOT PROT 6.4 g/dl (6.4-8.2)
[2022-06-16] MEDS: LISINOPRIL 20 MG TABLET PO SCH (09:29)
[2022-06-16] MEDS: NIFEdipine E.R. 30 MG TABLET PO SCH (09:29)
[2022-06-16] MEDS: POLYETHYLENE GLYCOL (HEALTHYLAX) 3350 17 GM PACKET PO SCH ×2 (09:30→22:20)
[2022-06-16] MEDS: DULoxetine HCL 30 MG CAPSULE.DR PO SCH ×2 (09:30→22:20)
[2022-06-16] MEDS: MUPIROCIN 2% TOPICAL OINTMENT FOR DECOLONIZATION NS SCH ×2 (09:30→22:20)
[2022-06-16] MEDS: ENOXAPARIN NA (PORCINE) 120 MG/0.8 ML DISP.SYRIN SQ SCH (09:30)
[2022-06-16] MEDS: LACTATED RINGERS SOLUTION 1,000 ML IV SCH ×2 (10:28→22:19)
[2022-06-16] MEDS: traMADol HCL 50 MG TABLET PO PRN ×2 (12:26→18:03)
[2022-06-16] MEDS: FLUTICASONE/UMECLIDIN/VILANTER(200-62.5-25 TRELEGY ELLIPTA) INAHLER IH SCH (13:44)
[2022-06-16] MEDS ORDERED: HYDROmorphone HCl 2 MG/ML VIAL IVPB ONE (14:00)
[2022-06-16] MEDS: CHLORHEXIDINE GLUCONATE 4% CLEANSER FOR DECOLONIZATION TP SCH (22:20)
[2022-06-16] MEDS: ATORVASTATIN CA 10 MG TABLET (FP) PO SCH (22:21)
[2022-06-17] MEDS: HYDROmorphone HCl 2 MG/ML VIAL IVPUSH PRN ×4 (00:02→20:50)
[2022-06-17] MEDS: oxyCODONE HCL 5 MG TABLET PO PRN ×2 (04:26→14:47)
[2022-06-17] MEDS: INSULIN SLIDING SCALE (NOVOLOG) 1 VIAL SQ SCH ×3 (06:18→21:50)
[2022-06-17] MEDS: INSULIN (LEVEMIR) 100 UNITS/ML UNITS SQ SCH ×2 (06:39→21:13)
[2022-06-17] MEDS: GABAPENTIN 400 MG CAPSULE PO SCH ×3 (06:39→21:07)
[2022-06-17 07:53] LABS: ALBUMIN 2.7 g/dl (3.4-5.0); BLOOD UREA NITROGEN 5.5 mg/dL (7-18); CALCIUM 9.1 mg/dL (8.5-10.1); MAGNESIUM 2.1 mg/dL (1.8-2.4)
[2022-06-17 07:56] LABS: CREATININE 0.6 mg/dL (0.55-1.3); PHOSPHOROUS 3.4 mg/dL (2.5-4.9)
[2022-06-17 07:58] LABS: BILIRUBIN,TOTAL 0.4 mg/dL (0.2-1); TOT PROT 6.3 g/dl (6.4-8.2)
[2022-06-17 08:12] LABS: HEMATOCRIT 28.7 % (32.4-45.2); HEMOGLOBIN 9.2 GM/dL (10.7-15.3); MCH 26.4 pg (25.7-33.7); MEAN CELL VOLUME 82.6 fl (80-96); PLATELET COUNT 331 10^3/uL (134-434); RBC 3.47 M/mm3 (3.60-5.2); RDW 15.5 % (11.6-15.6); WHITE BLOOD COUNT 14.6 K/mm3 (4.0-10.0)
[2022-06-17 08:18] LABS: INR 1.15 (0.83-1.09); PROTHROMBIN TIME (PATIENT) 13.2 SEC (9.7-13.0)
[2022-06-17 08:21] LABS: ACTIVATED PTT 28.8 SECONDS (25.2-36.5)
[2022-06-17] MEDS ORDERED: ONDANSETRON 4 MG/2 ML VIAL ONE ×2 (08:28→08:30)
[2022-06-17] MEDS ORDERED: LIDOCAINE HCL/PF 2% SDV 5ML VIAL ONE ×2 (08:28→08:30)
[2022-06-17] MEDS ORDERED: DEXAMETHASONE SOD PHOSPHATE 4 MG/1 ML VIAL ONE ×2 (08:28→08:30)
[2022-06-17] MEDS ORDERED: FENTANYL CITRATE/PF 50 MCG/ML VIAL ONE ×2 (08:28→10:51)
[2022-06-17] MEDS ORDERED: PROPOFOL 20 ML ONE (08:28)
[2022-06-17] MEDS ORDERED: MIDAZOLAM HCL 2 MG/2 ML SINGLE DOSE VIAL ONE ×2 (08:30→08:46)
[2022-06-17] MEDS ORDERED: ROPIVACAINE HCL 0.5% 30ML VIAL ONE (08:46)
[2022-06-17] MEDS: MUPIROCIN 2% TOPICAL OINTMENT FOR DECOLONIZATION NS SCH ×2 (10:00→21:07)
[2022-06-17] MEDS: DULoxetine HCL 30 MG CAPSULE.DR PO SCH ×2 (10:00→21:07)
[2022-06-17] MEDS: FLUTICASONE/UMECLIDIN/VILANTER(200-62.5-25 TRELEGY ELLIPTA) INAHLER IH SCH (10:00)
[2022-06-17] MEDS: POLYETHYLENE GLYCOL (HEALTHYLAX) 3350 17 GM PACKET PO SCH ×2 (10:00→21:10)
[2022-06-17] MEDS: LISINOPRIL 20 MG TABLET PO SCH (10:00)
[2022-06-17] MEDS: NIFEdipine E.R. 30 MG TABLET PO SCH (10:00)
[2022-06-17] MEDS ORDERED: ceFAZolin SODIUM 1 GM VIAL ONE (10:04)
[2022-06-17] MEDS ORDERED: ceFAZolin SODIUM 1 GM VIAL IVPB ONE (10:05)
[2022-06-17] MEDS ORDERED: KETAMINE HCL 500 MG/10 ML VIAL ONE (10:19)
[2022-06-17] MEDS ORDERED: morphine SULFATE 4 MG/ML VIAL IVPUSH PRN ×2 (11:26→12:12)
[2022-06-17] MEDS: ENOXAPARIN NA (PORCINE) 120 MG/0.8 ML DISP.SYRIN SQ SCH ×2 (11:30→22:34)
[2022-06-17] MEDS ORDERED: MIDAZOLAM HCL 2 MG/2 ML SINGLE DOSE VIAL IVPUSH ONE ×2 (11:51→11:55)
[2022-06-17] MEDS ORDERED: LABETALOL HCL 5 MG/1 ML (100MG/20 ML VIAL) IVPUSH ONE ×2 (11:51→11:55)
[2022-06-17] MEDS ORDERED: HYDROmorphone HCl 2 MG/ML VIAL IVPUSH PRN ×2 (11:57→14:59)
[2022-06-17] MEDS ORDERED: ALBUTEROL SO4 HFA INHALER IH PRN (11:57)
[2022-06-17] MEDS ORDERED: HYDROmorphone HCl 2 MG/ML VIAL IVPUSH ONE ×2 (12:16→14:59)
[2022-06-17] MEDS: LACTATED RINGERS SOLUTION 1,000 ML IV SCH (13:30)
[2022-06-17] MEDS: traMADol HCL 50 MG TABLET PO PRN ×3 (16:10→22:27)
[2022-06-17] MEDS ORDERED: INSULIN SLIDING SCALE (NOVOLOG) 1 VIAL SQ SCH (16:30)
[2022-06-17] MEDS: FENTANYL CITRATE/PF 50 MCG/ML VIAL IVPUSH PRN ×3 (16:32→22:28)
[2022-06-17] MEDS: ATORVASTATIN CA 10 MG TABLET (FP) PO SCH (21:07)
[2022-06-17] MEDS: CHLORHEXIDINE GLUCONATE 4% CLEANSER FOR DECOLONIZATION TP SCH (21:08)
[2022-06-18] MEDS: FENTANYL CITRATE/PF 50 MCG/ML VIAL IVPUSH PRN (04:12)
[2022-06-18] MEDS: HYDROmorphone HCl 2 MG/ML VIAL IVPUSH PRN ×3 (06:38→11:26)
[2022-06-18] MEDS: GABAPENTIN 400 MG CAPSULE PO SCH ×3 (06:38→21:46)
[2022-06-18] MEDS: INSULIN (LEVEMIR) 100 UNITS/ML UNITS SQ SCH ×2 (06:44→21:46)
[2022-06-18] MEDS: INSULIN SLIDING SCALE (NOVOLOG) 1 VIAL SQ SCH ×4 (06:44→21:47)
[2022-06-18 08:06] LABS: BASO % 0.2 % (0-2.0); HEMATOCRIT 28.6 % (32.4-45.2); LYMPH % 11.7 % (8-40); MCH 25.8 pg (25.7-33.7); MCHC 31.6 g/dl (32.0-36.0); MEAN CELL VOLUME 81.8 fl (80-96); MEAN PLT VOLUME 7.5 fl (7.5-11.1); MONO % 7.2 % (3.8-10.2); NEUT % 80.9 % (42.8-82.8); PLATELET COUNT 415 10^3/uL (134-434); RDW 15.7 % (11.6-15.6); WHITE BLOOD COUNT 19.9 K/mm3 (4.0-10.0)
[2022-06-18 08:28] LABS: CALCIUM 9.5 mg/dL (8.5-10.1)
[2022-06-18 08:29] LABS: ALBUMIN 2.7 g/dl (3.4-5.0); BLOOD UREA NITROGEN 8.4 mg/dL (7-18); MAGNESIUM 2.3 mg/dL (1.8-2.4)
[2022-06-18 08:32] LABS: CREATININE 0.7 mg/dL (0.55-1.3); PHOSPHOROUS 2.3 mg/dL (2.5-4.9)
[2022-06-18 08:33] LABS: TOT PROT 6.6 g/dl (6.4-8.2)
[2022-06-18 08:34] LABS: BILIRUBIN,TOTAL 0.5 mg/dL (0.2-1)
[2022-06-18] MEDS: oxyCODONE HCL 5 MG TABLET PO PRN ×2 (10:31→22:01)
[2022-06-18] MEDS: NIFEdipine E.R. 30 MG TABLET PO SCH (10:32)
[2022-06-18] MEDS: DULoxetine HCL 30 MG CAPSULE.DR PO SCH ×2 (10:32→21:44)
[2022-06-18] MEDS: FLUTICASONE/UMECLIDIN/VILANTER(200-62.5-25 TRELEGY ELLIPTA) INAHLER IH SCH (10:33)
[2022-06-18] MEDS: LISINOPRIL 20 MG TABLET PO SCH (10:33)
[2022-06-18] MEDS: ENOXAPARIN NA (PORCINE) 120 MG/0.8 ML DISP.SYRIN SQ SCH ×2 (11:27→23:09)
[2022-06-18] MEDS ORDERED: ONDANSETRON 4 MG/2 ML VIAL IVPUSH PRN (13:24)
[2022-06-18] MEDS: MUPIROCIN 2% TOPICAL OINTMENT FOR DECOLONIZATION NS SCH ×2 (14:10→21:43)
[2022-06-18] MEDS: POLYETHYLENE GLYCOL (HEALTHYLAX) 3350 17 GM PACKET PO SCH ×2 (14:11→21:44)
[2022-06-18] MEDS: LACTATED RINGERS SOLUTION 1,000 ML IV SCH (14:11)
[2022-06-18] MEDS: HYDROmorphone *PCA* 10MG/50ML DISP.SYRIN PCA SCH (15:06)
[2022-06-18] MEDS ORDERED: NAPH,MB-DB/K PH,MBDB POWDER PACKET PO ONE (16:56)
[2022-06-18] MEDS: CHLORHEXIDINE GLUCONATE 4% CLEANSER FOR DECOLONIZATION TP SCH (21:44)
[2022-06-18] MEDS: ATORVASTATIN CA 10 MG TABLET (FP) PO SCH (21:46)
[2022-06-19] MEDS: GABAPENTIN 400 MG CAPSULE PO SCH ×3 (05:32→21:18)
[2022-06-19] MEDS: oxyCODONE HCL 5 MG TABLET PO PRN ×3 (05:38→15:30)
[2022-06-19] MEDS: INSULIN SLIDING SCALE (NOVOLOG) 1 VIAL SQ SCH ×4 (06:01→21:17)
[2022-06-19] MEDS: INSULIN (LEVEMIR) 100 UNITS/ML UNITS SQ SCH ×2 (06:01→21:19)
[2022-06-19 07:35] LABS: HEMATOCRIT 30.2 % (32.4-45.2); HEMOGLOBIN 9.6 GM/dL (10.7-15.3); MCHC 31.8 g/dl (32.0-36.0); MEAN CELL VOLUME 81.8 fl (80-96); MEAN PLT VOLUME 7.7 fl (7.5-11.1); PLATELET COUNT 480 10^3/uL (134-434); RBC 3.69 M/mm3 (3.60-5.2); RDW 16.1 % (11.6-15.6); WHITE BLOOD COUNT 16.4 K/mm3 (4.0-10.0)
[2022-06-19 07:57] LABS: CALCIUM 9.1 mg/dL (8.5-10.1)
[2022-06-19 07:58] LABS: ALBUMIN 2.9 g/dl (3.4-5.0); BLOOD UREA NITROGEN 8.5 mg/dL (7-18); MAGNESIUM 2.1 mg/dL (1.8-2.4)
[2022-06-19 08:01] LABS: CREATININE 0.7 mg/dL (0.55-1.3); PHOSPHOROUS 2.9 mg/dL (2.5-4.9)
[2022-06-19 08:03] LABS: BILIRUBIN,TOTAL 0.5 mg/dL (0.2-1)
[2022-06-19] MEDS ORDERED: ACETAMINOPHEN 500 MG TABLET (FP) PO PRN ×2 (08:40→10:55)
[2022-06-19] MEDS: LISINOPRIL 20 MG TABLET PO SCH (09:15)
[2022-06-19] MEDS: DULoxetine HCL 30 MG CAPSULE.DR PO SCH ×2 (09:15→21:18)
[2022-06-19] MEDS: POLYETHYLENE GLYCOL (HEALTHYLAX) 3350 17 GM PACKET PO SCH ×2 (09:15→21:18)
[2022-06-19] MEDS: SENNOSIDES/DOCUSATE COMBO (SENNA PLUS) TABLET (UD) PO SCH ×2 (09:15→21:18)
[2022-06-19] MEDS: traMADol HCL 50 MG TABLET PO PRN ×2 (09:15→21:19)
[2022-06-19] MEDS: NIFEdipine E.R. 30 MG TABLET PO SCH (09:15)
[2022-06-19] MEDS: FLUTICASONE/UMECLIDIN/VILANTER(200-62.5-25 TRELEGY ELLIPTA) INAHLER IH SCH (09:17)
[2022-06-19] MEDS: MUPIROCIN 2% TOPICAL OINTMENT FOR DECOLONIZATION NS SCH ×2 (10:00→21:18)
[2022-06-19] MEDS: LACTATED RINGERS SOLUTION 1,000 ML IV SCH (12:00)
[2022-06-19] MEDS: ENOXAPARIN NA (PORCINE) 120 MG/0.8 ML DISP.SYRIN SQ SCH (13:00)
[2022-06-19] MEDS: ACETAMINOPHEN 325 MG TABLET (FP) PO SCH ×2 (15:00→21:20)
[2022-06-19] MEDS: DOCUSATE SODIUM 100 MG CAPSULE (FP) PO SCH ×2 (15:27→21:18)
[2022-06-19] MEDS: HYDROmorphone *PCA* 10MG/50ML DISP.SYRIN PCA SCH (20:42)
[2022-06-19] MEDS: ATORVASTATIN CA 10 MG TABLET (FP) PO SCH (21:19)
[2022-06-19] MEDS: CHLORHEXIDINE GLUCONATE 4% CLEANSER FOR DECOLONIZATION TP SCH (21:19)
[2022-06-20] MEDS: ENOXAPARIN NA (PORCINE) 120 MG/0.8 ML DISP.SYRIN SQ SCH ×3 (00:30→23:00)
[2022-06-20] MEDS: oxyCODONE HCL 5 MG TABLET PO PRN ×2 (02:26→14:09)
[2022-06-20] MEDS: ACETAMINOPHEN 325 MG TABLET (FP) PO SCH ×5 (04:06→21:44)
[2022-06-20] MEDS: GABAPENTIN 400 MG CAPSULE PO SCH ×3 (06:38→21:47)
[2022-06-20] MEDS: INSULIN SLIDING SCALE (NOVOLOG) 1 VIAL SQ SCH ×4 (06:38→22:48)
[2022-06-20] MEDS: INSULIN (LEVEMIR) 100 UNITS/ML UNITS SQ SCH ×2 (06:39→22:47)
[2022-06-20] MEDS: HYDROmorphone *PCA* 10MG/50ML DISP.SYRIN PCA SCH (08:53)
[2022-06-20] MEDS: FLUTICASONE/UMECLIDIN/VILANTER(200-62.5-25 TRELEGY ELLIPTA) INAHLER IH SCH (10:29)
[2022-06-20] MEDS: DULoxetine HCL 30 MG CAPSULE.DR PO SCH ×2 (10:30→22:50)
[2022-06-20] MEDS: POLYETHYLENE GLYCOL (HEALTHYLAX) 3350 17 GM PACKET PO SCH ×2 (10:30→21:50)
[2022-06-20] MEDS: LISINOPRIL 20 MG TABLET PO SCH (10:31)
[2022-06-20] MEDS: SENNOSIDES/DOCUSATE COMBO (SENNA PLUS) TABLET (UD) PO SCH ×2 (10:31→21:50)
[2022-06-20] MEDS: MUPIROCIN 2% TOPICAL OINTMENT FOR DECOLONIZATION NS SCH ×2 (10:31→22:51)
[2022-06-20] MEDS: DOCUSATE SODIUM 100 MG CAPSULE (FP) PO SCH ×2 (10:31→22:52)
[2022-06-20] MEDS: NIFEdipine E.R. 30 MG TABLET PO SCH (10:37)
[2022-06-20] MEDS: HYDROmorphone HCl 2 MG/ML VIAL IVPUSH PRN (11:07)
[2022-06-20 11:16] LABS: HEMATOCRIT 29.5 % (32.4-45.2); HEMOGLOBIN 9.2 GM/dL (10.7-15.3); MCH 25.7 pg (25.7-33.7); MCHC 31.2 g/dl (32.0-36.0); MEAN CELL VOLUME 82.2 fl (80-96); MEAN PLT VOLUME 7.7 fl (7.5-11.1); PLATELET COUNT 438 10^3/uL (134-434); RBC 3.59 M/mm3 (3.60-5.2); RDW 15.8 % (11.6-15.6); WHITE BLOOD COUNT 17.6 K/mm3 (4.0-10.0)
[2022-06-20 11:40] LABS: CALCIUM 9.1 mg/dL (8.5-10.1)
[2022-06-20 11:41] LABS: ALBUMIN 2.8 g/dl (3.4-5.0); BLOOD UREA NITROGEN 9.1 mg/dL (7-18); MAGNESIUM 2.4 mg/dL (1.8-2.4)
[2022-06-20 11:44] LABS: CREATININE 0.7 mg/dL (0.55-1.3); PHOSPHOROUS 2.7 mg/dL (2.5-4.9)
[2022-06-20 11:45] LABS: TOT PROT 6.8 g/dl (6.4-8.2)
[2022-06-20 11:46] LABS: BILIRUBIN,TOTAL 0.3 mg/dL (0.2-1)
[2022-06-20 12:00] LABS: INR 1.28 (0.83-1.09); PROTHROMBIN TIME (PATIENT) 14.7 SEC (9.7-13.0)
[2022-06-20 12:02] LABS: ACTIVATED PTT 38.3 SECONDS (25.2-36.5)
[2022-06-20] MEDS ORDERED: ACETAMINOPHEN 500 MG TABLET (FP) PO PRN (16:09)
[2022-06-20] MEDS: HYDROmorphone HCL 2 MG TABLET PO PRN ×2 (17:49→21:45)
[2022-06-20] MEDS: LACTATED RINGERS SOLUTION 1,000 ML IV SCH (17:51)
[2022-06-20] MEDS: HYDROmorphone HCl 2 MG/ML VIAL IM PRN (18:32)
[2022-06-20] MEDS: ATORVASTATIN CA 10 MG TABLET (FP) PO SCH (21:46)
[2022-06-20] MEDS: CHLORHEXIDINE GLUCONATE 4% CLEANSER FOR DECOLONIZATION TP SCH (22:50)
[2022-06-21] MEDS: HYDROmorphone HCl 2 MG/ML VIAL IM PRN ×5 (01:19→22:03)
[2022-06-21] MEDS: HYDROmorphone HCL 2 MG TABLET PO PRN ×3 (03:34→18:57)
[2022-06-21] MEDS: ACETAMINOPHEN 325 MG TABLET (FP) PO SCH ×4 (06:20→22:08)
[2022-06-21] MEDS: GABAPENTIN 400 MG CAPSULE PO SCH (06:21)
[2022-06-21] MEDS: INSULIN SLIDING SCALE (NOVOLOG) 1 VIAL SQ SCH ×4 (06:24→22:14)
[2022-06-21] MEDS: INSULIN (LEVEMIR) 100 UNITS/ML UNITS SQ SCH ×2 (06:51→22:10)
[2022-06-21 09:41] LABS: BASO % 0.4 % (0-2.0); EOS % 0.7 % (0-4.5); HEMATOCRIT 26.1 % (32.4-45.2); HEMOGLOBIN 8.6 GM/dL (10.7-15.3); LYMPH % 20.3 % (8-40); MCH 27.2 pg (25.7-33.7); MEAN CELL VOLUME 82.5 fl (80-96); MEAN PLT VOLUME 7.1 fl (7.5-11.1); MONO % 5.3 % (3.8-10.2); NEUT % 73.3 % (42.8-82.8); PLATELET COUNT 329 10^3/uL (134-434); RBC 3.16 M/mm3 (3.60-5.2); RDW 15.5 % (11.6-15.6); WHITE BLOOD COUNT 13.3 K/mm3 (4.0-10.0)
[2022-06-21 09:54] LABS: MAGNESIUM 2.1 mg/dL (1.8-2.4)
[2022-06-21 09:55] LABS: BLOOD UREA NITROGEN 10.2 mg/dL (7-18); CALCIUM 8.6 mg/dL (8.5-10.1)
[2022-06-21 09:56] LABS: ALBUMIN 2.5 g/dl (3.4-5.0)
[2022-06-21 09:57] LABS: PHOSPHOROUS 2.7 mg/dL (2.5-4.9)
[2022-06-21 09:58] LABS: CREATININE 0.6 mg/dL (0.55-1.3)
[2022-06-21 09:59] LABS: TOT PROT 6.3 g/dl (6.4-8.2)
[2022-06-21 10:01] LABS: BILIRUBIN,TOTAL 0.3 mg/dL (0.2-1)
[2022-06-21] MEDS: DOCUSATE SODIUM 100 MG CAPSULE (FP) PO SCH ×2 (10:28→22:06)
[2022-06-21] MEDS: DULoxetine HCL 30 MG CAPSULE.DR PO SCH ×2 (10:28→22:07)
[2022-06-21] MEDS: POLYETHYLENE GLYCOL (HEALTHYLAX) 3350 17 GM PACKET PO SCH ×2 (10:29→22:04)
[2022-06-21] MEDS: LISINOPRIL 20 MG TABLET PO SCH (10:37)
[2022-06-21] MEDS: MUPIROCIN 2% TOPICAL OINTMENT FOR DECOLONIZATION NS SCH ×2 (10:38→22:07)
[2022-06-21] MEDS: NIFEdipine E.R. 30 MG TABLET PO SCH (10:40)
[2022-06-21] MEDS ORDERED: INSULIN (NOVOLOG) ASPART 100 UNITS/ML 10ML VIAL ONE (11:36)
[2022-06-21] MEDS: ENOXAPARIN NA (PORCINE) 120 MG/0.8 ML DISP.SYRIN SQ SCH ×2 (11:45→22:41)
[2022-06-21] MEDS ORDERED: GLYCERIN 1 RECTAL SUPPOSITORY, ADULT RC ONE (12:00)
[2022-06-21] MEDS: FLUTICASONE/UMECLIDIN/VILANTER(200-62.5-25 TRELEGY ELLIPTA) INAHLER IH SCH (13:52)
[2022-06-21] MEDS: GABAPENTIN 300 MG CAPSULE PO SCH ×2 (13:53→22:06)
[2022-06-21] MEDS: LACTATED RINGERS SOLUTION 1,000 ML IV SCH (18:51)
[2022-06-21] MEDS: SENNOSIDES/DOCUSATE COMBO (SENNA PLUS) TABLET (UD) PO SCH (22:05)
[2022-06-21] MEDS: ATORVASTATIN CA 10 MG TABLET (FP) PO SCH (22:06)
[2022-06-21] MEDS: CHLORHEXIDINE GLUCONATE 4% CLEANSER FOR DECOLONIZATION TP SCH (22:08)
[2022-06-22] MEDS: HYDROmorphone HCL 2 MG TABLET PO PRN ×3 (01:16→11:52)
[2022-06-22] MEDS: HYDROmorphone HCl 2 MG/ML VIAL IM PRN (02:30)
[2022-06-22] MEDS: ACETAMINOPHEN 325 MG TABLET (FP) PO SCH ×2 (06:06→12:18)
[2022-06-22] MEDS: GABAPENTIN 300 MG CAPSULE PO SCH (06:06)
[2022-06-22] MEDS: INSULIN (LEVEMIR) 100 UNITS/ML UNITS SQ SCH ×2 (06:10→22:18)
[2022-06-22] MEDS: INSULIN SLIDING SCALE (NOVOLOG) 1 VIAL SQ SCH ×4 (06:13→22:28)
[2022-06-22 09:34] LABS: BASO % 0.4 % (0-2.0); EOS % 0.7 % (0-4.5); HEMOGLOBIN 8.3 GM/dL (10.7-15.3); LYMPH % 21.3 % (8-40); MCH 27.1 pg (25.7-33.7); MEAN CELL VOLUME 82.1 fl (80-96); MEAN PLT VOLUME 6.9 fl (7.5-11.1); MONO % 5.3 % (3.8-10.2); NEUT % 72.3 % (42.8-82.8); PLATELET COUNT 273 10^3/uL (134-434); RBC 3.05 M/mm3 (3.60-5.2); RDW 16.1 % (11.6-15.6); WHITE BLOOD COUNT 11.9 K/mm3 (4.0-10.0)
[2022-06-22 10:41] LABS: ALBUMIN 2.7 g/dl (3.4-5.0); CREATININE 0.6 mg/dL (0.55-1.3)
[2022-06-22 10:42] LABS: BILIRUBIN,TOTAL 0.4 mg/dL (0.2-1); BLOOD UREA NITROGEN 6.8 mg/dL (7-18); TOT PROT 6.4 g/dl (6.4-8.2)
[2022-06-22 10:44] LABS: CALCIUM 8.8 mg/dL (8.5-10.1); MAGNESIUM 2.2 mg/dL (1.8-2.4); PHOSPHOROUS 3.3 mg/dL (2.5-4.9)
[2022-06-22] MEDS ORDERED: GABAPENTIN 300 MG CAPSULE PO SCH (12:01)
[2022-06-22] MEDS: POLYETHYLENE GLYCOL (HEALTHYLAX) 3350 17 GM PACKET PO SCH ×3 (12:16→22:17)
[2022-06-22] MEDS: ENOXAPARIN NA (PORCINE) 120 MG/0.8 ML DISP.SYRIN SQ SCH ×2 (12:17→22:31)
[2022-06-22] MEDS: LISINOPRIL 20 MG TABLET PO SCH (12:19)
[2022-06-22] MEDS: NIFEdipine E.R. 30 MG TABLET PO SCH (12:20)
[2022-06-22] MEDS: DOCUSATE SODIUM 100 MG CAPSULE (FP) PO SCH ×2 (12:20→22:16)
[2022-06-22] MEDS: DULoxetine HCL 30 MG CAPSULE.DR PO SCH ×2 (12:42→22:17)
[2022-06-22] MEDS: MUPIROCIN 2% TOPICAL OINTMENT FOR DECOLONIZATION NS SCH (12:48)
[2022-06-22] MEDS: LACTATED RINGERS SOLUTION 1,000 ML IV SCH ×3 (12:48→18:38)
[2022-06-22] MEDS: FLUTICASONE/UMECLIDIN/VILANTER(200-62.5-25 TRELEGY ELLIPTA) INAHLER IH SCH (13:09)
[2022-06-22] MEDS ORDERED: INSULIN (NOVOLOG) ASPART 100 UNITS/ML 10ML VIAL ONE ×2 (13:25→16:50)
[2022-06-22] MEDS ORDERED: INSULIN (LEVEMIR) 100 UNITS/ML UNITS SQ ONE (13:26)
[2022-06-22] MEDS ORDERED: ALBUTEROL SO4 HFA INHALER IH PRN (14:03)
[2022-06-22] MEDS ORDERED: ONDANSETRON 4 MG/2 ML VIAL IVPUSH PRN (14:03)
[2022-06-22] MEDS ORDERED: HYDROmorphone HCl 2 MG/ML VIAL IVPB PRN ×2 (14:23→18:16)
[2022-06-22] MEDS: GABAPENTIN PO SCH ×2 (14:32→22:17)
[2022-06-22] MEDS: KETOROLAC TROMETHAMINE 30 MG/1 ML VIAL IVPUSH PRN (14:35)
[2022-06-22] MEDS: HYDROmorphone HCl 2 MG/ML VIAL IVPB PRN ×2 (18:58→22:55)
[2022-06-22] MEDS: SENNOSIDES/DOCUSATE COMBO (SENNA PLUS) TABLET (UD) PO SCH (22:16)
[2022-06-22] MEDS: ATORVASTATIN CA 10 MG TABLET (FP) PO SCH (22:17)
[2022-06-23] MEDS: GABAPENTIN PO SCH ×3 (05:41→21:55)
[2022-06-23] MEDS: HYDROmorphone HCl 2 MG/ML VIAL IVPB PRN ×3 (05:46→22:20)
[2022-06-23] MEDS: INSULIN SLIDING SCALE (NOVOLOG) 1 VIAL SQ SCH ×4 (06:01→22:29)
[2022-06-23] MEDS: INSULIN (LEVEMIR) 100 UNITS/ML UNITS SQ SCH ×2 (06:01→22:27)
[2022-06-23] MEDS: KETOROLAC TROMETHAMINE 30 MG/1 ML VIAL IVPUSH PRN ×2 (08:13→17:15)
[2022-06-23 09:41] LABS: BASO % 0.5 % (0-2.0); EOS % 0.7 % (0-4.5); HEMATOCRIT 26.1 % (32.4-45.2); HEMOGLOBIN 8.4 GM/dL (10.7-15.3); MCH 26.2 pg (25.7-33.7); MCHC 31.9 g/dl (32.0-36.0); MEAN CELL VOLUME 82.2 fl (80-96); MEAN PLT VOLUME 7.4 fl (7.5-11.1); MONO % 4.4 % (3.8-10.2); NEUT % 72.4 % (42.8-82.8); PLATELET COUNT 322 10^3/uL (134-434); RBC 3.18 M/mm3 (3.60-5.2); RDW 16.5 % (11.6-15.6); WHITE BLOOD COUNT 12.1 K/mm3 (4.0-10.0)
[2022-06-23 10:00] LABS: ALBUMIN 2.8 g/dl (3.4-5.0); BLOOD UREA NITROGEN 6.7 mg/dL (7-18); CALCIUM 9.1 mg/dL (8.5-10.1); MAGNESIUM 2.4 mg/dL (1.8-2.4)
[2022-06-23] MEDS: LISINOPRIL 20 MG TABLET PO SCH (10:00)
[2022-06-23] MEDS: POLYETHYLENE GLYCOL (HEALTHYLAX) 3350 17 GM PACKET PO SCH ×2 (10:00→22:02)
[2022-06-23] MEDS: DOCUSATE SODIUM 100 MG CAPSULE (FP) PO SCH ×2 (10:00→22:02)
[2022-06-23] MEDS: NIFEdipine E.R. 30 MG TABLET PO SCH (10:01)
[2022-06-23] MEDS: DULoxetine HCL 30 MG CAPSULE.DR PO SCH ×2 (10:02→21:55)
[2022-06-23 10:03] LABS: CREATININE 0.6 mg/dL (0.55-1.3); PHOSPHOROUS 3.2 mg/dL (2.5-4.9)
[2022-06-23] MEDS: FLUTICASONE/UMECLIDIN/VILANTER(200-62.5-25 TRELEGY ELLIPTA) INAHLER IH SCH (10:03)
[2022-06-23 10:05] LABS: BILIRUBIN,TOTAL 0.4 mg/dL (0.2-1); TOT PROT 6.4 g/dl (6.4-8.2)
[2022-06-23] MEDS: ENOXAPARIN NA (PORCINE) 120 MG/0.8 ML DISP.SYRIN SQ SCH ×2 (11:14→22:38)
[2022-06-23] MEDS ORDERED: INSULIN (NOVOLOG) ASPART 100 UNITS/ML 10ML VIAL ONE (21:42)
[2022-06-23] MEDS: ATORVASTATIN CA 10 MG TABLET (FP) PO SCH (21:52)
[2022-06-23] MEDS: IBUPROFEN 600 MG TABLET (FP) PO PRN (21:56)
[2022-06-23] MEDS: SENNOSIDES/DOCUSATE COMBO (SENNA PLUS) TABLET (UD) PO SCH (22:02)
[2022-06-24] MEDS ORDERED: oxyCODONE HCL 5 MG TABLET PO PRN (00:09)
[2022-06-24] MEDS: oxyCODONE HCL 5 MG TABLET PO PRN ×2 (00:49→13:13)
[2022-06-24] MEDS: HYDROmorphone HCl 2 MG/ML VIAL IVPB PRN ×3 (02:47→15:49)
[2022-06-24] MEDS: INSULIN (LEVEMIR) 100 UNITS/ML UNITS SQ SCH ×2 (06:41→23:55)
[2022-06-24] MEDS: GABAPENTIN PO SCH ×3 (06:41→23:57)
[2022-06-24] MEDS: INSULIN SLIDING SCALE (NOVOLOG) 1 VIAL SQ SCH ×4 (06:42→23:57)
[2022-06-24 09:18] VITALS: RESP 18
[2022-06-24] MEDS: LISINOPRIL 20 MG TABLET PO SCH (09:59)
[2022-06-24] MEDS: DULoxetine HCL 30 MG CAPSULE.DR PO SCH ×2 (09:59→23:55)
[2022-06-24] MEDS: DOCUSATE SODIUM 100 MG CAPSULE (FP) PO SCH ×2 (10:00→23:55)
[2022-06-24] MEDS: POLYETHYLENE GLYCOL (HEALTHYLAX) 3350 17 GM PACKET PO SCH ×2 (10:01→23:55)
[2022-06-24] MEDS: NIFEdipine E.R. 30 MG TABLET PO SCH (10:01)
[2022-06-24] MEDS: FLUTICASONE/UMECLIDIN/VILANTER(200-62.5-25 TRELEGY ELLIPTA) INAHLER IH SCH (10:03)
[2022-06-24 10:32] LABS: BASO % 0.4 % (0-2.0); HEMATOCRIT 24.4 % (32.4-45.2); HEMOGLOBIN 7.9 GM/dL (10.7-15.3); LYMPH % 22.5 % (8-40); MCH 26.8 pg (25.7-33.7); MCHC 32.2 g/dl (32.0-36.0); MEAN CELL VOLUME 83.3 fl (80-96); MEAN PLT VOLUME 7.4 fl (7.5-11.1); MONO % 5.6 % (3.8-10.2); NEUT % 70.5 % (42.8-82.8); PLATELET COUNT 319 10^3/uL (134-434); RBC 2.93 M/mm3 (3.60-5.2); RDW 16.5 % (11.6-15.6); WHITE BLOOD COUNT 10.2 K/mm3 (4.0-10.0)
[2022-06-24 11:07] LABS: CALCIUM 8.6 mg/dL (8.5-10.1)
[2022-06-24 11:08] LABS: ALBUMIN 2.6 g/dl (3.4-5.0); BLOOD UREA NITROGEN 7.6 mg/dL (7-18); MAGNESIUM 2.3 mg/dL (1.8-2.4)
[2022-06-24 11:11] LABS: BILIRUBIN,TOTAL 0.4 mg/dL (0.2-1); CREATININE 0.6 mg/dL (0.55-1.3); PHOSPHOROUS 3.8 mg/dL (2.5-4.9)
[2022-06-24] MEDS: ENOXAPARIN NA (PORCINE) 120 MG/0.8 ML DISP.SYRIN SQ SCH ×2 (11:20→23:54)
[2022-06-24] MEDS ORDERED: INSULIN (NOVOLOG MIX 70/30) 100 UNITS/ML MDV SQ ONE (11:29)
[2022-06-24] MEDS ORDERED: MAG HYDROX/ALH/SMC/DPHA/LIDO 240 ML MOUTHWASH MM PRN (15:00)
[2022-06-24] MEDS ORDERED: INSULIN (NOVOLOG) ASPART 100 UNITS/ML 10ML VIAL ONE (23:48)
[2022-06-25] MEDS: SENNOSIDES/DOCUSATE COMBO (SENNA PLUS) TABLET (UD) PO SCH (00:01)
[2022-06-25] MEDS: HYDROmorphone HCl 2 MG/ML VIAL IVPB PRN ×3 (00:01→09:38)
[2022-06-25] MEDS: oxyCODONE HCL 5 MG TABLET PO PRN (02:52)
[2022-06-25] MEDS: GABAPENTIN PO SCH ×2 (05:29→13:52)
[2022-06-25] MEDS: INSULIN (LEVEMIR) 100 UNITS/ML UNITS SQ SCH (06:56)
[2022-06-25] MEDS: INSULIN SLIDING SCALE (NOVOLOG) 1 VIAL SQ SCH ×3 (06:58→16:53)
[2022-06-25] MEDS: LISINOPRIL 20 MG TABLET PO SCH (09:43)
[2022-06-25] MEDS: DULoxetine HCL 30 MG CAPSULE.DR PO SCH (09:43)
[2022-06-25] MEDS: IBUPROFEN 600 MG TABLET (FP) PO PRN (09:43)
[2022-06-25] MEDS: DOCUSATE SODIUM 100 MG CAPSULE (FP) PO SCH (09:44)
[2022-06-25] MEDS: NIFEdipine E.R. 30 MG TABLET PO SCH (09:44)
[2022-06-25] MEDS: FLUTICASONE/UMECLIDIN/VILANTER(200-62.5-25 TRELEGY ELLIPTA) INAHLER IH SCH (09:45)
[2022-06-25] MEDS: POLYETHYLENE GLYCOL (HEALTHYLAX) 3350 17 GM PACKET PO SCH (09:45)
[2022-06-25 10:52] LABS: HEMATOCRIT 26.2 % (32.4-45.2); HEMOGLOBIN 8.4 GM/dL (10.7-15.3); MCH 26.5 pg (25.7-33.7); MCHC 32.1 g/dl (32.0-36.0); MEAN CELL VOLUME 82.7 fl (80-96); MEAN PLT VOLUME 7.3 fl (7.5-11.1); PLATELET COUNT 292 10^3/uL (134-434); RBC 3.17 M/mm3 (3.60-5.2); RDW 16.4 % (11.6-15.6); WHITE BLOOD COUNT 11.6 K/mm3 (4.0-10.0)
[2022-06-25] MEDS: ENOXAPARIN NA (PORCINE) 120 MG/0.8 ML DISP.SYRIN SQ SCH (11:45)
[2022-06-25 11:56] LABS: BLOOD UREA NITROGEN 6.2 mg/dL (7-18); CALCIUM 8.8 mg/dL (8.5-10.1); MAGNESIUM 2.3 mg/dL (1.8-2.4)
[2022-06-25 11:58] LABS: PHOSPHOROUS 3.8 mg/dL (2.5-4.9)
[2022-06-25 11:59] LABS: CREATININE 0.7 mg/dL (0.55-1.3)
[2022-06-25 12:00] LABS: BILIRUBIN,TOTAL 0.6 mg/dL (0.2-1); TOT PROT 6.5 g/dl (6.4-8.2)
[2022-06-25] MEDS ORDERED: HYDROmorphone HCl 2 MG/ML VIAL IVPB PRN (12:18)
[2022-06-25] MEDS ORDERED: oxyCODONE HCL 5 MG TABLET PO PRN (12:18)
[2022-06-25] MEDS ORDERED: HYDROmorphone HCL 2 MG TABLET PO PRN (14:37)
[2022-06-25 17:44] VITALS: BP 154/100; PULSE 93; TEMP 98
[2022-06-25 18:02] LABS: RETICULOCYTES 4.47 % (0.5-1.5)
[2022-06-26] MEDS ORDERED: FERROUS SO4 325 MG TABLET (FP) PO SCH (10:00)
== END 2022-06-25 17:55 | DRG 240 ==
LOC: JER 14:23 → JERBED 22:22 → J7W 06-12 08:05 → OBSVTOIN 06-12 15:58 → JICU 06-13 17:05 → J7W 06-20 01:28
PROVIDERS: ADMIT Internal Medicine; ATTEND Internal Medicine
PROC: 04CQ0ZZ Extirpation of Matter from Left Anterior Tibial Artery, Open Approach (ICD-10-PCS; 2022-06-14)
PROC: 04CY0ZZ Extirpation of Matter from Lower Artery, Open Approach (ICD-10-PCS; 2022-06-14)
PROC: 04CS0ZZ Extirpation of Matter from Left Posterior Tibial Artery, Open Approach (ICD-10-PCS; 2022-06-14)
PROC: 047S0ZZ Dilation of Left Posterior Tibial Artery, Open Approach (ICD-10-PCS; 2022-06-14)
PROC: 047Q0ZZ Dilation of Left Anterior Tibial Artery, Open Approach (ICD-10-PCS; 2022-06-14)
PROC: B41DZZZ Fluoroscopy of Aorta and Bilateral Lower Extremity Arteries (ICD-10-PCS; 2022-06-14)
PROC: B41GZZZ Fluoroscopy of Left Lower Extremity Arteries (ICD-10-PCS; 2022-06-14)
PROC: 3E03317 Introduction of Other Thrombolytic into Peripheral Vein, Percutaneous Approach (ICD-10-PCS; 2022-06-14)
PROC: 0Y6J0Z1 Detachment at Left Lower Leg, High, Open Approach (ICD-10-PCS; principal; 2022-06-17 08:00)
DX: I82.412 Acute embolism and thrombosis of left femoral vein (principal); I74.3 Embolism and thrombosis of arteries of the lower extremities; E11.51 Type 2 diabetes mellitus with diabetic peripheral angiopathy without gangrene; M54.50 Low back pain, unspecified; G89.4 Chronic pain syndrome; E11.65 Type 2 diabetes mellitus with hyperglycemia; E66.9 Obesity, unspecified; Z79.4 Long term (current) use of insulin; Z68.37 Body mass index [BMI] 37.0-37.9, adult; J45.40 Moderate persistent asthma, uncomplicated; G47.33 Obstructive sleep apnea (adult) (pediatric); K76.0 Fatty (change of) liver, not elsewhere classified; D50.9 Iron deficiency anemia, unspecified; R74.01 Elevation of levels of liver transaminase levels; M48.00 Spinal stenosis, site unspecified
CPT/HCPCS: 0241U-QW; 36415; 36430; 71046-TC-FY; 73610-TC-LT-FY; 73630-TC-LT; 75635-TC; 76000-TC-FY; 80048; 80053; 80061; 81003; 82728; 82962; 83540; 83550; 83735; 84100; 84550; 84703; 85025; 85027; 85045; 85384; 85610; 85730; 86850; 86900; 86901; 86922; 87086; 88304-TC; 88307-TC; 88311-TC; 93005; 93010; 93971-TC; 94010; 94760; 97116-GP; 97163-GP; 99285-25; C1760; C1887; C9803-CS; G0378; J1644; J2997; P9058; Q9967; U0003; U0005

== ENCOUNTER 2022-07-29 10:57 | Inpatient (IN) | payer OTHER ==
[2022-07-29 11:26] VITALS: BMI 36.0
[2022-07-29] MEDS ORDERED: METOCLOPRAMIDE HCL INJECTION 10 MG/2 ML VIAL IVPB ONE (11:48)
[2022-07-29] MEDS ORDERED: SODIUM CHLORIDE 0.9% 500 ML INFUS.BAG IV ONE (11:49)
[2022-07-29] MEDS ORDERED: LIDOCAINE 5% TOPICAL PATCH TP ONE (12:29)
[2022-07-29 12:35] LABS: BASO % 0.6 % (0-2.0); EOS % 0.6 % (0-4.5); HEMATOCRIT 31.2 % (32.4-45.2); HEMOGLOBIN 9.9 GM/dL (10.7-15.3); LYMPH % 32.1 % (8-40); MCH 25.6 pg (25.7-33.7); MCHC 31.8 g/dl (32.0-36.0); MEAN CELL VOLUME 80.5 fl (80-96); MEAN PLT VOLUME 7.5 fl (7.5-11.1); MONO % 3.8 % (3.8-10.2); NEUT % 62.9 % (42.8-82.8); PLATELET COUNT 617 10^3/uL (134-434); RBC 3.87 M/mm3 (3.60-5.2); RDW 17.2 % (11.6-15.6); WHITE BLOOD COUNT 7.8 K/mm3 (4.0-10.0)
[2022-07-29 12:46] LABS: INR 1.03 (0.83-1.09); PROTHROMBIN TIME (PATIENT) 11.8 SEC (9.7-13.0)
[2022-07-29 12:48] LABS: ACTIVATED PTT 30.4 SECONDS (25.2-36.5)
[2022-07-29] MEDS ORDERED: METOCLOPRAMIDE HCL INJECTION 10 MG/2 ML VIAL ONE (12:53)
[2022-07-29 12:54] LABS: ALBUMIN 3.3 g/dl (3.4-5.0); CALCIUM 9.6 mg/dL (8.5-10.1)
[2022-07-29 12:58] LABS: CREATININE 0.6 mg/dL (0.55-1.3)
[2022-07-29 12:59] LABS: TOT PROT 6.8 g/dl (6.4-8.2)
[2022-07-29 13:00] LABS: BILIRUBIN,TOTAL 0.2 mg/dL (0.2-1)
[2022-07-29] MEDS ORDERED: LIDOCAINE 5% TOPICAL PATCH ONE (13:37)
[2022-07-29] MEDS ORDERED: ALBUTEROL SO4 2.5/IPRATROPIUM 0.5 INH SOL 3 ML VIAL.NEB. NEB PRN (18:33)
[2022-07-29] MEDS ORDERED: LISINOPRIL 20 MG TABLET PO ONE (18:33)
[2022-07-29] MEDS ORDERED: ACETAMINOPHEN 325 MG TABLET (FP) PO PRN (18:33)
[2022-07-29] MEDS ORDERED: oxyCODONE HCL 5 MG TABLET ONE (20:49)
[2022-07-29] MEDS: oxyCODONE HCL 5 MG TABLET PO PRN (20:51)
[2022-07-29] MEDS ORDERED: LIDOCAINE PATCH REMOVAL MC ONE (22:00)
[2022-07-29] MEDS ORDERED: MONTELUKAST NA 10 MG TABLET ONE (23:34)
[2022-07-29] MEDS ORDERED: GABAPENTIN 400 MG CAPSULE ONE (23:35)
[2022-07-29] MEDS ORDERED: HEPARIN NA (PORCINE) 5,000 UNITS/ML 1ML VIAL ONE (23:35)
[2022-07-29] MEDS: GABAPENTIN 400 MG CAPSULE PO SCH (23:42)
[2022-07-29] MEDS: MONTELUKAST NA 5 MG TAB.CHEW PO SCH (23:42)
[2022-07-29] MEDS: INSULIN (LEVEMIR) 100 UNITS/ML UNITS SQ SCH (23:42)
[2022-07-29] MEDS: HEPARIN NA (PORCINE) 5,000 UNITS/ML 1ML VIAL SQ SCH (23:42)
[2022-07-30] MEDS: oxyCODONE HCL 5 MG TABLET PO PRN ×3 (02:02→18:32)
[2022-07-30] MEDS: GABAPENTIN 400 MG CAPSULE PO SCH ×3 (05:27→22:36)
[2022-07-30] MEDS: INSULIN SLIDING SCALE (NOVOLOG) 1 VIAL SQ SCH ×3 (06:08→16:40)
[2022-07-30 07:04] LABS: EPI CELLS >36 /uL (0-25.1); HYALINE CASTS 1 /uL (0-3.1); URINE APPEARANCE CLEAR; URINE BACTERIA 74 /uL (0-1359); URINE BILIRUBIN NEGATIVE (NEGATIVE); URINE COLOR YELLOW; URINE GLUCOSE (UA) NEGATIVE (NEGATIVE); URINE KETONE NEGATIVE (NEGATIVE); URINE LEUK ESTERASE 2+ (NEGATIVE); URINE NITRITE NEGATIVE (NEGATIVE); URINE PROTEIN NEGATIVE (NEGATIVE); URINE RBC 29 /uL (0-23.9); URINE UROBILINOGEN 0.2 mg/dL (0.2-1.0); URINE WBC 73 /uL (0-25.8)
[2022-07-30] MEDS ORDERED: DULoxetine HCL 30 MG CAPSULE.DR PO ONE (10:22)
[2022-07-30] MEDS: PANTOPRAZOLE 40 MG TABLET PO SCH (10:23)
[2022-07-30] MEDS: DULoxetine HCL 60 MG CAPSULE.DR PO SCH (10:24)
[2022-07-30] MEDS: LISINOPRIL 20 MG TABLET PO SCH (10:24)
[2022-07-30] MEDS: amLODIPine BESYLATE 5 MG TABLET (FP) PO SCH (10:24)
[2022-07-30] MEDS: HEPARIN NA (PORCINE) 5,000 UNITS/ML 1ML VIAL SQ SCH (10:25)
[2022-07-30] MEDS ORDERED: INSULIN (NOVOLOG) ASPART 100 UNITS/ML 10ML VIAL ONE (11:28)
[2022-07-30 11:45] LABS: BASO % 0.7 % (0-2.0); EOS % 0.6 % (0-4.5); HEMATOCRIT 27.6 % (32.4-45.2); HEMOGLOBIN 8.8 GM/dL (10.7-15.3); LYMPH % 33.3 % (8-40); MCH 25.8 pg (25.7-33.7); MCHC 32.1 g/dl (32.0-36.0); MEAN CELL VOLUME 80.5 fl (80-96); MEAN PLT VOLUME 7.6 fl (7.5-11.1); MONO % 3.9 % (3.8-10.2); NEUT % 61.5 % (42.8-82.8); PLATELET COUNT 535 10^3/uL (134-434); RBC 3.42 M/mm3 (3.60-5.2); RDW 17.2 % (11.6-15.6); WHITE BLOOD COUNT 7.2 K/mm3 (4.0-10.0)
[2022-07-30 11:50] LABS: INR 1.15 (0.83-1.09); PROTHROMBIN TIME (PATIENT) 13.3 SEC (9.7-13.0)
[2022-07-30 11:53] LABS: ACTIVATED PTT 24.4 SECONDS (25.2-36.5)
[2022-07-30 12:05] LABS: ALBUMIN 3.1 g/dl (3.4-5.0); CALCIUM 8.8 mg/dL (8.5-10.1); MAGNESIUM 2.1 mg/dL (1.8-2.4)
[2022-07-30 12:08] LABS: CREATININE 0.7 mg/dL (0.55-1.3); PHOSPHOROUS 5.1 mg/dL (2.5-4.9)
[2022-07-30 12:09] LABS: TOT PROT 6.2 g/dl (6.4-8.2)
[2022-07-30 12:10] LABS: BILIRUBIN,TOTAL 0.2 mg/dL (0.2-1)
[2022-07-30 13:38] LABS: ERYTHROCYTE SEDIMENTATION RATE 42 mm/hr (0-20)
[2022-07-30] MEDS: RIVAROXABAN 10 MG TABLET PO SCH (15:26)
[2022-07-30] MEDS ORDERED: ACETAMINOPHEN/CAFFEINE/BUTALBITAL 1 TAB PO ONE (19:37)
[2022-07-30] MEDS: CHLORHEXIDINE GLUCONATE 4% CLEANSER FOR DECOLONIZATION TP SCH (22:36)
[2022-07-30] MEDS: MONTELUKAST NA 5 MG TAB.CHEW PO SCH (22:36)
[2022-07-30] MEDS: INSULIN (LEVEMIR) 100 UNITS/ML UNITS SQ SCH (22:37)
[2022-07-31] MEDS: GABAPENTIN 400 MG CAPSULE PO SCH ×3 (06:10→22:05)
[2022-07-31] MEDS: INSULIN SLIDING SCALE (NOVOLOG) 1 VIAL SQ SCH ×3 (06:11→16:32)
[2022-07-31 09:34] LABS: HEMATOCRIT 28.2 % (32.4-45.2); HEMOGLOBIN 9.2 GM/dL (10.7-15.3); MCH 25.8 pg (25.7-33.7); MCHC 32.5 g/dl (32.0-36.0); MEAN CELL VOLUME 79.5 fl (80-96); MEAN PLT VOLUME 7.4 fl (7.5-11.1); PLATELET COUNT 549 10^3/uL (134-434); RBC 3.55 M/mm3 (3.60-5.2); RDW 16.8 % (11.6-15.6); WHITE BLOOD COUNT 5.5 K/mm3 (4.0-10.0)
[2022-07-31 09:52] LABS: ALBUMIN 3.2 g/dl (3.4-5.0); CALCIUM 9.4 mg/dL (8.5-10.1)
[2022-07-31 09:53] LABS: BLOOD UREA NITROGEN 9.3 mg/dL (7-18)
[2022-07-31 09:55] LABS: CREATININE 0.7 mg/dL (0.55-1.3)
[2022-07-31 09:57] LABS: BILIRUBIN,TOTAL 0.2 mg/dL (0.2-1); TOT PROT 6.3 g/dl (6.4-8.2)
[2022-07-31] MEDS ORDERED: DULoxetine HCL 30 MG CAPSULE.DR PO ONE (10:17)
[2022-07-31] MEDS: PANTOPRAZOLE 40 MG TABLET PO SCH (10:23)
[2022-07-31] MEDS: amLODIPine BESYLATE 5 MG TABLET (FP) PO SCH (10:23)
[2022-07-31] MEDS: DULoxetine HCL 60 MG CAPSULE.DR PO SCH (10:23)
[2022-07-31] MEDS: LISINOPRIL 20 MG TABLET PO SCH (10:24)
[2022-07-31] MEDS: RIVAROXABAN 10 MG TABLET PO SCH (10:24)
[2022-07-31] MEDS ORDERED: RIMEGEPANT SULFATE 75 MG TAB.RAPDIS SL ONE (10:30)
[2022-07-31] MEDS ORDERED: INSULIN (NOVOLOG) ASPART 100 UNITS/ML 10ML VIAL ONE (17:23)
[2022-07-31] MEDS: CHLORHEXIDINE GLUCONATE 4% CLEANSER FOR DECOLONIZATION TP SCH (22:04)
[2022-07-31] MEDS: INSULIN (LEVEMIR) 100 UNITS/ML UNITS SQ SCH (22:05)
[2022-07-31] MEDS: MONTELUKAST NA 5 MG TAB.CHEW PO SCH (22:05)
[2022-08-01] MEDS: oxyCODONE HCL 5 MG TABLET PO PRN ×3 (01:51→18:19)
[2022-08-01] MEDS: INSULIN SLIDING SCALE (NOVOLOG) 1 VIAL SQ SCH ×3 (06:05→16:08)
[2022-08-01] MEDS: GABAPENTIN 400 MG CAPSULE PO SCH ×3 (06:17→21:53)
[2022-08-01] MEDS ORDERED: RIMEGEPANT SULFATE 75 MG TAB.RAPDIS SL PRN (06:46)
[2022-08-01] MEDS ORDERED: DULoxetine HCL 30 MG CAPSULE.DR PO ONE (09:16)
[2022-08-01] MEDS: LISINOPRIL 20 MG TABLET PO SCH (09:27)
[2022-08-01] MEDS: DULoxetine HCL 60 MG CAPSULE.DR PO SCH (09:27)
[2022-08-01] MEDS: PANTOPRAZOLE 40 MG TABLET PO SCH (09:27)
[2022-08-01] MEDS: amLODIPine BESYLATE 5 MG TABLET (FP) PO SCH (09:27)
[2022-08-01] MEDS: KETOROLAC TROMETHAMINE 30 MG/1 ML VIAL IVPUSH PRN ×2 (13:37→22:13)
[2022-08-01] MEDS: INSULIN (LEVEMIR) 100 UNITS/ML UNITS SQ SCH ×2 (13:39→21:54)
[2022-08-01] MEDS: MONTELUKAST NA 5 MG TAB.CHEW PO SCH (21:53)
[2022-08-01] MEDS ORDERED: INSULIN (LEVEMIR) 100 UNITS/ML UNITS SQ SCH (22:00)
[2022-08-01] MEDS: CHLORHEXIDINE GLUCONATE 4% CLEANSER FOR DECOLONIZATION TP SCH (23:47)
[2022-08-02] MEDS ORDERED: BUPIVACAINE LIPOSOME/PF (EXPAREL) 266 MG/20 ML VIAL ONE (07:03)
[2022-08-02] MEDS ORDERED: VANCOMYCIN 1,000 MG VIAL (RESTRICTED TO ID ONLY) ONE ×2 (07:03→11:38)
[2022-08-02] MEDS ORDERED: BUPIVACAINE HCL/PF 0.5% (5MG/ML) 10 ML VIAL ONE (07:03)
[2022-08-02] MEDS ORDERED: THROMBIN (BOVINE) 5,000 UNIT VIAL TP ONE ×4 (07:03→12:53)
[2022-08-02] MEDS ORDERED: GENTAMICIN SO4 80 MG/2 ML VIAL ONE (07:03)
[2022-08-02] MEDS: GABAPENTIN 400 MG CAPSULE PO SCH ×3 (07:18→21:39)
[2022-08-02] MEDS: INSULIN SLIDING SCALE (NOVOLOG) 1 VIAL SQ SCH ×3 (07:20→19:00)
[2022-08-02] MEDS: INSULIN (LEVEMIR) 100 UNITS/ML UNITS SQ SCH ×2 (07:21→21:43)
[2022-08-02] MEDS ORDERED: LIDOCAINE HCL/PF 2% SDV 5ML VIAL ONE (07:35)
[2022-08-02] MEDS ORDERED: PROPOFOL 40 ML ONE (07:35)
[2022-08-02] MEDS ORDERED: ONDANSETRON 4 MG/2 ML VIAL ONE (07:35)
[2022-08-02] MEDS ORDERED: DEXAMETHASONE SOD PHOSPHATE 4 MG/1 ML VIAL ONE (07:35)
[2022-08-02] MEDS ORDERED: MIDAZOLAM HCL 2 MG/2 ML SINGLE DOSE VIAL ONE (07:36)
[2022-08-02] MEDS ORDERED: PHENYLEPHRINE HCL 10 MG/1 ML SINGLE DOSE VIAL ONE ×2 (07:38→11:38)
[2022-08-02] MEDS ORDERED: ROCURONIUM BROMIDE 50 MG/5 ML SYRINGE ONE ×3 (07:41→11:43)
[2022-08-02] MEDS ORDERED: VANCOMYCIN 1 GM in NS (PRE-DOCKED) 1,000 MG/250 ML IVPB ONE ×2 (08:16→09:10)
[2022-08-02] MEDS ORDERED: ceFAZolin SODIUM 1 GM VIAL IVPB ONE ×3 (08:16→13:05)
[2022-08-02] MEDS ORDERED: KETAMINE HCL 500 MG/10 ML VIAL ONE (10:00)
[2022-08-02] MEDS ORDERED: GENTAMICIN SO4 80 MG/2 ML VIAL IVPB ONE (10:01)
[2022-08-02] MEDS ORDERED: HYDROGEN PEROXIDE 473 ML PO ONE (10:01)
[2022-08-02] MEDS ORDERED: PROPOFOL 20 ML ONE (10:03)
[2022-08-02] MEDS ORDERED: BUPIVACAINE HCL/PF 0.5% (5MG/ML) 10 ML VIAL IJ ONE ×2 (10:57→13:35)
[2022-08-02] MEDS ORDERED: BUPIVACAINE LIPOSOME/PF (EXPAREL) 266 MG/20 ML VIAL NR ONE ×2 (10:57→13:35)
[2022-08-02] MEDS ORDERED: GLYCOPYRROLATE 0.2 MG/1 ML VIAL ONE (11:37)
[2022-08-02] MEDS ORDERED: TRANEXAMIC ACID 1000 MG/10 ML VIAL ONE (11:37)
[2022-08-02] MEDS ORDERED: ceFAZolin SODIUM 1 GM VIAL ONE ×3 (11:37→13:08)
[2022-08-02] MEDS: DULoxetine HCL 60 MG CAPSULE.DR PO SCH (12:36)
[2022-08-02] MEDS: amLODIPine BESYLATE 5 MG TABLET (FP) PO SCH (12:36)
[2022-08-02] MEDS: LISINOPRIL 20 MG TABLET PO SCH (12:36)
[2022-08-02] MEDS: PANTOPRAZOLE 40 MG TABLET PO SCH (12:37)
[2022-08-02] MEDS ORDERED: NEOSTIGMINE METHYLSULFATE 0.5 MG/ML - 10 ML MDV ONE (13:43)
[2022-08-02] MEDS ORDERED: ONDANSETRON 4 MG/2 ML VIAL IVPUSH PRN ×3 (15:11→16:14)
[2022-08-02] MEDS ORDERED: HYDROmorphone *PCA* 10MG/50ML DISP.SYRIN PCA SCH ×2 (15:15→16:14)
[2022-08-02] MEDS ORDERED: LACTATED RINGERS SOLUTION 1,000 ML IV SCH (15:15)
[2022-08-02] MEDS ORDERED: HYDROmorphone *PCA* 10MG/50ML DISP.SYRIN ONE (15:26)
[2022-08-02] MEDS ORDERED: RIMEGEPANT SULFATE 75 MG TAB.RAPDIS SL PRN (16:14)
[2022-08-02] MEDS ORDERED: ALBUTEROL SO4 2.5/IPRATROPIUM 0.5 INH SOL 3 ML VIAL.NEB. NEB PRN (16:14)
[2022-08-02] MEDS: LACTATED RINGERS SOLUTION 1,000 ML IV SCH (17:00)
[2022-08-02] MEDS: DOCUSATE SODIUM 100 MG CAPSULE (FP) PO SCH (21:38)
[2022-08-02] MEDS: HEPARIN NA (PORCINE) 5,000 UNITS/ML 1ML VIAL SQ SCH (21:42)
[2022-08-02] MEDS: CEFAZOLIN 1 GM in DEXTROSE 5%-WATER - 50 ML IVPB SCH (21:44)
[2022-08-02] MEDS ORDERED: CHLORHEXIDINE GLUCONATE 4% CLEANSER FOR DECOLONIZATION TP SCH (22:00)
[2022-08-02 22:17] VITALS: RESP 18
[2022-08-02] MEDS: MONTELUKAST NA 5 MG TAB.CHEW PO SCH (22:48)
[2022-08-03] MEDS: CEFAZOLIN 1 GM in DEXTROSE 5%-WATER - 50 ML IVPB SCH ×3 (04:50→20:01)
[2022-08-03] MEDS: HEPARIN NA (PORCINE) 5,000 UNITS/ML 1ML VIAL SQ SCH ×3 (06:51→21:38)
[2022-08-03] MEDS: GABAPENTIN 400 MG CAPSULE PO SCH ×3 (06:52→21:38)
[2022-08-03] MEDS: DOCUSATE SODIUM 100 MG CAPSULE (FP) PO SCH ×3 (06:52→21:38)
[2022-08-03] MEDS: INSULIN (LEVEMIR) 100 UNITS/ML UNITS SQ SCH ×2 (06:53→21:38)
[2022-08-03] MEDS: INSULIN SLIDING SCALE (NOVOLOG) 1 VIAL SQ SCH ×3 (06:54→16:16)
[2022-08-03] MEDS: DULoxetine HCL 30 MG CAPSULE.DR PO SCH (10:31)
[2022-08-03] MEDS: PANTOPRAZOLE 40 MG TABLET PO SCH (10:31)
[2022-08-03] MEDS: LISINOPRIL 20 MG TABLET PO SCH (10:34)
[2022-08-03] MEDS: FOLIC ACID 1 MG TABLET (FP) PO SCH (10:34)
[2022-08-03] MEDS: FERROUS SO4 325 MG TABLET (FP) PO SCH (10:34)
[2022-08-03] MEDS: amLODIPine BESYLATE 5 MG TABLET (FP) PO SCH (10:34)
[2022-08-03 10:44] LABS: HEMATOCRIT 25.2 % (32.4-45.2); MCH 25.7 pg (25.7-33.7); MCHC 31.9 g/dl (32.0-36.0); MEAN CELL VOLUME 80.6 fl (80-96); MEAN PLT VOLUME 7.4 fl (7.5-11.1); PLATELET COUNT 479 10^3/uL (134-434); RBC 3.13 M/mm3 (3.60-5.2); RDW 17.5 % (11.6-15.6); WHITE BLOOD COUNT 13.7 K/mm3 (4.0-10.0)
[2022-08-03 11:17] LABS: CREATININE 0.8 mg/dL (0.55-1.3)
[2022-08-03] MEDS: ACETAMINOPHEN 500 MG TABLET (FP) PO SCH ×2 (12:11→18:11)
[2022-08-03] MEDS: HYDROmorphone HCL 2 MG TABLET PO PRN ×2 (14:10→21:38)
[2022-08-03] MEDS: diazePAM 5 MG TABLET PO PRN ×2 (14:26→21:40)
[2022-08-03] MEDS: LACTATED RINGERS SOLUTION 1,000 ML IV SCH ×2 (16:17→23:32)
[2022-08-03] MEDS ORDERED: IRON SUCROSE INJECTION 200 MG in SODIUM CHLORIDE 90 ML IVPB ONE (16:30)
[2022-08-03] MEDS: HYDROmorphone HCl 2 MG/ML VIAL IVPB PRN (18:36)
[2022-08-03] MEDS: diphenhydrAMINE HCL 25 MG CAPSULE (FP) PO PRN (20:10)
[2022-08-03] MEDS: MONTELUKAST NA 5 MG TAB.CHEW PO SCH (21:38)
[2022-08-04] MEDS: ACETAMINOPHEN 500 MG TABLET (FP) PO SCH ×4 (00:30→17:23)
[2022-08-04] MEDS: HYDROmorphone HCl 2 MG/ML VIAL IVPB PRN ×5 (00:56→23:44)
[2022-08-04] MEDS: CEFAZOLIN 1 GM in DEXTROSE 5%-WATER - 50 ML IVPB SCH ×3 (04:47→20:26)
[2022-08-04] MEDS: diazePAM 5 MG TABLET PO PRN (04:55)
[2022-08-04] MEDS: DOCUSATE SODIUM 100 MG CAPSULE (FP) PO SCH ×3 (06:29→21:27)
[2022-08-04] MEDS: GABAPENTIN 400 MG CAPSULE PO SCH ×3 (06:29→21:27)
[2022-08-04] MEDS: HEPARIN NA (PORCINE) 5,000 UNITS/ML 1ML VIAL SQ SCH ×3 (06:30→21:27)
[2022-08-04] MEDS: diphenhydrAMINE HCL 25 MG CAPSULE (FP) PO PRN ×2 (06:32→18:42)
[2022-08-04] MEDS: INSULIN (LEVEMIR) 100 UNITS/ML UNITS SQ SCH ×2 (06:44→21:29)
[2022-08-04] MEDS: INSULIN SLIDING SCALE (NOVOLOG) 1 VIAL SQ SCH ×3 (06:46→17:07)
[2022-08-04 10:20] LABS: HEMATOCRIT 26.4 % (32.4-45.2); HEMOGLOBIN 8.5 GM/dL (10.7-15.3); MCH 26.1 pg (25.7-33.7); MCHC 32.1 g/dl (32.0-36.0); MEAN CELL VOLUME 81.2 fl (80-96); MEAN PLT VOLUME 7.6 fl (7.5-11.1); PLATELET COUNT 446 10^3/uL (134-434); RBC 3.25 M/mm3 (3.60-5.2); RDW 17.4 % (11.6-15.6); WHITE BLOOD COUNT 10.5 K/mm3 (4.0-10.0)
[2022-08-04] MEDS: HYDROmorphone HCL 2 MG TABLET PO PRN ×3 (10:40→20:44)
[2022-08-04 10:45] LABS: CALCIUM 9.1 mg/dL (8.5-10.1)
[2022-08-04 10:46] LABS: ALBUMIN 3.4 g/dl (3.4-5.0); BLOOD UREA NITROGEN 7.1 mg/dL (7-18)
[2022-08-04 10:49] LABS: CREATININE 0.7 mg/dL (0.55-1.3)
[2022-08-04 10:51] LABS: BILIRUBIN,TOTAL 0.1 mg/dL (0.2-1); TOT PROT 6.6 g/dl (6.4-8.2)
[2022-08-04] MEDS: PANTOPRAZOLE 40 MG TABLET PO SCH (11:00)
[2022-08-04] MEDS: FOLIC ACID 1 MG TABLET (FP) PO SCH (11:00)
[2022-08-04] MEDS: COLLAGENASE CLOSTRIDIUM HIST. 30 GRAMS TUBE TP SCH (11:00)
[2022-08-04] MEDS: amLODIPine BESYLATE 5 MG TABLET (FP) PO SCH (11:00)
[2022-08-04] MEDS: DULoxetine HCL 30 MG CAPSULE.DR PO SCH (11:00)
[2022-08-04] MEDS: LISINOPRIL 20 MG TABLET PO SCH (11:00)
[2022-08-04] MEDS: FERROUS SO4 325 MG TABLET (FP) PO SCH (11:00)
[2022-08-04] MEDS: MONTELUKAST NA 5 MG TAB.CHEW PO SCH (21:27)
[2022-08-05] MEDS: ACETAMINOPHEN 500 MG TABLET (FP) PO SCH ×4 (01:53→17:23)
[2022-08-05] MEDS: HYDROmorphone HCL 2 MG TABLET PO PRN (04:26)
[2022-08-05] MEDS: CEFAZOLIN 1 GM in DEXTROSE 5%-WATER - 50 ML IVPB SCH ×3 (04:26→21:00)
[2022-08-05] MEDS: DOCUSATE SODIUM 100 MG CAPSULE (FP) PO SCH ×3 (05:56→21:54)
[2022-08-05] MEDS: GABAPENTIN 400 MG CAPSULE PO SCH ×3 (05:56→21:54)
[2022-08-05] MEDS: HEPARIN NA (PORCINE) 5,000 UNITS/ML 1ML VIAL SQ SCH ×3 (05:56→21:54)
[2022-08-05] MEDS: INSULIN SLIDING SCALE (NOVOLOG) 1 VIAL SQ SCH ×3 (06:01→16:55)
[2022-08-05] MEDS: INSULIN (LEVEMIR) 100 UNITS/ML UNITS SQ SCH ×2 (06:01→21:58)
[2022-08-05] MEDS: LISINOPRIL 20 MG TABLET PO SCH (09:14)
[2022-08-05] MEDS: DULoxetine HCL 30 MG CAPSULE.DR PO SCH (09:14)
[2022-08-05] MEDS: FOLIC ACID 1 MG TABLET (FP) PO SCH (09:14)
[2022-08-05] MEDS: FERROUS SO4 325 MG TABLET (FP) PO SCH (09:14)
[2022-08-05] MEDS: PANTOPRAZOLE 40 MG TABLET PO SCH (09:14)
[2022-08-05] MEDS: amLODIPine BESYLATE 5 MG TABLET (FP) PO SCH (09:14)
[2022-08-05] MEDS: COLLAGENASE CLOSTRIDIUM HIST. 30 GRAMS TUBE TP SCH (09:15)
[2022-08-05] MEDS ORDERED: INSULIN (NOVOLOG) ASPART 100 UNITS/ML 10ML VIAL ONE ×2 (11:44→17:31)
[2022-08-05] MEDS: HYDROmorphone HCl 2 MG/ML VIAL IVPB PRN ×2 (14:57→22:31)
[2022-08-05] MEDS: MONTELUKAST NA 5 MG TAB.CHEW PO SCH (21:58)
[2022-08-06] MEDS: ACETAMINOPHEN 500 MG TABLET (FP) PO SCH ×4 (01:00→17:50)
[2022-08-06] MEDS: HYDROmorphone HCl 2 MG/ML VIAL IVPB PRN ×2 (02:30→09:57)
[2022-08-06] MEDS: diazePAM 5 MG TABLET PO PRN ×2 (04:46→13:34)
[2022-08-06] MEDS: CEFAZOLIN 1 GM in DEXTROSE 5%-WATER - 50 ML IVPB SCH ×3 (04:46→23:31)
[2022-08-06] MEDS: GABAPENTIN 400 MG CAPSULE PO SCH ×3 (06:33→22:04)
[2022-08-06] MEDS: DOCUSATE SODIUM 100 MG CAPSULE (FP) PO SCH ×3 (06:33→22:05)
[2022-08-06] MEDS: HEPARIN NA (PORCINE) 5,000 UNITS/ML 1ML VIAL SQ SCH ×2 (06:33→13:34)
[2022-08-06] MEDS: INSULIN (LEVEMIR) 100 UNITS/ML UNITS SQ SCH ×2 (06:35→22:05)
[2022-08-06] MEDS: INSULIN SLIDING SCALE (NOVOLOG) 1 VIAL SQ SCH ×3 (06:35→16:36)
[2022-08-06] MEDS ORDERED: IRON SUCROSE INJECTION 200 MG in SODIUM CHLORIDE 90 ML IVPB ONE (09:00)
[2022-08-06] MEDS: amLODIPine BESYLATE 5 MG TABLET (FP) PO SCH (09:59)
[2022-08-06] MEDS: PANTOPRAZOLE 40 MG TABLET PO SCH (09:59)
[2022-08-06] MEDS: DULoxetine HCL 30 MG CAPSULE.DR PO SCH (09:59)
[2022-08-06] MEDS: FOLIC ACID 1 MG TABLET (FP) PO SCH (09:59)
[2022-08-06] MEDS: LISINOPRIL 20 MG TABLET PO SCH (09:59)
[2022-08-06] MEDS: FERROUS SO4 325 MG TABLET (FP) PO SCH (09:59)
[2022-08-06] MEDS ORDERED: HYDROmorphone HCl 2 MG/ML VIAL IVPB PRN (10:08)
[2022-08-06] MEDS ORDERED: POLYETHYLENE GLYCOL (HEALTHYLAX) 3350 17 GM PACKET PO PRN (10:09)
[2022-08-06] MEDS: COLLAGENASE CLOSTRIDIUM HIST. 30 GRAMS TUBE TP SCH (10:37)
[2022-08-06] MEDS ORDERED: RIMEGEPANT SULFATE 75 MG TAB.RAPDIS SL ONE (14:05)
[2022-08-06] MEDS ORDERED: INSULIN (NOVOLOG) ASPART 100 UNITS/ML 10ML VIAL ONE (16:51)
[2022-08-06] MEDS: oxyCODONE HCL 5 MG TABLET PO PRN (20:00)
[2022-08-06] MEDS ORDERED: APIXABAN 5 MG TABLET PO SCH (22:00)
[2022-08-06] MEDS: MONTELUKAST NA 5 MG TAB.CHEW PO SCH (22:05)
[2022-08-06] MEDS ORDERED: CEFAZOLIN 1 GM in DEXTROSE 5%-WATER - 50 ML IVPB SCH (22:15)
[2022-08-07] MEDS: oxyCODONE HCL 5 MG TABLET PO PRN ×3 (04:14→14:20)
[2022-08-07] MEDS: CEFAZOLIN 1 GM in DEXTROSE 5%-WATER - 50 ML IVPB SCH ×3 (04:14→20:00)
[2022-08-07] MEDS: ACETAMINOPHEN 500 MG TABLET (FP) PO SCH ×4 (06:01→17:35)
[2022-08-07] MEDS: DOCUSATE SODIUM 100 MG CAPSULE (FP) PO SCH ×3 (06:01→22:05)
[2022-08-07] MEDS: GABAPENTIN 400 MG CAPSULE PO SCH ×3 (06:01→22:04)
[2022-08-07] MEDS: INSULIN (LEVEMIR) 100 UNITS/ML UNITS SQ SCH ×2 (06:02→22:05)
[2022-08-07] MEDS: INSULIN SLIDING SCALE (NOVOLOG) 1 VIAL SQ SCH ×3 (06:02→16:34)
[2022-08-07] MEDS: amLODIPine BESYLATE 5 MG TABLET (FP) PO SCH ×2 (07:07→09:48)
[2022-08-07] MEDS ORDERED: ONDANSETRON 4 MG/2 ML VIAL IVPUSH PRN (08:51)
[2022-08-07] MEDS ORDERED: ONDANSETRON 4 MG/2 ML VIAL IVPUSH ONE (08:51)
[2022-08-07] MEDS ORDERED: RIMEGEPANT SULFATE 75 MG TAB.RAPDIS SL ONE (08:52)
[2022-08-07] MEDS: LISINOPRIL 20 MG TABLET PO SCH (09:28)
[2022-08-07] MEDS: DULoxetine HCL 30 MG CAPSULE.DR PO SCH (09:28)
[2022-08-07] MEDS: PANTOPRAZOLE 40 MG TABLET PO SCH (09:28)
[2022-08-07] MEDS: FERROUS GLUCONATE 324 MG TAB (FP) PO SCH (09:28)
[2022-08-07] MEDS: FOLIC ACID 1 MG TABLET (FP) PO SCH (09:28)
[2022-08-07] MEDS: COLLAGENASE CLOSTRIDIUM HIST. 30 GRAMS TUBE TP SCH (11:42)
[2022-08-07 12:38] LABS: HEMATOCRIT 30.6 % (32.4-45.2); HEMOGLOBIN 9.8 GM/dL (10.7-15.3); MCH 25.8 pg (25.7-33.7); MCHC 31.9 g/dl (32.0-36.0); MEAN PLT VOLUME 7.6 fl (7.5-11.1); PLATELET COUNT 524 10^3/uL (134-434); RBC 3.78 M/mm3 (3.60-5.2); RDW 17.7 % (11.6-15.6); WHITE BLOOD COUNT 10.3 K/mm3 (4.0-10.0)
[2022-08-07 13:09] LABS: ALBUMIN 3.5 g/dl (3.4-5.0); BLOOD UREA NITROGEN 9.4 mg/dL (7-18)
[2022-08-07 13:11] LABS: CREATININE 0.8 mg/dL (0.55-1.3)
[2022-08-07 13:13] LABS: BILIRUBIN,TOTAL 0.3 mg/dL (0.2-1); TOT PROT 7.4 g/dl (6.4-8.2)
[2022-08-07] MEDS: SODIUM CHLORIDE 1,000 ML IV SCH (16:35)
[2022-08-07] MEDS: RIVAROXABAN 20 MG TABLET PO SCH (17:35)
[2022-08-07] MEDS: MONTELUKAST NA 5 MG TAB.CHEW PO SCH (22:05)
[2022-08-07] MEDS: diazePAM 5 MG TABLET PO PRN (22:43)
[2022-08-08] MEDS: oxyCODONE HCL 5 MG TABLET PO PRN ×4 (01:36→20:41)
[2022-08-08] MEDS: CEFAZOLIN 1 GM in DEXTROSE 5%-WATER - 50 ML IVPB SCH ×4 (04:06→22:30)
[2022-08-08] MEDS: DOCUSATE SODIUM 100 MG CAPSULE (FP) PO SCH ×3 (05:36→22:29)
[2022-08-08] MEDS: GABAPENTIN 400 MG CAPSULE PO SCH ×3 (05:36→22:29)
[2022-08-08] MEDS: ACETAMINOPHEN 500 MG TABLET (FP) PO SCH ×4 (05:36→17:21)
[2022-08-08] MEDS: LABETALOL HCL 5 MG/1 ML (100MG/20 ML VIAL) IVPUSH ONE ×2 (06:46→06:50)
[2022-08-08] MEDS ORDERED: RIMEGEPANT SULFATE 75 MG TAB.RAPDIS SL ONE (06:57)
[2022-08-08] MEDS: INSULIN SLIDING SCALE (NOVOLOG) 1 VIAL SQ SCH ×3 (07:01→17:12)
[2022-08-08] MEDS: INSULIN (LEVEMIR) 100 UNITS/ML UNITS SQ SCH (07:01)
[2022-08-08] MEDS: DULoxetine HCL 30 MG CAPSULE.DR PO SCH (10:52)
[2022-08-08] MEDS: LISINOPRIL 20 MG TABLET PO SCH (10:52)
[2022-08-08] MEDS: FOLIC ACID 1 MG TABLET (FP) PO SCH (10:52)
[2022-08-08] MEDS: amLODIPine BESYLATE 5 MG TABLET (FP) PO SCH (10:52)
[2022-08-08] MEDS: PANTOPRAZOLE SODIUM 40 MG VIAL IVPUSH SCH ×2 (10:53→22:29)
[2022-08-08] MEDS: COLLAGENASE CLOSTRIDIUM HIST. 30 GRAMS TUBE TP SCH (10:53)
[2022-08-08] MEDS: FERROUS GLUCONATE 324 MG TAB (FP) PO SCH (11:02)
[2022-08-08] MEDS: ALBUTEROL SO4 2.5/IPRATROPIUM 0.5 INH SOL 3 ML VIAL.NEB. NEB SCH ×3 (11:26→20:16)
[2022-08-08] MEDS ORDERED: ONDANSETRON 4 MG/2 ML VIAL IVPB PRN (11:43)
[2022-08-08 12:52] LABS: BASO % 0.4 % (0-2.0); HEMATOCRIT 30.5 % (32.4-45.2); HEMOGLOBIN 9.5 GM/dL (10.7-15.3); LYMPH % 13.5 % (8-40); MCH 25.7 pg (25.7-33.7); MCHC 31.2 g/dl (32.0-36.0); MEAN CELL VOLUME 82.2 fl (80-96); MEAN PLT VOLUME 7.2 fl (7.5-11.1); MONO % 2.3 % (3.8-10.2); NEUT % 83.8 % (42.8-82.8); PLATELET COUNT 470 10^3/uL (134-434); RBC 3.71 M/mm3 (3.60-5.2); RDW 18.3 % (11.6-15.6); WHITE BLOOD COUNT 13.6 K/mm3 (4.0-10.0)
[2022-08-08 13:02] LABS: CHLORIDE 91 mmol/L (98-107); SODIUM 131 mmol/L (136-145)
[2022-08-08 13:04] LABS: ALBUMIN 3.7 g/dl (3.4-5.0); ANION GAP 12 MMOL/L (8-16); CALCIUM 9.6 mg/dL (8.5-10.1); CO2 28 mmol/L (21-32)
[2022-08-08 13:07] LABS: CREATININE 0.9 mg/dL (0.55-1.3); SGOT/AST 8 U/L (15-37); SGPT/ALT 14 U/L (13-61)
[2022-08-08 13:09] LABS: BILIRUBIN,TOTAL 0.2 mg/dL (0.2-1); TOT PROT 7.2 g/dl (6.4-8.2)
[2022-08-08 13:10] LABS: ALK PHOS 138 U/L (45-117)
[2022-08-08 13:19] LABS: GLUCOSE,RANDOM 417 mg/dL (74-106)
[2022-08-08] MEDS: POLYETHYLENE GLYCOL (HEALTHYLAX) 3350 17 GM PACKET PO SCH ×2 (13:30→22:29)
[2022-08-08] MEDS: SODIUM CHLORIDE 1,000 ML IV SCH ×2 (13:43→17:11)
[2022-08-08] MEDS ORDERED: INSULIN (NOVOLOG) ASPART 100 UNITS/ML 10ML VIAL ONE (17:16)
[2022-08-08] MEDS: RIVAROXABAN 20 MG TABLET PO SCH (17:22)
[2022-08-08] MEDS ORDERED: INSULIN (LEVEMIR) 100 UNITS/ML UNITS SQ SCH (19:35)
[2022-08-08] MEDS: MONTELUKAST NA 5 MG TAB.CHEW PO SCH (22:49)
[2022-08-09] MEDS ORDERED: INSULIN (LEVEMIR) 100 UNITS/ML UNITS SQ SCH ×2 (00:21→00:24)
[2022-08-09] MEDS: diazePAM 5 MG TABLET PO PRN (02:35)
[2022-08-09] MEDS: ACETAMINOPHEN 500 MG TABLET (FP) PO SCH ×3 (02:35→11:53)
[2022-08-09] MEDS: oxyCODONE HCL 5 MG TABLET PO PRN ×2 (04:47→14:51)
[2022-08-09] MEDS: SODIUM CHLORIDE 1,000 ML IV SCH (07:15)
[2022-08-09] MEDS: DOCUSATE SODIUM 100 MG CAPSULE (FP) PO SCH ×2 (07:20→14:51)
[2022-08-09] MEDS: GABAPENTIN 400 MG CAPSULE PO SCH ×2 (07:20→14:51)
[2022-08-09] MEDS: INSULIN SLIDING SCALE (NOVOLOG) 1 VIAL SQ SCH ×2 (07:21→11:52)
[2022-08-09] MEDS: INSULIN (NOVOLOG) ASPART 100 UNITS/ML 10ML VIAL SQ SCH ×2 (07:21→11:51)
[2022-08-09] MEDS: ALBUTEROL SO4 2.5/IPRATROPIUM 0.5 INH SOL 3 ML VIAL.NEB. NEB SCH ×2 (07:26→11:10)
[2022-08-09] MEDS: POLYETHYLENE GLYCOL (HEALTHYLAX) 3350 17 GM PACKET PO SCH ×3 (07:52→14:48)
[2022-08-09] MEDS: CEFAZOLIN 1 GM in DEXTROSE 5%-WATER - 50 ML IVPB SCH ×2 (07:53→11:52)
[2022-08-09] MEDS: amLODIPine BESYLATE 5 MG TABLET (FP) PO SCH (10:19)
[2022-08-09] MEDS: DULoxetine HCL 30 MG CAPSULE.DR PO SCH (10:19)
[2022-08-09] MEDS: PANTOPRAZOLE SODIUM 40 MG VIAL IVPUSH SCH (10:19)
[2022-08-09] MEDS: FOLIC ACID 1 MG TABLET (FP) PO SCH (10:19)
[2022-08-09] MEDS: FERROUS GLUCONATE 324 MG TAB (FP) PO SCH (10:19)
[2022-08-09] MEDS: LISINOPRIL 20 MG TABLET PO SCH (10:19)
[2022-08-09] MEDS: COLLAGENASE CLOSTRIDIUM HIST. 30 GRAMS TUBE TP SCH (10:20)
[2022-08-09 14:04] VITALS: BP 116/70; PULSE 100; TEMP 97.9
== END 2022-08-09 15:56 | DRG 460 ==
LOC: JER 10:57 → JERBED 16:38 → OBSVTOIN 18:26 → JERBED 18:26 → J6S 07-30 00:25
PROVIDERS: ADMIT Family Medicine; ATTEND Family Medicine
PROC: 0RG6071 Fusion of Thoracic Vertebral Joint with Autologous Tissue Substitute, Posterior Approach, Posterior Column, Open Approach (ICD-10-PCS; 2022-08-02)
PROC: 0RG4071 Fusion of Cervicothoracic Vertebral Joint with Autologous Tissue Substitute, Posterior Approach, Posterior Column, Open Approach (ICD-10-PCS; 2022-08-02)
PROC: 00NW0ZZ Release Cervical Spinal Cord, Open Approach (ICD-10-PCS; 2022-08-02)
PROC: 00NX0ZZ Release Thoracic Spinal Cord, Open Approach (ICD-10-PCS; 2022-08-02)
PROC: 0RP104Z Removal of Internal Fixation Device from Cervical Vertebral Joint, Open Approach (ICD-10-PCS; 2022-08-02)
PROC: 0RP404Z Removal of Internal Fixation Device from Cervicothoracic Vertebral Joint, Open Approach (ICD-10-PCS; 2022-08-02)
PROC: 0RP604Z Removal of Internal Fixation Device from Thoracic Vertebral Joint, Open Approach (ICD-10-PCS; 2022-08-02)
PROC: 4A10X4G Monitoring of Central Nervous Electrical Activity, Intraoperative, External Approach (ICD-10-PCS; 2022-08-02)
PROC: 0RG2071 Fusion of 2 or more Cervical Vertebral Joints with Autologous Tissue Substitute, Posterior Approach, Posterior Column, Open Approach (ICD-10-PCS; principal; 2022-08-02 08:00)
DX: M47.12 Other spondylosis with myelopathy, cervical region (principal); E87.1 Hypo-osmolality and hyponatremia; M96.0 Pseudarthrosis after fusion or arthrodesis; M54.12 Radiculopathy, cervical region; M54.30 Sciatica, unspecified side; G43.909 Migraine, unspecified, not intractable, without status migrainosus; E04.9 Nontoxic goiter, unspecified; D75.839 Thrombocytosis, unspecified; M54.2 Cervicalgia; G44.86 Cervicogenic headache; D64.9 Anemia, unspecified; D72.829 Elevated white blood cell count, unspecified; M79.672 Pain in left foot; R20.0 Anesthesia of skin; I10 Essential (primary) hypertension; R11.2 Nausea with vomiting, unspecified; M79.601 Pain in right arm; G89.29 Other chronic pain; M54.50 Low back pain, unspecified; E66.9 Obesity, unspecified; Z68.37 Body mass index [BMI] 37.0-37.9, adult; E11.40 Type 2 diabetes mellitus with diabetic neuropathy, unspecified; S91.109A Unspecified open wound of unspecified toe(s) without damage to nail, initial encounter; X58.XXXA Exposure to other specified factors, initial encounter; Y93.9 Activity, unspecified; Y83.8 Other surgical procedures as the cause of abnormal reaction of the patient, or of later complication, without mention of misadventure at the time of the procedure; Z89.512 Acquired absence of left leg below knee; Z86.718 Personal history of other venous thrombosis and embolism
CPT/HCPCS: 0241U-QW; 36415; 70450-TC; 70496-TC; 70498-TC; 70551-TC; 71045-TC-FY; 72125-TC; 72128-TC; 72141-TC; 73630-TC-RT-FY; 74018-TC-FY; 76000-TC-FY; 80048; 80053; 80061; 81003; 82550; 82728; 82962; 83036; 83540; 83550; 83690; 83735; 84100; 84443; 84484; 84703; 85025; 85027; 85610; 85651; 85730; 86850; 86900; 86901; 86922; 87086; 93005; 93010; 93925-TC; 94640; 94760; 97116-GP; 97162-GP; 99285-25; C1713; G0378; J1644; J1756

== ENCOUNTER 2023-06-25 15:27 | Emergency (ER) | payer OTHER ==
[2023-06-25] MEDS ORDERED: MAGNESIUM SULFATE IN WATER 2 GM/50 ML IVPB IVPB ONE ×2 (15:56→16:09)
[2023-06-25] MEDS ORDERED: ALBUTEROL SO4 2.5/IPRATROPIUM 0.5 INH SOL 3 ML VIAL.NEB. NEB ONE ×2 (15:56→16:09)
[2023-06-25 15:58] VITALS: TEMP 98.3; BMI 37.5
[2023-06-25 16:47] LABS: BASO % 0.5 % (0-2.0); HEMATOCRIT 31.3 % (32.4-45.2); HEMOGLOBIN 10.1 GM/dL (10.7-15.3); LYMPH % 23.6 % (8-40); MCH 25.9 pg (25.7-33.7); MCHC 32.4 g/dl (32.0-36.0); MEAN CELL VOLUME 80.1 fl (80-96); MEAN PLT VOLUME 7.7 fl (7.5-11.1); NEUT % 70.9 % (42.8-82.8); PLATELET COUNT 359 10^3/uL (134-434); RBC 3.91 M/mm3 (3.60-5.2); RDW 14.8 % (11.6-15.6); WHITE BLOOD COUNT 8.1 K/mm3 (4.0-10.0)
[2023-06-25] MEDS ORDERED: ALBUTEROL SO4 0.083% IH SOL 2.5 MG/3 ML VIAL.NEB. NEB ONE ×4 (16:48→18:00)
[2023-06-25 17:05] LABS: POTASSIUM 3.6 mmol/L (3.5-5.1)
[2023-06-25 17:07] LABS: CALCIUM 8.5 mg/dL (8.5-10.1)
[2023-06-25 17:08] LABS: ALBUMIN 3.5 g/dl (3.4-5.0); BLOOD UREA NITROGEN 4.8 mg/dL (7-18)
[2023-06-25 17:11] LABS: CREATININE 0.9 mg/dL (0.55-1.3)
[2023-06-25 17:13] LABS: BILIRUBIN,TOTAL 0.2 mg/dL (0.2-1); TOT PROT 6.7 g/dl (6.4-8.2)
[2023-06-25 18:29] VITALS: BP 117/74; PULSE 104; RESP 20
== END 2023-06-25 19:06 | disposition home or self-care (01) ==
LOC: JER 15:27
PROC: 3E033GC Introduction of Other Therapeutic Substance into Peripheral Vein, Percutaneous Approach (ICD-10-PCS; principal; 2023-06-25)
PROC: 3E0F7GC Introduction of Other Therapeutic Substance into Respiratory Tract, Via Natural or Artificial Opening (ICD-10-PCS; 2023-06-25)
PROC: 3E0F7GC Introduction of Other Therapeutic Substance into Respiratory Tract, Via Natural or Artificial Opening (ICD-10-PCS; 2023-06-25)
PROC: 3E0F7GC Introduction of Other Therapeutic Substance into Respiratory Tract, Via Natural or Artificial Opening (ICD-10-PCS; 2023-06-25)
DX: J45.901 Unspecified asthma with (acute) exacerbation (principal)
CPT/HCPCS: 36415; 71045-TC-FY; 80053; 83735; 85025; 93005; 93010; 99285-25

== ENCOUNTER 2023-07-27 12:25 | Inpatient (IN) | payer OTHER ==
[2023-07-27] MEDS ORDERED: ALBUTEROL SO4 2.5/IPRATROPIUM 0.5 INH SOL 3 ML VIAL.NEB. NEB SCH (12:45)
[2023-07-27] MEDS ORDERED: ALBUTEROL SULFATE 0.021% (0.63 MG/3 ML) VIAL.NEB NEB ONE (13:15)
[2023-07-27] MEDS: ALBUTEROL SO4 0.083% IH SOL 2.5 MG/3 ML VIAL.NEB. NEB SCH (13:36)
[2023-07-27 13:41] VITALS: BMI 36.0
[2023-07-27] MEDS ORDERED: ALBUTEROL SO4 0.083% IH SOL 2.5 MG/3 ML VIAL.NEB. NEB PRN (15:46)
[2023-07-27 16:22] LABS: BASO % 0.2 % (0-2.0); HEMATOCRIT 35.1 % (32.4-45.2); HEMOGLOBIN 11.1 GM/dL (10.7-15.3); LYMPH % 6.1 % (8-40); MCH 24.9 pg (25.7-33.7); MCHC 31.6 g/dl (32.0-36.0); MEAN CELL VOLUME 78.9 fl (80-96); MEAN PLT VOLUME 8.2 fl (7.5-11.1); NEUT % 92.7 % (42.8-82.8); PLATELET COUNT 508 10^3/uL (134-434); RBC 4.45 M/mm3 (3.60-5.2); RDW 16.7 % (11.6-15.6); WHITE BLOOD COUNT 12.5 K/mm3 (4.0-10.0)
[2023-07-27 16:27] LABS: INR 1.38 (0.83-1.09)
[2023-07-27 16:30] LABS: ACTIVATED PTT 33.1 SECONDS (25.2-36.5)
[2023-07-27 16:39] LABS: POTASSIUM 4.3 mmol/L (3.5-5.1)
[2023-07-27 16:42] LABS: ALBUMIN 3.7 g/dl (3.4-5.0); BLOOD UREA NITROGEN 9.8 mg/dL (7-18)
[2023-07-27 16:47] LABS: BILIRUBIN,TOTAL 0.4 mg/dL (0.2-1); TOT PROT 7.3 g/dl (6.4-8.2)
[2023-07-27 17:17] LABS: ANISOCYTOSIS 2+; MACROCYTOSIS 0; OVALOCYTE 1+
[2023-07-27] MEDS ORDERED: morphine CARPU-JECT 4 MG/1 ML DISP.SYRIN IVPUSH ONE (17:20)
[2023-07-27] MEDS ORDERED: ALBUTEROL SO4 2.5/IPRATROPIUM 0.5 INH SOL 3 ML VIAL.NEB. NEB PRN (18:08)
[2023-07-27] MEDS ORDERED: methylPREDNISolone NA SUCC 40 MG/1 ML VIAL IVPUSH SCH (18:15)
[2023-07-27] MEDS ORDERED: LACTATED RINGERS SOLUTION 1,000 ML/1,000 ML INFUS.BAG IV SCH (18:30)
[2023-07-27] MEDS ORDERED: LIDOCAINE 4% PATCH TP ONE (19:54)
[2023-07-27] MEDS: LIDOCAINE 5% TOPICAL PATCH TP SCH (20:05)
[2023-07-27] MEDS ORDERED: ALBUTEROL SO4 2.5/IPRATROPIUM 0.5 INH SOL 3 ML VIAL.NEB. NEB ONE ×2 (20:56→21:04)
[2023-07-27] MEDS ORDERED: PREGABALIN 100 MG CAPSULE ONE (20:57)
[2023-07-27] MEDS: ALBUTEROL SO4 2.5/IPRATROPIUM 0.5 INH SOL 3 ML VIAL.NEB. NEB SCH (21:48)
[2023-07-27] MEDS: PREGABALIN 100 MG CAPSULE PO SCH (21:48)
[2023-07-27] MEDS: INSULIN ASPART SLIDING SCALE (NOVOLOG) 1 VIAL SQ SCH (21:55)
[2023-07-27] MEDS: LIDOCAINE PATCH REMOVAL MC SCH (21:56)
[2023-07-27] MEDS ORDERED: INSULIN (LEVEMIR) 100 UNITS/ML UNITS SQ SCH (22:00)
[2023-07-28] MEDS ORDERED: ALBUTEROL SO4 2.5/IPRATROPIUM 0.5 INH SOL 3 ML VIAL.NEB. NEB ONE ×4 (04:48→23:22)
[2023-07-28] MEDS: INSULIN ASPART SLIDING SCALE (NOVOLOG) 1 VIAL SQ SCH ×3 (06:15→17:49)
[2023-07-28 08:52] LABS: BASO % 0.1 % (0-2.0); HEMOGLOBIN 10.4 GM/dL (10.7-15.3); LYMPH % 11.8 % (8-40); MCH 24.8 pg (25.7-33.7); MCHC 31.6 g/dl (32.0-36.0); MEAN CELL VOLUME 78.5 fl (80-96); MEAN PLT VOLUME 7.9 fl (7.5-11.1); MONO % 3.7 % (3.8-10.2); NEUT % 84.4 % (42.8-82.8); PLATELET COUNT 499 10^3/uL (134-434); WHITE BLOOD COUNT 12.6 K/mm3 (4.0-10.0)
[2023-07-28] MEDS ORDERED: ALBUTEROL SO4 HFA INHALER IH PRN (09:17)
[2023-07-28 09:20] LABS: BLOOD UREA NITROGEN 13.1 mg/dL (7-18)
[2023-07-28 09:21] LABS: CREATININE 0.8 mg/dL (0.55-1.3)
[2023-07-28 09:29] LABS: CALCIUM 9.7 mg/dL (8.5-10.1)
[2023-07-28] MEDS ORDERED: FLUTICASONE/UMECLIDIN/VILANTER(100-62.5-25 TRELEGY ELLIPTA) INAHLER IH SCH (10:00)
[2023-07-28] MEDS: ALBUTEROL SO4 2.5/IPRATROPIUM 0.5 INH SOL 3 ML VIAL.NEB. NEB SCH ×4 (10:21→21:30)
[2023-07-28] MEDS: amLODIPine BESYLATE 5 MG TABLET (FP) PO SCH (10:39)
[2023-07-28] MEDS: FAMOTIDINE 20 MG TABLET PO SCH (10:39)
[2023-07-28] MEDS: PREGABALIN 100 MG CAPSULE PO SCH ×2 (10:39→23:59)
[2023-07-28] MEDS: methylPREDNISolone NA SUCC 40 MG/1 ML VIAL IVPUSH SCH ×3 (10:39→17:24)
[2023-07-28] MEDS: LISINOPRIL 20 MG TABLET PO SCH (10:39)
[2023-07-28] MEDS: LIDOCAINE 5% TOPICAL PATCH TP SCH (10:39)
[2023-07-28] MEDS: PANTOPRAZOLE 20 MG TABLET PO SCH (10:40)
[2023-07-28] MEDS ORDERED: PREGABALIN 100 MG CAPSULE ONE (10:44)
[2023-07-28] MEDS ORDERED: DEXTROSE 50%-WATER - 25 GM/50 ML VIAL IVPUSH PRN (11:04)
[2023-07-28] MEDS ORDERED: INSULIN (NOVOLOG) ASPART 100 UNITS/ML 10ML VIAL ONE (13:00)
[2023-07-28] MEDS ORDERED: methylPREDNISolone NA SUCC 40 MG/1 ML VIAL ONE (17:09)
[2023-07-28] MEDS: INSULIN (NOVOLOG) ASPART 100 UNITS/ML 10ML VIAL SQ SCH (17:50)
[2023-07-28] MEDS: RIVAROXABAN 20 MG TABLET PO SCH (17:56)
[2023-07-28] MEDS: LIDOCAINE PATCH REMOVAL MC SCH (23:57)
[2023-07-28] MEDS: ATORVASTATIN CA 40 MG TABLET (FP) PO SCH (23:59)
[2023-07-28] MEDS: MONTELUKAST NA 5 MG TAB.CHEW PO SCH (23:59)
[2023-07-29] MEDS ORDERED: PREGABALIN 100 MG CAPSULE ONE ×2 (00:01→09:54)
[2023-07-29] MEDS ORDERED: MONTELUKAST NA 10 MG TABLET ONE (00:02)
[2023-07-29] MEDS ORDERED: methylPREDNISolone NA SUCC 40 MG/1 ML VIAL ONE (00:02)
[2023-07-29] MEDS ORDERED: ATORVASTATIN CA 40 MG TABLET (FP) ONE (00:02)
[2023-07-29] MEDS: INSULIN ASPART SLIDING SCALE (NOVOLOG) 1 VIAL SQ SCH ×5 (00:15→23:07)
[2023-07-29] MEDS: INSULIN (LEVEMIR) 100 UNITS/ML UNITS SQ SCH ×2 (00:16→23:09)
[2023-07-29] MEDS ORDERED: INSULIN (LEVEMIR) 100 UNITS/ML UNITS SQ ONE (00:31)
[2023-07-29] MEDS: methylPREDNISolone NA SUCC 40 MG/1 ML VIAL IVPUSH SCH ×3 (02:09→17:05)
[2023-07-29 08:23] LABS: HEMATOCRIT 31.8 % (32.4-45.2); MCH 25.3 pg (25.7-33.7); MCHC 31.5 g/dl (32.0-36.0); MEAN CELL VOLUME 80.4 fl (80-96); MEAN PLT VOLUME 8.1 fl (7.5-11.1); PLATELET COUNT 467 10^3/uL (134-434); RBC 3.96 M/mm3 (3.60-5.2); RDW 16.6 % (11.6-15.6); WHITE BLOOD COUNT 11.5 K/mm3 (4.0-10.0)
[2023-07-29 08:36] LABS: POTASSIUM 5.3 mmol/L (3.5-5.1)
[2023-07-29 08:43] LABS: BLOOD UREA NITROGEN 14.2 mg/dL (7-18); CALCIUM 9.6 mg/dL (8.5-10.1)
[2023-07-29 08:44] LABS: ALBUMIN 3.6 g/dl (3.4-5.0); MAGNESIUM 2.2 mg/dL (1.8-2.4)
[2023-07-29 08:47] LABS: CREATININE 1.1 mg/dL (0.55-1.3)
[2023-07-29 08:48] LABS: BILIRUBIN,TOTAL 0.2 mg/dL (0.2-1); TOT PROT 7.2 g/dl (6.4-8.2)
[2023-07-29 08:50] LABS: PHOSPHOROUS 2.9 mg/dL (2.5-4.9)
[2023-07-29 09:43] LABS: ANISOCYTOSIS 0; MACROCYTOSIS 0
[2023-07-29] MEDS ORDERED: INSULIN (NOVOLOG) ASPART 100 UNITS/ML 10ML VIAL ONE (09:55)
[2023-07-29] MEDS: INSULIN (NOVOLOG) ASPART 100 UNITS/ML 10ML VIAL SQ SCH ×3 (10:15→16:52)
[2023-07-29] MEDS: ALBUTEROL SO4 2.5/IPRATROPIUM 0.5 INH SOL 3 ML VIAL.NEB. NEB SCH ×4 (10:16→20:21)
[2023-07-29] MEDS: PREGABALIN 100 MG CAPSULE PO SCH ×2 (10:16→22:44)
[2023-07-29] MEDS: PANTOPRAZOLE 20 MG TABLET PO SCH (10:16)
[2023-07-29] MEDS: LIDOCAINE 5% TOPICAL PATCH TP SCH (10:16)
[2023-07-29] MEDS: FAMOTIDINE 20 MG TABLET PO SCH (10:16)
[2023-07-29] MEDS: amLODIPine BESYLATE 5 MG TABLET (FP) PO SCH (10:16)
[2023-07-29] MEDS: LISINOPRIL 20 MG TABLET PO SCH (10:16)
[2023-07-29] MEDS: RIVAROXABAN 20 MG TABLET PO SCH (17:05)
[2023-07-29] MEDS: ATORVASTATIN CA 40 MG TABLET (FP) PO SCH (22:44)
[2023-07-29] MEDS: MONTELUKAST NA 5 MG TAB.CHEW PO SCH (22:44)
[2023-07-29] MEDS: LIDOCAINE PATCH REMOVAL MC SCH (22:44)
[2023-07-30] MEDS: methylPREDNISolone NA SUCC 40 MG/1 ML VIAL IVPUSH SCH ×3 (02:53→17:11)
[2023-07-30] MEDS: INSULIN (NOVOLOG) ASPART 100 UNITS/ML 10ML VIAL SQ SCH ×3 (07:06→16:54)
[2023-07-30] MEDS: INSULIN ASPART SLIDING SCALE (NOVOLOG) 1 VIAL SQ SCH ×4 (07:08→21:59)
[2023-07-30] MEDS: ALBUTEROL SO4 2.5/IPRATROPIUM 0.5 INH SOL 3 ML VIAL.NEB. NEB SCH ×4 (08:28→22:07)
[2023-07-30] MEDS: LIDOCAINE 5% TOPICAL PATCH TP SCH (09:40)
[2023-07-30] MEDS: PREGABALIN 100 MG CAPSULE PO SCH ×2 (09:41→21:59)
[2023-07-30] MEDS: PANTOPRAZOLE 20 MG TABLET PO SCH (09:42)
[2023-07-30] MEDS: FAMOTIDINE 20 MG TABLET PO SCH (09:42)
[2023-07-30] MEDS: amLODIPine BESYLATE 5 MG TABLET (FP) PO SCH (09:42)
[2023-07-30] MEDS: LISINOPRIL 20 MG TABLET PO SCH (09:43)
[2023-07-30] MEDS ORDERED: LIDOCAINE 4% PATCH TP SCH ×3 (10:44→13:00)
[2023-07-30] MEDS ORDERED: LIDOCAINE 5% TOPICAL PATCH TP SCH ×2 (10:45→13:00)
[2023-07-30] MEDS: FLUTICASONE/UMECLIDIN/VILANTER(200-62.5-25 TRELEGY ELLIPTA) INAHLER IH SCH ×2 (12:04→12:53)
[2023-07-30] MEDS ORDERED: BENZOCAINE/MENTH/CETYLPYRD CL 1 EACH LOZENGE MM PRN (12:59)
[2023-07-30] MEDS: RIVAROXABAN 20 MG TABLET PO SCH (17:12)
[2023-07-30] MEDS: MONTELUKAST NA 10 MG TABLET PO SCH (21:59)
[2023-07-30] MEDS: ATORVASTATIN CA 40 MG TABLET (FP) PO SCH (21:59)
[2023-07-30] MEDS: INSULIN (LEVEMIR) 100 UNITS/ML UNITS SQ SCH (21:59)
[2023-07-30] MEDS ORDERED: LIDOCAINE PATCH REMOVAL MC SCH ×2 (22:00)
[2023-07-30] MEDS: LIDOCAINE PATCH REMOVAL MC SCH (22:01)
[2023-07-30] MEDS ORDERED: DOCUSATE SODIUM 100 MG CAPSULE (FP) PO PRN (22:07)
[2023-07-31] MEDS: methylPREDNISolone NA SUCC 40 MG/1 ML VIAL IVPUSH SCH ×3 (01:57→17:22)
[2023-07-31] MEDS ORDERED: DEXTROSE 50%-WATER 25 GM/50 ML DISP.SYRIN IVPUSH PRN (03:04)
[2023-07-31] MEDS ORDERED: ALBUTEROL SO4 2.5/IPRATROPIUM 0.5 INH SOL 3 ML VIAL.NEB. NEB PRN (03:04)
[2023-07-31] MEDS ORDERED: ALBUTEROL SO4 HFA INHALER IH PRN (03:04)
[2023-07-31] MEDS ORDERED: BENZOCAINE/MENTH/CETYLPYRD CL 1 EACH LOZENGE MM PRN (03:04)
[2023-07-31] MEDS: INSULIN (LEVEMIR) 100 UNITS/ML UNITS SQ SCH ×2 (07:04→22:38)
[2023-07-31] MEDS: INSULIN (NOVOLOG) ASPART 100 UNITS/ML 10ML VIAL SQ SCH ×3 (07:04→16:46)
[2023-07-31] MEDS: INSULIN ASPART SLIDING SCALE (NOVOLOG) 1 VIAL SQ SCH ×4 (07:05→22:37)
[2023-07-31] MEDS: PANTOPRAZOLE 20 MG TABLET PO SCH (07:10)
[2023-07-31] MEDS ORDERED: ALBUTEROL SO4 2.5/IPRATROPIUM 0.5 INH SOL 3 ML VIAL.NEB. NEB SCH (08:00)
[2023-07-31 09:10] LABS: HEMOGLOBIN 10.6 GM/dL (10.7-15.3); MCH 25.2 pg (25.7-33.7); MEAN CELL VOLUME 78.6 fl (80-96); MEAN PLT VOLUME 7.6 fl (7.5-11.1); PLATELET COUNT 488 10^3/uL (134-434); RDW 16.6 % (11.6-15.6); WHITE BLOOD COUNT 12.8 K/mm3 (4.0-10.0)
[2023-07-31 09:24] LABS: POTASSIUM 4.7 mmol/L (3.5-5.1)
[2023-07-31 09:32] LABS: ALBUMIN 3.6 g/dl (3.4-5.0); BLOOD UREA NITROGEN 15.8 mg/dL (7-18); CALCIUM 9.1 mg/dL (8.5-10.1)
[2023-07-31 09:35] LABS: CREATININE 0.9 mg/dL (0.55-1.3); PHOSPHOROUS 3.4 mg/dL (2.5-4.9)
[2023-07-31 09:36] LABS: BILIRUBIN,TOTAL 0.3 mg/dL (0.2-1); TOT PROT 7.3 g/dl (6.4-8.2)
[2023-07-31] MEDS ORDERED: oxyCODONE HCL 5 MG TABLET PO PRN (10:24)
[2023-07-31] MEDS: LIDOCAINE 4% PATCH TP SCH ×3 (10:28→10:29)
[2023-07-31] MEDS: PREGABALIN 100 MG CAPSULE PO SCH ×2 (10:29→22:11)
[2023-07-31] MEDS: LISINOPRIL 20 MG TABLET PO SCH (10:30)
[2023-07-31] MEDS: FAMOTIDINE 20 MG TABLET PO SCH (10:30)
[2023-07-31] MEDS: amLODIPine BESYLATE 5 MG TABLET (FP) PO SCH (10:30)
[2023-07-31] MEDS: POLYETHYLENE GLYCOL (HEALTHYLAX) 3350 17 GM PACKET PO SCH (10:43)
[2023-07-31] MEDS: METHOCARBAMOL 500 MG TABLET PO SCH ×2 (13:30→22:10)
[2023-07-31] MEDS: FLUTICASONE/UMECLIDIN/VILANTER(100-62.5-25 TRELEGY ELLIPTA) INAHLER IH SCH (13:32)
[2023-07-31] MEDS: oxyCODONE HCL 5 MG TABLET PO PRN ×2 (15:17→22:09)
[2023-07-31] MEDS ORDERED: ALBUTEROL SO4 0.083% IH SOL 2.5 MG/3 ML VIAL.NEB. NEB PRN (15:54)
[2023-07-31] MEDS: ALBUTEROL SO4 0.083% IH SOL 2.5 MG/3 ML VIAL.NEB. NEB SCH ×2 (16:12→20:15)
[2023-07-31] MEDS: RIVAROXABAN 20 MG TABLET PO SCH (17:22)
[2023-07-31] MEDS ORDERED: SENNOSIDES 8.6MG TABLET (FP) PO ONE (22:09)
[2023-07-31] MEDS: MONTELUKAST NA 10 MG TABLET PO SCH (22:10)
[2023-07-31] MEDS: ATORVASTATIN CA 40 MG TABLET (FP) PO SCH (22:10)
[2023-07-31] MEDS: LIDOCAINE PATCH REMOVAL MC SCH ×3 (22:11→22:12)
[2023-07-31] MEDS: DOCUSATE SODIUM 100 MG CAPSULE (FP) PO SCH (22:11)
[2023-08-01] MEDS: methylPREDNISolone NA SUCC 40 MG/1 ML VIAL IVPUSH SCH ×2 (01:02→12:20)
[2023-08-01] MEDS: METHOCARBAMOL 500 MG TABLET PO SCH ×3 (05:42→21:50)
[2023-08-01] MEDS: oxyCODONE HCL 5 MG TABLET PO PRN ×4 (05:42→21:52)
[2023-08-01] MEDS: INSULIN (LEVEMIR) 100 UNITS/ML UNITS SQ SCH ×2 (06:16→21:56)
[2023-08-01] MEDS: INSULIN ASPART SLIDING SCALE (NOVOLOG) 1 VIAL SQ SCH ×4 (06:17→21:59)
[2023-08-01] MEDS: INSULIN (NOVOLOG) ASPART 100 UNITS/ML 10ML VIAL SQ SCH ×3 (06:18→16:54)
[2023-08-01] MEDS: PANTOPRAZOLE 20 MG TABLET PO SCH (06:19)
[2023-08-01] MEDS: ALBUTEROL SO4 0.083% IH SOL 2.5 MG/3 ML VIAL.NEB. NEB SCH ×4 (07:15→20:05)
[2023-08-01 07:18] VITALS: RESP 18
[2023-08-01] MEDS ORDERED: INSULIN (NOVOLOG) ASPART 100 UNITS/ML 10ML VIAL ONE (08:40)
[2023-08-01] MEDS ORDERED: INSULIN (LEVEMIR) 100 UNITS/ML UNITS SQ ONE (08:41)
[2023-08-01 09:14] LABS: HEMATOCRIT 32.6 % (32.4-45.2); HEMOGLOBIN 10.5 GM/dL (10.7-15.3); MCH 25.4 pg (25.7-33.7); MCHC 32.1 g/dl (32.0-36.0); MEAN CELL VOLUME 79.1 fl (80-96); MEAN PLT VOLUME 7.8 fl (7.5-11.1); PLATELET COUNT 460 10^3/uL (134-434); RBC 4.13 M/mm3 (3.60-5.2); RDW 16.7 % (11.6-15.6)
[2023-08-01 09:37] LABS: POTASSIUM 4.7 mmol/L (3.5-5.1)
[2023-08-01 09:39] LABS: BLOOD UREA NITROGEN 15.9 mg/dL (7-18); CALCIUM 9.6 mg/dL (8.5-10.1)
[2023-08-01 09:42] LABS: CREATININE 0.9 mg/dL (0.55-1.3)
[2023-08-01 10:04] LABS: ANISOCYTOSIS 0; MACROCYTOSIS 0
[2023-08-01] MEDS: LISINOPRIL 20 MG TABLET PO SCH (11:44)
[2023-08-01] MEDS: amLODIPine BESYLATE 5 MG TABLET (FP) PO SCH (11:45)
[2023-08-01] MEDS: FAMOTIDINE 20 MG TABLET PO SCH (11:45)
[2023-08-01] MEDS: PREGABALIN 100 MG CAPSULE PO SCH ×2 (11:45→21:52)
[2023-08-01] MEDS: DOCUSATE SODIUM 100 MG CAPSULE (FP) PO SCH ×2 (11:45→21:52)
[2023-08-01] MEDS: LIDOCAINE 4% PATCH TP SCH ×3 (11:48)
[2023-08-01] MEDS: FLUTICASONE/UMECLIDIN/VILANTER(100-62.5-25 TRELEGY ELLIPTA) INAHLER IH SCH (12:19)
[2023-08-01] MEDS: POLYETHYLENE GLYCOL (HEALTHYLAX) 3350 17 GM PACKET PO SCH (12:20)
[2023-08-01] MEDS: RIVAROXABAN 20 MG TABLET PO SCH (18:43)
[2023-08-01] MEDS ORDERED: diphenhydrAMINE HCL 25 MG CAPSULE (FP) PO ONE (20:26)
[2023-08-01] MEDS: MONTELUKAST NA 10 MG TABLET PO SCH (21:52)
[2023-08-01] MEDS: ATORVASTATIN CA 40 MG TABLET (FP) PO SCH (21:52)
[2023-08-01] MEDS: LIDOCAINE PATCH REMOVAL MC SCH ×3 (22:42→22:43)
[2023-08-02] MEDS: methylPREDNISolone NA SUCC 40 MG/1 ML VIAL IVPUSH SCH (00:07)
[2023-08-02] MEDS: oxyCODONE HCL 5 MG TABLET PO PRN ×3 (02:05→17:17)
[2023-08-02] MEDS: METHOCARBAMOL 500 MG TABLET PO SCH ×3 (07:00→21:14)
[2023-08-02] MEDS: INSULIN (LEVEMIR) 100 UNITS/ML UNITS SQ SCH ×2 (07:01→21:23)
[2023-08-02] MEDS: INSULIN ASPART SLIDING SCALE (NOVOLOG) 1 VIAL SQ SCH ×4 (07:02→21:23)
[2023-08-02] MEDS: INSULIN (NOVOLOG) ASPART 100 UNITS/ML 10ML VIAL SQ SCH ×3 (07:06→17:17)
[2023-08-02] MEDS: PANTOPRAZOLE 20 MG TABLET PO SCH (07:08)
[2023-08-02] MEDS: ALBUTEROL SO4 0.083% IH SOL 2.5 MG/3 ML VIAL.NEB. NEB SCH ×4 (07:54→20:10)
[2023-08-02 09:59] LABS: HEMATOCRIT 33.6 % (32.4-45.2); HEMOGLOBIN 10.7 GM/dL (10.7-15.3); MCH 25.2 pg (25.7-33.7); MCHC 31.9 g/dl (32.0-36.0); MEAN PLT VOLUME 7.6 fl (7.5-11.1); PLATELET COUNT 444 10^3/uL (134-434); RBC 4.25 M/mm3 (3.60-5.2); RDW 16.2 % (11.6-15.6); WHITE BLOOD COUNT 17.9 K/mm3 (4.0-10.0)
[2023-08-02 10:18] LABS: POTASSIUM 4.9 mmol/L (3.5-5.1)
[2023-08-02] MEDS: FAMOTIDINE 20 MG TABLET PO SCH (10:22)
[2023-08-02] MEDS: PREGABALIN 100 MG CAPSULE PO SCH ×2 (10:22→21:15)
[2023-08-02] MEDS: DOCUSATE SODIUM 100 MG CAPSULE (FP) PO SCH ×2 (10:22→21:14)
[2023-08-02] MEDS: amLODIPine BESYLATE 5 MG TABLET (FP) PO SCH (10:22)
[2023-08-02] MEDS: LISINOPRIL 20 MG TABLET PO SCH (10:22)
[2023-08-02] MEDS: LIDOCAINE 4% PATCH TP SCH ×3 (10:23)
[2023-08-02] MEDS: FLUTICASONE/UMECLIDIN/VILANTER(100-62.5-25 TRELEGY ELLIPTA) INAHLER IH SCH (10:24)
[2023-08-02] MEDS: POLYETHYLENE GLYCOL (HEALTHYLAX) 3350 17 GM PACKET PO SCH (10:24)
[2023-08-02 10:29] LABS: BLOOD UREA NITROGEN 16.8 mg/dL (7-18); CALCIUM 10.3 mg/dL (8.5-10.1)
[2023-08-02] MEDS ORDERED: INSULIN (NOVOLOG) ASPART 100 UNITS/ML 10ML VIAL ONE (11:42)
[2023-08-02] MEDS: predniSONE 20 MG TABLET (UD) PO SCH (11:53)
[2023-08-02] MEDS: RIVAROXABAN 20 MG TABLET PO SCH (17:18)
[2023-08-02] MEDS: LIDOCAINE PATCH REMOVAL MC SCH ×3 (21:11)
[2023-08-02] MEDS: ATORVASTATIN CA 40 MG TABLET (FP) PO SCH ×2 (21:14→21:15)
[2023-08-02] MEDS: MONTELUKAST NA 10 MG TABLET PO SCH (21:15)
[2023-08-03] MEDS: oxyCODONE HCL 5 MG TABLET PO PRN ×2 (01:49→09:06)
[2023-08-03] MEDS: METHOCARBAMOL 500 MG TABLET PO SCH ×2 (06:25→14:55)
[2023-08-03] MEDS: PANTOPRAZOLE 20 MG TABLET PO SCH (06:25)
[2023-08-03] MEDS: INSULIN (LEVEMIR) 100 UNITS/ML UNITS SQ SCH (06:46)
[2023-08-03] MEDS: INSULIN ASPART SLIDING SCALE (NOVOLOG) 1 VIAL SQ SCH ×2 (06:47→12:15)
[2023-08-03] MEDS: INSULIN (NOVOLOG) ASPART 100 UNITS/ML 10ML VIAL SQ SCH ×3 (06:47→17:26)
[2023-08-03] MEDS: ALBUTEROL SO4 0.083% IH SOL 2.5 MG/3 ML VIAL.NEB. NEB SCH ×3 (07:28→15:05)
[2023-08-03] MEDS: POLYETHYLENE GLYCOL (HEALTHYLAX) 3350 17 GM PACKET PO SCH (09:08)
[2023-08-03] MEDS: FAMOTIDINE 20 MG TABLET PO SCH (09:08)
[2023-08-03] MEDS: PREGABALIN 100 MG CAPSULE PO SCH (09:08)
[2023-08-03] MEDS: LISINOPRIL 20 MG TABLET PO SCH (09:08)
[2023-08-03] MEDS: predniSONE 20 MG TABLET (UD) PO SCH (09:08)
[2023-08-03] MEDS: DOCUSATE SODIUM 100 MG CAPSULE (FP) PO SCH (09:08)
[2023-08-03] MEDS: amLODIPine BESYLATE 5 MG TABLET (FP) PO SCH (09:08)
[2023-08-03] MEDS: FLUTICASONE/UMECLIDIN/VILANTER(100-62.5-25 TRELEGY ELLIPTA) INAHLER IH SCH (09:10)
[2023-08-03] MEDS: LIDOCAINE 4% PATCH TP SCH ×3 (09:10)
[2023-08-03] MEDS ORDERED: SODIUM PHOSPHATE/NA BIPHOS 133 ML ENEMA RC ONE (09:16)
[2023-08-03] MEDS ORDERED: BISACODYL 10 MG SUPP.RECT PR PRN (09:17)
[2023-08-03] MEDS ORDERED: MAGNESIUM HYDROX 2400MG/30ML ORAL SUSPENSION 30 ML CUP PO ONE (09:20)
[2023-08-03] MEDS ORDERED: SENNOSIDES/DOCUSATE COMBO (SENNA PLUS) TABLET (UD) PO SCH (10:00)
[2023-08-03 14:39] VITALS: BP 105/76; PULSE 86; TEMP 98.5
== END 2023-08-03 16:30 | disposition home or self-care (01) | DRG 202 ==
LOC: JER 12:25 → JERBED 17:22 → J4W 07-29 21:31 → J7W 07-30 20:43
PROVIDERS: ADMIT Internal Medicine; ATTEND Nurse Practitioner
DX: J45.901 Unspecified asthma with (acute) exacerbation (principal); J96.01 Acute respiratory failure with hypoxia; G43.909 Migraine, unspecified, not intractable, without status migrainosus; E78.5 Hyperlipidemia, unspecified; Z86.718 Personal history of other venous thrombosis and embolism; Z86.711 Personal history of pulmonary embolism; G89.29 Other chronic pain; Z89.512 Acquired absence of left leg below knee; E11.65 Type 2 diabetes mellitus with hyperglycemia; K59.00 Constipation, unspecified; Z79.84 Long term (current) use of oral hypoglycemic drugs
CPT/HCPCS: 0241U-QW; 36415; 71045-TC-FY; 71275-TC; 80048; 80053; 82962; 83036; 83735; 84100; 84484; 84703; 85025; 85027; 85610; 85730; 93005; 93010; 94640; 94660; 94761; 97116-GP; 97161-GP; 99285-25; Q9967

== ENCOUNTER 2024-03-04 10:05 | Observation (INO) | payer OTHER ==
[2024-03-04 12:19] VITALS: RESP 18
[2024-03-04] MEDS: SODIUM CHLORIDE 1,000 ML IV STA (13:32)
[2024-03-04 14:02] LABS: BASO % 0.8 % (0-2.0); EOS % 0.7 % (0-4.5); HEMATOCRIT 38.6 % (32.4-45.2); HEMOGLOBIN 13.1 GM/dL (10.7-15.3); LYMPH % 31.3 % (8-40); MCH 29.6 pg (25.7-33.7); MCHC 33.9 g/dl (32.0-36.0); MEAN CELL VOLUME 87.4 fl (80-96); MEAN PLT VOLUME 7.6 fl (7.5-11.1); MONO % 4.1 % (3.8-10.2); NEUT % 63.1 % (42.8-82.8); PLATELET COUNT 330 10^3/uL (134-434); RBC 4.41 M/mm3 (3.60-5.2); RDW 18.1 % (11.6-15.6); WHITE BLOOD COUNT 8.9 K/mm3 (4.0-10.0)
[2024-03-04 14:22] LABS: POTASSIUM 4.1 mmol/L (3.5-5.1)
[2024-03-04 14:25] LABS: ALBUMIN 4.4 g/dl (3.4-5.0); CALCIUM 10.1 mg/dL (8.5-10.1)
[2024-03-04 14:28] LABS: CREATININE 0.7 mg/dL (0.55-1.3)
[2024-03-04 14:30] LABS: BILIRUBIN,TOTAL 0.8 mg/dL (0.2-1)
[2024-03-04] MEDS ORDERED: METHOCARBAMOL 500 MG TABLET ONE (15:17)
[2024-03-04] MEDS ORDERED: LIDOCAINE 4% PATCH TP ONE (15:18)
[2024-03-04] MEDS: LIDOCAINE 4% PATCH TP ONE (15:23)
[2024-03-04] MEDS: METHOCARBAMOL 500 MG TABLET PO ONE (15:23)
[2024-03-04] MEDS ORDERED: METOCLOPRAMIDE HCL INJECTION 10 MG/2 ML VIAL ONE (15:55)
[2024-03-04] MEDS: METOCLOPRAMIDE HCL INJECTION 10 MG/2 ML VIAL IVPUSH ONE (16:58)
[2024-03-04] MEDS ORDERED: KETOROLAC TROMETHAMINE 15 MG/ML VIAL ONE (18:27)
[2024-03-04] MEDS ORDERED: diazePAM 2 MG TABLET ONE (18:27)
[2024-03-04] MEDS: KETOROLAC TROMETHAMINE 15 MG/ML VIAL IVPUSH ONE (18:37)
[2024-03-04] MEDS: diazePAM 2 MG TABLET PO ONE (18:38)
[2024-03-04] MEDS ORDERED: MAGNESIUM SULFATE IN WATER 2 GM/50 ML IVPB IVPB ONE (20:02)
[2024-03-04] MEDS: MAGNESIUM SULF 50% (8.12 MEQ/2 ML-1 GM VIAL) IVPB ONE (20:07)
[2024-03-04] MEDS: LIDOCAINE PATCH REMOVAL MC SCH (22:08)
[2024-03-05] MEDS ORDERED: ALBUTEROL SO4 0.083% IH SOL 2.5 MG/3 ML VIAL.NEB. NEB PRN (02:26)
[2024-03-05] MEDS ORDERED: [UNRECOGNIZED DRUG - OTHER] MC PRN (02:26)
[2024-03-05] MEDS ORDERED: CYCLOBENZAPRINE HCL 5 MG TABLET ONE (05:24)
[2024-03-05] MEDS: CYCLOBENZAPRINE HCL 10 MG TABLET (FP) PO PRN (05:28)
[2024-03-05] MEDS ORDERED: METHOCARBAMOL 500 MG TABLET PO SCH (06:00)
[2024-03-05] MEDS: LIDOCAINE PATCH REMOVAL MC ONE (06:13)
[2024-03-05] MEDS: IBUPROFEN 400 MG TABLET (FP) PO ONE (07:21)
[2024-03-05] MEDS ORDERED: ALBUTEROL SO4 0.083% IH SOL 2.5 MG/3 ML VIAL.NEB. NEB ONE (07:26)
[2024-03-05] MEDS: PANTOPRAZOLE 20 MG TABLET PO SCH (07:36)
[2024-03-05] MEDS: INSULIN ASPART SLIDING SCALE (NOVOLOG) 1 VIAL SQ SCH ×2 (07:36→17:33)
[2024-03-05] MEDS: ALBUTEROL SO4 0.083% IH SOL 2.5 MG/3 ML VIAL.NEB. NEB SCH (07:37)
[2024-03-05] MEDS ORDERED: FLUTICASONE/UMECLIDIN/VILANTER(100-62.5-25 TRELEGY ELLIPTA) INAHLER IH SCH (10:00)
[2024-03-05] MEDS: LISINOPRIL 20 MG TABLET PO SCH (10:29)
[2024-03-05] MEDS: PREGABALIN 50 MG CAPSULE PO SCH (10:30)
[2024-03-05] MEDS: amLODIPine BESYLATE 5 MG TABLET (FP) PO SCH (10:31)
[2024-03-05] MEDS: POLYETHYLENE GLYCOL (HEALTHYLAX) 3350 17 GM PACKET PO SCH (10:33)
[2024-03-05] MEDS: SENNOSIDES/DOCUSATE COMBO (SENNA PLUS) TABLET (UD) PO SCH (10:33)
[2024-03-05] MEDS: CYCLOBENZAPRINE HCL 5 MG TABLET PO PRN (10:38)
[2024-03-05] MEDS: diazePAM 5 MG TABLET PO ONE (10:38)
[2024-03-05] MEDS: LIDOCAINE 5% TOPICAL PATCH TP SCH (10:38)
[2024-03-05] MEDS: CEFAZOLIN 1 GM in DEXTROSE 5%-WATER - 50 ML IVPB SCH (10:38)
[2024-03-05 13:22] LABS: BASO % 0.7 % (0-2.0); EOS % 0.7 % (0-4.5); HEMATOCRIT 36.9 % (32.4-45.2); HEMOGLOBIN 12.4 GM/dL (10.7-15.3); LYMPH % 28.9 % (8-40); MCH 29.2 pg (25.7-33.7); MCHC 33.6 g/dl (32.0-36.0); MEAN CELL VOLUME 86.8 fl (80-96); MEAN PLT VOLUME 8.4 fl (7.5-11.1); MONO % 4.1 % (3.8-10.2); NEUT % 65.6 % (42.8-82.8); PLATELET COUNT 334 10^3/uL (134-434); RBC 4.25 M/mm3 (3.60-5.2); WHITE BLOOD COUNT 9.4 K/mm3 (4.0-10.0)
[2024-03-05 13:46] LABS: POTASSIUM 4.5 mmol/L (3.5-5.1)
[2024-03-05 13:50] LABS: BLOOD UREA NITROGEN 12.4 mg/dL (7-18); MAGNESIUM 2.5 mg/dL (1.8-2.4)
[2024-03-05 13:52] LABS: ALBUMIN 3.9 g/dl (3.4-5.0)
[2024-03-05 13:55] LABS: CREATININE 0.6 mg/dL (0.55-1.3); PHOSPHOROUS 3.2 mg/dL (2.5-4.9)
[2024-03-05 13:56] LABS: BILIRUBIN,TOTAL 0.5 mg/dL (0.2-1)
[2024-03-05 13:57] LABS: TOT PROT 6.9 g/dl (6.4-8.2)
[2024-03-05 14:05] VITALS: BMI 32.7
[2024-03-05] MEDS: KETOROLAC TROMETHAMINE 30 MG/1 ML VIAL IVPB SCH (15:43)
[2024-03-05] MEDS: FLUTICASONE/UMECLIDIN/VILANTER(200-62.5-25 TRELEGY ELLIPTA) INAHLER IH SCH (15:46)
[2024-03-05 16:37] LABS: EPI CELLS 14 /uL (0-25.1); HYALINE CASTS 1 /uL (0-3.1); URINE APPEARANCE CLEAR; URINE BACTERIA 66 /uL (0-1359); URINE BILIRUBIN NEGATIVE (NEGATIVE); URINE COLOR YELLOW; URINE GLUCOSE (UA) NEGATIVE (NEGATIVE); URINE KETONE NEGATIVE (NEGATIVE); URINE LEUK ESTERASE NEGATIVE (NEGATIVE); URINE NITRITE NEGATIVE (NEGATIVE); URINE PROTEIN TRACE (NEGATIVE); URINE RBC 1008 /uL (0-23.9); URINE UROBILINOGEN 0.2 mg/dL (0.2-1.0); URINE WBC 11 /uL (0-25.8)
[2024-03-05] MEDS: RIVAROXABAN 10 MG TABLET PO SCH (17:33)
[2024-03-05] MEDS: AMOX TR/POT CLAV 875MG/125MG TABLETS (FP) PO SCH (17:33)
[2024-03-05] MEDS: diphenhydrAMINE HCL 25 MG CAPSULE (FP) PO ONE (19:49)
[2024-03-05] MEDS: SERTRALINE HCL 25 MG TABLET (FP) PO SCH (21:07)
[2024-03-05] MEDS: ATORVASTATIN CA 40 MG TABLET (FP) PO SCH (21:07)
[2024-03-05] MEDS: MONTELUKAST NA 5 MG TAB.CHEW PO SCH (21:07)
[2024-03-06] MEDS: LIDOCAINE PATCH REMOVAL MC SCH (06:08)
[2024-03-06] MEDS: diazePAM 5 MG TABLET PO PRN (10:24)
[2024-03-06 10:35] LABS: BASO % 0.4 % (0-2.0); EOS % 1.1 % (0-4.5); HEMATOCRIT 34.5 % (32.4-45.2); HEMOGLOBIN 11.6 GM/dL (10.7-15.3); LYMPH % 36.6 % (8-40); MCH 29.1 pg (25.7-33.7); MCHC 33.6 g/dl (32.0-36.0); MEAN CELL VOLUME 86.5 fl (80-96); MEAN PLT VOLUME 7.7 fl (7.5-11.1); MONO % 3.7 % (3.8-10.2); NEUT % 58.2 % (42.8-82.8); PLATELET COUNT 303 10^3/uL (134-434); RBC 3.99 M/mm3 (3.60-5.2); RDW 17.7 % (11.6-15.6); WHITE BLOOD COUNT 5.8 K/mm3 (4.0-10.0)
[2024-03-06 10:50] LABS: POTASSIUM 4.3 mmol/L (3.5-5.1)
[2024-03-06] MEDS: diazePAM 5 MG TABLET PO SCH (10:59)
[2024-03-06 11:06] LABS: ALBUMIN 3.4 g/dl (3.4-5.0); CALCIUM 8.9 mg/dL (8.5-10.1); MAGNESIUM 2.4 mg/dL (1.8-2.4)
[2024-03-06 11:10] LABS: CREATININE 0.6 mg/dL (0.55-1.3)
[2024-03-06 11:11] LABS: BILIRUBIN,TOTAL 0.8 mg/dL (0.2-1); TOT PROT 6.2 g/dl (6.4-8.2)
[2024-03-06] MEDS: KETOROLAC TROMETHAMINE 30 MG/1 ML VIAL IVPUSH ONE (11:34)
[2024-03-06] MEDS: oxyCODONE HCL 5 MG TABLET PO PRN ×2 (14:03→19:31)
[2024-03-06 20:04] VITALS: BP 133/95; PULSE 76; TEMP 98.1
== END 2024-03-06 20:12 | disposition home or self-care (01) ==
LOC: JER 10:05 → JERBED 18:08 → J5S 03-05 09:06
PROVIDERS: ADMIT Internal Medicine; ATTEND Nurse Practitioner Acute Care
PROC: 3E03329 Introduction of Other Anti-infective into Peripheral Vein, Percutaneous Approach (ICD-10-PCS; principal; 2024-03-04)
PROC: 3E013VG Introduction of Insulin into Subcutaneous Tissue, Percutaneous Approach (ICD-10-PCS; 2024-03-04)
PROC: 3E0333Z Introduction of Anti-inflammatory into Peripheral Vein, Percutaneous Approach (ICD-10-PCS; 2024-03-04)
PROC: 3E033GC Introduction of Other Therapeutic Substance into Peripheral Vein, Percutaneous Approach (ICD-10-PCS; 2024-03-04)
PROC: 3E0337Z Introduction of Electrolytic and Water Balance Substance into Peripheral Vein, Percutaneous Approach (ICD-10-PCS; 2024-03-04)
DX: L73.2 Hidradenitis suppurativa (principal); M54.2 Cervicalgia; R51.9 Headache, unspecified; E11.9 Type 2 diabetes mellitus without complications; I10 Essential (primary) hypertension; E78.5 Hyperlipidemia, unspecified; Z79.01 Long term (current) use of anticoagulants; J45.909 Unspecified asthma, uncomplicated; Z89.512 Acquired absence of left leg below knee; L02.412 Cutaneous abscess of left axilla; M48.00 Spinal stenosis, site unspecified; Z79.4 Long term (current) use of insulin; G89.4 Chronic pain syndrome; E66.9 Obesity, unspecified; Z86.718 Personal history of other venous thrombosis and embolism; Z29.9 Encounter for prophylactic measures, unspecified
CPT/HCPCS: 36415; 70450-TC; 70490-TC; 72141-TC; 80053; 81003; 82962; 83735; 84100; 84703; 85025; 87081; 87635; 93005; 93010; 94640; 96361; 96365; 96372; 96375; 96376; 99285-25; G0378

== ENCOUNTER 2024-04-09 04:17 | Day surgery (SDC) | payer OTHER ==
[2024-04-07 14:33] VITALS: BMI 34.9
[2024-04-09] MEDS ORDERED: DEXAMETHASONE SOD PHOSPHATE 10 MG/1 ML VIAL ONE (07:25)
[2024-04-09] MEDS ORDERED: LIDOCAINE HCL/PF 1% SDV 5ML VIAL ONE (07:25)
[2024-04-09] MEDS: LIDOCAINE HCL 1% PRESERVATIVE FREE - 30ML VIAL IJ ONE (10:30)
[2024-04-09] MEDS: ACETAMINOPHEN 500 MG TABLET (FP) PO PRN (11:00)
[2024-04-09 11:38] VITALS: RESP 17
[2024-04-09 13:19] VITALS: BP 122/70; PULSE 62; TEMP 97.7
== END 2024-04-09 12:42 | disposition home or self-care (01) ==
LOC: JASU-SURG 04:17
PROVIDERS: ATTEND Pain Medicine Pain Medicine
PROC: 01HY3MZ Insertion of Neurostimulator Lead into Peripheral Nerve, Percutaneous Approach (ICD-10-PCS; principal; 2024-04-09 09:30)
DX: G89.4 Chronic pain syndrome (principal); M54.2 Cervicalgia
CPT/HCPCS: 64555; C1778; 76000-TC-FY; 81025; J1100

== ENCOUNTER 2024-04-13 15:41 | Emergency (ER) | payer OTHER ==
[2024-04-13 16:17] VITALS: BMI 34.6
[2024-04-13] MEDS ORDERED: PIPERACILLIN/TAZOB 4.5 GM 4.5 GM/100 ML BAG IVPB ONE (19:01)
[2024-04-13] MEDS ORDERED: ACETAMINOPHEN 325 MG TABLET (FP) ONE (19:01)
[2024-04-13] MEDS ORDERED: morphine SULFATE 4 MG/ML VIAL ONE (19:01)
[2024-04-13 19:03] LABS: BASO % 0.7 % (0-2.0); EOS % 0.9 % (0-4.5); HEMATOCRIT 37.2 % (32.4-45.2); HEMOGLOBIN 12.2 GM/dL (10.7-15.3); LYMPH % 33.2 % (8-40); MCH 29.9 pg (25.7-33.7); MCHC 32.7 g/dl (32.0-36.0); MEAN CELL VOLUME 91.3 fl (80-96); MEAN PLT VOLUME 7.5 fl (7.5-11.1); MONO % 3.9 % (3.8-10.2); NEUT % 61.3 % (42.8-82.8); PLATELET COUNT 358 10^3/uL (134-434); RBC 4.07 M/mm3 (3.60-5.2); RDW 17.4 % (11.6-15.6); WHITE BLOOD COUNT 9.3 K/mm3 (4.0-10.0)
[2024-04-13] MEDS: morphine SULFATE 4 MG/ML VIAL IVPUSH ONE (19:03)
[2024-04-13] MEDS: ACETAMINOPHEN 500 MG TABLET (FP) PO ONE (19:04)
[2024-04-13] MEDS: PIPERACILLIN/TAZOB 4.5 GM 4.5 GM in DEXTROSE 5%-WATER 100 ML IVPB ONE (19:05)
[2024-04-13 19:21] LABS: INR 1.26 (0.83-1.09); PROTHROMBIN TIME (PATIENT) 14.1 SEC (9.7-13.0)
[2024-04-13 19:24] LABS: ACTIVATED PTT 39.8 SECONDS (25.2-36.5)
[2024-04-13 19:30] LABS: POTASSIUM 4.1 mmol/L (3.5-5.1)
[2024-04-13 19:32] LABS: CALCIUM 9.9 mg/dL (8.5-10.1)
[2024-04-13 19:33] LABS: ALBUMIN 3.8 g/dl (3.4-5.0); BLOOD UREA NITROGEN 9.6 mg/dL (7-18)
[2024-04-13 19:36] LABS: CREATININE 0.6 mg/dL (0.55-1.3)
[2024-04-13 19:37] LABS: BILIRUBIN,TOTAL 0.3 mg/dL (0.2-1)
[2024-04-13] MEDS: VANCOMYCIN PREMIX 1.75 GM 1,750 MG/350 ML PIGGYBACK IVPB ONE (20:22)
[2024-04-13 20:32] LABS: HIV INTERPRETATION NEGATIVE (NEGATIVE)
[2024-04-13] MEDS ORDERED: MORPHINE SULFATE 2 MG/ML SYRINGE ONE (21:58)
[2024-04-13] MEDS: morphine CARPU-JECT 2 MG/1 ML DISP.SYRIN IVPUSH ONE (22:06)
[2024-04-13 23:02] VITALS: BP 118/72; PULSE 71; RESP 16; TEMP 97.8
== END 2024-04-13 23:00 | disposition short-term general hospital (02) ==
LOC: JER 15:41
PROC: 3E03329 Introduction of Other Anti-infective into Peripheral Vein, Percutaneous Approach (ICD-10-PCS; principal; 2024-04-13)
PROC: 3E03329 Introduction of Other Anti-infective into Peripheral Vein, Percutaneous Approach (ICD-10-PCS; 2024-04-13)
PROC: 3E033NZ Introduction of Analgesics, Hypnotics, Sedatives into Peripheral Vein, Percutaneous Approach (ICD-10-PCS; 2024-04-13)
PROC: 3E033NZ Introduction of Analgesics, Hypnotics, Sedatives into Peripheral Vein, Percutaneous Approach (ICD-10-PCS; 2024-04-13)
DX: N76.0 Acute vaginitis (principal); Z20.822 Contact with and (suspected) exposure to COVID-19
CPT/HCPCS: 0241U-QW; 36415; 74177-TC; 80053; 84703; 85025; 85610; 85730; 86803; 86850; 86900; 86901; 87389; 96365; 96366; 96368; 96375; 96376; 99285-25; J3370; Q9967

== ENCOUNTER 2024-05-07 03:57 | Day surgery (SDC) | payer OTHER ==
[2024-05-06 14:00] VITALS: BMI 34.4
[2024-05-07] MEDS ORDERED: LIDOCAINE HCL/PF 2% SDV 5ML VIAL ONE (07:11)
[2024-05-07] MEDS ORDERED: BUPIVACAINE HCL/PF 0.75% 10 ML VIAL ONE (07:12)
[2024-05-07] MEDS ORDERED: BUPIVACAINE HCL/PF 0.5% (5MG/ML) 10 ML VIAL ONE (07:12)
[2024-05-07] MEDS ORDERED: TRIAMCINOLONE ACET 40MG/1ML VIAL ONE (07:12)
[2024-05-07] MEDS ORDERED: BUPIVACAINE HCL/PF 0.25% (2.5MG/ML) 10 ML VIAL ONE (07:12)
[2024-05-07] MEDS ORDERED: DEXAMETHASONE SOD PHOSPHATE 10 MG/1 ML VIAL ONE (07:13)
[2024-05-07] MEDS ORDERED: LIDOCAINE HCL/PF 1% SDV 5ML VIAL ONE ×2 (07:13→07:46)
[2024-05-07] MEDS ORDERED: SODIUM CHLORIDE 0.9% P/F 10 ML VIAL IJ ONE (07:32)
[2024-05-07] MEDS ORDERED: MIDAZOLAM HCL 2 MG/2 ML SINGLE DOSE VIAL ONE ×2 (07:43→08:35)
[2024-05-07] MEDS ORDERED: ONDANSETRON 4 MG/2 ML VIAL ONE (08:59)
[2024-05-07] MEDS ORDERED: ACETAMINOPHEN 500 MG TABLET (FP) PO PRN (09:31)
[2024-05-07 10:06] VITALS: RESP 18
[2024-05-07 10:43] VITALS: BP 130/78; PULSE 58; TEMP 97.2
== END 2024-05-07 10:55 | disposition home or self-care (01) ==
LOC: JASU-SURG 03:57
PROVIDERS: ATTEND Pain Medicine Pain Medicine
PROC: 01HY3MZ Insertion of Neurostimulator Lead into Peripheral Nerve, Percutaneous Approach (ICD-10-PCS; principal; 2024-05-07 08:46)
DX: G89.4 Chronic pain syndrome (principal); M54.2 Cervicalgia
CPT/HCPCS: 64555; C1778; 76000-TC-FY; 81025; 82962; J1100

== ENCOUNTER 2024-07-30 04:45 | Day surgery (SDC) | payer OTHER ==
[2024-07-29 14:48] VITALS: BMI 34.4
[2024-07-30] MEDS ORDERED: DEXAMETHASONE SOD PHOSPHATE 10 MG/1 ML VIAL ONE (07:57)
[2024-07-30] MEDS ORDERED: LIDOCAINE HCL/PF 1% SDV 5ML VIAL ONE (07:57)
[2024-07-30] MEDS ORDERED: ACETAMINOPHEN 500 MG TABLET (FP) PO PRN (09:31)
[2024-07-30] MEDS: LIDOCAINE HCL 1% PRESERVATIVE FREE - 30ML VIAL IJ ONE (12:30)
[2024-07-30] MEDS: IOHEXOL 180 MG/1 ML ML IJ ONE (12:32)
[2024-07-30] MEDS: DEXAMETHASONE SOD PHOSPHATE 10 MG/1 ML VIAL IVPUSH ONE ×2 (12:36)
[2024-07-30 13:05] VITALS: BP 131/79; PULSE 63; RESP 20; TEMP 97.5
== END 2024-07-30 14:22 | disposition home or self-care (01) ==
LOC: JASU-SURG 04:45
PROVIDERS: ATTEND Pain Medicine Pain Medicine
PROC: 3E0R3BZ Introduction of Anesthetic Agent into Spinal Canal, Percutaneous Approach (ICD-10-PCS; 2024-07-30)
PROC: 3E0R33Z Introduction of Anti-inflammatory into Spinal Canal, Percutaneous Approach (ICD-10-PCS; principal; 2024-07-30 12:45)
DX: M54.16 Radiculopathy, lumbar region (principal)
CPT/HCPCS: 76000-TC-FY; 81025; J1100

== ENCOUNTER 2025-01-14 12:43 | Emergency (ER) | payer OTHER ==
[2025-01-14 13:15] VITALS: BP 114/73; PULSE 75; RESP 18; TEMP 97.1; BMI 36.8
[2025-01-14] MEDS ORDERED: morphine SULFATE 4 MG/ML VIAL ONE (13:32)
[2025-01-14] MEDS ORDERED: ONDANSETRON 4 MG/2 ML VIAL ONE (13:32)
[2025-01-14 14:09] LABS: ABSOLUTE IMMATURE GRANULOCYTES 0.03 x10^3/uL (0.0-0.031); BASOPHILS # 0.03 x10^3/uL (0.01-0.08); EOSINOPHIL % 0.6 % (0.7-5.8); EOSINOPHILS # 0.05 x10^3/uL (0.04-0.36); HEMATOCRIT 35.8 % (34.1-44.9); HEMOGLOBIN 11.5 g/dL (11.2-15.7); MCHC 32.1 g/dl (32.2-35.5); MEAN CELL VOLUME 89.1 fl (79.4-94.8); MEAN PLT VOLUME 9.5 fl (9.4-12.3); MONOCYTE # 0.47 x10^3/uL (0.24-0.86); MONOCYTE % 5.4 % (4.7-12.5); PLATELET COUNT 328 x10^3/uL (182-369); RDW 13.5 % (12.2-17.1)
[2025-01-14 14:38] LABS: POTASSIUM 4.2 mmol/L (3.5-5.1)
[2025-01-14 14:40] LABS: CALCIUM 10.1 mg/dL (8.5-10.1)
[2025-01-14 14:41] LABS: ALBUMIN 3.9 g/dl (3.4-5.0); BLOOD UREA NITROGEN 12.3 mg/dL (7-18)
[2025-01-14 14:44] LABS: CREATININE 0.9 mg/dL (0.55-1.3)
[2025-01-14 14:45] LABS: BILIRUBIN,TOTAL 0.3 mg/dL (0.2-1); TOT PROT 6.8 g/dl (6.4-8.2)
[2025-01-14] MEDS: morphine CARPU-JECT 4 MG/1 ML DISP.SYRIN IVPUSH ONE (14:49)
[2025-01-14] MEDS: ONDANSETRON 4 MG/2 ML VIAL IVPB ONE (15:11)
[2025-01-14 15:41] LABS: EPI CELLS >36 /uL (0-25.1); HYALINE CASTS 19 /uL (0-3.1); PH,URINE 5.5 (5.0-8.0); URINE APPEARANCE CLOUDY; URINE BACTERIA 159 /uL (0-1359); URINE BILIRUBIN NEGATIVE (NEGATIVE); URINE COLOR YELLOW; URINE GLUCOSE (UA) NEGATIVE (NEGATIVE); URINE KETONE 1+ (NEGATIVE); URINE LEUK ESTERASE 2+ (NEGATIVE); URINE NITRITE NEGATIVE (NEGATIVE); URINE PROTEIN 1+ (NEGATIVE); URINE WBC 700 /uL (0-25.8)
[2025-01-14 16:03] LABS: URINE RBC 68 /uL (0-23.9)
[2025-01-14 16:05] LABS: HCG,QUALITATIVE URINE Negative
[2025-01-14] MEDS ORDERED: METHOCARBAMOL 500 MG TABLET ONE (16:59)
[2025-01-14] MEDS: METHOCARBAMOL 500 MG TABLET PO ONE (17:01)
[2025-01-14 17:21] LABS: INR 1.07 (0.83-1.09); PROTHROMBIN TIME (PATIENT) 11.7 SEC (9.7-13.0)
[2025-01-14 17:24] LABS: ACTIVATED PTT 33.7 SECONDS (25.2-36.5)
[2025-01-14] MEDS ORDERED: KETOROLAC TROMETHAMINE 30 MG/1 ML VIAL ONE (18:28)
[2025-01-14] MEDS: KETOROLAC TROMETHAMINE 30 MG/1 ML VIAL IM ONE (18:59)
== END 2025-01-14 19:00 | disposition home or self-care (01) ==
LOC: JER 12:43
PROC: 3E033NZ Introduction of Analgesics, Hypnotics, Sedatives into Peripheral Vein, Percutaneous Approach (ICD-10-PCS; principal; 2025-01-14)
PROC: 3E033GC Introduction of Other Therapeutic Substance into Peripheral Vein, Percutaneous Approach (ICD-10-PCS; 2025-01-14)
PROC: 3E0233Z Introduction of Anti-inflammatory into Muscle, Percutaneous Approach (ICD-10-PCS; 2025-01-14)
DX: M25.512 Pain in left shoulder (principal); M25.531 Pain in right wrist; M25.561 Pain in right knee; M25.562 Pain in left knee; R07.89 Other chest pain; R42 Dizziness and giddiness; R23.2 Flushing; M79.89 Other specified soft tissue disorders; M54.2 Cervicalgia; M54.50 Low back pain, unspecified; W01.0XXA Fall on same level from slipping, tripping and stumbling without subsequent striking against object, initial encounter; Y92.009 Unspecified place in unspecified non-institutional (private) residence as the place of occurrence of the external cause
CPT/HCPCS: 36415; 70450-TC; 71046-TC-FY; 72125-TC; 72131-TC; 72170-TC-FY; 73030-TC-LT-FY; 73110-TC-RT-FY; 73130-TC-RT-FY; 80053; 81003; 84484; 84703; 85025; 85610; 85730; 87086; 93005; 93010; 96372; 96374; 96375; 99285-25